=== PATIENT | female | born 1970 | race Caucasian/White ===

== ENCOUNTER 2017-10-31 19:09 | Inpatient (IN) | payer BC ==
[2017-10-31] MEDS ORDERED: SODIUM CHLORIDE 0.9% 1,000 ML IV STA (19:21)
[2017-10-31] MEDS ORDERED: MORPHINE SULFATE 4 MG/ML SYRINGE IV STA (19:21)
[2017-10-31] MEDS ORDERED: ONDANSETRON 4 MG/2 ML VIAL IVP STA (19:48)
[2017-10-31] MEDS ORDERED: KETOROLAC 30 MG/ML 1 ML VIAL IVP STA (19:56)
[2017-10-31] MEDS ORDERED: ACETAMINOPHEN IV (For NPO) 1,000 MG in EMPTY BAG 1 BAG IVPB STA (19:56)
--- NOTE | 2017-10-31 19:56 | ED ---
General Adult HPI - General Source: patient, RN notes reviewed, old records reviewed Mode of arrival: EMS Limitations: no limitations <Roshan Seaman - Last Filed: 10/31/17 19:55> <Matt Cordero - Last Filed: 10/31/17 22:47> - General Chief complaint: Psychiatric Symptoms Stated complaint: fall,back pain,vomiting Time Seen by Provider: 10/31/17 19:16 - History of Present Illness Initial comments: This is a 47-year-old female to the ER for evaluation. States she is presenting for evaluation regards to right-sided pain right flank pain. Patient states her mental issues have been increased because of her possible sclerosis, she does feel suicidal without plan at this time. Regardless patient does have right-sided flank pain and right-sided abdominal pain occasional epigastric pain. Tylenol without help patient's pain. Mild nausea no vomiting no recent change in bowel movements. No shortness of breath or cough. Patient states her legs have been increasingly weaker but that is initiated does come and go that she has. No other significant neurological deficit (Roshan Seaman) - Related Data Home Medications Medication Instructions Recorded Confirmed Lisinopril-Hctz 10-12.5 mg 1 tab PO DAILY 06/02/16 10/31/17 [Zestoretic 10-12.5] Omeprazole [PriLOSEC] 20 mg PO DAILY 10/31/17 10/31/17 Allergies Allergy/AdvReac Type Severity Reaction Status Date / Time No Known Allergies Allergy Verified 10/31/17 19:34 Review of Systems ROS Other: All systems not noted in ROS Statement are negative. <Roshan Seaman - Last Filed: 10/31/17 19:55> ROS Other: All systems not noted in ROS Statement are negative. <Matt Cordero - Last Filed: 10/31/17 22:47> ROS Statement: Those systems with pertinent positive or pertinent negative responses have been documented in the HPI. Past Medical History Past Medical History: Hypertension, Neurologic Disorder Additional Past Medical History / Comment(s): MS History of Any Multi-Drug Resistant Organisms: None Reported Additional Past Surgical History / Comment(s): Ovarian Mass removed Past Psychological History: Depression Smoking Status: Former smoker Past Alcohol Use History: None Reported Past Drug Use History: None Reported - Past Family History Mother History Unknown: Yes Family Medical History: Hypertension Additional Family Medical History / Comment(s): ARTHRITIS, KNEE REPLACEMENT SURGERY Father History Unknown: Yes Family Medical History: Cancer Additional Family Medical History / Comment(s): PACEMAKER, ARTHRITIS, COLON CANCER <Roshan Seaman - Last Filed: 10/31/17 19:55> General Exam Limitations: no limitations General appearance: alert, anxious Head exam: Present: atraumatic, normocephalic, normal inspection Eye exam: Present: normal appearance, PERRL, EOMI. Absent: scleral icterus, conjunctival injection, periorbital swelling ENT exam: Present: normal exam, mucous membranes moist Neck exam: Present: normal inspection. Absent: tenderness, meningismus, lymphadenopathy Respiratory exam: Present: normal lung sounds bilaterally. Absent: respiratory distress, wheezes, rales, rhonchi, stridor Cardiovascular Exam: Present: regular rate, normal rhythm, normal heart sounds. Absent: systolic murmur, diastolic murmur, rubs, gallop, clicks GI/Abdominal exam: Present: soft, tenderness (Right upper quadrant), normal bowel sounds. Absent: distended, guarding, rebound, rigid Extremities exam: Present: normal inspection, full ROM, normal capillary refill. Absent: tenderness, pedal edema, joint swelling, calf tenderness Back exam: Present: normal inspection Neurological exam: Present: alert, oriented X3, CN II-XII intact Psychiatric exam: Present: normal affect, normal mood Skin exam: Present: warm, dry, intact, normal color. Absent: rash <Roshan Seaman - Last Filed: 10/31/17 19:55> Vital Signs 10/31/17 10/31/17 19:14 21:58 Temperature 100.8 F H 98.4 F Pulse Rate 83 79 Respiratory 18 18 Rate Blood Pressure 135/85 128/72 O2 Sat by Pulse 97 98 Oximetry Medical Decision Making <Roshan Seaman - Last Filed: 10/31/17 19:55> - Lab Data Result diagrams: 10/31/17 19:40 10/31/17 19:40 <Matt Cordero - Last Filed: 10/31/17 22:47> - Medical Decision Making I received this patient as a sign out, pending the results of the ultrasound. The patient's ultrasound is concerning for possibility of acute cholecystitis. Patient's case is discussed with surgeon on-call Dr. Pina, and the patient will be admitted, IV antibiotics, nothing by mouth and possible surgery. Given patient's other conditions including depression and need for psychiatric consult, patient is admitted under medical physician. (Matt Cordero) - Lab Data Lab Results 10/31/17 10/31/17 10/31/17 Range/Units 19:40 19:40 19:40 WBC 16.6 H (3.8-10.6) k/uL RBC 4.83 (3.80-5.40) m/uL Hgb 13.2 (11.4-16.0) gm/dL Hct 39.5 (34.0-46.0) % MCV 81.8 (80.0-100.0) fL MCH 27.4 (25.0-35.0) pg MCHC 33.5 (31.0-37.0) g/dL RDW 13.1 (11.5-15.5) % Plt Count 306 (150-450) k/uL Neutrophils % 90 % Lymphocytes % 7 % Monocytes % 3 % Eosinophils % 0 % Basophils % 0 % Neutrophils # 14.9 H (1.3-7.7) k/uL Lymphocytes # 1.1 (1.0-4.8) k/uL Monocytes # 0.5 (0-1.0) k/uL Eosinophils # 0.0 (0-0.7) k/uL Basophils # 0.0 (0-0.2) k/uL Sodium 136 L (137-145) mmol/L Potassium 4.2 (3.5-5.1) mmol/L Chloride 101 (98-107) mmol/L Carbon Dioxide 25 (22-30) mmol/L Anion Gap 10 mmol/L BUN 5 L (7-17) mg/dL Creatinine 0.48 L (0.52-1.04) mg/dL Est GFR (MDRD) Af Amer >60 (>60 ml/min/1.73 sqM) Est GFR (MDRD) Non-Af >60 (>60 ml/min/1.73 sqM) Glucose 107 H (74-99) mg/dL Calcium 9.2 (8.4-10.2) mg/dL Total Bilirubin 0.7 (0.2-1.3) mg/dL AST 16 (14-36) U/L ALT 11 (9-52) U/L Alkaline Phosphatase 81 (38-126) U/L Total Creatine Kinase 38 (30-135) U/L CK-MB (CK-2) 0.4 (0.0-2.4) ng/mL CK-MB (CK-2) Rel Index 1.1 Troponin I <0.012 (0.000-0.034) ng/mL Total Protein 7.0 (6.3-8.2) g/dL Albumin 4.1 (3.5-5.0) g/dL Amylase 41 (30-110) U/L Lipase 49 (23-300) U/L Urine Color Urine Appearance (Clear) Urine pH (5.0-8.0) Ur Specific Frederick (1.001-1.035) Urine Protein (Negative) Urine Glucose (UA) (Negative) Urine Ketones (Negative) Urine Blood (Negative) Urine Nitrite (Negative) Urine Bilirubin (Negative) Urine Urobilinogen (<2.0) mg/dL Ur Leukocyte Esterase (Negative) Urine RBC (0-5) /hpf Urine WBC (0-5) /hpf Ur Squamous Epith Cells (0-4) /hpf Urine Bacteria (None) /hpf Urine Mucus (None) /hpf 10/31/17 Range/Units 20:30 WBC (3.8-10.6) k/uL RBC (3.80-5.40) m/uL Hgb (11.4-16.0) gm/dL Hct (34.0-46.0) % MCV (80.0-100.0) fL MCH (25.0-35.0) pg MCHC (31.0-37.0) g/dL RDW (11.5-15.5) % Plt Count (150-450) k/uL Neutrophils % % Lymphocytes % % Monocytes % % Eosinophils % % Basophils % % Neutrophils # (1.3-7.7) k/uL Lymphocytes # (1.0-4.8) k/uL Monocytes # (0-1.0) k/uL Eosinophils # (0-0.7) k/uL Basophils # (0-0.2) k/uL Sodium (137-145) mmol/L Potassium (3.5-5.1) mmol/L Chloride (98-107) mmol/L Carbon Dioxide (22-30) mmol/L Anion Gap mmol/L BUN (7-17) mg/dL Creatinine (0.52-1.04) mg/dL Est GFR (MDRD) Af Amer (>60 ml/min/1.73 sqM) Est GFR (MDRD) Non-Af (>60 ml/min/1.73 sqM) Glucose (74-99) mg/dL Calcium (8.4-10.2) mg/dL Total Bilirubin (0.2-1.3) mg/dL AST (14-36) U/L ALT (9-52) U/L Alkaline Phosphatase (38-126) U/L Total Creatine Kinase (30-135) U/L CK-MB (CK-2) (0.0-2.4) ng/mL CK-MB (CK-2) Rel Index Troponin I (0.000-0.034) ng/mL Total Protein (6.3-8.2) g/dL Albumin (3.5-5.0) g/dL Amylase (30-110) U/L Lipase (23-300) U/L Urine Color Light Yellow Urine Appearance Cloudy H (Clear) Urine pH 6.5 (5.0-8.0) Ur Specific [place] 1.008 (1.001-1.035) Urine Protein Negative (Negative) Urine Glucose (UA) Negative (Negative) Urine Ketones Trace H (Negative) Urine Blood Negative (Negative) Urine Nitrite Negative (Negative) Urine Bilirubin Negative (Negative) Urine Urobilinogen <2.0 (<2.0) mg/dL Ur Leukocyte Esterase Trace H (Negative) Urine RBC 3 (0-5) /hpf Urine WBC 2 (0-5) /hpf Ur Squamous Epith Cells 15 H (0-4) /hpf Urine Bacteria Rare H (None) /hpf Urine Mucus Occasional H (None) /hpf Disposition <Roshan Seaman - Last Filed: 10/31/17 19:55> <Matt Cordero - Last Filed: 10/31/17 22:47> Clinical Impression: Abdominal pain, Cholecystitis, Mood disorder Disposition: ADMITTED IP TO THIS [facility] Condition: Fair Referrals: Roshan Rincon MD [Primary Care Provider] - 1-2 days
[2017-10-31 20:21] LABS: ALT 11 U/L (9-52); AST 16 U/L (14-36); Albumin 4.1 g/dL (3.5-5.0); Alkaline Phosphatase 81 U/L (38-126); Amylase 41 U/L (30-110); Anion Gap 10 mmol/L; Blood Urea Nitrogen 5 mg/dL (7-17); Calcium 9.2 mg/dL (8.4-10.2); Carbon Dioxide 25 mmol/L (22-30); Chloride 101 mmol/L (98-107); Glucose 107 mg/dL (74-99); Lipase 49 U/L (23-300); Potassium 4.2 mmol/L (3.5-5.1); Sodium 136 mmol/L (137-145); Total Bilirubin 0.7 mg/dL (0.2-1.3)
--- NOTE | 2017-10-31 20:21 | XR ---
EXAMINATION TYPE: XR ribs RT w pa chest xray DATE OF EXAM: 10/31/2017 COMPARISON: NONE HISTORY: Pain TECHNIQUE: Frontal chest. 2 view right ribs. FINDINGS: No displaced rib fractures are evident. No pneumothorax is evident. No suspicious infiltrat es are evident. IMPRESSION: 1. Normal right ribs
[2017-10-31 20:28] LABS: Creatine Kinase 38 U/L (30-135)
[2017-10-31 20:31] LABS: Basophils % (A) 0 %; Eosinophils % (A) 0 %; HCT 39.5 % (34.0-46.0); HGB 13.2 gm/dL (11.4-16.0); Lymphocytes # (A) 1.1 k/uL (1.0-4.8); Lymphocytes % (A) 7 %; MCH 27.4 pg (25.0-35.0); MCHC 33.5 g/dL (31.0-37.0); MCV 81.8 fL (80.0-100.0); Mean Platelet Volume 6.7; Monocytes # (A) 0.5 k/uL (0-1.0); Monocytes % (A) 3 %; Neutrophils # (A) 14.9 k/uL (1.3-7.7); Neutrophils % (A) 90 %; Platelet Count 306 k/uL (150-450); RBC 4.83 m/uL (3.80-5.40); RDW 13.1 % (11.5-15.5); WBC 16.6 k/uL (3.8-10.6)
[2017-10-31 20:40] LABS: Creatine Kinase MB 0.4 ng/mL (0.0-2.4); Troponin I <0.012 ng/mL (0.000-0.034)
[2017-10-31 20:54] LABS: Appearance,Urine Cloudy (Clear); Bacteria,Urine Rare /hpf; Bilirubin,Urine Negative (Negative); Blood,Urine Negative (Negative); Color,Urine Light Yellow; Glucose,Urine (UA) Negative (Negative); Ketones,Urine Trace (Negative); Leukocyte Esterase,Urine Trace (Negative); Mucus,Urine Occasional /hpf; Nitrite,Urine Negative (Negative); PH, Urine 6.5 (5.0-8.0); Protein,Urine Negative (Negative); RBC,Urine 3 /hpf (0-5); Specific Gravity,Urine 1.008 (1.001-1.035); Squamous Epithelial Cell,Urine 15 /hpf (0-4); Urobilinogen,Urine <2.0 mg/dL (<2.0); WBC,Urine 2 /hpf (0-5)
--- NOTE | 2017-10-31 21:40 | US ---
EXAMINATION TYPE: US gallbladder DATE OF EXAM: 10/31/2017 COMPARISON: NONE CLINICAL HISTORY: Pain. RUQ pain and vomiting. EXAM MEASUREMENTS: Liver Length: 18.5 cm Gallbladder Wall: 0.6 cm CBD: 1.3 cm Right Kidney: 10.8 x 3.9 x 4.6 cm Pancreas: Tail obscured by overlying bowel gas Liver: Enlarged measuring 18.5 cm. Normal less than 15.5 cm. Gallbladder: Hydropic 16cm with multiple stones seen. Thickened wall and dilated CBD. Gallbladder wa ll is 0.55 cm. Evidence for sonographic Amaya's sign: Yes CBD: Dilated Right Kidney: No hydronephrosis or masses seen Hydropic gallbladder 16cm with multiple stones seen. Thickened wall and dilated CBD. IMPRESSION: 1. Gallstones with thickened gallbladder wall. Correlate for acute cholecystitis. 2. Hepatomegaly
[2017-10-31] MEDS ORDERED: AMPICILLIN-SULBACTAM 3 GM in SODIUM CHLORIDE 0.9% 100 ML IVPB STA (22:39)
[2017-10-31] MEDS ORDERED: MORPHINE SULFATE 4 MG/ML SYRINGE IV PRN (22:40)
[2017-10-31] MEDS ORDERED: NALOXONE 0.4 MG/ML 1 ML VIAL IV PRN (22:40)
[2017-10-31] MEDS: SODIUM CHLORIDE 0.9% 1,000 ML IV SCH (23:19)
[2017-11-01] MEDS ORDERED: ALPRAZolam 0.25 MG TAB PO PRN (00:33)
--- NOTE | 2017-11-01 01:17 | HP ---
HISTORY AND PHYSICAL DATE OF SERVICE: 11/01/2017 CHIEF COMPLAINTS: Suicidal ideation, fall, back pain, vomiting. HISTORY OF PRESENT ILLNESS: This 47-year-old woman with a past medical history of multiple medical problems including history of hypertension, history of multiple sclerosis, history of depression, history of ovarian mass, being followed by Dr. Rincon in the outpatient setting, the patient is complaining of back pain. The patient also subsequently had right-sided flank pain and also had abdominal pain. The patient also was apparently suicidal without a plan. The patient also had a fall. The patient has significant history of multiple sclerosis and the patient complaining. Patient came to [facility] and admitted to the hospital for further evaluation and treatment. Evaluation in the ER revealed a gallbladder ultrasound was done which showed gallstones with thickened gallbladder with possible acute on chronic cholecystitis and hepatomegaly. The labs showed elevated WBC 16.6. LFTs are within normal limits. Patient admitted for further evaluation and treatment. There is no history of fever, rigors, chills, headache, loss of consciousness or seizures. PAST MEDICAL HISTORY: History of hypertension, history MS, history of depression. MEDICATIONS: Prior to admission include the home medications are: 1. Lisinopril and Zestoretic 1 p.o. daily. 2. Prilosec 20 mg daily. ALLERGIES: None. FAMILY HISTORY: Family history of DJD, history of hypertension. SOCIAL HISTORY: Previous history of smoking. No history of current smoking or alcohol intake. REVIEW OF SYSTEMS: ENT: No diminished hearing or vision. CARDIOVASCULAR: No angina or palpitations. Respiratory: No cough or hemoptysis. GI: As mentioned earlier. : As mentioned earlier. Central nervous system: No numbness or weakness. Allergy/Immunology: No asthma or hayfever. Musculoskeletal: As mentioned earlier. Hematology/Oncology: No history of anemia. Endocrine: Mentioned earlier. CONSTITUTIONAL: As mentioned earlier. Dermatology: Negative. Rheumatology: Negative. Psychiatry: As mentioned earlier. PHYSICAL EXAM: Patient is alert, oriented x3. Pulse is 79, blood pressure 128/72, respirations 18, temperature 98.4, T-max 100.8, pulse ox 98% on room air. HEENT is conjunctivae normal. Oral mucosa moist. Neck is no jugular venous distention. No carotid bruit. No lymph node enlargement. Cardiovascular S1-S2. No S3, no S4. Respiratory: Breath sounds diminished in the bases. A few scattered rhonchi. No crackles. ABDOMEN: Soft. Mild diffuse discomfort on the right upper quadrant. Hepatomegaly present. No ascites. No guarding. No rigidity. No mass palpable. Legs: No edema and no swelling. NERVOUS SYSTEM: Higher functions as mentioned earlier, moves all 4 limbs, no focal motor or sensory deficits. Lymphatics: No lymph nodes palpable in the neck, axillae or groin. SKIN: No ulcers, rashes or bleeding. LABS: WBC 16.6. The sodium is 136. Other labs are noted. ASSESSMENT: 1. Right upper quadrant abdominal pain possible acute on chronic cholecystitis. 2. History of fall. 3. Suicidal ideations and depression. 4. Multiple sclerosis. 5. Hypertension. 6. History of ovarian mass removal. RECOMMENDATIONS AND DISCUSSION: This 47-year-old woman who presented with multiple complex medical issues, we will monitor the patient closely, continue the current medications, continue symptomatic treatment. was noted. Hip x-ray showed no fractures. I would also recommend a CT scan of the abdomen pelvis. Surgical evaluation. Psychiatric evaluation. Otherwise DVT prophylaxis. Symptomatic treatment. See orders for details. Resume the home medications. IV Unasyn as initiated. The patient is kept n.p.o. except meds and we will repeat the labs including liver function tests. The UA is unremarkable. Cultures will be obtained. Further recommendations to follow. A copy of dictation forwarded to Dr. Rincon who is the primary physician. MMVANDANAL / SLOANN: [id number] / MTDD
[2017-11-01] MEDS: IOHEXOL 350 MG/ML 25 ML BOTTLE (ORAL USE) PO PRN ×2 (05:47→06:46)
[2017-11-01 07:48] LABS: ALT 17 U/L (9-52); AST 13 U/L (14-36); Albumin 3.7 g/dL (3.5-5.0); Alkaline Phosphatase 67 U/L (38-126); Anion Gap 11 mmol/L; Blood Urea Nitrogen 5 mg/dL (7-17); Calcium 8.7 mg/dL (8.4-10.2); Carbon Dioxide 24 mmol/L (22-30); Chloride 102 mmol/L (98-107); Glucose 107 mg/dL (74-99); Potassium 3.7 mmol/L (3.5-5.1); Sodium 137 mmol/L (137-145); Total Bilirubin 1.2 mg/dL (0.2-1.3); Total Protein 6.4 g/dL (6.3-8.2)
--- NOTE | 2017-11-01 08:17 | CT ---
EXAMINATION TYPE: CT abdomen pelvis wo con DATE OF EXAM: 11/01/2017 COMPARISON: CT 06/03/2016 HISTORY: Cholecystitis CT DLP: 1192 mGycm Automated exposure control for dose reduction was used. TECHNIQUE: Helical acquisition of images from the lung bases through the pelvis. FINDINGS: There may be a small hiatal hernia. Lack of contrast could compromise sensitivity. LUNG BASES: No significant abnormality is appreciated. AORTA: No significant abnormality is appreciated. LIVER/GB: The gallbladder shows distention, there is pericholecystic fluid present, gallbladder wall thickening. Gallbladder is somewhat hydropic. There is a stone present within the neck of the gallbla dder region. Multiple stones are also present in the dependent portion of the gallbladder towards the fundus. There is a calculus at the level of the distal common bile duct. PANCREAS: No significant abnormality is seen. SPLEEN: No significant abnormality is seen. ADRENALS: No significant abnormality is seen. KIDNEYS: Findings suggest medullary sponge kidney. Small nonobstructive calculi are present towards t he lower pole of the right kidney, punctate calcifications measure only 1 to 2 mm, there are at least 2. No ureteral calculus evident. REPRODUCTIVE ORGANS: No significant abnormality is seen. Minimal free fluid present in the cul-de-sa c. URINARY BLADDER: No significant abnormality is seen. BOWEL: Suspect the cecum is flipped towards the midline chest caudal to the stomach and is somewhat ectatic appearing. There is no evident bowel obstruction. FREE AIR: No Free Air is visible. ASCITES: None visible. PELVIC ADENOPATHY: None visualized. RETROPERITONEAL ADENOPATHY: No Retroperitoneal Adenopathy visible. OSSEOUS STRUCTURES: No significant abnormality is seen. IMPRESSION: FINDINGS ARE COMPATIBLE WITH CHOLECYSTITIS, CHOLELITHIASIS, CHOLEDOCHOLITHIASIS. NONOBSTRUCTIVE RIGHT NEPHROLITHIASIS. NONOBSTRUCTIVE NEPHROLITHIASIS, MEDULLARY SPONGE KIDNEY. ADDITIONAL FINDINGS ABOVE.
[2017-11-01] MEDS: SODIUM CHLORIDE 0.9% 1,000 ML IV SCH ×3 (08:30→23:35)
--- NOTE | 2017-11-01 09:04 | P.GSCN ---
History of Present Illness Consult date: 11/01/17 Reason for Consult: Abdominal pain History of present illness: 47-year-old female presented to the emergency room via the EMS system for evaluation of right-sided flank pain. Patient stated her symptoms started several days prior. Patient stated she had a nausea sensation did not vomit. There was no change in bowel habits. No shortness of breath no chest pain no dizziness or lightheadedness. Patient states she does have a history of multiple sclerosis and her legs have been feeling increasingly weaker. Patient reportedly fell suicidal in the emergency room without a plan. Currently has a sitter at the bedside. Patient states that at times she feels overwhelmed after being diagnosed with MS in 2010.. Emergency room the patient did have a ultrasound of the gallbladder which showed gallstones with thickening of the gallbladder wall. Dilated common bile duct. CAT scan of the abdomen pelvis this morning the reports indicate the findings were compatible with cholecystitis, cholelithiasis ,choledocholithiasis. Patient continues to report having right upper quadrant pain abdominal pain. The white count on admission 16.6. Total bili 1.2 this morning amylase 41 lipase 49. Past medical history hypertension, multiple sclerosis Past surgical history an ovarian mass removed nonmalignant per patient report Review of Systems Essentially unremarkable except as mentioned in the present illness Past Medical History Past Medical History: Hypertension, Neurologic Disorder Additional Past Medical History / Comment(s): MS History of Any Multi-Drug Resistant Organisms: None Reported Additional Past Surgical History / Comment(s): Ovarian Mass removed Past Anesthesia/Blood Transfusion Reactions: No Reported Reaction Past Psychological History: Depression Smoking Status: Former smoker Past Alcohol Use History: None Reported Past Drug Use History: None Reported - Past Family History Mother History Unknown: Yes Family Medical History: Hypertension Additional Family Medical History / Comment(s): ARTHRITIS, KNEE REPLACEMENT SURGERY Father History Unknown: Yes Family Medical History: Cancer Additional Family Medical History / Comment(s): PACEMAKER, ARTHRITIS, COLON CANCER Medications and Allergies Home Medications Medication Instructions Recorded Confirmed Type Lisinopril-Hctz 10-12.5 mg 1 tab PO DAILY 06/02/16 10/31/17 History [Zestoretic 10-12.5] Omeprazole [PriLOSEC] 20 mg PO DAILY 10/31/17 10/31/17 History Allergies Allergy/AdvReac Type Severity Reaction Status Date / Time No Known Allergies Allergy Verified 10/31/17 19:34 Surgical - Exam Vital Signs Temp Pulse Resp BP Pulse Ox 100.8 F H 83 18 135/85 97 10/31/17 19:14 10/31/17 19:14 10/31/17 19:14 10/31/17 19:14 10/31/17 19:14 GENERAL APPEARANCE: 47-year-old female patient is teary-eyed alert, oriented x3 , in no acute distress. VITAL SIGNS: Reviewed HEENT: Head is normocephalic and atraumatic. Pupils are equal and reactive. The nares are patent. Oropharynx is clear without lesions. NECK: Supple without lymphadenopathy. Traches midline. HEART: S1, S2. Regular rate and rhythm. No murmur noted LUNGS: No crackles or wheezes are heard. Adequate air movement bilaterally ABDOMEN: Soft, tenderness right upper quadrant nondistended with good bowel sounds. No peritoneal signs. No palpable organomegaly or masses. EXTREMITIES: Normal skin color and turgor. No cyanosis, rash, ulceration, clubbing or edema. Radial pedal pulses are 2/4 bilaterally. Results - Labs 10/31/17 19:40 11/01/17 06:15 Abnormal Lab Results - Last 24 Hours (Table) 10/31/17 10/31/17 10/31/17 Range/Units 19:40 19:40 20:30 WBC 16.6 H (3.8-10.6) k/uL Neutrophils # 14.9 H (1.3-7.7) k/uL Sodium 136 L (137-145) mmol/L BUN 5 L (7-17) mg/dL Creatinine 0.48 L (0.52-1.04) mg/dL Glucose 107 H (74-99) mg/dL AST (14-36) U/L Urine Appearance Cloudy H (Clear) Urine Ketones Trace H (Negative) Ur Leukocyte Esterase Trace H (Negative) Ur Squamous Epith Cells 15 H (0-4) /hpf Urine Bacteria Rare H (None) /hpf Urine Mucus Occasional H (None) /hpf 11/01/17 Range/Units 06:15 WBC (3.8-10.6) k/uL Neutrophils # (1.3-7.7) k/uL Sodium (137-145) mmol/L BUN 5 L (7-17) mg/dL Creatinine 0.47 L (0.52-1.04) mg/dL Glucose 107 H (74-99) mg/dL AST 13 L (14-36) U/L Urine Appearance (Clear) Urine Ketones (Negative) Ur Leukocyte Esterase (Negative) Ur Squamous Epith Cells (0-4) /hpf Urine Bacteria (None) /hpf Urine Mucus (None) /hpf Microbiology - Last 24 Hours (Table) 10/31/17 20:30 Urine Culture - Preliminary Urine,Voided Diabetes panel 10/31/17 11/01/17 Range/Units 19:40 06:15 Sodium 136 L 137 (137-145) mmol/L Potassium 4.2 3.7 (3.5-5.1) mmol/L Chloride 101 102 (98-107) mmol/L Carbon Dioxide 25 24 (22-30) mmol/L BUN 5 L 5 L (7-17) mg/dL Creatinine 0.48 L 0.47 L (0.52-1.04) mg/dL Glucose 107 H 107 H (74-99) mg/dL Calcium 9.2 8.7 (8.4-10.2) mg/dL AST 16 13 L (14-36) U/L ALT 11 17 (9-52) U/L Alkaline Phosphatase 81 67 (38-126) U/L Total Protein 7.0 6.4 (6.3-8.2) g/dL Albumin 4.1 3.7 (3.5-5.0) g/dL Calcium panel 10/31/17 11/01/17 Range/Units 19:40 06:15 Calcium 9.2 8.7 (8.4-10.2) mg/dL Albumin 4.1 3.7 (3.5-5.0) g/dL Pituitary panel 10/31/17 11/01/17 Range/Units 19:40 06:15 Sodium 136 L 137 (137-145) mmol/L Potassium 4.2 3.7 (3.5-5.1) mmol/L Chloride 101 102 (98-107) mmol/L Carbon Dioxide 25 24 (22-30) mmol/L BUN 5 L 5 L (7-17) mg/dL Creatinine 0.48 L 0.47 L (0.52-1.04) mg/dL Glucose 107 H 107 H (74-99) mg/dL Calcium 9.2 8.7 (8.4-10.2) mg/dL Adrenal panel 10/31/17 11/01/17 Range/Units 19:40 06:15 Sodium 136 L 137 (137-145) mmol/L Potassium 4.2 3.7 (3.5-5.1) mmol/L Chloride 101 102 (98-107) mmol/L Carbon Dioxide 25 24 (22-30) mmol/L BUN 5 L 5 L (7-17) mg/dL Creatinine 0.48 L 0.47 L (0.52-1.04) mg/dL Glucose 107 H 107 H (74-99) mg/dL Calcium 9.2 8.7 (8.4-10.2) mg/dL Total Bilirubin 0.7 1.2 (0.2-1.3) mg/dL AST 16 13 L (14-36) U/L ALT 11 17 (9-52) U/L Alkaline Phosphatase 81 67 (38-126) U/L Total Protein 7.0 6.4 (6.3-8.2) g/dL Albumin 4.1 3.7 (3.5-5.0) g/dL Assessment and Plan Assessment: Impression Depressive disorder nonspecified Present on admission right upper quadrant pain with an ultrasound of the gallbladder showing gallstones with thickening of the gallbladder suspect due to acute cholecystitis Elevated WBC with normal liver function test History multiple sclerosis Debility use of a walker's motorized scooter due to MS Computed tomography scan abdomen pelvis findings are compatible with cholecystitis cholelithiasis Plan Keep nothing by mouth schedule patient for a lap cholecystectomy today Pain control IV fluid for hydration DVT and GI prophylaxis Further surgical recommendations pending will follow Surgical consultation note dictated for Dr. liu The above impression and plan of care have been discussed and directed by signing physician. Betty Young nurse practitioner acting as scribe for signing physician.
[2017-11-01] MEDS: PANTOPRAZOLE 40 MG TABLET PO SCH (10:03)
[2017-11-01] MEDS: FAMOTIDINE 20 MG TAB PO SCH ×2 (10:08→23:37)
[2017-11-01] MEDS: HEPARIN SODIUM,PORCINE 5,000 UNIT/ML 1 ML VIAL SQ SCH ×2 (10:09→23:36)
[2017-11-01] MEDS: AMPICILLIN-SULBACTAM 3 GM in SODIUM CHLORIDE 0.9% 100 ML IVPB SCH ×3 (10:11→23:34)
[2017-11-01] MEDS: LISINOPRIL-HCTZ 10-12.5 MG 1 EACH TAB PO SCH (10:12)
[2017-11-01 10:22] VITALS: BMI 34.3
--- NOTE | 2017-11-01 11:54 | P.CN ---
Psychiatric Consult - . Consult date: 11/01/17 Consult:: 11/01/17 11:45 Patient was seen for a psychiatric consult regarding suicide thoughts/intent. She was admitted to the hospital with severe abdominal pain caused by cholelythiasis and probably cholecystitis. Apparently she made a comment that it is hard to bear the pain and she would rather be . But she realizes she cannot kill herself since she has children and who will be left behind without her and they will have to go through a lot of pain and suffering. She also has multiple sclerosis which has been acting up quite often. Whatever treatment she has been getting from her doctor apparently has not been helping her and she is planning on going to the [facility]. She does report of mood changes including feeling sad and depressed down in the dumps and also feeling happy hypertalkative etc. which are most likely the symptoms of multiple sclerosis than independent bipolar disorder. She agreed to be a "guinea pig" and try some mood stabilizers. This is a white female who was seen in her bed. She is polite and cooperative. She gets a little restless at times. Her speech is spontaneous relevant and goal-directed. Her mood is generally euthymic and affect is rather labile. She gets almost tearful easily. She denies hallucinations and delusional thinking. Even though she gets passing suicidal thoughts she insists that she will not do anything to hurt herself. She denies homicidal ideas. She is well oriented with adequate memory concentration general fund of knowledge etc. Suggestion: She does not appear to be at any risk for suicide. She has good plans about taking care of her physical condition including [facility] and asked if she could get her cholecystectomy done as soon as possible. In view of all these she does not appear to be in need of suicide supervision. She agreed to try Seroquel 50 mg at bedtime for mood stabilization , which can be increased to 100 mg tomorrow if she does not have any adverse effects to night and would like to get it increased.
[2017-11-01] MEDS ORDERED: LACTATED RINGERS 1,000 ML IV ONE ×3 (12:22→14:18)
[2017-11-01] MEDS ORDERED: HEPARIN SODIUM,PORCINE 5,000 UNIT/ML 1 ML VIAL SQ ONE (12:23)
[2017-11-01] MEDS ORDERED: ONDANSETRON 4 MG/2 ML VIAL IVP ONE (12:23)
[2017-11-01] MEDS ORDERED: NEOSTIGMINE 1 MG/ML 10 ML VIAL ONE (12:42)
[2017-11-01] MEDS ORDERED: ROCURONIUM BROMIDE 10 MG/ML 10 ML VIAL IV ONE (12:42)
[2017-11-01] MEDS ORDERED: SUCCINYLCHOLINE CHLORIDE 100 MG/5 ML SYR IV ONE (12:42)
[2017-11-01] MEDS ORDERED: ePHEDrine SULFATE/0.9% NACL/PF 50 MG/5 ML SYRINGE IV ONE (12:42)
[2017-11-01] MEDS ORDERED: MIDAZOLAM 2 MG/2 ML VIAL ONE (12:42)
[2017-11-01] MEDS ORDERED: PROPOFOL 10 MG/ML 20 ML VIAL IV ONE (12:42)
[2017-11-01] MEDS ORDERED: GLYCOPYRROLATE 0.2 MG/ML 2 ML VIAL ONE (12:42)
[2017-11-01] MEDS ORDERED: LIDOCAINE 1% INJ 10MG/ML (20 ML MDV) ONE (12:42)
[2017-11-01] MEDS ORDERED: fentaNYL (PF) 50 MCG/ML 2 ML AMP ONE (12:42)
[2017-11-01] MEDS ORDERED: PHENYLEPHRINE-0.9% NACL SYG 1 MG/10 ML SYRINGE ONE (12:42)
[2017-11-01] MEDS ORDERED: HYDROmorphone (PF) 1 MG/ML ONE (12:42)
[2017-11-01] MEDS ORDERED: BUPIVACAINE (PF) 0.25% 30 ML VIAL SQ ONE ×2 (13:03)
[2017-11-01] MEDS ORDERED: SODIUM CHLORIDE 0.9% 1,000 ML IV ONE (13:59)
[2017-11-01] MEDS ORDERED: METOCLOPRAMIDE 5 MG/ML 2 ML VIAL IVP PRN (14:18)
[2017-11-01] MEDS ORDERED: BISACODYL 10 MG SUPP RECTAL PRN (14:18)
[2017-11-01] MEDS ORDERED: NALOXONE 0.4 MG/ML 1 ML VIAL IV PRN (14:18)
--- NOTE | 2017-11-01 14:18 | P.OP ---
Date of Procedure: 11/01/17 Preoperative Diagnosis: Acute cholecystitis Postoperative Diagnosis: Acute cholecystitis with patchy necrosis of gallbladder Procedure(s) Performed: Laparoscopic cholecystectomy with conversion to open procedure Anesthesia: FRANCIS Surgeon: Dany Pina Estimated Blood Loss (ml): 1,000 Pathology: other (Gallbladder, gallstones) Condition: stable Disposition: PACU Description of Procedure: The patient's placed on the operative table in supine position. She received general anesthesia. Her abdomen was prepped and draped usual fashion. The skin sites were anesthetized 1% local Xylocaine. A improving local skin incision was made and then using 11 blade the skin was incised. Next a Dc clamp was used to grasp the umbilicus and then a Veress needles placed into the. Cavity position of the Veress needle confirmed with positive drop test. The abdomen was inflated. After adequate insufflation a 5 mm trochars placed into the peritoneal cavity. Next the laparoscope was placed. Cavity. A 8 mm trochars placed in the epigastric position and then 25 mm trochars placed in the right lateral and right mid abdomen position. The gallbladder is visualized. The gallbladder appeared to be grossly inflamed there is patchy necrosis of the gallbladder. All bladder was very tense and could not be grasped. Using the Harmonic scissors a small opening was made at the fundus of the gallbladder and then the gallbladder was aspirated. The gallbladder Had hydrops of gallbladder. There are multiple stones in gallbladder. The gallbladder was grasped on the fundus and retracted cephalad. At this point the gallbladder is grasped and infundibulum was retracted inferiorly and laterally. The cystic duct was then bluntly dissected with a pusher and then with a [place] dissector. A 2-0 Ethibond sutures placed around the cystic duct. The cystic duct couldn't be seen entering the gallbladder and the common bile duct. The cystic duct was then ligated with the 2-0 Ethibond suture in the timeout device. The cystic duct was then divided with the Harmonic scissors and then the LigaSure was placed over the cystic duct stump. The gallbladder was then further retracted laterally. At this point there was bleeding from the cystic artery. Cystic artery and appeared to be bleeding from its junction off of the right hepatic artery. Multiple attempts were made to control the bleeding however this was impossible laparoscopically because a clip could not be placed on the cystic artery. The bleeding was right at the junction of the hepatic artery. At this point the procedure was converted to an open procedure a right subcostal incision was made and the abdomen was packed. At this point the cystic artery stump was visualized. A 3-0 Vicryl suture was used to stick tie to suture ligate the cystic artery. There is no bleeding seen after the cystic artery was ligated. The gallbladder is removed from liver bed using electrocautery. It was sent to pathology. The gallbladder was very inflamed and friable. The abdomen was irrigated. The patient lost approximately 800 mL 1000 mL of blood during the procedure. The abdomen was irrigated no bleeding seen. A DEVAN drain was placed in the gallbladder fossa and brought through separate stab incision. The abdominal wall was closed in 2 layers using 0 PDS suture. Skin was closed torres. Patient was sent to recovery in stable condition.
[2017-11-01 15:02] LABS: Basophils % (A) 0 %; Eosinophils % (A) 0 %; HCT 28.9 % (34.0-46.0); HGB 9.7 gm/dL (11.4-16.0); Lymphocytes # (A) 0.7 k/uL (1.0-4.8); Lymphocytes % (A) 5 %; MCHC 33.6 g/dL (31.0-37.0); MCV 83.3 fL (80.0-100.0); Mean Platelet Volume 6.5; Monocytes # (A) 0.5 k/uL (0-1.0); Monocytes % (A) 4 %; Neutrophils % (A) 91 %; Platelet Count 264 k/uL (150-450); RBC 3.47 m/uL (3.80-5.40); RDW 13.1 % (11.5-15.5); WBC 14.4 k/uL (3.8-10.6)
--- NOTE | 2017-11-01 17:23 | PN ---
PROGRESS NOTE DATE OF SERVICE: 11/01/2017 This 47-year-old woman who was admitted with right upper quadrant abdominal pain had features of cholecystitis. The patient underwent laparoscopic cholecystectomy with conversion to open procedure by Dr. Pina. The patient is being closely monitored. No chest pain. No palpitations. No fever. On exam, alert and oriented x3. Pulse 80, blood pressure 96/52, respiration 16, temperature 99.4, pulse ox 100% on 10 L. HEENT: Conjunctivae normal. Oral mucosa moist. NECK: No jugular venous distention. No carotid bruit. No lymph node enlargement. CARDIOVASCULAR SYSTEM: S1, S2 muffled. No S3. No S4. RESPIRATORY SYSTEM: Breath sounds diminished at the bases. No rhonchi. No crackles. ABDOMEN: Soft, status post surgery. LEGS: No edema. No swelling. NERVOUS SYSTEM: No focal deficit. LABS: WBC 14.5, hemoglobin 9.7. UA noted. HCG is negative. ASSESSMENT: 1. Acute cholecystitis, status post laparoscopic cholecystectomy with conversion to open procedure. 2. History of fall. 3. Suicidal ideation and depression. 4. Multiple sclerosis. 5. Hypertension. 6. History of ovarian mass removal. 7. Increased white count. RECOMMENDATIONS AND DISCUSSION: In this 47-year-old woman who presented with multiple complex medical issues, we will monitor the patient closely, continue the current medications, continue with symptomatic treatment. Otherwise, continue with the broad-spectrum IV antibiotics. Continue to follow closely, following with Surgery. DVT prophylaxis. Repeat labs. Further recommendations to follow. MMODL / IJN: [id number] /
[2017-11-01] MEDS: MORPHINE SULFATE 4 MG/ML SYRINGE IVP PRN (18:58)
[2017-11-02] MEDS: MORPHINE SULFATE 4 MG/ML SYRINGE IVP PRN ×2 (00:47→07:34)
[2017-11-02] MEDS: ONDANSETRON 4 MG/2 ML VIAL IVP PRN (04:54)
[2017-11-02] MEDS: SODIUM CHLORIDE 0.9% 1,000 ML IV SCH ×3 (07:23→23:15)
[2017-11-02] MEDS: AMPICILLIN-SULBACTAM 3 GM in SODIUM CHLORIDE 0.9% 100 ML IVPB SCH ×3 (07:24→23:16)
[2017-11-02 08:06] LABS: Basophils % (A) 0 %; Eosinophils % (A) 0 %; HCT 26.2 % (34.0-46.0); HGB 8.4 gm/dL (11.4-16.0); Lymphocytes # (A) 1.1 k/uL (1.0-4.8); Lymphocytes % (A) 10 %; MCH 26.9 pg (25.0-35.0); MCHC 32.2 g/dL (31.0-37.0); MCV 83.6 fL (80.0-100.0); Mean Platelet Volume 7.1; Monocytes # (A) 0.6 k/uL (0-1.0); Monocytes % (A) 5 %; Neutrophils # (A) 9.4 k/uL (1.3-7.7); Neutrophils % (A) 84 %; Platelet Count 257 k/uL (150-450); RBC 3.14 m/uL (3.80-5.40); RDW 13.5 % (11.5-15.5); WBC 11.1 k/uL (3.8-10.6)
[2017-11-02 08:17] LABS: ALT 177 U/L (9-52); AST 531 U/L (14-36); Albumin 2.4 g/dL (3.5-5.0); Alkaline Phosphatase 76 U/L (38-126); Anion Gap 5 mmol/L; Blood Urea Nitrogen 10 mg/dL (7-17); Calcium 8.1 mg/dL (8.4-10.2); Carbon Dioxide 28 mmol/L (22-30); Chloride 103 mmol/L (98-107); Glucose 128 mg/dL (74-99); Potassium 4.3 mmol/L (3.5-5.1); Sodium 136 mmol/L (137-145); Total Bilirubin 1.1 mg/dL (0.2-1.3); Total Protein 4.6 g/dL (6.3-8.2)
[2017-11-02] MEDS: FAMOTIDINE 20 MG TAB PO SCH ×2 (09:48→21:56)
[2017-11-02] MEDS: PANTOPRAZOLE 40 MG TABLET PO SCH (09:49)
[2017-11-02] MEDS: HEPARIN SODIUM,PORCINE 5,000 UNIT/ML 1 ML VIAL SQ SCH ×2 (09:49→21:56)
[2017-11-02] MEDS ORDERED: SODIUM CHLORIDE 0.9% 1,000 ML IV ONE (10:20)
[2017-11-02] MEDS: LISINOPRIL-HCTZ 10-12.5 MG 1 EACH TAB PO SCH (10:45)
--- NOTE | 2017-11-02 11:49 | P.PN ---
Subjective Progress Note Date: 11/02/17 47-year-old female seen and examined this morning resting in bed. Patient reports having generalized body aches. Denies any dizziness lightheadedness reports tolerating a clear liquid with no nausea no vomiting. Has an indwelling Boateng cath in place analgesics effective for pain control denies any chest pain or shortness of breath. Surgical dressing site dry with a DEVAN drain right lower quadrant Patient is postop November 01 laparoscopic cholecystectomy with conversion to an open procedure due to an acute cholecystitis with patchy necrosis of the gallbladder Objective - Vital Signs Vital signs: Vital Signs Temp 99.2 F 11/02/17 07:44 Pulse 102 H 11/02/17 09:58 Resp 20 11/02/17 08:00 BP 101/66 11/02/17 09:58 Pulse Ox 98 11/02/17 08:25 Intake & Output 11/01/17 11/02/17 11/02/17 18:59 06:59 18:59 Intake Total 3550 3415 Output Total 2200 760 200 Balance 1350 2655 -200 Weight 87.997 kg 87.997 kg Intake: IV 3550 Sodium Chloride 0.9% 1, 1000 000 ml @ 125 mls/hr IV . Q8H [facility] Rx#:[id number] Intake, IV Titration 2435 Amount Ampicillin-Sulbactam 3 gm 200 In Sodium Chloride 0.9% 100 ml @ 100 mls/hr IVPB Q8H [facility] Rx#:[id number] Lactated Ringers 1,000 ml 1485 @ 150 mls/hr IV .[id number] [facility] Rx#:[id number] Sodium Chloride 0.9% 1, 750 000 ml @ 125 mls/hr IV . Q8H [facility] Rx#:[id number] Oral 980 Output: Drainage 80 Upper Abdomen 80 Urine 1200 680 200 Uretheral (Boateng) 200 Estimated Blood Loss 1000 Other: Voiding Method Incontinent Indwelling Catheter Indwelling Catheter # Voids 2 2 - Exam Physical exam 47-year-old female awake and alert resting in bed Lungs anterior and posterior adequate air movement sats on room air 95% no cough noted Heart S1-S2 audible regular Abdomen soft surgical tenderness appropriate surgical dressings dry DEVAN drain pus colored secretions in the bulb tolerating clear liquid reports no nausea vomiting states is belching not passing gas no stool indwelling Boateng catheter in place Extremities no edema Venodyne's on to the bilateral lower extremities - Labs CBC & Chem 7: 11/02/17 07:01 11/02/17 07:01 Labs: Abnormal Lab Results - Last 24 Hours (Table) 11/01/17 11/02/17 11/02/17 Range/Units 14:47 07:01 07:01 WBC 14.4 H 11.1 H (3.8-10.6) k/uL RBC 3.47 L 3.14 L (3.80-5.40) m/uL Hgb 9.7 L D 8.4 L (11.4-16.0) gm/dL Hct 28.9 L 26.2 L (34.0-46.0) % Neutrophils # 13.0 H 9.4 H (1.3-7.7) k/uL Lymphocytes # 0.7 L (1.0-4.8) k/uL Sodium 136 L (137-145) mmol/L Glucose 128 H (74-99) mg/dL Calcium 8.1 L (8.4-10.2) mg/dL AST 531 H (14-36) U/L ALT 177 H (9-52) U/L Total Protein 4.6 L (6.3-8.2) g/dL Albumin 2.4 L (3.5-5.0) g/dL Microbiology - Last 24 Hours (Table) 11/01/17 06:15 Blood Culture - Preliminary Blood No Growth after 24 hours 10/31/17 20:30 Urine Culture - Final Urine,Voided Assessment and Plan Assessment: Impression Depressive disorder nonspecified Present on admission right upper quadrant pain with an ultrasound of the gallbladder showing gallstones with thickening of the gallbladder suspect due to acute cholecystitis Elevated WBC with normal liver function test History multiple sclerosis Debility use of a walker's motorized scooter due to MS Computed tomography scan abdomen pelvis findings are compatible with cholecystitis cholelithiasis Postop November 01 laparoscopic cholecystectomy with conversion to an open procedure due to acute cholecystitis with patchy necrosis of the gallbladder Postop expected acute blood loss anemia Expected postop elevated AST and ALT Plan Continue postop surgical course Remove the indwelling Boateng catheter now PT OT eval May benefit from subacute rehab Pain control IV fluid for hydration DVT and GI prophylaxis To use the incentive spirometer every 1 hour while awake Further surgical recommendations pending will follow Surgical consultation note dictated for Dr. liu The above impression and plan of care have been discussed and directed by signing physician. Betty Young nurse practitioner acting as scribe for signing physician.
[2017-11-02] MEDS: HYDROcodone/APAP 7.5-325MG 1 EACH TAB PO PRN (14:59)
--- NOTE | 2017-11-02 16:37 | PN ---
PROGRESS NOTE DATE OF SERVICE: 11/02/2016. INTERIM HISTORY: This 47-year-old woman was admitted with acute cholecystitis, open cholecystectomy. The patient being closely monitored. The patient complaining of pain. No chest pain. No palpitations. No fever. EXAM: Alert and oriented times three. Pulse 102, blood pressure 101/60, respiration 20, temperature 98.2, pulse ox 98% room air. HEENT: Conjunctivae normal. Neck: No jugular venous distention. Cardiovascular: S1, S2 muffled. Respiratory: Breath sounds diminished in the bases. A few scattered rhonchi and crackles. Abdomen is soft, status post surgery. Central nervous system: No focal deficits. LABS: WBC 11.1, hemoglobin 8.4, and AST is 531 and ALT is 577, alkaline phosphatase 76. ASSESSMENT: 1. Acute cholecystitis status post laparoscopic cholecystectomy with conversion to open procedure. 2. History of fall. 3. Suicidal ideations and depression. 4. Elevated AST, ALT, post procedure. 5. Multiple sclerosis. 6. Hypertension. 7. History of ovarian mass removal. 8. Increased WBC. RECOMMENDATIONS AND DISCUSSION: Recommend to continue current medications, management and symptomatic treatment. Recommend repeat labs. Otherwise I would also recommend gastroenterology consultation. Otherwise repeat labs are ordered. Closely follow with surgery. Further recommendations to follow. MMODL / IJN: [id number] /
[2017-11-02] MEDS: ACETAMINOPHEN TAB 325 MG TAB PO PRN (19:14)
--- NOTE | 2017-11-02 19:45 | XR ---
EXAMINATION TYPE: XR chest 2V DATE OF EXAM: 11/02/2017 COMPARISON: X-ray October 31, 2017. HISTORY: Fever after cholecystectomy. TECHNIQUE: Frontal and lateral views of the chest are obtained. FINDINGS: There is diminished inspiration on current study with bibasilar opacity. No large pleural effusion or pneumothorax is seen bilaterally. The cardiac silhouette size is enlarged on current stud y. The osseous structures are intact. IMPRESSION: Diminished inspiration with new cardiomegaly and bibasilar atelectasis and/or infiltrate s. Consider progress study.
[2017-11-02 20:30] LABS: Basophils % (A) 0 %; Eosinophils % (A) 0 %; HGB 7.7 gm/dL (11.4-16.0); Lymphocytes # (A) 0.9 k/uL (1.0-4.8); Lymphocytes % (A) 12 %; MCH 26.8 pg (25.0-35.0); MCHC 32.3 g/dL (31.0-37.0); MCV 83.1 fL (80.0-100.0); Mean Platelet Volume 7.1; Monocytes # (A) 0.4 k/uL (0-1.0); Monocytes % (A) 5 %; Neutrophils # (A) 6.3 k/uL (1.3-7.7); Neutrophils % (A) 82 %; Platelet Count 215 k/uL (150-450); RBC 2.88 m/uL (3.80-5.40); RDW 13.5 % (11.5-15.5); WBC 7.7 k/uL (3.8-10.6)
[2017-11-03 00:35] LABS: Appearance,Urine Cloudy (Clear); Bacteria,Urine Rare /hpf; Bilirubin,Urine Negative (Negative); Blood,Urine Moderate (Negative); Color,Urine Yellow; Glucose,Urine (UA) Negative (Negative); Ketones,Urine Negative (Negative); Leukocyte Esterase,Urine Negative (Negative); Mucus,Urine Rare /hpf; Nitrite,Urine Negative (Negative); PH, Urine 5.5 (5.0-8.0); Protein,Urine Trace (Negative); RBC,Urine <1 /hpf (0-5); Specific Gravity,Urine 1.009 (1.001-1.035); Squamous Epithelial Cell,Urine 14 /hpf (0-4); Urobilinogen,Urine <2.0 mg/dL (<2.0); WBC,Urine 9 /hpf (0-5)
[2017-11-03] MEDS: ACETAMINOPHEN TAB 325 MG TAB PO PRN ×3 (03:27→20:47)
[2017-11-03 07:29] LABS: ALT 251 U/L (9-52); AST 556 U/L (14-36); Albumin 2.2 g/dL (3.5-5.0); Alkaline Phosphatase 101 U/L (38-126); Anion Gap 3 mmol/L; Blood Urea Nitrogen 5 mg/dL (7-17); Calcium 7.8 mg/dL (8.4-10.2); Carbon Dioxide 28 mmol/L (22-30); Chloride 105 mmol/L (98-107); Glucose 102 mg/dL (74-99); Potassium 3.9 mmol/L (3.5-5.1); Sodium 136 mmol/L (137-145); Total Bilirubin 0.8 mg/dL (0.2-1.3); Total Protein 4.5 g/dL (6.3-8.2)
[2017-11-03 07:31] LABS: Basophils % (A) 0 %; Eosinophils % (A) 0 %; HCT 21.2 % (34.0-46.0); HGB 7.2 gm/dL (11.4-16.0); Lymphocytes # (A) 0.5 k/uL (1.0-4.8); Lymphocytes % (A) 8 %; MCH 27.5 pg (25.0-35.0); MCHC 33.9 g/dL (31.0-37.0); MCV 81.3 fL (80.0-100.0); Mean Platelet Volume 6.5; Monocytes # (A) 0.4 k/uL (0-1.0); Monocytes % (A) 6 %; Neutrophils # (A) 5.9 k/uL (1.3-7.7); Neutrophils % (A) 85 %; Platelet Count 217 k/uL (150-450); RBC 2.61 m/uL (3.80-5.40); WBC 6.9 k/uL (3.8-10.6)
[2017-11-03] MEDS: PANTOPRAZOLE 40 MG TABLET PO SCH (08:26)
[2017-11-03] MEDS: HEPARIN SODIUM,PORCINE 5,000 UNIT/ML 1 ML VIAL SQ SCH ×2 (08:26→20:47)
[2017-11-03] MEDS: HYDROcodone/APAP 7.5-325MG 1 EACH TAB PO PRN ×2 (08:26→20:47)
[2017-11-03] MEDS: FAMOTIDINE 20 MG TAB PO SCH ×2 (08:26→20:47)
[2017-11-03] MEDS: AMPICILLIN-SULBACTAM 3 GM in SODIUM CHLORIDE 0.9% 100 ML IVPB SCH ×3 (08:26→23:47)
[2017-11-03] MEDS: SODIUM CHLORIDE 0.9% 1,000 ML IV SCH (10:40)
--- NOTE | 2017-11-03 11:10 | P.CONS ---
History of Present Illness - Reason for Consult Consult date: 11/03/17 Elevated liver enzymes Requesting physician: Sharona Bradford - History of Present Illness 47-year-old female past medical history of depression, multiple sclerosis, hypertension, ovarian mass, status post attempted laparoscopic cholecystectomy converted to open on 11/01/2017 for acute calculus gangrenous cholecystitis. Consult requested for elevated liver enzymes after surgery. Patient has no history of underlying liver disorders, no history of alcoholism. No history of hepatitis. Liver enzymes prior to surgery were within normal limits total bilirubin 1.2. AST 13. ALT 17. Alkaline phosphatase 67. Yesterday total bilirubin 1.1. AST 531 ALT 177. Alkaline phosphatase 76. Today total bilirubin 0.8. AST 556. ALT 251. Alkaline phosphatase 101. Hepatitis screen requested. Intraoperative findings were discussed with Dr. Pina this morning he reported that there was a focal patchy area of ischemia within the gallbladder. Surgical pathology findings acute cholecystitis with gangrenous necrosis and cholelithiasis. Review of Systems Constitutional: Denies fever, chills, sweats, weight gain, or loss. HEENT: Negative for migraines, blurred vision or loss, earaches, drainage, tinnitus, oral mucosal lesions, dysphagia, or odynophagia. CARDIAC: Hypertension. Negative for chest pain, arrhythmias, or palpitation. RESPIRATORY: Negative for shortness of breath, hemoptysis, cough, or sputum production. GI: See HPI for pertinent findings. : Negative for hematuria, urgency, frequency, polyuria, or dysuria. GYNc: Denies possibility of . Negative vaginal discharge. MUSCULOSKELETAL: Multiple sclerosis. Negative for muscle aches, swelling, arthritis, and arthralgias. NEUROLOGIC: Negative for stroke or TIA. ENDOCRINE: Negative for thyroid problems. SKIN: Negative for rash or itching. PSYCHIATRIC: Negative history for depression and anxiety Past Medical History Past Medical History: Hypertension, Neurologic Disorder Additional Past Medical History / Comment(s): MS History of Any Multi-Drug Resistant Organisms: None Reported Additional Past Surgical History / Comment(s): Ovarian Mass removed Past Anesthesia/Blood Transfusion Reactions: No Reported Reaction Past Psychological History: Depression Smoking Status: Former smoker Past Alcohol Use History: None Reported Past Drug Use History: None Reported - Past Family History Mother History Unknown: Yes Family Medical History: Hypertension Additional Family Medical History / Comment(s): ARTHRITIS, KNEE REPLACEMENT SURGERY Father History Unknown: Yes Family Medical History: Cancer Additional Family Medical History / Comment(s): PACEMAKER, ARTHRITIS, COLON CANCER Medications and Allergies Home Medications Medication Instructions Recorded Confirmed Type Lisinopril-Hctz 10-12.5 mg 1 tab PO DAILY 06/02/16 10/31/17 History [Zestoretic 10-12.5] Omeprazole [PriLOSEC] 20 mg PO DAILY 10/31/17 10/31/17 History Allergies Allergy/AdvReac Type Severity Reaction Status Date / Time No Known Allergies Allergy Verified 10/31/17 19:34 Physical Exam Vitals: Vital Signs Temp Pulse Resp BP Pulse Ox 11/03/17 08:00 82 20 11/03/17 07:00 97.6 F 82 20 128/76 93 L 11/03/17 01:57 99.1 F 98 16 105/71 93 L 11/02/17 21:30 98.7 F 100 17 116/70 96 11/02/17 19:12 102.5 F H 11/02/17 15:00 100.0 F H 102 H 16 103/57 97 Intake and Output 11/02/17 11/03/17 11/03/17 22:59 06:59 14:59 Intake Total 3033 237 Output Total 420 15 Balance -420 3018 237 Intake: Intake, IV Titration 873 Amount Ampicillin-Sulbactam 3 gm 200 In Sodium Chloride 0.9% 100 ml @ 100 mls/hr IVPB Q8H [facility] Rx#:[id number] Sodium Chloride 0.9% 1, 673 000 ml @ 125 mls/hr IV . Q8H [facility] Rx#:[id number] Oral 2160 237 Output: Drainage 20 15 Upper Abdomen 20 15 Urine 400 Uretheral (Boateng) 400 Other: Voiding Method Bedpan Diaper # Voids 2 General appearance: The patient is alert, oriented, in no acute distress. HET: Head is normocephalic and atraumatic. Pupils are equal and reactive. Oropharynx is clear without lesions. Neck: Supple without lymphadenopathy. Trachea midline. Heart: S1 S2. Regular rate and rhythm. Lungs: No crackles or wheezes are heard. Abdomen: Soft, nontender, nondistended with bowel sounds. Surgical dressings clean. DEVAN was serosanguineous fluid. No peritoneal signs. No palpable organomegaly or masses. Extremities: Normal skin color and turgor. No cyanosis, rash, ulceration, clubbing, or edema. Radial and pedal pulses are 2/4 bilaterally. Neurological: No focal deficits. Strength and sensation are grossly intact. Results CBC & Chem 7: 11/03/17 06:32 11/03/17 06:32 Labs: Abnormal Lab Results - Last 24 Hours (Table) 11/02/17 11/02/17 11/03/17 Range/Units 20:16 23:59 06:32 RBC 2.88 L 2.61 L (3.80-5.40) m/uL Hgb 7.7 L 7.2 L (11.4-16.0) gm/dL Hct 24.0 L 21.2 L (34.0-46.0) % Lymphocytes # 0.9 L 0.5 L (1.0-4.8) k/uL Sodium (137-145) mmol/L BUN (7-17) mg/dL Glucose (74-99) mg/dL Calcium (8.4-10.2) mg/dL AST (14-36) U/L ALT (9-52) U/L Total Protein (6.3-8.2) g/dL Albumin (3.5-5.0) g/dL Urine Appearance Cloudy H (Clear) Urine Protein Trace H (Negative) Urine Blood Moderate H (Negative) Urine WBC 9 H (0-5) /hpf Ur Squamous Epith Cells 14 H (0-4) /hpf Urine Bacteria Rare H (None) /hpf Urine Mucus Rare H (None) /hpf 11/03/17 Range/Units 06:32 RBC (3.80-5.40) m/uL Hgb (11.4-16.0) gm/dL Hct (34.0-46.0) % Lymphocytes # (1.0-4.8) k/uL Sodium 136 L (137-145) mmol/L BUN 5 L (7-17) mg/dL Glucose 102 H (74-99) mg/dL Calcium 7.8 L (8.4-10.2) mg/dL AST 556 H (14-36) U/L ALT 251 H (9-52) U/L Total Protein 4.5 L (6.3-8.2) g/dL Albumin 2.2 L (3.5-5.0) g/dL Urine Appearance (Clear) Urine Protein (Negative) Urine Blood (Negative) Urine WBC (0-5) /hpf Ur Squamous Epith Cells (0-4) /hpf Urine Bacteria (None) /hpf Urine Mucus (None) /hpf Microbiology - Last 24 Hours (Table) 11/01/17 06:15 Blood Culture - Preliminary Blood No Growth after 48 hours Assessment and Plan (1) Elevated liver enzymes Narrative/Plan: 47-year-old female status post open cholecystectomy for sepsis secondary to acute calculus gangrenous cholecystitis with postoperative elevation of liver enzymes transaminitis. Etiology of transaminitis possible component of ischemia , biliary inflammation, possible retained common bile duct stone choledocholithiasis. Current Visit: Yes Status: Acute Code(s): R74.8 - ABNORMAL LEVELS OF OTHER SERUM ENZYMES SNOMED Code(s): 897351574 (2) Status post cholecystectomy Current Visit: Yes Status: Acute Code(s): Z90.49 - ACQUIRED ABSENCE OF OTHER SPECIFIED PARTS OF DIGESTIVE TRACT SNOMED Code(s): 172867901 (3) Cholelithiasis Current Visit: Yes Status: Acute Code(s): K80.20 - CALCULUS OF GALLBLADDER W /O CHOLECYSTITIS W/O OBSTRUCTION SNOMED Code(s): 730527323 (4) Multiple sclerosis Current Visit: Yes Status: Chronic Code(s): G35 - MULTIPLE SCLEROSIS SNOMED Code(s): 59312751 Plan: 1. Hepatitis screen requested. Continue IV abx. Diet per surgery. 2. Repeat CMP in the morning if transaminases worsen we'll proceed with ERCP evaluation. Continuous with supportive measures. Case was discussed with surgeon and attending. Will follow closely with you. Thank you for this kind referral and the opportunity to participate in the care of your patient. This consultation was discussed with Dr. Islas. The impression and plan of care have been directed as dictated.
--- NOTE | 2017-11-03 11:56 | P.PN ---
Subjective Progress Note Date: 11/03/17 47-year-old female seen and examined at bedside. Currently sitting up in a chair. Using the incentive spirometer Achieving thousand. Denies nausea or vomiting. States passing gas no stool. States pain medication effective for pain control. DEVAN drain in place rust colored secretions in the bulb surgical dressings dry Did note the AST and ALT are elevated patients being evaluated by GI service. Discharge plan is in progress. Patient has a history of multiple sclerosis being evaluated for possible subacute rehab postop November 01 laparoscopic cholecystectomy with conversion to an open procedure due to an acute cholecystitis with patchy necrosis of the gallbladder Objective - Vital Signs Vital signs: Vital Signs Temp 97.6 F 11/03/17 07:00 Pulse 82 11/03/17 08:00 Resp 20 11/03/17 08:00 BP 128/76 11/03/17 07:00 Pulse Ox 93 L 11/03/17 07:00 Intake & Output 11/02/17 11/03/17 11/03/17 18:59 06:59 18:59 Intake Total 2000 3033 237 Output Total 620 15 Balance 1380 3018 237 Intake: IV 2000 Sodium Chloride 0.9% 1, 1000 000 ml @ 125 mls/hr IV . [facility] Rx#:[id number] Sodium Chloride 0.9% 1, 1000 000 ml @ 999 mls/hr IV . Q1H1M [facility] Rx#:[id number] Intake, IV Titration 873 Amount Ampicillin-Sulbactam 3 gm 200 In Sodium Chloride 0.9% 100 ml @ 100 mls/hr IVPB [facility] Rx#:[id number] Sodium Chloride 0.9% 1, 673 000 ml @ 125 mls/hr IV . [facility] Rx#:[id number] Oral 2160 237 Output: Drainage 20 15 Upper Abdomen 20 15 Urine 600 Uretheral (Boateng) 600 Other: Voiding Method Indwelling Catheter Bedpan Diaper # Voids 2 - Exam Physical exam 47-year-old female awake and alert sitting up in bed Lungs essentially clear adequate air movement sats on room air 95% no cough noted Heart S1-S2 audible regular no murmur noted Abdomen soft surgical tenderness appropriate surgical dressings dry DEVAN drain rust colored secretions in the bulb tolerating clear liquid diet reports no nausea vomiting states is belching not passing gas no stool Extremities no edema Venodyne's on to the bilateral lower extremities - Labs CBC & Chem 7: 11/03/17 06:32 11/03/17 06:32 Labs: Abnormal Lab Results - Last 24 Hours (Table) 11/02/17 11/02/17 11/03/17 Range/Units 20:16 23:59 06:32 RBC 2.88 L 2.61 L (3.80-5.40) m/uL Hgb 7.7 L 7.2 L (11.4-16.0) gm/dL Hct 24.0 L 21.2 L (34.0-46.0) % Lymphocytes # 0.9 L 0.5 L (1.0-4.8) k/uL Sodium (137-145) mmol/L BUN (7-17) mg/dL Glucose (74-99) mg/dL Calcium (8.4-10.2) mg/dL AST (14-36) U/L ALT (9-52) U/L Total Protein (6.3-8.2) g/dL Albumin (3.5-5.0) g/dL Urine Appearance Cloudy H (Clear) Urine Protein Trace H (Negative) Urine Blood Moderate H (Negative) Urine WBC 9 H (0-5) /hpf Ur Squamous Epith Cells 14 H (0-4) /hpf Urine Bacteria Rare H (None) /hpf Urine Mucus Rare H (None) /hpf 11/03/17 Range/Units 06:32 RBC (3.80-5.40) m/uL Hgb (11.4-16.0) gm/dL Hct (34.0-46.0) % Lymphocytes # (1.0-4.8) k/uL Sodium 136 L (137-145) mmol/L BUN 5 L (7-17) mg/dL Glucose 102 H (74-99) mg/dL Calcium 7.8 L (8.4-10.2) mg/dL AST 556 H (14-36) U/L ALT 251 H (9-52) U/L Total Protein 4.5 L (6.3-8.2) g/dL Albumin 2.2 L (3.5-5.0) g/dL Urine Appearance (Clear) Urine Protein (Negative) Urine Blood (Negative) Urine WBC (0-5) /hpf Ur Squamous Epith Cells (0-4) /hpf Urine Bacteria (None) /hpf Urine Mucus (None) /hpf Microbiology - Last 24 Hours (Table) 11/02/17 23:59 Urine Culture - Preliminary Urine,Clean Catch 11/01/17 06:15 Blood Culture - Preliminary Blood No Growth after 48 hours Assessment and Plan Assessment: Impression Depressive disorder nonspecified Present on admission right upper quadrant pain with an ultrasound of the gallbladder showing gallstones with thickening of the gallbladder suspect due to acute cholecystitis Elevated WBC with normal liver function test History multiple sclerosis Debility use of a walker's motorized scooter due to MS Computed tomography scan abdomen pelvis findings are compatible with cholecystitis cholelithiasis Postop November 01 laparoscopic cholecystectomy with conversion to an open procedure due to acute cholecystitis with patchy necrosis of the gallbladder Postop expected acute blood loss anemia Expected postop elevated AST and ALT Plan Advance diet to full liquid Continue postop surgical course Hep-Lock IV PT OT eval May benefit from subacute rehab Pain control IV fluid for hydration DVT and GI prophylaxis incentive spirometer every 1 hour while awake Further surgical recommendations pending will follow Surgical consultation note dictated for Dr. liu The above impression and plan of care have been discussed and directed by signing physician. Betty Young nurse practitioner acting as scribe for signing physician.
[2017-11-03] MEDS ORDERED: BISACODYL 10 MG SUPP RECTAL STA (11:57)
--- NOTE | 2017-11-03 23:32 | PN ---
PROGRESS NOTE DATE OF SERVICE: 11/03/2017 PRESENTING COMPLAINT: Abdominal pain. INTERVAL HISTORY: This patient had acute gangrenous cholecystitis, status post cholecystectomy. The patient has got a DEVAN drain in place, having upper abdominal pain. No nausea, vomiting. LFTs have been up and the question was if there is any remnant of bile duct stone. The patient otherwise is sitting up in a chair, somewhat uncomfortable. REVIEW OF SYSTEMS: Done for constitutional, cardiovascular, GI, pulmonary; relevant findings as above. CURRENT MEDICATIONS: Current medications are reviewed that include the IV Unasyn, subcutaneous heparin. PHYSICAL EXAMINATION: Temperature 100.9, pulse 95, respiration 20, blood pressure 115/75, pulse ox 96% on room air. BMI 34.4. GENERAL APPEARANCE: Sitting up in chair, somewhat uncomfortable. EYES: Pupils equal. Conjunctivae normal. HEENT: External appearance of nose and ears normal. Oral cavity dry mucous membrane. NECK: JVD not raised. Mass not palpable. RESPIRATORY: Effort normal. LUNGS: Slightly decreased breath sounds. CARDIOVASCULAR: First and second sounds normal. No edema. ABDOMEN: Somewhat distended, tender. DEVAN drain in place. Liver and spleen not palpable. Bowel sounds are sluggish. PSYCHIATRY: Alert and oriented x3. Mood and affect normal. INVESTIGATIONS: White count 6.9, hemoglobin 7.2. Total bilirubin 0.8, AST 556, ALT 251. ASSESSMENT: 1. Acute gangrenous cholecystitis followed by cholecystectomy, and there is a question if there is a remnant bile duct stone, liver function tests are still up, though patient's bilirubin and alkaline phosphatase are normal. At this point it is difficult to say what it is. Will see if the numbers come down. 2. Obesity with body mass index of 34.4. 3. Essential hypertension. 4. Sepsis from gangrenous cholecystitis, present on admission. 5. Acute blood loss anemia as expected from surgery. 6. Hypoalbuminemia as an acute phase reactant. PLAN: The patient will be started on IV fluids. Repeat LFTs in the morning. The patient is already on IV Unasyn. Care was discussed with the patient. GI is already on the case. Patient is slow to respond. Will follow. MMODL / IJN: [id number] /
[2017-11-04] MEDS: LACTATED RINGERS 1,000 ML IV SCH ×4 (06:02→21:14)
[2017-11-04 07:13] LABS: Basophils % (A) 0 %; Eosinophils # (A) 0.1 k/uL (0-0.7); Eosinophils % (A) 1 %; HCT 23.8 % (34.0-46.0); HGB 7.8 gm/dL (11.4-16.0); Lymphocytes # (A) 0.8 k/uL (1.0-4.8); Lymphocytes % (A) 7 %; Mean Platelet Volume 6.8; Monocytes # (A) 0.6 k/uL (0-1.0); Monocytes % (A) 5 %; Neutrophils # (A) 9.1 k/uL (1.3-7.7); Neutrophils % (A) 85 %; Platelet Count 312 k/uL (150-450); WBC 10.6 k/uL (3.8-10.6)
[2017-11-04 07:41] LABS: ALT 158 U/L (9-52); AST 140 U/L (14-36); Albumin 2.3 g/dL (3.5-5.0); Alkaline Phosphatase 92 U/L (38-126); Anion Gap 6 mmol/L; Calcium 7.8 mg/dL (8.4-10.2); Carbon Dioxide 28 mmol/L (22-30); Chloride 103 mmol/L (98-107); Glucose 115 mg/dL (74-99); Potassium 3.5 mmol/L (3.5-5.1); Sodium 137 mmol/L (137-145); Total Protein 4.6 g/dL (6.3-8.2)
[2017-11-04 07:43] LABS: Blood Urea Nitrogen 8 mg/dL (7-17); Total Bilirubin 0.6 mg/dL (0.2-1.3)
--- NOTE | 2017-11-04 09:44 | P.PN ---
Subjective Progress Note Date: 11/04/17 Principal diagnosis: Sepsis acute gangrenous calculus cholecystitis 47-year-old female admitted with sepsis history of MS status post open cholecystectomy 3 days ago for acute gangrenous calculus cholecystitis. Patient had an increased AST ALT level 2 days postop with improvement this morning. Feels better. Total bilirubin 0.6. AST 140. ALT 158. Alkaline phosphatase 92. T-max 101.7. Hepatitis screen pending. Blood cultures preliminary no growth. Objective - Vital Signs Vital signs: Vital Signs Temp 99.0 F 11/04/17 00:30 Pulse 72 11/04/17 00:30 Resp 16 11/04/17 00:30 BP 118/74 11/04/17 00:30 Pulse Ox 97 11/04/17 00:30 Intake & Output 11/03/17 11/04/17 11/04/17 18:59 06:59 18:59 Intake Total 767 960 Output Total 20 100 Balance 747 860 Intake: Intake, IV Titration 350 Amount Ampicillin-Sulbactam 3 gm 100 In Sodium Chloride 0.9% 100 ml @ 100 mls/hr IVPB Q8H [facility] Rx#:[id number] Sodium Chloride 0.9% 1, 250 000 ml @ 125 mls/hr IV . Q8H [facility] Rx#:[id number] Oral 417 960 Output: Drainage 20 100 Upper Abdomen 20 100 Other: Voiding Method Bedpan Diaper # Voids 2 2 - Exam General appearance: The patient is alert, oriented, in no acute distress. HET: Head is normocephalic and atraumatic. Pupils are equal and reactive. Oropharynx is clear without lesions. Neck: Supple without lymphadenopathy. Trachea midline. Heart: S1 S2. Regular rate and rhythm. Lungs: No crackles or wheezes are heard. Abdomen: Soft, nontender, nondistended with bowel sounds. Surgical dressings clean. DEVAN was serosanguineous fluid. No peritoneal signs. No palpable organomegaly or masses. Extremities: Normal skin color and turgor. No cyanosis, rash, ulceration, clubbing, or edema. Radial and pedal pulses are 2/4 bilaterally. Neurological: No focal deficits. Strength and sensation are grossly intact. - Labs CBC & Chem 7: 11/04/17 06:33 11/04/17 06:33 Labs: Abnormal Lab Results - Last 24 Hours (Table) 11/04/17 11/04/17 Range/Units 06:33 06:33 RBC 2.90 L (3.80-5.40) m/uL Hgb 7.8 L (11.4-16.0) gm/dL Hct 23.8 L (34.0-46.0) % Neutrophils # 9.1 H (1.3-7.7) k/uL Lymphocytes # 0.8 L (1.0-4.8) k/uL Creatinine 0.50 L (0.52-1.04) mg/dL Glucose 115 H (74-99) mg/dL Calcium 7.8 L (8.4-10.2) mg/dL AST 140 H (14-36) U/L ALT 158 H (9-52) U/L Total Protein 4.6 L (6.3-8.2) g/dL Albumin 2.3 L (3.5-5.0) g/dL Microbiology - Last 24 Hours (Table) 11/01/17 06:15 Blood Culture - Preliminary Blood No Growth after 72 hours 11/02/17 23:59 Urine Culture - Preliminary Urine,Clean Catch Assessment and Plan (1) Elevated liver enzymes Narrative/Plan: 47-year-old female status post open cholecystectomy for sepsis secondary to acute calculus gangrenous cholecystitis with postoperative elevation of liver enzymes transaminitis. Etiology of transaminitis possible component of ischemia , biliary inflammation, possible choledocholithiasis. Liver function tests are improving suggestive of improved ischemia inflammation possible passage of choledocholithiasis. Current Visit: Yes Status: Acute Code(s): R74.8 - ABNORMAL LEVELS OF OTHER SERUM ENZYMES SNOMED Code(s): 285337700 (2) Status post cholecystectomy Current Visit: Yes Status: Acute Code(s): Z90.49 - ACQUIRED ABSENCE OF OTHER SPECIFIED PARTS OF DIGESTIVE TRACT SNOMED Code(s): 255379905 (3) Cholelithiasis Current Visit: Yes Status: Acute Code(s): K80.20 - CALCULUS OF GALLBLADDER W /O CHOLECYSTITIS W/O OBSTRUCTION SNOMED Code(s): 390920080 (4) Multiple sclerosis Current Visit: Yes Status: Chronic Code(s): G35 - MULTIPLE SCLEROSIS SNOMED Code(s): 49016957 Plan: 1. Hepatitis screen requested. Continue IV abx. Diet per surgery. 2. Liver function tests are improving therefore ERCP is not indicated at this time. As assessment and plan of care discussed with Dr. Green
[2017-11-04] MEDS: AMPICILLIN-SULBACTAM 3 GM in SODIUM CHLORIDE 0.9% 100 ML IVPB SCH ×3 (10:37→23:34)
[2017-11-04] MEDS: HEPARIN SODIUM,PORCINE 5,000 UNIT/ML 1 ML VIAL SQ SCH ×2 (10:38→21:13)
[2017-11-04] MEDS: FAMOTIDINE 20 MG TAB PO SCH ×2 (10:38→21:13)
[2017-11-04] MEDS: PANTOPRAZOLE 40 MG TABLET PO SCH (10:38)
[2017-11-04] MEDS: HYDROcodone/APAP 7.5-325MG 1 EACH TAB PO PRN ×4 (10:47→22:46)
[2017-11-04 11:49] LABS: Hepatitis A Antibody IgM Non-Reactive (Non-Reactive); Hepatitis B Core IgM Non-Reactive (Non-Reactive)
--- NOTE | 2017-11-04 12:25 | P.PN ---
<HectorBetty M - Last Filed: 11/04/17 12:18> Subjective Progress Note Date: 11/04/17 47-year-old female seen and examined. Sitting up in bed. Patient has MS with limited mobility Chief complaint constipation no stool. Reports no nausea vomiting. GI service indicates liver enzymes are improving ERCP is not indicated at this time postop November 01 laparoscopic cholecystectomy with conversion to an open procedure due to an acute cholecystitis with patchy necrosis of the gallbladder Objective - Vital Signs Vital signs: Vital Signs Temp 97.9 F 11/04/17 10:50 Pulse 79 11/04/17 10:50 Resp 16 11/04/17 10:50 BP 124/82 11/04/17 10:50 Pulse Ox 99 11/04/17 10:50 Intake & Output 11/03/17 11/04/17 11/04/17 18:59 06:59 18:59 Intake Total 767 960 0 Output Total 20 100 50 Balance 747 860 -50 Weight 87.997 kg Intake: Intake, IV Titration 350 Amount Ampicillin-Sulbactam 3 gm 100 In Sodium Chloride 0.9% 100 ml @ 100 mls/hr IVPB Q8H [facility] Rx#:[id number] Sodium Chloride 0.9% 1, 250 000 ml @ 125 mls/hr IV . Q8H [facility] Rx#:[id number] Oral 417 960 0 Output: Drainage 20 100 50 Upper Abdomen 20 100 50 Other: Voiding Method Bedpan Bedpan Diaper Diaper # Voids 2 2 - Exam Physical exam 47-year-old female awake alert sitting up in bed states feeling better Lungs essentially clear adequate air movement sats on room air 95% no cough noted Heart S1-S2 audible regular no murmur noted Abdomen soft surgical tenderness appropriate surgical dressings dry DEVAN drain rust colored secretions in the bulb reports no nausea vomiting states is belching not passing gas no stool Extremities no edema Venodyne's on to the bilateral lower extremities - Labs CBC & Chem 7: 11/04/17 06:33 11/04/17 06:33 Labs: Abnormal Lab Results - Last 24 Hours (Table) 11/04/17 11/04/17 Range/Units 06:33 06:33 RBC 2.90 L (3.80-5.40) m/uL Hgb 7.8 L (11.4-16.0) gm/dL Hct 23.8 L (34.0-46.0) % Neutrophils # 9.1 H (1.3-7.7) k/uL Lymphocytes # 0.8 L (1.0-4.8) k/uL Creatinine 0.50 L (0.52-1.04) mg/dL Glucose 115 H (74-99) mg/dL Calcium 7.8 L (8.4-10.2) mg/dL AST 140 H (14-36) U/L ALT 158 H (9-52) U/L Total Protein 4.6 L (6.3-8.2) g/dL Albumin 2.3 L (3.5-5.0) g/dL Microbiology - Last 24 Hours (Table) 11/02/17 23:59 Urine Culture - Final Urine,Clean Catch Steffanie albicans 11/01/17 06:15 Blood Culture - Preliminary Blood No Growth after 72 hours Assessment and Plan Assessment: Impression Depressive disorder nonspecified Present on admission right upper quadrant pain with an ultrasound of the gallbladder showing gallstones with thickening of the gallbladder suspect due to acute cholecystitis Present on admission History multiple sclerosis Debility use of a walker's motorized scooter due to MS Computed tomography scan abdomen pelvis findings are compatible with cholecystitis cholelithiasis Postop November 01 laparoscopic cholecystectomy with conversion to an open procedure due to acute cholecystitis with patchy necrosis of the gallbladder Postop expected acute blood loss anemia Expected postop elevated AST and ALT improving Plan Advance diet to full liquid Continue postop surgical course Hep-Lock IV PT OT eval May benefit from subacute rehab Pain control IV fluid for hydration DVT and GI prophylaxis incentive spirometer every 1 hour while awake Further surgical recommendations pending will follow Progress note dictated for Dr. alcala rounding on behalf of dr liu The above impression and plan of care have been discussed and directed by signing physician. Betty Young nurse practitioner acting as scribe for signing physician. <Jakob Alcala - Last Filed: 11/04/17 17:26> Objective - Vital Signs Vital signs: Vital Signs Temp 98.2 F 11/04/17 15:00 Pulse 84 11/04/17 15:00 Resp 20 11/04/17 15:00 BP 117/75 11/04/17 15:00 Pulse Ox 97 11/04/17 16:42 Intake & Output 11/03/17 11/04/17 11/04/17 18:59 06:59 18:59 Intake Total 201 813 0805 Output Total 20 100 150 Balance 747 860 968 Weight 87.997 kg Intake: Intake, IV Titration 350 1000 Amount Ampicillin-Sulbactam 3 gm 100 In Sodium Chloride 0.9% 100 ml @ 100 mls/hr IVPB Q8[facility] Rx#:[id number] Lactated Ringers 1,000 ml 1000 @ 125 mls/hr IV .Q8H [facility] Rx#:[id number] Sodium Chloride 0.9% 1, 250 000 ml @ 125 mls/hr IV . Q8H [facility] Rx#:[id number] Oral 417 960 118 Output: Drainage 20 100 150 Upper Abdomen 20 100 150 Other: Voiding Method Bedpan Bedpan Diaper Diaper # Voids 2 2 - Labs CBC & Chem 7: 11/04/17 06:33 11/04/17 06:33 Labs: Abnormal Lab Results - Last 24 Hours (Table) 11/04/17 11/04/17 Range/Units 06:33 06:33 RBC 2.90 L (3.80-5.40) m/uL Hgb 7.8 L (11.4-16.0) gm/dL Hct 23.8 L (34.0-46.0) % Neutrophils # 9.1 H (1.3-7.7) k/uL Lymphocytes # 0.8 L (1.0-4.8) k/uL Creatinine 0.50 L (0.52-1.04) mg/dL Glucose 115 H (74-99) mg/dL Calcium 7.8 L (8.4-10.2) mg/dL AST 140 H (14-36) U/L ALT 158 H (9-52) U/L Total Protein 4.6 L (6.3-8.2) g/dL Albumin 2.3 L (3.5-5.0) g/dL Microbiology - Last 24 Hours (Table) 11/02/17 23:59 Urine Culture - Final Urine,Clean Catch Steffanie albicans 11/01/17 06:15 Blood Culture - Preliminary Blood No Growth after 72 hours Assessment and Plan Assessment: As above. Patient doing better today. DEVAN drain serosanguineous at this time. Liver enzymes much improved. Still feels weak. No fevers. Tolerating diet thus far. Anticipate transfer to rehab Tuesday.
--- NOTE | 2017-11-04 18:21 | PN ---
PROGRESS NOTE DATE OF SERVICE: 11/04/17. PRESENTING COMPLAINT: Abdominal pain. INTERVAL HISTORY: The patient is status post gangrenous cholecystitis followed by cholecystectomy. DEVAN drain is putting about 50 mL per shift. Abdominal pain is actually better. Liver functions have come down. The patient has been put on a liquid diet. Not really passed any flatus. Lying in bed. REVIEW OF SYSTEMS: Done for constitutional, cardiovascular, GI, pulmonary; relevant findings as above. CURRENT MEDICATIONS: Reviewed and include IV Unasyn. On examination, the patient did spike a fever last night of 101.2, but afebrile most of the day today. Pulse 84, respirations 20, blood pressure 110/75, pulse ox 99% on 1 L. GENERAL APPEARANCE: Lying in bed, tired appearing. EYES: Pupils equal. Conjunctivae normal. HEENT: External appearance of nose and ears normal. Oral cavity normal. NECK: JVD unable to assess. Mass not palpable. RESPIRATORY: Effort normal. Lungs, slightly decreased breath sounds. CARDIOVASCULAR: First and second sounds normal. No edema. ABDOMEN: Tender. DEVAN drain in place. Liver and spleen not palpable. Bowel sounds are sluggish. PSYCHIATRY: Alert and oriented x3. Mood and affect normal. INVESTIGATIONS: White count 10.6, hemoglobin 7.8, potassium 3.5, AST 140, ALT 158. ASSESSMENT: 1. Acute gangrenous cholecystitis followed by cholecystectomy with postoperative liver functions that are actually coming down. 2. Probable probably ischemic hepatitis, now improving with IV fluids. 3. Obesity; BMI 34.4. 4. Essential hypertension. 5. Sepsis from gangrenous cholecystitis, present on admission. 6. Acute blood loss anemia expected from surgery. 7. Hypoalbuminemia as an acute phase reactant. PLAN: Continue patient on IV Unasyn. The patient is on clear liquids. We will continue IV fluids today. Care was discussed with the patient. The patient's white count has already come down. MMODL / IJN: [id number] /
[2017-11-05] MEDS: HYDROcodone/APAP 7.5-325MG 1 EACH TAB PO PRN ×4 (04:23→19:01)
[2017-11-05] MEDS: ONDANSETRON 4 MG/2 ML VIAL IVP PRN ×2 (05:31→15:05)
[2017-11-05 06:58] LABS: Basophils % (A) 0 %; Eosinophils # (A) 0.1 k/uL (0-0.7); Eosinophils % (A) 2 %; HCT 24.8 % (34.0-46.0); Lymphocytes # (A) 0.8 k/uL (1.0-4.8); Lymphocytes % (A) 8 %; MCH 26.8 pg (25.0-35.0); MCHC 32.4 g/dL (31.0-37.0); MCV 82.8 fL (80.0-100.0); Mean Platelet Volume 6.4; Monocytes # (A) 0.5 k/uL (0-1.0); Monocytes % (A) 5 %; Neutrophils # (A) 8.1 k/uL (1.3-7.7); Neutrophils % (A) 84 %; Platelet Count 377 k/uL (150-450); RBC 2.99 m/uL (3.80-5.40); RDW 12.9 % (11.5-15.5); WBC 9.6 k/uL (3.8-10.6)
[2017-11-05 07:21] LABS: ALT 101 U/L (9-52); AST 53 U/L (14-36); Albumin 2.4 g/dL (3.5-5.0); Alkaline Phosphatase 84 U/L (38-126); Anion Gap 9 mmol/L; Blood Urea Nitrogen 7 mg/dL (7-17); Calcium 8.2 mg/dL (8.4-10.2); Carbon Dioxide 29 mmol/L (22-30); Chloride 100 mmol/L (98-107); Glucose 94 mg/dL (74-99); Potassium 3.4 mmol/L (3.5-5.1); Sodium 138 mmol/L (137-145); Total Bilirubin 0.4 mg/dL (0.2-1.3); Total Protein 4.8 g/dL (6.3-8.2)
[2017-11-05] MEDS: LACTATED RINGERS 1,000 ML IV SCH (07:48)
[2017-11-05] MEDS: AMPICILLIN-SULBACTAM 3 GM in SODIUM CHLORIDE 0.9% 100 ML IVPB SCH ×2 (07:50→15:07)
[2017-11-05] MEDS: PANTOPRAZOLE 40 MG TABLET PO SCH (07:50)
[2017-11-05] MEDS: FAMOTIDINE 20 MG TAB PO SCH ×2 (10:00→20:51)
[2017-11-05] MEDS: HEPARIN SODIUM,PORCINE 5,000 UNIT/ML 1 ML VIAL SQ SCH ×2 (10:00→20:51)
[2017-11-05] MEDS ORDERED: POTASSIUM CHLORIDE ER 20 MEQ TAB.ER PO STA (10:28)
--- NOTE | 2017-11-05 12:44 | P.PN ---
Subjective Progress Note Date: 11/05/17 Patient is a 47-year-old white female status post open cholecystectomy on November 01. The patient was noted to have patchy necrosis of the gallbladder. The patient postoperatively was noted to have a DEVAN drain in place with serosanguineous output. The patient's AST and ALP were initially elevated to 556 and 251, these are now down to 53 and 101. The patient's hemoglobin is stable at 8. Her DEVAN drain is reported as 170, and this appears to be serosanguineous. Patient complains of some incisional discomfort. She does not report any bowel activity. Objective - Vital Signs Vital signs: Vital Signs Temp 98.6 F 11/05/17 07:46 Pulse 89 11/05/17 07:46 Resp 16 11/05/17 08:00 BP 118/69 11/05/17 07:46 Pulse Ox 94 L 11/05/17 07:46 Intake & Output 11/04/17 11/05/17 11/05/17 18:59 06:59 18:59 Intake Total 1118 918 Output Total 150 625 170 Balance 968 293 -170 Weight 87.997 kg Intake: Intake, IV Titration 1000 800 Amount Ampicillin-Sulbactam 3 gm 800 In Sodium Chloride 0.9% 100 ml @ 100 mls/hr IVPB Q8H [facility] Rx#:[id number] Lactated Ringers 1,000 ml 1000 @ 125 mls/hr IV .Q8H [facility] Rx#:[id number] Oral 118 118 Output: Drainage 150 625 170 Upper Abdomen 150 625 170 Other: Voiding Method Bedpan Indwelling Catheter Diaper # Voids 2 - Constitutional General appearance: Present: obese - Respiratory Details: Decreased breath sounds at the bases - Cardiovascular Rhythm: regular Heart sounds: normal: S1, S2 - Gastrointestinal Gastrointestinal Comment(s): Incision clean and dry DEVAN drains serosanguineous output General gastrointestinal: Present: decreased bowel sounds, distended - Psychiatric Psychiatric: Present: A&O x's 3, appropriate affect, intact judgment & insight - Labs CBC & Chem 7: 11/05/17 06:25 11/05/17 06:25 Labs: Abnormal Lab Results - Last 24 Hours (Table) 11/05/17 11/05/17 Range/Units 06:25 06:25 RBC 2.99 L (3.80-5.40) m/uL Hgb 8.0 L (11.4-16.0) gm/dL Hct 24.8 L (34.0-46.0) % Neutrophils # 8.1 H (1.3-7.7) k/uL Lymphocytes # 0.8 L (1.0-4.8) k/uL Potassium 3.4 L (3.5-5.1) mmol/L Creatinine 0.48 L (0.52-1.04) mg/dL Calcium 8.2 L (8.4-10.2) mg/dL AST 53 H (14-36) U/L ALT 101 H (9-52) U/L Total Protein 4.8 L (6.3-8.2) g/dL Albumin 2.4 L (3.5-5.0) g/dL Microbiology - Last 24 Hours (Table) 11/01/17 06:15 Blood Culture - Preliminary Blood No Growth after 96 hours 11/02/17 23:59 Urine Culture - Final Urine,Clean Catch Steffanie albicans Assessment and Plan Assessment: Impression/plan: 1. Acute gangrenous cholecystitis status post cholecystectomy with initial postoperative liver function elevation which are decreasing 2. Obesity 3. Hypertension 4. Acute blood loss anemia will follow Plan: 1. Continue IV Unasyn 2. Follow CBC 3. Possible ileus distended abdomen abdominal x-rays being obtained
--- NOTE | 2017-11-05 12:46 | PN ---
PROGRESS NOTE Patient is a 47-year-old white female with history of multiple sclerosis. She underwent an open cholecystectomy [address] Pina for acute calculous gangrenous cholecystitis. Subsequently, she had a DEVAN drain in place. We were consulted 2 days ago because of elevated LFTs following surgery. This morning the patient states that she still has some pain in the right upper quadrant area. Drainage of bile tinged in the DEVAN drain noted. She reports no nausea, vomiting. PHYSICAL EXAMINATION: She appears comfortable, in no apparent distress. Vital signs are stable. Blood pressure 123/78, pulse rate 95 and temperature 98.6. HEENT: Examination unremarkable. Conjunctivae pink. Sclerae anicteric. Oral cavity, no lesions. NECK: No JVD or lymph node enlargement. Chest is clear to auscultation. HEART: Regular rate and rhythm. Abdomen is somewhat distended. DEVAN drain has blood-tinged fluid. It was tender in the right upper quadrant area. EXTREMITIES: No pedal edema. LAB: WBC 9.6, hemoglobin 8, platelets are 377. T bilirubin is 0.4, AST 53, ALT 101, alkaline phosphatase is 84. Hepatitis A, B, and C were negative. IMPRESSION: 1. This is a lady who is status post open cholecystectomy for acute gangrenous cholecystitis 3 days ago and subsequently was noted to have significant elevation of serum transaminases in the range of 500. However, in the last 2 days, her serum transaminases are gradually improving and today ALT and AST are 53 and 101 respectively. Doubt we are dealing with any biliary obstruction/GB stones at the present. 2. History of multiple sclerosis. RECOMMENDATIONS: 1. Continue current management. 2. No indication for ERCP at the present time. 3. Will sign off. Please call us if needed. Thank you for this consultation. MMODL / IJN: [id number] /
--- NOTE | 2017-11-05 13:46 | PN ---
PROGRESS NOTE DATE OF SERVICE: 11/05/17. PRESENTING COMPLAINT: Abdominal pain. INTERVAL HISTORY: Patient is status post gangrenous cholecystitis followed by cholecystectomy. DEVAN drain is putting out light bloody discharge. No nausea, vomiting. Has not had any flatus. Abdomen is somewhat distended. Breathing is stable. REVIEW OF SYSTEMS: Done for constitutional, cardiovascular, GI, pulmonary; relevant findings as above. CURRENT MEDICATIONS: Reviewed that include IV Unasyn. On examination, afebrile, pulse 59, respiration 16, blood pressure 118/69, pulse ox 94% on room air. GENERAL APPEARANCE: Lying in bed, tired appearing. EYES: Pupils equal. Conjunctivae normal. HEENT: External appearance of nose and ears normal. Oral cavity normal. NECK: JVD unable to assess. Mass not palpable. RESPIRATORY: Effort normal, lungs diminished breath sounds. CARDIOVASCULAR: First and second sounds normal. No edema. ABDOMEN: Distended, tender. DEVAN drain in place. Hyperactive bowel sounds. PSYCHIATRY: Alert and oriented x3. Mood and affect slightly anxious-appearing. INVESTIGATIONS: White count 9.6, hemoglobin 8, potassium 3.4. AST 53, ALT 101, albumin 2.4. ASSESSMENT: 1. Suspect postop ileus. Will order abdominal x-ray. 2. Acute gangrenous cholecystitis followed by cholecystectomy with postoperative liver functions coming down nicely. The patient has a DEVAN drain in place. 3. Ischemic hepatitis improved. 4. Obesity; BMI 34.4. 5. Essential hypertension. 6. Sepsis from gangrenous cholecystitis, present on admission on IV Unasyn. 7. Acute blood loss anemia as expected from surgery. 8. Hypoalbuminemia as an acute phase reactant. PLAN: Continue on IV Unasyn. We will order a abdominal x-ray for the ileus. This discussed with Dr. Rema Gudino. The patient has been on clear liquids. Follow the results of x-ray. MMODL / IJN: [id number] /
--- NOTE | 2017-11-05 14:52 | XR ---
EXAMINATION TYPE: XR abdomen 2V DATE OF EXAM: 11/05/2017 CLINICAL HISTORY: Abdominal distention and pain after recent cholecystectomy. TECHNIQUE: Supine and semiupright portable views of the abdomen are obtained. COMPARISON: CT abdomen and pelvis from 4 days ago. FINDINGS: There are gas prominent small bowel loops throughout the abdomen in a stepladder fashion. T here are gas prominent colonic loops now identified. Contrast material from CT remains present in lef t colon which is nondilated. Oblique overlying horizontal skin torres are now present. Cholecystectomy clips are now seen. There is percutaneous mid abdominal drainage catheter to the left of midline. There is new patchy bibasilar atelectasis and/or infiltrates. Visualized osseous structures are intact. No definitive pneumoperito neum on semiupright view. IMPRESSION: Overall nonspecific bowel gas pattern. Favor postoperative ileus.
[2017-11-05 18:24] LABS: Basophils % (A) 0 %; Eosinophils # (A) 0.1 k/uL (0-0.7); Eosinophils % (A) 1 %; HCT 24.7 % (34.0-46.0); HGB 8.1 gm/dL (11.4-16.0); Lymphocytes # (A) 0.8 k/uL (1.0-4.8); Lymphocytes % (A) 8 %; MCH 27.2 pg (25.0-35.0); MCV 82.3 fL (80.0-100.0); Mean Platelet Volume 6.9; Monocytes # (A) 0.6 k/uL (0-1.0); Monocytes % (A) 5 %; Neutrophils # (A) 8.8 k/uL (1.3-7.7); Neutrophils % (A) 85 %; Platelet Count 412 k/uL (150-450); WBC 10.4 k/uL (3.8-10.6)
[2017-11-05] MEDS: HYDROmorphone 2 MG TAB PO PRN (20:50)
[2017-11-06] MEDS: LACTATED RINGERS 1,000 ML IV SCH ×5 (00:16→22:44)
[2017-11-06] MEDS: AMPICILLIN-SULBACTAM 3 GM in SODIUM CHLORIDE 0.9% 100 ML IVPB SCH ×3 (00:17→17:14)
[2017-11-06] MEDS: HYDROmorphone 2 MG TAB PO PRN ×5 (05:04→21:47)
[2017-11-06 07:45] LABS: Basophils % (A) 0 %; Eosinophils # (A) 0.1 k/uL (0-0.7); Eosinophils % (A) 1 %; HCT 22.6 % (34.0-46.0); HGB 7.2 gm/dL (11.4-16.0); Lymphocytes # (A) 0.7 k/uL (1.0-4.8); Lymphocytes % (A) 8 %; MCH 26.3 pg (25.0-35.0); MCHC 31.7 g/dL (31.0-37.0); MCV 82.8 fL (80.0-100.0); Monocytes # (A) 0.5 k/uL (0-1.0); Monocytes % (A) 6 %; Neutrophils # (A) 6.8 k/uL (1.3-7.7); Neutrophils % (A) 83 %; Platelet Count 367 k/uL (150-450); RBC 2.73 m/uL (3.80-5.40); RDW 13.4 % (11.5-15.5); WBC 8.1 k/uL (3.8-10.6)
[2017-11-06] MEDS: HEPARIN SODIUM,PORCINE 5,000 UNIT/ML 1 ML VIAL SQ SCH ×2 (08:24→20:52)
[2017-11-06] MEDS: FAMOTIDINE 20 MG TAB PO SCH ×2 (08:24→20:52)
[2017-11-06] MEDS: PANTOPRAZOLE 40 MG TABLET PO SCH (10:17)
--- NOTE | 2017-11-06 13:17 | P.PN ---
Subjective Progress Note Date: 11/06/17 Patient is a 47-year-old white female status post open cholecystectomy on November 01. The patient was noted to have patchy necrosis of the gallbladder. The patient postoperatively was noted to have a DEVAN drain in place with serosanguineous output. The patient's liver function studies were initially elevated but have been decreasing. The patient's hemoglobin today was noted to be 7.2 down from 8.1. Her DEVAN drainage has decreased and is serosanguineous at this time. The patient did have a bowel movement. The patient had a abdominal x-ray performed yesterday which revealed findings consistent with postoperative ileus. Objective - Vital Signs Vital signs: Vital Signs Temp 98.3 F 11/06/17 07:42 Pulse 98 11/06/17 07:42 Resp 16 11/06/17 08:00 BP 118/81 11/06/17 07:42 Pulse Ox 97 11/06/17 11:48 Intake & Output 11/05/17 11/06/17 11/06/17 17:59 06:59 18:59 Intake Total Output Total 90 Balance -90 Intake: Intake, IV Titration Amount Sodium Chloride 0.9% 1, 000 ml As IV .[facility] Rx#:[id number] Oral Output: Drainage 90 Upper Abdomen 90 Other: Voiding Method Diaper Incontinent # Voids 2 # Bowel Movements - Constitutional General appearance: Present: obese - Respiratory Details: Decreased breath sounds at the bases - Cardiovascular Rhythm: regular Heart sounds: normal: S1, S2 - Gastrointestinal Gastrointestinal Comment(s): Incisions clean and dry DEVAN drain serosanguineous with some mild bilious staining at the skin surface near the exit wound of the drain - Psychiatric Psychiatric: Present: A&O x's 3, appropriate affect, intact judgment & insight - Labs CBC & Chem 7: 11/06/17 07:20 11/05/17 06:25 Labs: Abnormal Lab Results - Last 24 Hours (Table) 11/05/17 11/06/17 Range/Units 18:14 07:20 RBC 3.00 L 2.73 L (3.80-5.40) m/uL Hgb 8.1 L 7.2 L (11.4-16.0) gm/dL Hct 24.7 L 22.6 L (34.0-46.0) % Neutrophils # 8.8 H (1.3-7.7) k/uL Lymphocytes # 0.8 L 0.7 L (1.0-4.8) k/uL Microbiology - Last 24 Hours (Table) 11/01/17 06:15 Blood Culture - Preliminary Blood No Growth after 120 hours Assessment and Plan Assessment: Impression/plan: 1. Acute gangrenous cholecystitis status post cholecystectomy with initial postoperative liver function elevation which are decreasing 2. Obesity 3. Hypertension 4. Acute blood loss anemia will follow, hemoglobin today 7.2 5. Patient had a bowel movement Plan: 1. Continue IV Unasyn 2. Follow CBC
[2017-11-06 13:20] LABS: Basophils % (A) 0 %; Eosinophils # (A) 0.1 k/uL (0-0.7); Eosinophils % (A) 1 %; HCT 23.5 % (34.0-46.0); HGB 7.4 gm/dL (11.4-16.0); Hypochromasia Slight; Lymphocytes # (A) 0.9 k/uL (1.0-4.8); Lymphocytes % (A) 11 %; MCH 26.3 pg (25.0-35.0); MCHC 31.5 g/dL (31.0-37.0); MCV 83.4 fL (80.0-100.0); Monocytes # (A) 0.5 k/uL (0-1.0); Monocytes % (A) 6 %; Neutrophils # (A) 6.5 k/uL (1.3-7.7); Neutrophils % (A) 80 %; Platelet Count 359 k/uL (150-450); RBC 2.82 m/uL (3.80-5.40); RDW 13.3 % (11.5-15.5); WBC 8.2 k/uL (3.8-10.6)
--- NOTE | 2017-11-06 20:02 | PN ---
PROGRESS NOTE DATE OF SERVICE: November 06, 2017. PRESENT COMPLAINT: Abdominal pain. INTERVAL HISTORY: Patient is status post gangrenous cholecystitis followed by cholecystectomy. The patient had a loose bowel movement last night. Has made good urine. Overall feels much better. Abdominal pain is better. No nausea, vomiting. The patient moved to the peds floor. Nurse Chato was present with me. There was a concern that the tube was coming out. The patient gave me permission to take a picture of the drain inside and sed it to Dr. Rema Gudino which I did and Dr. Rema Gudino will now talk to the nurse about the same. There is still some bloody drainage out of the DEVAN drain. REVIEW OF SYSTEMS: Done for constitutional, cardiovascular, GI, pulmonary, relevant findings as above. CURRENT MEDICATIONS: Reviewed that include IV Unasyn. EXAMINATION: Temperature 99.9, pulse 96, respiration 20, blood pressure 132/78, pulse ox 95% on room air. General appearance: lying in bed, comfortable. Eyes pupil equal. Conjunctivae normal. HEENT external appearance of nose and ears normal. Oral cavity normal. Neck JVD not raised. Mass not palpable. Respiratory effort lungs slightly decreased breath sounds. Cardiovascular 1st and 2nd sounds normal. No edema. Abdomen less distended, less tender, DEVAN drain there with some white portion outside. Bowel sounds sluggish. Psychiatry: Alert and oriented times three. Mood and affect rather comfortable today. INVESTIGATIONS: White count 8.2, hemoglobin 7.4. ASSESSMENT: 1. Postop ileus with some clinical improvement. 2. Acute gangrenous cholecystitis followed by cholecystectomy with postop liver functions coming down. DEVAN drain in place. 3. Ischemic hepatitis improved. 4. Obesity; BMI 34.4. 5. Essential hypertension. 6. Sepsis from cholecystitis, present on admission from IV Unasyn, clinically doing much better. 7. Acute blood loss anemia expected from surgery. 8. Hypoalbuminemia as an acute phase reactant. PLAN: Continue the antibiotics. Diet is to be continued as per surgery. Dr. Rema Gudino will decide about the drain, but clinically patient overall looks much better. I discussed with the patient. Follow. MMODL / IJN: [id number] /
[2017-11-06 23:39] LABS: Basophils % (A) 0 %; Eosinophils # (A) 0.2 k/uL (0-0.7); Eosinophils % (A) 2 %; HCT 21.8 % (34.0-46.0); HGB 7.1 gm/dL (11.4-16.0); Lymphocytes # (A) 0.8 k/uL (1.0-4.8); Lymphocytes % (A) 10 %; MCH 26.5 pg (25.0-35.0); MCHC 32.5 g/dL (31.0-37.0); MCV 81.5 fL (80.0-100.0); Mean Platelet Volume 6.5; Monocytes # (A) 0.6 k/uL (0-1.0); Monocytes % (A) 7 %; Neutrophils # (A) 7.1 k/uL (1.3-7.7); Neutrophils % (A) 80 %; Platelet Count 426 k/uL (150-450); RBC 2.68 m/uL (3.80-5.40); RDW 13.1 % (11.5-15.5); WBC 8.8 k/uL (3.8-10.6)
[2017-11-07] MEDS: AMPICILLIN-SULBACTAM 3 GM in SODIUM CHLORIDE 0.9% 100 ML IVPB SCH ×4 (00:18→23:41)
[2017-11-07] MEDS: HYDROmorphone 2 MG TAB PO PRN ×4 (02:12→14:10)
[2017-11-07] MEDS: PANTOPRAZOLE 40 MG TABLET PO SCH (06:19)
[2017-11-07 06:58] LABS: Basophils % (A) 0 %; Eosinophils # (A) 0.2 k/uL (0-0.7); Eosinophils % (A) 3 %; HCT 22.6 % (34.0-46.0); HGB 7.2 gm/dL (11.4-16.0); Hypochromasia Slight; Lymphocytes # (A) 0.9 k/uL (1.0-4.8); Lymphocytes % (A) 13 %; MCH 26.2 pg (25.0-35.0); MCHC 31.9 g/dL (31.0-37.0); Mean Platelet Volume 6.7; Monocytes # (A) 0.6 k/uL (0-1.0); Monocytes % (A) 8 %; Neutrophils # (A) 5.3 k/uL (1.3-7.7); Neutrophils % (A) 74 %; Platelet Count 443 k/uL (150-450); Poikilocytosis Slight; RBC 2.76 m/uL (3.80-5.40); RDW 13.1 % (11.5-15.5); WBC 7.2 k/uL (3.8-10.6)
[2017-11-07] MEDS: LACTATED RINGERS 1,000 ML IV SCH ×3 (07:19→23:42)
[2017-11-07] MEDS: FAMOTIDINE 20 MG TAB PO SCH ×2 (10:11→21:52)
[2017-11-07] MEDS: HEPARIN SODIUM,PORCINE 5,000 UNIT/ML 1 ML VIAL SQ SCH ×2 (11:45→21:52)
--- NOTE | 2017-11-07 11:59 | P.PN ---
<Malathi Youngsimona Camp - Last Filed: 11/07/17 11:48> Subjective Progress Note Date: 11/07/17 47-year-old female seen and examined. Patient's resting comfortably in bed. DEVNA drain in the right lower quadrant serosanguineous drainage noted leaking around insertion site. Patient states did have a bowel movement this morning passing gas. Patient does have a history of MS with limited mobility. Patient states she was able to walk short distance in the hallway with a walker with assistance. Hemoglobin this morning 7.2. It was 7.1 the day before white count 7.2. Afebrile. Patient's postop open cholecystectomy November 01. Noted patchy necrosis of the gallbladder. Objective - Vital Signs Vital signs: Vital Signs Temp 98.7 F 11/07/17 08:30 Pulse 101 H 11/07/17 08:30 Resp 20 11/07/17 08:30 BP 115/76 11/07/17 08:30 Pulse Ox 94 L 11/07/17 11:00 Intake & Output 11/06/17 11/07/17 11/07/17 18:59 06:59 18:59 Intake Total 1000 240 Output Total 710 300 105 Balance 290 -60 -105 Intake: Intake, IV Titration 1000 Amount Lactated Ringers 1,000 ml 1000 @ 125 mls/hr IV .Q8H [facility] Rx#:[id number] Oral 240 Output: Drainage 310 300 105 Upper Abdomen 310 300 105 Urine 400 Other: Voiding Method Diaper Bedside Commode Incontinent Diaper # Voids 2 1 1 # Bowel Movements 1 - Exam Exam Abdomen soft nondistended nontender bowel tones active states no nausea vomiting passing gas had a small bowel movement this morning DEVAN drain dressing at insertion site at the right lower quadrant small amount of drainage noted on the dressing serosanguineous drainage noted - Labs CBC & Chem 7: 11/07/17 06:37 11/05/17 06:25 Labs: Abnormal Lab Results - Last 24 Hours (Table) 11/06/17 11/06/17 11/07/17 Range/Units 13:09 23:04 06:37 RBC 2.82 L 2.68 L 2.76 L (3.80-5.40) m/uL Hgb 7.4 L 7.1 L 7.2 L (11.4-16.0) gm/dL Hct 23.5 L 21.8 L 22.6 L (34.0-46.0) % Lymphocytes # 0.9 L 0.8 L 0.9 L (1.0-4.8) k/uL Microbiology - Last 24 Hours (Table) 11/01/17 06:15 Blood Culture - Final Blood No Growth after 144 hours Assessment and Plan Assessment: Impression Depressive disorder nonspecified Present on admission right upper quadrant pain with an ultrasound of the gallbladder showing gallstones with thickening of the gallbladder suspect due to acute cholecystitis Present on admission History multiple sclerosis Debility use of a walker's motorized scooter due to MS Computed tomography scan abdomen pelvis findings are compatible with cholecystitis cholelithiasis Postop November 01 laparoscopic cholecystectomy with conversion to an open procedure due to acute cholecystitis with patchy necrosis of the gallbladder Postop expected acute blood loss anemia Expected postop elevated AST and ALT improving Plan Advance diet to full liquid Continue postop surgical course Hep-Lock IV PT OT eval May benefit from subacute rehab Pain control IV fluid for hydration DVT and GI prophylaxis incentive spirometer every 1 hour while awake Further surgical recommendations pending will follow Progress note dictated for Dr. alcala rounding on behalf of dr liu The above impression and plan of care have been discussed and directed by signing physician. Betty Young nurse practitioner acting as scribe for signing physician. <Jakob Alcala - Last Filed: 11/07/17 15:15> Objective - Vital Signs Vital signs: Vital Signs Temp 97.9 F 11/07/17 11:15 Pulse 96 11/07/17 11:15 Resp 20 11/07/17 11:15 BP 119/80 11/07/17 11:15 Pulse Ox 94 L 11/07/17 11:15 Intake & Output 11/06/17 11/07/17 11/07/17 18:59 06:59 18:59 Intake Total 1000 240 320 Output Total 710 300 165 Balance 290 -60 155 Intake: Intake, IV Titration 1000 Amount Lactated Ringers 1,000 ml 1000 @ 125 mls/hr IV .Q8H [facility] Rx#:[id number] Oral 240 320 Output: Drainage 310 300 165 Upper Abdomen 310 300 165 Urine 400 Other: Voiding Method Diaper Bedside Commode Incontinent Diaper # Voids 2 1 1 # Bowel Movements 1 - Labs CBC & Chem 7: 11/07/17 06:37 11/05/17 06:25 Labs: Abnormal Lab Results - Last 24 Hours (Table) 11/06/17 11/07/17 Range/Units 23:04 06:37 RBC 2.68 L 2.76 L (3.80-5.40) m/uL Hgb 7.1 L 7.2 L (11.4-16.0) gm/dL Hct 21.8 L 22.6 L (34.0-46.0) % Lymphocytes # 0.8 L 0.9 L (1.0-4.8) k/uL Microbiology - Last 24 Hours (Table) 11/01/17 06:15 Blood Culture - Final Blood No Growth after 144 hours Assessment and Plan Assessment: As above. Patient having issues with her drain tube. It was noted by the nursing staff the DEVAN drain had slipped out approximately 1 inch. She had some difficulties maintaining suction on the bulb. Currently the bulb was holding pressure. There was a amber color to the DEVAN drainage fluid is more serosanguineous presently. Pain is well-controlled. Will advance diet. Likely remove dressing tomorrow.
[2017-11-07] MEDS: DOCUSATE 100 MG CAP PO SCH ×2 (12:30→21:54)
--- NOTE | 2017-11-07 17:33 | PN ---
PROGRESS NOTE DATE OF SERVICE: 11/07/17 PRESENTING COMPLAINT: Abdominal pain. INTERVAL HISTORY: Patient with gangrenous cholecystitis status post cholecystectomy with a DEVAN drain in place. The DEVAN drain did slip out a bit yesterday and then it was secured to the abdominal wall, still putting out some bloody drain. Abdominal pain is actually better. Did pass some flatus and some golf ball size bowel movement today. Has been out of bed. The patient's parents are visiting up from [place]. Overall looks much better. On a clear liquid diet. REVIEW OF SYSTEMS: Done for constitutional, cardiovascular, GI, pulmonary, relevant findings as above. CURRENT MEDICATIONS: Include IV Unasyn. PHYSICAL EXAMINATION: Temperature 97.9, pulse 96, respiratory 20, blood pressure 109/80, pulse ox 94% on room air. General appearance: Lying in bed, comfortable. Eyes: Pupils equal, conjunctivae normal. HEENT: External appearance of nose and ears normal. Oral cavity normal. Neck JVD not raised. Mass not palpable. Respiratory effort normal. Lungs decreased breath sounds. Cardiovascular: First and second sounds no edema. ABDOMEN: Soft, mild right-sided tenderness. A DEVAN drain is present with a little bit of white portions sticking outside, the tape down. Bowel sounds are present. Psychiatry: Alert, and oriented x3. Mood and affect normal. INVESTIGATIONS: White count 7.2, hemoglobin 7.2. ASSESSMENT: 1. Postop ileus with clinical improvement. 2. Acute gangrenous cholecystitis followed by cholecystectomy with postop liver functions coming down nicely. 3. DVEAN drain in place that is slightly out with still putting out some bloody output. 4. Ischemic hepatitis improved. 5. Obesity; BMI 34.4. 6. Essential hypertension. 7. Sepsis from gangrenous cholecystitis, clinically improved. Remains on IV Unasyn. 8. Acute blood-loss anemia as expected from surgery. 9. Hypoalbuminemia as an acute phase reactant. PLAN: DEVAN drain is being followed by General surgery. Hemoglobin has remained stable. Continued IV antibiotic care was discussed with the patient. Diet is being advanced per surgery. MMODL / IJN: [id number] /
[2017-11-07] MEDS: HYDROcodone/APAP 7.5-325MG 1 EACH TAB PO PRN (18:48)
[2017-11-08 08:14] LABS: ALT 40 U/L (9-52); AST 32 U/L (14-36); Albumin 2.4 g/dL (3.5-5.0); Alkaline Phosphatase 84 U/L (38-126); Anion Gap 5 mmol/L; Blood Urea Nitrogen 5 mg/dL (7-17); Calcium 8.2 mg/dL (8.4-10.2); Carbon Dioxide 32 mmol/L (22-30); Chloride 99 mmol/L (98-107); Glucose 96 mg/dL (74-99); Potassium 3.7 mmol/L (3.5-5.1); Sodium 136 mmol/L (137-145); Total Bilirubin 0.3 mg/dL (0.2-1.3); Total Protein 4.6 g/dL (6.3-8.2)
[2017-11-08] MEDS: LACTATED RINGERS 1,000 ML IV SCH ×3 (08:40→15:55)
[2017-11-08 08:46] LABS: Basophils % (A) 0 %; Eosinophils # (A) 0.1 k/uL (0-0.7); Eosinophils % (A) 2 %; HCT 21.3 % (34.0-46.0); Hypochromasia Slight; Lymphocytes # (A) 1.1 k/uL (1.0-4.8); Lymphocytes % (A) 16 %; MCHC 31.3 g/dL (31.0-37.0); Mean Platelet Volume 6.7; Monocytes # (A) 0.5 k/uL (0-1.0); Monocytes % (A) 7 %; Neutrophils # (A) 4.8 k/uL (1.3-7.7); Neutrophils % (A) 73 %; Platelet Count 460 k/uL (150-450); RBC 2.56 m/uL (3.80-5.40); WBC 6.7 k/uL (3.8-10.6)
[2017-11-08] MEDS: FAMOTIDINE 20 MG TAB PO SCH ×2 (08:48→22:44)
[2017-11-08] MEDS: PANTOPRAZOLE 40 MG TABLET PO SCH (08:48)
[2017-11-08] MEDS: HEPARIN SODIUM,PORCINE 5,000 UNIT/ML 1 ML VIAL SQ SCH ×2 (08:48→22:44)
[2017-11-08] MEDS: DOCUSATE 100 MG CAP PO SCH ×2 (08:48→22:43)
[2017-11-08 08:59] LABS: HGB 6.7 gm/dL (11.4-16.0)
[2017-11-08] MEDS: AMPICILLIN-SULBACTAM 3 GM in SODIUM CHLORIDE 0.9% 100 ML IVPB SCH ×3 (09:23→22:46)
--- NOTE | 2017-11-08 11:10 | CDI ---
Last Revision, July 2017 Documentation Clarification Form Date: 11/08/2017 From: rTinh Singh Admit Date: 10/31/2017 10:47:00 PM Patient Name: Petra Padron Visit Number: [id number] Discharge Date: ATTENTION: The Clinical Documentation Specialists (CDI) and [facility] Coding Staff appreciate your assistance in clarifying documentation. Please respond to the clarification below the line at the bottom and electronically sign. The CDI & [facility] Coding staff will review the response and follow-up if needed. Please note: Queries are made part of the Legal Health Record. If you have any questions, please contact the author of this message via ITS. Dr. Angie Gudino or covering surgeon: Per the 11/06 Surgical Progress Note: "The patient did have a bowel movement. The patient had a abdominal x-ray performed yesterday which revealed findings consistent with postoperative ileus." Patients Admitting Diagnosis: Acute gangrenous cholecystitis Post-Operative Diagnosis: Same Procedure performed: Laparoscopic cholecystectomy with conversion to open procedure. History/Risk Factors: MS, Hypertension, Former smoker. Clinical Indicators: RAD: 11/05 Abdominal XR: Favor postoperative ileus. Treatment: IV antibiotics continued, diet continued to be advanced, IV fluid hydration. In order to accurately reflect this patients severity of illness, please clarify if the post-operative diagnosis: postoperative ileus, is: An expected post-procedural or post-surgical condition; Integral to the procedure; Inherent to the procedure; An unexpected post-procedural or post-surgical condition related to surgical care; Other, please specify Unable to determine Please continue to document in your progress notes and discharge summary in order to capture severity of illness and risk of mortality. Include clinical findings that support your diagnosis. MTDD
--- NOTE | 2017-11-08 12:23 | P.PN ---
Subjective Progress Note Date: 11/08/17 47-year-old female seen and examined. Currently sitting up on a bedside commode. Patient reports having episodes large amount of incontinence urine and stool this morning. The DEVAN drain in the right lower quadrant continues to have a significant amount of serosanguineous drainage noted greater than 100 this morning did note the hemoglobin is 6.7 this morning patient is to receive 1 unit of packed red blood cells. White count 6.7 temp this morning 100.2 postop open cholecystectomy November 01. Noted patchy necrosis of the gallbladder. Objective - Vital Signs Vital signs: Vital Signs Temp 100.2 F H 11/08/17 07:00 Pulse 101 H 11/08/17 08:00 Resp 20 11/08/17 08:00 BP 130/81 11/08/17 07:00 Pulse Ox 90 L 11/08/17 07:00 Intake & Output 11/07/17 11/08/17 11/08/17 18:59 06:59 18:59 Intake Total 320 1565 240 Output Total 253 160 200 Balance 67 1405 40 Weight 87.997 kg Intake: IV 975 Ampicillin-Sulbactam 3 gm 100 In Sodium Chloride 0.9% 100 ml @ 100 mls/hr IVPB Q8H [facility] Rx#:[id number] Lactated Ringers 1,000 ml 875 @ 125 mls/hr IV .Q8H [facility] Rx#:[id number] Oral 320 590 240 Output: Drainage 253 160 200 Upper Abdomen 253 160 200 Other: Voiding Method Toilet Bedpan Incontinent Incontinent # Voids 1 3 2 # Bowel Movements 1 2 - Exam Exam Abdomen soft nondistended nontender bowel tones active states no nausea vomiting passing gas had a small bowel movement this morning DEVAN drain dressing at insertion site at the right lower quadrant small amount of drainage noted on the dressing serosanguineous drainage noted surgical dressing dry - Labs CBC & Chem 7: 11/08/17 07:40 11/08/17 07:40 Labs: Abnormal Lab Results - Last 24 Hours (Table) 11/06/17 11/08/17 11/08/17 Range/Units 23:04 07:40 07:40 RBC 2.56 L (3.80-5.40) m/uL Hgb 6.7 L* (11.4-16.0) gm/dL Hct 21.3 L (34.0-46.0) % Plt Count 460 H (150-450) k/uL Sodium 136 L (137-145) mmol/L Carbon Dioxide 32 H (22-30) mmol/L BUN 5 L (7-17) mg/dL Creatinine 0.50 L (0.52-1.04) mg/dL Calcium 8.2 L (8.4-10.2) mg/dL Total Protein 4.6 L (6.3-8.2) g/dL Albumin 2.4 L (3.5-5.0) g/dL Crossmatch See Detail Microbiology - Last 24 Hours (Table) 11/01/17 06:15 Blood Culture - Final Blood No Growth after 144 hours Assessment and Plan Assessment: Impression Depressive disorder nonspecified Present on admission right upper quadrant pain with an ultrasound of the gallbladder showing gallstones with thickening of the gallbladder suspect due to acute cholecystitis Present on admission History multiple sclerosis Debility use of a walker's motorized scooter due to MS Computed tomography scan abdomen pelvis findings are compatible with cholecystitis cholelithiasis Postop November 01 laparoscopic cholecystectomy with conversion to an open procedure due to acute cholecystitis with patchy necrosis of the gallbladder Postop expected acute blood loss anemia Expected postop elevated AST and ALT improving Postop on expected ileus due to limited mobility secondary to MS- resolving Plan Transfuse 1 unit of packed red blood cells this morning Advance diet to low fiber Continue postop surgical course Hep-Lock IV PT OT eval May benefit from subacute rehab Pain control IV fluid for hydration DVT and GI prophylaxis incentive spirometer every 1 hour while awake Further surgical recommendations pending will follow Progress note dictated for Dr. alcala roundadina on behalf of dr liu The above impression and plan of care have been discussed and directed by signing physician. Betty Young nurse practitioner acting as scribe for signing physician.
--- NOTE | 2017-11-08 15:55 | PN ---
PROGRESS NOTE DATE OF SERVICE: 11/08/17. PRESENTING COMPLAINT: Abdominal pain. INTERVAL HISTORY: This is a patient with gangrenous cholecystitis followed by cholecystectomy with a DEVAN drain in place. The patient's drain is putting out some blood tinged fluid improved from yesterday. Abdominal pain is better. The patient has had some loose stools. Has been out of bed. Abdominal pain is much improved. No nausea, vomiting. EXAMINATION: Temperature 98.5, pulse 91, respiratory 18, blood pressure 127/75, pulse ox 98% on room air. GENERAL APPEARANCE: Lying in bed, comfortable, awake. EYES: Pupils equal. Conjunctivae pale. HEENT: External appearance of nose and ears normal. Oral cavity normal. NECK: JVD not raised. Mass not palpable. RESPIRATORY: Effort, lungs slightly decreased breath sounds. CARDIOVASCULAR: First and second sounds normal. No edema. ABDOMEN: Soft. Slight tenderness. Bowel sounds are present. DEVAN drain in place with blood-tinged fluid. PSYCHIATRY: Alert and oriented x3. Mood and affect, patient actually cheerful. INVESTIGATIONS: White count 6.7, hemoglobin 6.7, potassium 3.7, BUN 5, creatinine 0.5. ASSESSMENT: 1. Postop ileus with clinical improvement. 2. Acute gangrenous cholecystitis followed by cholecystectomy and postop LFTs coming down. 3. DEVAN drain in place with bloody output, which is much improved. 4. Ischemic hepatitis, improved. 5. Obesity; BMI 34.4. 6. Essential hypertension. 7. Sepsis from gangrenous cholecystitis, clinically improved. Remains on IV Unasyn. 8. Acute blood loss anemia as expected from surgery. 9. Hypoalbuminemia as an acute phase reactant. PLAN: Patient's hemoglobin dropped to 7. The patient will be getting a unit of blood. I did speak to Dr. Pina and will follow closely. The patient's white count has been down. No further fever. We will decrease the IV fluids to 75 mL an hour. MMODL / IJN: [id number] /
[2017-11-08 21:37] LABS: Basophils % (A) 0 %; Eosinophils # (A) 0.1 k/uL (0-0.7); Eosinophils % (A) 2 %; HCT 23.7 % (34.0-46.0); HGB 7.5 gm/dL (11.4-16.0); Hypochromasia Slight; Lymphocytes # (A) 1.1 k/uL (1.0-4.8); Lymphocytes % (A) 14 %; MCH 26.5 pg (25.0-35.0); MCHC 31.6 g/dL (31.0-37.0); Mean Platelet Volume 6.7; Monocytes # (A) 0.5 k/uL (0-1.0); Monocytes % (A) 6 %; Neutrophils # (A) 5.9 k/uL (1.3-7.7); Neutrophils % (A) 76 %; Platelet Count 478 k/uL (150-450); Poikilocytosis Slight; RBC 2.82 m/uL (3.80-5.40); RDW 14.3 % (11.5-15.5); WBC 7.7 k/uL (3.8-10.6)
[2017-11-09] MEDS: FAMOTIDINE 20 MG TAB PO SCH (08:48)
[2017-11-09] MEDS: PANTOPRAZOLE 40 MG TABLET PO SCH (08:48)
[2017-11-09] MEDS: DOCUSATE 100 MG CAP PO SCH ×2 (08:48→10:11)
[2017-11-09] MEDS: HEPARIN SODIUM,PORCINE 5,000 UNIT/ML 1 ML VIAL SQ SCH (08:49)
[2017-11-09] MEDS: AMPICILLIN-SULBACTAM 3 GM in SODIUM CHLORIDE 0.9% 100 ML IVPB SCH ×2 (08:49→14:54)
[2017-11-09 09:13] VITALS: BP 135/86; PULSE 73; RESP 16; TEMP 99.6
[2017-11-09] MEDS: LACTATED RINGERS 1,000 ML IV SCH (10:12)
--- NOTE | 2017-11-09 11:44 | P.PN ---
Subjective Progress Note Date: 11/09/17 47-year-old female seen and examined currently sitting up in bed taking a diet. Patient had an episode of being incontinent of stool and urine. Patient states there is less abdominal pain. DEVAN drain right lower quadrant continues to have a significant amount of drainage currently 150 in the bulb serosanguineous. Surgical dressing sites dry. Hemoglobin this morning 7.5 up from 6.7 the day before after receiving 1 unit of packed red blood cells. The temp this morning 99.6. postop open cholecystectomy November 01.with Noted patchy necrosis of the gallbladder. Objective - Vital Signs Vital signs: Vital Signs Temp 99.6 F 11/09/17 07:00 Pulse 73 11/09/17 07:00 Resp 16 11/09/17 07:00 BP 135/86 11/09/17 07:00 Pulse Ox 97 11/09/17 07:00 Intake & Output 11/08/17 11/09/17 11/09/17 18:59 06:59 18:59 Intake Total 1130 1350 Output Total 200 180 Balance 930 1170 Weight 87.997 kg Intake: IV 700 Ampicillin-Sulbactam 3 gm 200 In Sodium Chloride 0.9% 100 ml @ 100 mls/hr IVPB Q8H NICO Rx#:[id number] Lactated Ringers 1,000 ml 500 @ 125 mls/hr IV .Q8H NICO Rx#:[id number] Oral 720 650 Blood Product 310 Rc As-1 Unit 310 [id number] Other 100 Rc As-1 Unit 100 [id number] Output: Drainage 200 180 Upper Abdomen 200 180 Other: Voiding Method Bedpan Bedpan Incontinent Incontinent # Voids 2 3 # Bowel Movements 4 2 - Exam Exam 47-year-old female sitting up in bed taking a diet no nausea no vomiting states abdominal pain significantly improved "did not need to take pain medication as frequent" Lungs adequate air movement bilaterally no wheezing rales or rhonchi no cough 97 % sat on room air Heart S1-S2 audible regular no murmur denying chest pain Abdomen soft nondistended nontender bowel tones active states no nausea vomiting passing gas incontinent large amount of stool DEVAN drain dressing at insertion site at the right lower quadrant moderate amount of drainage noted in the DEVAN bulb surgical dressing sites dry Extremities no edema noted - Labs CBC & Chem 7: 11/08/17 21:18 11/08/17 07:40 Labs: Abnormal Lab Results - Last 24 Hours (Table) 11/06/17 11/08/17 Range/Units 23:04 21:18 RBC 2.82 L (3.80-5.40) m/uL Hgb 7.5 L (11.4-16.0) gm/dL Hct 23.7 L (34.0-46.0) % Plt Count 478 H (150-450) k/uL Crossmatch See Detail Assessment and Plan Assessment: Impression Depressive disorder nonspecified Present on admission right upper quadrant pain with an ultrasound of the gallbladder showing gallstones with thickening of the gallbladder suspect due to acute cholecystitis Present on admission History multiple sclerosis Debility use of a walker's motorized scooter due to MS Computed tomography scan abdomen pelvis findings are compatible with cholecystitis cholelithiasis Postop November 01 laparoscopic cholecystectomy with conversion to an open procedure due to acute cholecystitis with patchy necrosis of the gallbladder Postop expected acute blood loss anemia Expected postop elevated AST and ALT improving Postop on expected ileus due to limited mobility secondary to MS- resolving Plan Surgical perspective is felt to be appropriate to transfer to the ECF facility defer to the timing to the attending Will follow patient in the outpatient setting Advance diet to low fiber Continue postop surgical course Pain control DVT and GI prophylaxis Progress note dictated for dr liu The above impression and plan of care have been discussed and directed by signing physician. Betty Young nurse practitioner acting as scribe for signing physician.
[2017-11-09 12:16] LABS: Basophils % (A) 0 %; Eosinophils # (A) 0.2 k/uL (0-0.7); Eosinophils % (A) 2 %; HCT 27.7 % (34.0-46.0); HGB 8.7 gm/dL (11.4-16.0); Hypochromasia Slight; Lymphocytes # (A) 1.3 k/uL (1.0-4.8); Lymphocytes % (A) 13 %; MCH 26.7 pg (25.0-35.0); MCHC 31.5 g/dL (31.0-37.0); MCV 84.9 fL (80.0-100.0); Mean Platelet Volume 6.5; Monocytes # (A) 0.4 k/uL (0-1.0); Monocytes % (A) 5 %; Neutrophils # (A) 7.6 k/uL (1.3-7.7); Neutrophils % (A) 79 %; Platelet Count 588 k/uL (150-450); Poikilocytosis Slight; RBC 3.26 m/uL (3.80-5.40); RDW 14.2 % (11.5-15.5); WBC 9.7 k/uL (3.8-10.6)
--- NOTE | 2017-11-09 14:35 | DS ---
DISCHARGE SUMMARY DATE OF ADMISSION: 10/31/2017 DATE OF DISCHARGE: 11/09/2017 FINAL DIAGNOSES: 1. Acute gangrenous cholecystitis causing sepsis, present on admission followed by cholecystectomy. 2. Ischemic hepatitis from sepsis, improved. 3. Postoperative ileus, resolved. 4. Obesity; body mass index 34.4. 5. Essential hypertension. 6. Acute blood-loss anemia as expected from surgery. Patient did require a blood transfusion. 7. Hypoalbuminemia as an acute phase reactant. HOSPITAL COURSE: This patient presented with gangrenous gallbladder, difficult surgery, had a drain put in. Patient was having bloody output initially, that greatly improved, now down to clear. Patient did require 1 unit of blood transfusion. Hemoglobin is currently stable at 8.7. Patient was seen by Dr. Pina today. Okayed to be discharged. Patient has a DEVAN drain in place. Patient tolerating a soft bland diet. Has had bowel movements. PHYSICAL EXAM: Abdomen soft, nontender. DEVAN in place. Psych, alert and oriented x3. White count is normal. Did discuss with Annetta from General Surgery. DISCHARGE MEDICATIONS: 1. Prilosec 20 mg p.o. daily. 2. Augmentin 875 one tablet p.o. q.12 for 14 tablets. 3. Zestoretic /12.5 one tablet p.o. daily. DISPOSITION: [facility]. Follow up with Dr. Mooney at the [facility]. Follow up with Dr. Rincon after discharge from [facility]. Follow up with Dr. Pina in 1 week. DEVAN drain care as per Dr. Pina. DIET: Soft, bland. Patient to have a CBC and BMP in 3 days. Discharge planning more than 35 minutes. MMODL / IJN: [id number] /
== END 2017-11-09 15:30 | DRG 854 ==
LOC: EC 19:09 → 3SUR 22:47 → 6PED 11-06 15:03 → 5MS5E 11-07 19:09
PROVIDERS: ADMIT Hospitalist; ATTEND Hospitalist
PROC: 0FT40ZZ Resection of Gallbladder, Open Approach (ICD-10-PCS; principal; 2017-11-01 10:35)
PROC: 0FJ44ZZ Inspection of Gallbladder, Percutaneous Endoscopic Approach (ICD-10-PCS; principal; 2017-11-01 10:35)
PROC: 30233N1 Transfusion of Nonautologous Red Blood Cells into Peripheral Vein, Percutaneous Approach (ICD-10-PCS; 2017-11-08)
DX: A41.9 Sepsis, unspecified organism (principal); K80.66 Calculus of gallbladder and bile duct with acute and chronic cholecystitis without obstruction; K82.1 Hydrops of gallbladder; D62 Acute posthemorrhagic anemia; E88.09 Other disorders of plasma-protein metabolism, not elsewhere classified; G35 Multiple sclerosis; K56.7 Ileus, unspecified; K75.89 Other specified inflammatory liver diseases; R45.851 Suicidal ideations; E66.9 Obesity, unspecified; F32.9 Major depressive disorder, single episode, unspecified; I10 Essential (primary) hypertension; R32 Unspecified urinary incontinence; Z91.81 History of falling; Z53.31 Laparoscopic surgical procedure converted to open procedure; Z79.899 Other long term (current) drug therapy; Z80.0 Family history of malignant neoplasm of digestive organs; Z82.49 Family history of ischemic heart disease and other diseases of the circulatory system; Z87.891 Personal history of nicotine dependence
CPT/HCPCS: 36415; 71046; 74019; 74176; 76705; 80053; 80074; 81001; 81025; 82075; 82150; 82550; 82553; 83605; 83690; 84484; 85025; 86850; 86900; 86901; 86920; 87040; 87086; 88304; 94760; 94762; 96361; 96374; 96375; 99285

== ENCOUNTER 2018-06-15 05:23 | Observation (INO) | payer BC ==
[2018-06-15] MEDS ORDERED: SODIUM CHLORIDE 0.9% 500 ML 500 ML IV STA (06:25)
[2018-06-15] MEDS ORDERED: DIAZEPAM 5 MG/ML 2 ML INJ IVP STA (06:50)
[2018-06-15 06:53] LABS: Basophils % (A) 1 %; Eosinophils # (A) 0.2 k/uL (0-0.7); Eosinophils % (A) 3 %; HCT 36.6 % (34.0-46.0); HGB 11.9 gm/dL (11.4-16.0); Lymphocytes # (A) 1.2 k/uL (1.0-4.8); Lymphocytes % (A) 24 %; MCH 26.2 pg (25.0-35.0); MCHC 32.5 g/dL (31.0-37.0); MCV 80.5 fL (80.0-100.0); Mean Platelet Volume 6.5; Monocytes # (A) 0.3 k/uL (0-1.0); Monocytes % (A) 6 %; Neutrophils # (A) 3.4 k/uL (1.3-7.7); Neutrophils % (A) 65 %; Platelet Count 276 k/uL (150-450); RBC 4.55 m/uL (3.80-5.40); RDW 15.2 % (11.5-15.5); WBC 5.2 k/uL (3.8-10.6)
--- NOTE | 2018-06-15 06:58 | ED ---
Weakness HPI - General Chief complaint: Weakness Stated complaint: Weakness Time Seen by Provider: 06/15/18 06:10 Source: patient, EMS Mode of arrival: EMS Limitations: physical limitation - History of Present Illness Initial comments: This patient's 47-year-old woman with history of MS. She states that for nearly one week she has been having a feeling like her MS is flaring. She states that she has mainly been having issues related to her left leg, consisting of some weakness and some increased spasticity. The patient states that this morning she felt things were getting worse. She was using the bathroom, and then was not able to get up because her left leg had increased spasticity and weakness. She and her then called EMS and she was brought here. MD Complaint: focal weakness, difficulty walking Onset/Timin -: week(s) Location: LLE Severity: moderate Quality: constant Consistency: constant Improves with: none Worsens with: other (Walking) Context: history of similar - Related Data Home Medications Medication Instructions Recorded Confirmed Omeprazole [PriLOSEC] 20 mg PO DAILY 10/31/17 04/26/18 Previous Rx's Medication Instructions Recorded Lisinopril-Hctz 10-12.5 mg 1 tab PO DAILY #1 tab 11/09/17 [Zestoretic 10-12.5] Allergies Allergy/AdvReac Type Severity Reaction Status Date / Time No Known Allergies Allergy Verified 04/26/18 20:19 Review of Systems ROS Statement: Those systems with pertinent positive or pertinent negative responses have been documented in the HPI. ROS Other: All systems not noted in ROS Statement are negative. Constitutional: Denies: fever, chills Respiratory: Denies: cough, dyspnea Cardiovascular: Denies: chest pain, palpitations, syncope Gastrointestinal: Denies: abdominal pain, nausea, vomiting Genitourinary: Denies: dysuria, frequency, hematuria Musculoskeletal: Denies: back pain Skin: Denies: rash Neurological: Reports: weakness, abnormal gait. Denies: headache, numbness, paresthesias Past Medical History Past Medical History: Hypertension, Neurologic Disorder Additional Past Medical History / Comment(s): MS History of Any Multi-Drug Resistant Organisms: None Reported Additional Past Surgical History / Comment(s): Ovarian Mass removed Past Anesthesia/Blood Transfusion Reactions: No Reported Reaction Past Psychological History: Depression Smoking Status: Former smoker Past Alcohol Use History: None Reported Past Drug Use History: None Reported - Past Family History Mother History Unknown: Yes Family Medical History: Hypertension Additional Family Medical History / Comment(s): ARTHRITIS, KNEE REPLACEMENT SURGERY Father History Unknown: Yes Family Medical History: Cancer Additional Family Medical History / Comment(s): PACEMAKER, ARTHRITIS, COLON CANCER General Exam Limitations: physical limitation General appearance: alert, in no apparent distress Head exam: Present: atraumatic, normocephalic Eye exam: Present: normal appearance. Absent: scleral icterus, conjunctival injection ENT exam: Present: normal oropharynx Neck exam: Present: normal inspection, full ROM Respiratory exam: Present: normal lung sounds bilaterally. Absent: respiratory distress, wheezes, rales, rhonchi Cardiovascular Exam: Present: regular rate, normal rhythm, normal heart sounds. Absent: systolic murmur, diastolic murmur, rubs, gallop GI/Abdominal exam: Present: soft. Absent: distended, tenderness, guarding, rebound, rigid, mass Extremities exam: Present: normal inspection, normal capillary refill. Absent: pedal edema, calf tenderness Back exam: Absent: CVA tenderness (R), CVA tenderness (L) Neurological exam: Present: alert, oriented X3, CN II-XII intact, motor sensory deficit, reflexes normal Expanded Cranial nerves: EOM's Intact: Normal, Gag Reflex: Normal, Tongue Deviation: Normal Cerebellar function: Finger to Nose: Normal Sensory exam: Upper Extremity Light Touch: Normal Motor strength exam: RUE: 5, LUE: 2/1, RLE: 5, LLE: 5 Eye Response: (4) open spontaneously Motor Response: (6) obeys commands Verbal Response: (5) oriented Skin exam: Present: warm, dry, intact, normal color. Absent: rash Course Vital Signs 06/15/18 06/15/18 05:26 07:29 Temperature 98.6 F Pulse Rate 77 77 Respiratory 18 Rate Blood Pressure 119/93 140/91 O2 Sat by Pulse 99 99 Oximetry Medical Decision Making - Lab Data Result diagrams: 06/15/18 06:05 06/15/18 06:05 Lab Results 06/15/18 06/15/18 Range/Units 06:05 06:05 WBC 5.2 (3.8-10.6) k/uL RBC 4.55 (3.80-5.40) m/uL Hgb 11.9 (11.4-16.0) gm/dL Hct 36.6 (34.0-46.0) % MCV 80.5 (80.0-100.0) fL MCH 26.2 (25.0-35.0) pg MCHC 32.5 (31.0-37.0) g/dL RDW 15.2 (11.5-15.5) % Plt Count 276 (150-450) k/uL Neutrophils % 65 % Lymphocytes % 24 % Monocytes % 6 % Eosinophils % 3 % Basophils % 1 % Neutrophils # 3.4 (1.3-7.7) k/uL Lymphocytes # 1.2 (1.0-4.8) k/uL Monocytes # 0.3 (0-1.0) k/uL Eosinophils # 0.2 (0-0.7) k/uL Basophils # 0.0 (0-0.2) k/uL Sodium 142 (137-145) mmol/L Potassium 4.2 (3.5-5.1) mmol/L Chloride 106 (98-107) mmol/L Carbon Dioxide 28 (22-30) mmol/L Anion Gap 8 mmol/L BUN 11 (7-17) mg/dL Creatinine 0.59 (0.52-1.04) mg/dL Est GFR (CKD-EPI)AfAm >90 (>60 ml/min/1.73 sqM) Est GFR (CKD-EPI)NonAf >90 (>60 ml/min/1.73 sqM) Glucose 103 H (74-99) mg/dL Calcium 9.5 (8.4-10.2) mg/dL Disposition Clinical Impression: Multiple sclerosis exacerbation, Left leg weakness Disposition: ADMITTED IP TO THIS [facility] Condition: Fair Referrals: Roshan Rincon MD [Primary Care Provider] - 1-2 days
[2018-06-15 07:03] LABS: Anion Gap 8 mmol/L; Blood Urea Nitrogen 11 mg/dL (7-17); Calcium 9.5 mg/dL (8.4-10.2); Carbon Dioxide 28 mmol/L (22-30); Chloride 106 mmol/L (98-107); Glucose 103 mg/dL (74-99); Potassium 4.2 mmol/L (3.5-5.1); Sodium 142 mmol/L (137-145)
[2018-06-15] MEDS ORDERED: NALOXONE 0.4 MG/ML 1 ML VIAL IV PRN (07:56)
[2018-06-15 12:28] LABS: Appearance,Urine Cloudy (Clear); Bilirubin,Urine Negative (Negative); Blood,Urine Negative (Negative); Color,Urine Yellow; Glucose,Urine (UA) Negative (Negative); Ketones,Urine 1+ (Negative); Leukocyte Esterase,Urine Large (Negative); Mucus,Urine Moderate /hpf; Nitrite,Urine Negative (Negative); Protein,Urine Trace (Negative); Specific Gravity,Urine 1.018 (1.001-1.035); Squamous Epithelial Cell,Urine 35 /hpf (0-4); Urobilinogen,Urine <2.0 mg/dL (<2.0); WBC,Urine 16 /hpf (0-5)
--- NOTE | 2018-06-15 13:41 | P.HPIM ---
History of Present Illness On-call hospitalist covering for Dr. Hays This is a pleasant 47 years old female with past medical history of multiple sclerosis, hypertension, GERD, most closely to disorder, urinary incontinence, at baseline she uses a walker. She is a patient of Dr. Rincon. She presents because of difficulty walking due to her left lower extremity weakness and the spasm as it was she consents in bouts and 20 extended, the bend it back for few days duration, " I cannot bend my leg" patient has been diagnosed with multiple sclerosis since 2010 but she had symptoms since 2007 at that time the flareup she has complaints of her left leg and left arm also at that time. However since she has been started on Solu-Medrol in the emergency room she could bend her knee and what with little movement, has slight improvement. She follow up with the neurologist Dr. Mayes. And wants to go back to him. She denies chest pain. No dyspnea. No blurred vision. No headache. Patient has loose bowel movements about twice per day yesterday but she didn't have any since then. No abdominal pain. No nausea vomiting. She has problems with her left knee and she supposed to get MRI of her knee as an outpatient. She has chronic urine incontinence and she has an appointment with the urologist as an outpatient setting. Patient denies dysuria or urgency are not sure if there is increased frequency of urination. On admission labs shows unremarkable CBC and BMP. Vital signs stable and patient was febrile, however her blood pressure was somewhat elevated. In the emergency room patient was started on Solu-Medrol 500 mg daily. UA was suspicious for infection. Review of Systems CONSTITUTIONAL: No fever, no malaise, no fatigue. HEENT: No recent visual problems or hearing problems. Denied any sore throat. CARDIOVASCULAR: No orthopnea, PND, no palpitations, no syncope. PULMONARY: No shortness of breath, no cough, no hemoptysis. GASTROINTESTINAL: No diarrhea, no nausea, no vomiting, no abdominal pain. Normoactive bowel sounds. NEUROLOGICAL: No headaches, no weakness, no numbness. HEMATOLOGICAL: Denies any bleeding or petechiae. GENITOURINARY: Denies any burning micturition, frequency, or urgency. MUSCULOSKELETAL/RHEUMATOLOGICAL: Denies any joint pain, swelling, or any muscle pain. ENDOCRINE: Denies any polyuria or polydipsia. Past Medical History Past Medical History: GERD/Reflux, Hypertension, Musculoskeletal Disorder, Neurologic Disorder Additional Past Medical History / Comment(s): MS, urinary incontinence, elevated blood sugars with steroids. History of Any Multi-Drug Resistant Organisms: None Reported Past Surgical History: Cholecystectomy Additional Past Surgical History / Comment(s): L benign ovarian mass with salpino-oophorectomy, R ovary resected/cyst Past Anesthesia/Blood Transfusion Reactions: No Reported Reaction Additional Past Anesthesia/Blood Transfusion Reaction / Comment(s): Pt received blood with gallbladder surgery without reaction. Past Psychological History: Depression Additional Psychological History / Comment(s): Pt resides with her spouse and their 3 children ages 16,13 and 9. She has 2 walkers, one with seat/wheels, cane, wheelchair, electric scooter, ramp into home, grab rail in bathroom and shower chair. Pt no longer drives, her spouse or friends take her to appts. Smoking Status: Former smoker Past Alcohol Use History: Occasional Additional Past Alcohol Use History / Comment(s): Pt started smoking in 1990 and quit in 2004. Past Drug Use History: None Reported - Past Family History Mother History Unknown: Yes Family Medical History: Eye Disorder, Hypertension, Osteoarthritis (OA) Additional Family Medical History / Comment(s): ARTHRITIS, KNEE REPLACEMENT SURGERY, GLAUCOMA WITH SURGERY. Father History Unknown: Yes Family Medical History: Cancer, Hypertension, Osteoarthritis (OA) Additional Family Medical History / Comment(s): PACEMAKER, ARTHRITIS WITH KNEE REPLACEMENTS, COLON CANCER STAGE II. FATHER LIVED TO BE 79YRS OLD. Medications and Allergies Home Medications Medication Instructions Recorded Confirmed Type Omeprazole [PriLOSEC] 20 mg PO DAILY 10/31/17 06/15/18 History Lisinopril-Hctz 10-12.5 mg 1 tab PO DAILY #1 tab 11/09/17 06/15/18 Rx [Zestoretic 10-12.5] Cholecalciferol [Vitamin D3] 5,000 unit PO DAILY 06/15/18 06/15/18 History Allergies Allergy/AdvReac Type Severity Reaction Status Date / Time No Known Allergies Allergy Verified 06/15/18 08:16 Physical Exam Vitals: Vital Signs Temp Pulse Pulse Resp BP BP Pulse Ox 06/15/18 10:37 98.5 F 72 18 153/88 96 06/15/18 10:12 97.3 F L 83 17 151/76 97 06/15/18 07:29 77 140/91 99 06/15/18 05:26 98.6 F 77 18 119/93 99 Intake and Output 06/14/18 06/15/18 06/15/18 22:59 06:59 14:59 Other: Weight 79.379 kg 85 kg GENERAL: The patient is alert and oriented x3, not in any acute distress. Well developed, well nourished. HEENT: Pupils are round and equally reacting to light. EOMI. No scleral icterus. No conjunctival pallor. Normocephalic, atraumatic. No pharyngeal erythema. No thyromegaly. CARDIOVASCULAR: S1 and S2 present. No murmurs, rubs, or gallops. PULMONARY: Chest is clear to auscultation, no wheezing or crackles. ABDOMEN: Soft, nontender, nondistended, normoactive bowel sounds. No palpable organomegaly. MUSCULOSKELETAL: No joint swelling or deformity. EXTREMITIES: No cyanosis, clubbing, or pedal edema. -When bend the knee cannot straighten it back. NEUROLOGICAL: Gross neurological examination did not reveal any focal deficits. SKIN: No rashes. Results CBC & Chem 7: 06/15/18 06:05 06/15/18 06:05 Labs: Abnormal Lab Results - Last 24 Hours (Table) 06/15/18 Range/Units 06:05 Glucose 103 H (74-99) mg/dL Thrombosis Risk Factor Assmnt - Choose All That Apply Any of the Below Risk Factors Present?: Yes Each Factor Represents 1 point: Age 41-60 years, Obesity (BMI >25) Other Risk Factors: No Other congenital or acquired thrombophilia - If yes, enter type in comment: No Thrombosis Risk Factor Assessment Total Risk Factor Score: 2 Thrombosis Risk Factor Assessment Level: Low Risk Assessment and Plan Assessment: Left lower extremity extremity weakness and the spasm, mostly acute multiple sclerosis a flareup Possible UTI Loose bowel movement Urine incontinence GERD Essential hypertension Plan: This is a pleasant 47 years old female who presents because of multiple sclerosis flareup. Labs and medication refills. We'll continue with steroids. And continue with antibiotic for UTI. Continue same treatment. Continue symptomatic treatment. Resume home medication. Monitor labs and vitals. GI and DVT prophylaxis. neurology consultation. Further recommendations based on the clinical course over the patient. DVT prophylaxis: subcutaneous Lovenox GI prophylaxis: Prilosec Prognosis is guarded
[2018-06-15] MEDS: ENOXAPARIN 40 MG/0.4 ML SYRINGE SQ SCH (18:34)
[2018-06-15] MEDS: LISINOPRIL-HCTZ 10-12.5 MG 1 EACH TAB PO SCH (18:34)
[2018-06-15] MEDS: PANTOPRAZOLE 40 MG TABLET PO SCH (18:34)
[2018-06-15] MEDS: FAMOTIDINE 20 MG TAB PO SCH ×2 (18:34→20:58)
[2018-06-15] MEDS: ACETAMINOPHEN TAB 325 MG TAB PO PRN (21:05)
--- NOTE | 2018-06-15 21:12 | CONS ---
CONSULTATION DATE OF CONSULTATION: 06/15/2018. CHIEF COMPLAINT: Multiple sclerosis exacerbation. HISTORY OF PRESENT ILLNESS: Mrs. Padron is a pleasant 47-year-old female, who is being evaluated by the neurology service per the request of Dr. Bradford for a multiple sclerosis exacerbation. The patient was brought into [facility] Emergency Room with the complaints of left lower extremity weakness, which started occurring a couple of days ago. It got to the point where she was having difficulty ambulating. She does have history of multiple sclerosis and was on Gilenya oral therapy. This was recently discontinued due to frequent exacerbations of her disease. She is being scheduled to start on Tysabri infusions. The patient was started on IV Solu-Medrol and admitted for further workup and management. Her CBC and basic metabolic profiles showed no significant abnormalities. Her urinalysis showed 16 WBCs with large leukocyte esterase, and negative nitrites. At the time of my evaluation, the patient is resting in her bed and appears to be in no acute distress. She reports having improvements with the IV Solu-Medrol but she recently woke up from a nap and feels that the weakness has worsened again. She denies any upper extremity symptoms and denies any visual changes. She has been started on DVT prophylaxis and GI prophylaxis. PAST MEDICAL HISTORY: Gastroesophageal reflux disease, multiple sclerosis, hypertension, history of urinary incontinence, depression, history of cholecystectomy and oophorectomy. SOCIAL HISTORY: The patient is a former smoker. She occasionally drinks alcohol. She denies any drug use. FAMILY HISTORY: Positive for hypertension, arthritis, and cancer. HOME MEDICATIONS: Reviewed in the chart. ALLERGIES: No known drug allergies. REVIEW OF SYSTEMS: CONSTITUTIONAL: Positive for fatigue. EYES: Negative. ENT: Negative. CARDIOVASCULAR: Negative. RESPIRATORY: Negative. NEUROLOGICAL: As mentioned above. GASTROINTESTINAL: Positive for occasional heartburn. GENITOURINARY: Positive for occasional urinary incontinence. PSYCHIATRIC: Positive for history of depression. DERMATOLOGICAL: Negative. ENDOCRINE: Negative. MUSCULOSKELETAL: Positive for occasional joint pain. PHYSICAL EXAM: Vital signs show a temperature of 98.5, pulse 72, respiration 18, blood pressure 153/88. GENERAL APPEARANCE: The patient is a well-developed female, who appears to be in no acute distress. HEENT: Normocephalic, atraumatic, no facial asymmetry is seen. NECK: Supple with no masses felt. CARDIOVASCULAR: Regular rate and rhythm. ABDOMEN: Nontender nondistended. Extremities showed no edema or clubbing. NEUROLOGICAL EXAM: The patient is awake and alert and oriented x3. Speech and language are normal. Strength is 0/5 in the left lower extremity and 5/5 elsewhere. Sensory exam showed diminished light touch sensation on the left lower extremity compared to the right. No pronator drift is seen. No tremors or seizure-like activity is noticed. No facial asymmetry is seen on cranial nerve testing. IMPRESSION: 1. Multiple sclerosis acute exacerbation. 2. Left lower extremity weakness. 3. Left lower extremity sensory deficit. 4. Acute urinary tract infection. RECOMMENDATION: The patient's left lower extremity weakness is quite severe at the time of my evaluation, as it is 0/5 in strength. This is extremely uncommon and there maybe a psychiatric component to her weakness. The patient gave no effort to move her left lower extremity on my examination. I will order an MRI of the brain with and without contrast. For now, I will keep her on IV Solu-Medrol as prescribed. Continue DVT prophylaxis and GI prophylaxis. Physical therapy has been consulted. Continue neuro checks. I will continue to follow with you. Further recommendations to follow. Thank you for allowing me to participate in the care of your patient. If you have any questions, please feel free to contact me. MMODL / IJN: [id number] /
[2018-06-16] MEDS: FAMOTIDINE 20 MG TAB PO SCH (09:18)
[2018-06-16] MEDS: LISINOPRIL-HCTZ 10-12.5 MG 1 EACH TAB PO SCH (09:18)
[2018-06-16] MEDS: ENOXAPARIN 40 MG/0.4 ML SYRINGE SQ SCH (09:18)
[2018-06-16] MEDS: PANTOPRAZOLE 40 MG TABLET PO SCH (09:18)
[2018-06-16] MEDS: CEPHALEXIN 500 MG CAP PO SCH ×3 (10:28→21:02)
[2018-06-16] MEDS: CHOLECALCIFEROL 1,000 UNIT TAB PO SCH (12:44)
[2018-06-16] MEDS ORDERED: LORazepam 2 MG/ML INJ IV STA (16:19)
--- NOTE | 2018-06-16 16:21 | P.PN ---
Subjective Progress Note Date: 06/16/18 Principal diagnosis: Multiple sclerosis exacerbation Is a pleasant 47 year female known to our practice being seen for multiple sclerosis exacerbation. She came in with left lower extremity weakness starting a couple days ago. She has a long-standing history of lower extremity weakness worse on the left with her multiple sclerosis. She was having difficulty ambulating. Her MS medicine is currently being changed due to frequent exacerbations. She is scheduled to start Tysabri infusions. She has been started on IV Solu-Medrol since admission and her symptoms are improving slightly. She is now able to stand and walk with her walker. Incidentally her urinalysis showed a urinary tract infection which is being treated. An MRI of the brain with and without contrast have been ordered. At the time of my exam she is sitting up at her bedside in no acute distress. Objective - Vital Signs Vital signs: Vital Signs Temp 99.0 F 06/16/18 16:00 Pulse 85 06/16/18 16:00 Resp 18 06/16/18 16:00 BP 124/78 06/16/18 16:00 Pulse Ox 99 06/16/18 16:00 Intake & Output 06/15/18 06/16/18 06/16/18 18:59 06:59 18:59 Intake Total 236 680 Balance 236 680 Weight 85 kg 85 kg Intake: Oral 236 480 Other 200 Other: Voiding Method Toilet Toilet # Voids 2 2 1 # Bowel Movements 1 - Constitutional General appearance: Present: cooperative, no acute distress - EENT Eyes: Present: EOMI, PERRLA. Absent: abnormal pupil, ptosis ENT: Present: hearing grossly normal - Neck Neck: Present: normal ROM. Absent: rigidity - Respiratory Respiratory: negative: prolonged expiration, prolonged inspiration - Cardiovascular Rhythm: regular - Gastrointestinal General gastrointestinal: Absent: distended, tenderness - Neurologic Neurologic Comment(s): She is alert awake and oriented 3. Speech-language are normal. Strength is 3 out of 5 in the left lower extremity 5 out of 5 elsewhere. There is mildly diminished light touch in the left lower extremity compared to the right. No tremors or seizure-like activities are seen. - Labs CBC & Chem 7: 06/15/18 06:05 06/15/18 06:05 Labs: Microbiology - Last 24 Hours (Table) 06/16/18 09:19 Urine Culture - Preliminary Urine,Voided Assessment and Plan (1) Left leg numbness Current Visit: Yes Status: Acute Code(s): R20.0 - ANESTHESIA OF SKIN SNOMED Code(s): 323712692 (2) UTI (urinary tract infection) Current Visit: Yes Status: Acute Code(s): N39.0 - URINARY TRACT INFECTION, SITE NOT SPECIFIED SNOMED Code(s): 10534484 (3) Left leg weakness Current Visit: Yes Status: Chronic Code(s): R29.898 - OTH SYMPTOMS AND SIGNS INVOLVING THE MUSCULOSKELETAL SYSTEM SNOMED Code(s): 733785314 (4) Multiple sclerosis exacerbation Current Visit: Yes Status: Chronic Code(s): G35 - MULTIPLE SCLEROSIS SNOMED Code(s): 220761277 Plan: Her symptoms are improving somewhat with IV steroids. Continue to work with physical therapy. MRI as above. Continue neuro checks. She can be given the choice on discharge of continuing with an oral taper of steroids or following up in our office for IV infusion for the remainder of her steroid course. We will continue to follow and make recommendations based on the above studies. I have performed a history and physical on the above patient. I have reviewed the above note, and agree.
[2018-06-16 17:01] LABS: Glucose,Whole Blood 171 mg/dL (75-99)
--- NOTE | 2018-06-16 17:49 | P.PN ---
Subjective On-call hospitalist covering for Dr. Hays This is a pleasant 47 years old female with past medical history of multiple sclerosis, hypertension, GERD, most closely to disorder, urinary incontinence, at baseline she uses a walker. She is a patient of Dr. Rincon. She presents because of difficulty walking due to her left lower extremity weakness and the spasm as it was she consents in bouts and 20 extended, the bend it back for few days duration, " I cannot bend my leg" patient has been diagnosed with multiple sclerosis since 2010 but she had symptoms since 2007 at that time the flareup she has complaints of her left leg and left arm also at that time. However since she has been started on Solu-Medrol in the emergency room she could bend her knee and what with little movement, has slight improvement. She follow up with the neurologist Dr. Mayes. And wants to go back to him. She denies chest pain. No dyspnea. No blurred vision. No headache. Patient has loose bowel movements about twice per day yesterday but she didn't have any since then. No abdominal pain. No nausea vomiting. She has problems with her left knee and she supposed to get MRI of her knee as an outpatient. She has chronic urine incontinence and she has an appointment with the urologist as an outpatient setting. Patient denies dysuria or urgency are not sure if there is increased frequency of urination. On admission labs shows unremarkable CBC and BMP. Vital signs stable and patient was febrile, however her blood pressure was somewhat elevated. In the emergency room patient was started on Solu-Medrol 500 mg daily. UA was suspicious for infection. 06/16/2018 Patient still have weakness. She has been evaluated by neurologist and he recommended MRI of the brain which is going to be done today. Patient remains on steroids. Patient was started on Keflex for UTI. Urine culture sent and the result is pending Objective - Vital Signs Vital signs: Vital Signs Temp 99.0 F 06/16/18 16:00 Pulse 85 06/16/18 16:00 Resp 18 06/16/18 16:00 BP 124/78 06/16/18 16:00 Pulse Ox 99 06/16/18 16:00 Intake & Output 06/15/18 06/16/18 06/16/18 18:59 06:59 18:59 Intake Total 236 680 Balance 236 680 Weight 85 kg 85 kg Intake: Oral 236 480 Other 200 Other: Voiding Method Toilet Toilet # Voids 2 2 1 # Bowel Movements 1 - Labs CBC & Chem 7: 06/15/18 06:05 06/15/18 06:05 Labs: Abnormal Lab Results - Last 24 Hours (Table) 06/16/18 Range/Units 16:58 POC Glucose (mg/dL) 171 H (75-99) mg/dL Microbiology - Last 24 Hours (Table) 06/16/18 09:19 Urine Culture - Preliminary Urine,Voided Assessment and Plan Assessment: Left lower extremity extremity weakness and the spasm, mostly acute multiple sclerosis a flareup Possible UTI Loose bowel movement Urine incontinence GERD Essential hypertension Plan: This is a pleasant 47 years old female who presents because of multiple sclerosis flareup. Labs and medication refills. We'll continue with steroids. And continue with antibiotic for UTI. Continue same treatment. Continue symptomatic treatment. Resume home medication. Monitor labs and vitals. GI and DVT prophylaxis. neurology consultation. Further recommendations based on the clinical course over the patient. DVT prophylaxis: subcutaneous Lovenox GI prophylaxis: Prilosec Prognosis is guarded
--- NOTE | 2018-06-16 18:28 | MR ---
EXAMINATION TYPE: MR brain wo/w con DATE OF EXAM: 06/16/2018 COMPARISON: 04/28/2018 HISTORY: Left sided numbness TECHNIQUE: Multiplanar, multisequence images of the brain and brainstem is performed without and with IV contras t, utilizing 7.5 mL intravenous Gadavist . FINDINGS: There is some cerebral cortical atrophy. On the T2 and FLAIR images there are numerous high signal fo ci around the lateral ventricles extending into the ko-white matter junction. These are coalescent. There are also some cortical foci of slight increased signal in both parietal lobes that measure up to 1.2 cm. There is no midline shift. There is no sign of intracranial hemorrhage. There is significa nt thinning of the corpus callosum. Sella turcica appears normal. There is a 5 mm focus of increased signal in the right cerebellar peduncle. There is similar 6 mm focus in the left cerebellar peduncle. There is 4 mm focus increased signal in the white matter right cerebellar hemisphere. There is mild mucosal thickening in the nasopharynx. There is mild mucosal thickening in left mastoid sinus. There is no evidence of cortical infarct. The contrast images show 4 mm focus of enhancement posterior right internal capsule. There are 2 foci of enhancement left posterior internal capsule that measure 4 mm and 6 mm. There is normal contrast opacification of the venous sinuses. IMPRESSION: Extensive periventricular white matter lesions consistent with significant demyelinating disease. There are also left parietal cortical lesions. This appears not significantly different than last exam. There are 3 new foci of pathologic enhancement in the left and right posterior internal c apsule white matter compared to old exam.
[2018-06-16] MEDS: INSULIN ASPART 100 UNIT/ML 1 ML 10 ML VIAL SQ SCH ×2 (18:36→21:02)
[2018-06-16] MEDS: SODIUM CHLORIDE 0.9% 1,000 ML IV SCH (19:49)
[2018-06-16 20:04] LABS: Glucose,Whole Blood 236 mg/dL (75-99)
[2018-06-17 04:22] LABS: Hemoglobin A1C 5.3 % (4.0-6.0)
[2018-06-17 08:28] LABS: Glucose,Whole Blood 207 mg/dL (75-99)
[2018-06-17] MEDS: INSULIN ASPART 100 UNIT/ML 1 ML 10 ML VIAL SQ SCH ×4 (09:24→20:34)
[2018-06-17] MEDS: PANTOPRAZOLE 40 MG TABLET PO SCH (09:26)
[2018-06-17] MEDS: LISINOPRIL-HCTZ 10-12.5 MG 1 EACH TAB PO SCH (09:26)
[2018-06-17] MEDS: ACETAMINOPHEN TAB 325 MG TAB PO PRN (09:26)
[2018-06-17] MEDS: CEPHALEXIN 500 MG CAP PO SCH ×3 (09:26→20:34)
[2018-06-17] MEDS: ENOXAPARIN 40 MG/0.4 ML SYRINGE SQ SCH (09:26)
[2018-06-17 12:14] LABS: Glucose,Whole Blood 133 mg/dL (75-99)
[2018-06-17] MEDS: CHOLECALCIFEROL 1,000 UNIT TAB PO SCH (12:35)
--- NOTE | 2018-06-17 13:24 | P.PN ---
Subjective Progress Note Date: 06/17/18 Principal diagnosis: Multiple sclerosis exacerbation Is a pleasant 47 year female known to our practice being seen for multiple sclerosis exacerbation. She came in with left lower extremity weakness starting a couple days ago. She has a long-standing history of lower extremity weakness worse on the left with her multiple sclerosis. She was having difficulty ambulating. Her MS medicine is currently being changed due to frequent exacerbations. She is scheduled to start Tysabri infusions. She has been started on IV Solu-Medrol since admission and her symptoms are improving She is now able to stand and walk with her walker. Incidentally her urinalysis showed a urinary tract infection which is being treated. An MRI of the brain with and without contrast was done, and showed no acute changes. There was progression of white matter lesions. I discussed that with her today. At the time of my exam she is sitting up at her bedside in no acute distress. Objective - Vital Signs Vital signs: Vital Signs Temp 98.4 F 06/17/18 08:15 Pulse 78 06/17/18 08:15 Resp 16 06/17/18 03:39 BP 116/72 06/17/18 08:15 Pulse Ox 100 06/17/18 08:15 Intake & Output 06/16/18 06/17/18 06/17/18 18:59 06:59 18:59 Intake Total 680 420 100 Balance 680 420 100 Intake: Intake, IV Titration 100 Amount methylPREDNISolone SOD 100 SUCC 500 mg In Sodium Chloride 0.9% 100 ml @ 100 mls/hr IVPB DAILY@ 0600 [facility] Rx#:[id number] Oral 480 420 Other 200 Other: Voiding Method Toilet # Voids 1 1 - Constitutional General appearance: Present: no acute distress, obese - EENT Eyes: Present: EOMI, PERRLA. Absent: abnormal pupil, ptosis ENT: Present: hearing grossly normal - Neck Neck: Present: normal ROM. Absent: rigidity - Respiratory Respiratory: negative: prolonged expiration, prolonged inspiration - Cardiovascular Rhythm: regular - Neurologic Neurologic Comment(s): Patient's alert awake and oriented 3. Speech and language are normal. Weakness in the left more than right lower extremity remains. Cranial nerves II through XII are intact globally. There is no facial asymmetry. - Labs CBC & Chem 7: 06/15/18 06:05 06/15/18 06:05 Labs: Abnormal Lab Results - Last 24 Hours (Table) 06/16/18 06/16/18 06/17/18 Range/Units 16:58 20:00 08:17 POC Glucose (mg/dL) 171 H 236 H 207 H (75-99) mg/dL 06/17/18 Range/Units 12:12 POC Glucose (mg/dL) 133 H (75-99) mg/dL Microbiology - Last 24 Hours (Table) 06/16/18 09:19 Urine Culture - Preliminary Urine,Voided Assessment and Plan (1) Left leg numbness Current Visit: Yes Status: Acute Code(s): R20.0 - ANESTHESIA OF SKIN SNOMED Code(s): 193379010 (2) UTI (urinary tract infection) Current Visit: Yes Status: Acute Code(s): N39.0 - URINARY TRACT INFECTION, SITE NOT SPECIFIED SNOMED Code(s): 31371125 (3) Left leg weakness Current Visit: Yes Status: Chronic Code(s): R29.898 - OTH SYMPTOMS AND SIGNS INVOLVING THE MUSCULOSKELETAL SYSTEM SNOMED Code(s): 161554421 (4) Multiple sclerosis exacerbation Current Visit: Yes Status: Chronic Code(s): G35 - MULTIPLE SCLEROSIS SNOMED Code(s): 189357641 Plan: Her symptoms are improving with IV steroids. Recommend 1 more dose tomorrow morning and then she could be released. Continue to work with physical therapy. MRI as above showed progression of her white matter lesions. We will continue to follow her outpatient. I have performed a history and physical on the above patient. I have reviewed the above note, and agree.
[2018-06-17] MEDS ORDERED: DOCUSATE 100 MG CAP PO STA (14:04)
[2018-06-17 17:16] LABS: Glucose,Whole Blood 222 mg/dL (75-99)
[2018-06-17] MEDS: SODIUM CHLORIDE 0.9% 1,000 ML IV SCH (19:46)
[2018-06-17 20:02] LABS: Glucose,Whole Blood 181 mg/dL (75-99)
--- NOTE | 2018-06-17 23:27 | P.PN ---
Subjective On-call hospitalist covering for Dr. Hays This is a pleasant 47 years old female with past medical history of multiple sclerosis, hypertension, GERD, most closely to disorder, urinary incontinence, at baseline she uses a walker. She is a patient of Dr. Rincon. She presents because of difficulty walking due to her left lower extremity weakness and the spasm as it was she consents in bouts and 20 extended, the bend it back for few days duration, " I cannot bend my leg" patient has been diagnosed with multiple sclerosis since 2010 but she had symptoms since 2007 at that time the flareup she has complaints of her left leg and left arm also at that time. However since she has been started on Solu-Medrol in the emergency room she could bend her knee and what with little movement, has slight improvement. She follow up with the neurologist Dr. Mayes. And wants to go back to him. She denies chest pain. No dyspnea. No blurred vision. No headache. Patient has loose bowel movements about twice per day yesterday but she didn't have any since then. No abdominal pain. No nausea vomiting. She has problems with her left knee and she supposed to get MRI of her knee as an outpatient. She has chronic urine incontinence and she has an appointment with the urologist as an outpatient setting. Patient denies dysuria or urgency are not sure if there is increased frequency of urination. On admission labs shows unremarkable CBC and BMP. Vital signs stable and patient was febrile, however her blood pressure was somewhat elevated. In the emergency room patient was started on Solu-Medrol 500 mg daily. UA was suspicious for infection. 06/16/2018 Patient still have weakness. She has been evaluated by neurologist and he recommended MRI of the brain which is going to be done today. Patient remains on steroids. Patient was started on Keflex for UTI. Urine culture sent and the result is pending 06/17/2018 pt has MRI of the brain done today which shows extensive white matter disease but with new 3 lesions , pt is clinically shows minimal improvement . she is still on steroids Objective - Vital Signs Vital signs: Vital Signs Temp 97.6 F 06/17/18 16:45 Pulse 79 06/17/18 16:45 Resp 18 06/17/18 16:45 BP 134/92 06/17/18 16:45 Pulse Ox 100 10/20/18 08:15 Intake & Output 06/17/18 06/17/18 06/18/18 06:59 18:59 06:59 Intake Total 420 300 Balance 420 300 Intake: Intake, IV Titration 100 Amount methylPREDNISolone SOD 100 SUCC 500 mg In Sodium Chloride 0.9% 100 ml @ 100 mls/hr IVPB DAILY@ 0600 [facility] Rx#:[id number] Oral 420 200 Other: Voiding Method Toilet # Voids 1 - Exam GENERAL: The patient is alert and oriented x3, not in any acute distress. Well developed, well nourished. HEENT: Pupils are round and equally reacting to light. EOMI. No scleral icterus. No conjunctival pallor. Normocephalic, atraumatic. No pharyngeal erythema. No thyromegaly. CARDIOVASCULAR: S1 and S2 present. No murmurs, rubs, or gallops. PULMONARY: Chest is clear to auscultation, no wheezing or crackles. ABDOMEN: Soft, nontender, nondistended, normoactive bowel sounds. No palpable organomegaly. MUSCULOSKELETAL: No joint swelling or deformity. -EXTREMITIES: No cyanosis, clubbing, or pedal edema. Left leg still weak with slight improvement NEUROLOGICAL: Gross neurological examination did not reveal any focal deficits. SKIN: No rashes. - Labs CBC & Chem 7: 06/15/18 06:05 06/15/18 06:05 Labs: Abnormal Lab Results - Last 24 Hours (Table) 06/17/18 06/17/18 06/17/18 Range/Units 08:17 12:12 17:14 POC Glucose (mg/dL) 207 H 133 H 222 H (75-99) mg/dL 06/17/18 Range/Units 19:57 POC Glucose (mg/dL) 181 H (75-99) mg/dL Microbiology - Last 24 Hours (Table) 06/16/18 09:19 Urine Culture - Preliminary Urine,Voided Gram Neg Bacilli Assessment and Plan Assessment: Left lower extremity extremity weakness and the spasm, mostly acute multiple sclerosis a flareup Possible UTI Loose bowel movement Urine incontinence GERD Essential hypertension Plan: This is a pleasant 47 years old female who presents because of multiple sclerosis flareup. Labs and medication refills. We'll continue with steroids. And continue with antibiotic for UTI. Continue same treatment. Continue symptomatic treatment. Resume home medication. Monitor labs and vitals. GI and DVT prophylaxis. neurology consultation. Further recommendations based on the clinical course over the patient. DVT prophylaxis: subcutaneous Lovenox GI prophylaxis: Prilosec Prognosis is guarded
[2018-06-18] MEDS: LISINOPRIL-HCTZ 10-12.5 MG 1 EACH TAB PO SCH (08:00)
[2018-06-18] MEDS: INSULIN ASPART 100 UNIT/ML 1 ML 10 ML VIAL SQ SCH ×2 (08:00→12:37)
[2018-06-18] MEDS: CEPHALEXIN 500 MG CAP PO SCH (08:00)
[2018-06-18] MEDS: PANTOPRAZOLE 40 MG TABLET PO SCH (08:00)
[2018-06-18] MEDS: ENOXAPARIN 40 MG/0.4 ML SYRINGE SQ SCH (08:00)
[2018-06-18 12:19] LABS: Glucose,Whole Blood 120 mg/dL (75-99)
[2018-06-18] MEDS: CHOLECALCIFEROL 1,000 UNIT TAB PO SCH (12:47)
[2018-06-18 16:47] VITALS: BP 128/72; PULSE 75; RESP 14; TEMP 98
--- NOTE | 2018-06-19 13:28 | P.DS ---
Providers Date of admission: 06/15/18 07:56 Expected date of discharge: 06/18/18 Attending physician: Sharona Bradford Consults: 06/15/18 07:57 Consult Physician Urgent Consulting Provider: Matilda Mayes Consult Reason/Comments: MS exacerbation Do you want consulting provider notified?: Yes Primary care physician: [facility] Course: 47 years old female with past medical history of multiple sclerosis, hypertension, GERD, most closely to disorder, urinary incontinence, at baseline she uses a walker. She is a patient of Dr. Rincon. She presents because of difficulty walking due to her left lower extremity weakness and the spasm as it was she consents in bouts and 20 extended, the bend it back for few days duration, " I cannot bend my leg" patient has been diagnosed with multiple sclerosis since 2010 but she had symptoms since 2007 at that time the flareup she has complaints of her left leg and left arm also at that time. However since she has been started on Solu-Medrol in the emergency room she could bend her knee and what with little movement, has slight improvement. She follow up with the neurologist Dr. Mayes. And wants to go back to him. She denies chest pain. No dyspnea. No blurred vision. No headache. Patient has loose bowel movements about twice per day yesterday but she didn't have any since then. No abdominal pain. No nausea vomiting. She has problems with her left knee and she supposed to get MRI of her knee as an outpatient. She has chronic urine incontinence and she has an appointment with the urologist as an outpatient setting. Patient denies dysuria or urgency are not sure if there is increased frequency of urination. On admission labs shows unremarkable CBC and BMP. Vital signs stable and patient was febrile, however her blood pressure was somewhat elevated. In the emergency room patient was started on Solu-Medrol 500 mg daily. UA was suspicious for infection. 06/16/2018 Patient still have weakness. She has been evaluated by neurologist and he recommended MRI of the brain which is going to be done today. Patient remains on steroids. Patient was started on Keflex for UTI. Urine culture sent and the result is pending 06/17/2018 pt has MRI of the brain done today which shows extensive white matter disease but with new 3 lesions , pt is clinically shows minimal improvement . she is still on steroids 06/18/2018 Patient completed the required doses of IV steroids cleared for discharge from neurology perspective patient will follow with neurology as an outpatient. Please refer to the progress note from Dr. Wang for further details of hospitalization course and other medical problems patient was treated for Patient Condition at Discharge: Fair Plan - Discharge Summary Discharge Rx Participant: No New Discharge Prescriptions: No Action Omeprazole [PriLOSEC] 20 mg PO DAILY Lisinopril-Hctz 10-12.5 mg [Zestoretic 10-12.5] 1 tab PO DAILY #1 tab Cholecalciferol [Vitamin D3] 5,000 unit PO DAILY Discharge Medication List Omeprazole [PriLOSEC] 20 mg PO DAILY 10/31/17 [History] Lisinopril-Hctz 10-12.5 mg [Zestoretic 10-12.5] 1 tab PO DAILY #1 tab 11/09/17 [ Rx] Cholecalciferol [Vitamin D3] 5,000 unit PO DAILY 06/15/18 [History] Follow up Appointment(s)/Referral(s): Roshan Rincon MD [Primary Care Provider] - 1-2 days Matilda Mayes MD [STAFF PHYSICIAN] - 3 Days Patient Instructions/Handouts: Multiple Sclerosis (GEN)
== END 2018-06-18 19:43 | disposition home or self-care (01) ==
LOC: EC 05:23 → 1SOBS 07:56
PROVIDERS: ADMIT Hospitalist; ATTEND Hospitalist
DX: G35 Multiple sclerosis (principal); I10 Essential (primary) hypertension; K21.9 Gastro-esophageal reflux disease without esophagitis; R19.7 Diarrhea, unspecified; N39.0 Urinary tract infection, site not specified; R32 Unspecified urinary incontinence; F32.9 Major depressive disorder, single episode, unspecified; Z87.891 Personal history of nicotine dependence; Z79.899 Other long term (current) drug therapy; Z82.49 Family history of ischemic heart disease and other diseases of the circulatory system; Z90.49 Acquired absence of other specified parts of digestive tract; Z80.0 Family history of malignant neoplasm of digestive organs
CPT/HCPCS: 96366 ×3; 96372 ×4; 96375; 96361; 96365; 99285; 36415; 97163; 80048; 85025; 81001; 87086; 87077; 87186; 83036; 70553; G0378 ×4; J2060; J3360; J2930 ×4; J1650 ×4; A9585

== ENCOUNTER → 2019-01-04 | Outpatient (CLI) | payer BC | END | disposition home or self-care (01) | LOC: LABWHC1 16:52 | PROVIDERS: ATTEND Psychiatry & Neurology Neurology | DX: G35 Multiple sclerosis (principal) | CPT/HCPCS: 36415 ==

== ENCOUNTER → 2019-02-13 | Outpatient (CLI) | payer BC ==
--- NOTE | 2019-02-14 09:24 | MM ---
Reason for exam: screening (asymptomatic). Last mammogram was performed 4 years and 11 months ago. History: Family history of breast cancer in maternal grandmother. Physical Findings: A clinical breast exam by your physician is recommended on an annual basis and results should be correlated with mammographic findings. MG 3D Screening Mammo W/Cad Bilateral CC and MLO view(s) were taken. Prior study comparison: March 29, 2014, bilateral MG screening mammo w CAD. October 29, 2010, bilateral digital screening mammo w/CAD. There are scattered fibroglandular densities. Finding #1: There is a 5 mm equal density (isodense), lobulated mass in the outer quadrant of the right breast. Finding #2: There are typically benign calcifications in the left breast. ASSESSMENT: Incomplete: need additional imaging evaluation, BI-RAD 0 RECOMMENDATION: Special view mammogram of the right breast. If lesion persists on supplemental views, image directed ultrasound is recommended. [facility] will attempt to contact patient to return for supplemental views and ultrasound if indicated.
== END | disposition home or self-care (01) ==
LOC: RADMAMWWP 16:39
PROVIDERS: ATTEND Family Medicine
DX: Z12.31 Encounter for screening mammogram for malignant neoplasm of breast (principal)
CPT/HCPCS: 77063; 77067

== ENCOUNTER → 2019-02-21 | Outpatient (CLI) | payer BC ==
--- NOTE | 2019-02-22 09:11 | MM ---
Reason for exam: additional evaluation requested from abnormal screening. Last mammogram was performed less than 1 month ago. History: Family history of breast cancer in maternal grandmother. Physical Findings: Nurse did not find any significant physical abnormalities on exam. MG 3D Work Up W/Cad RT Spot compression CC and CCRM view(s) were taken of the right breast. Prior study comparison: February 13, 2019, bilateral MG 3d screening mammo w/cad. March 29, 2014, bilateral MG screening mammo w CAD. There are scattered fibroglandular densities. Lobulate nodule anteriorly in the right breast, rolls medially with a medial roll compatible with superior positioning. These results were verbally communicated with the patient and result sheet given to the patient on 02/21/19. ASSESSMENT: Incomplete: need additional imaging evaluation, BI-RAD 0 RECOMMENDATION: Ultrasound of the right breast. (upper outer quadrant)
--- NOTE | 2019-02-22 09:14 | USB ---
Reason for exam: additional evaluation requested from abnormal screening. History: Family history of breast cancer in maternal grandmother. US Breast Workup Limited RT Right limited breast ultrasound including focal area of concern, retroareolar and axilla demonstrates no cystic or solid lesion seen. Scanned 9-12 o'clock. Lobulated mammographic nodular asymmetry has no ultrasound correlate. 6 month follow up mammogram recommended. These results were verbally communicated with the patient and result sheet given to the patient on 02/21/19. ASSESSMENT: Probably benign, BI-RAD 3 RECOMMENDATION: Follow-up diagnostic mammogram of the right breast in 6 months.
== END | disposition home or self-care (01) ==
LOC: RADMAMWWP 15:07
PROVIDERS: ATTEND Family Medicine
DX: R92.8 Other abnormal and inconclusive findings on diagnostic imaging of breast (principal)
CPT/HCPCS: 77061; 77065

== ENCOUNTER → 2019-05-31 | Outpatient (CLI) | payer BC ==
[2019-05-31 16:46] LABS: Basophils # (A) 0.1 k/uL (0-0.2); Basophils % (A) 1 %; Eosinophils # (A) 0.2 k/uL (0-0.7); Eosinophils % (A) 2 %; HCT 29.2 % (34.0-46.0); HGB 10.4 gm/dL (11.4-16.0); Lymphocytes # (A) 2.2 k/uL (1.0-4.8); Lymphocytes % (A) 27 %; MCH 29.9 pg (25.0-35.0); MCHC 35.6 g/dL (31.0-37.0); MCV 84.1 fL (80.0-100.0); Mean Platelet Volume 5.6; Monocytes # (A) 0.4 k/uL (0-1.0); Monocytes % (A) 5 %; Neutrophils % (A) 62 %; Platelet Count 259 k/uL (150-450); RBC 3.48 m/uL (3.80-5.40); RDW 15.1 % (11.5-15.5)
[2019-06-01 01:49] LABS: Vitamin D 25 Hydroxy 36.2 ng/mL (30.0-100.0)
[2019-06-01 02:02] LABS: African American GFR (CKD) 124.9 (60.0-200.0); Albumin 4.3 g/dL (3.80-4.90); Albumin/Globulin Ratio 2.15 (1.60-3.17); Anion Gap 11.8 mmol/L (4.00-12.00); Carbon Dioxide 28.2 mmol/L (21.6-31.8); Potassium 4.2 mmol/L (3.5-5.5); Total Bilirubin 0.5 mg/dL (0.2-1.2); Total Protein 6.3 g/dL (6.2-8.2)
== END | disposition home or self-care (01) ==
LOC: LABWHC1 16:09
PROVIDERS: ATTEND Nurse Practitioner Acute Care
DX: G35 Multiple sclerosis (principal); E55.9 Vitamin D deficiency, unspecified
CPT/HCPCS: 36415; 80053; 82306; 82607; 84207; 84439; 84443; 84481; 85025

== ENCOUNTER 2019-09-18 19:00 | Emergency (ER) | payer BC ==
[2019-09-18 19:13] VITALS: BP 144/84; PULSE 89; RESP 18; TEMP 98
[2019-09-18] MEDS ORDERED: FUROSEMIDE 10 MG/ML 4 ML VIAL IV STA (19:27)
--- NOTE | 2019-09-18 19:36 | ED ---
Extremity Problem HPI - General Chief complaint: Extremity Problem,Nontraumatic Stated complaint: Swollen left leg/spasms Time Seen by Provider: 09/18/19 19:17 Source: patient, RN notes reviewed Mode of arrival: wheelchair Limitations: no limitations - History of Present Illness Initial comments: This a 48-year-old female presents emergency Department chief complaint of bilateral leg swelling. Patient states she's had some ongoing issue for several months has seen multiple doctors with no clear diagnosis at this time no medication no leg stockings. 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 Patient states that today the pain seemed to worsen. Patient states that she noticed increased swelling and mild redness. No chest pain or shortness breath no history of congestive heart failure or renal disease. - Related Data Home Medications Medication Instructions Recorded Confirmed Omeprazole [PriLOSEC] 20 mg PO DAILY 10/31/17 06/15/18 Cholecalciferol [Vitamin D3] 5,000 unit PO DAILY 06/15/18 06/15/18 Previous Rx's Medication Instructions Recorded Lisinopril-Hctz 10-12.5 mg 1 tab PO DAILY #1 tab 11/09/17 [Zestoretic 10-12.5] Furosemide [Lasix] 20 mg PO DAILY #3 tab 09/18/19 Allergies Allergy/AdvReac Type Severity Reaction Status Date / Time No Known Allergies Allergy Verified 09/18/19 19:13 Review of Systems ROS Statement: Those systems with pertinent positive or pertinent negative responses have been documented in the HPI. ROS Other: All systems not noted in ROS Statement are negative. Past Medical History Past Medical History: GERD/Reflux, Hypertension, Musculoskeletal Disorder, Neurologic Disorder Additional Past Medical History / Comment(s): MS, urinary incontinence, elevated blood sugars with steroids. History of Any Multi-Drug Resistant Organisms: None Reported Past Surgical History: Cholecystectomy Additional Past Surgical History / Comment(s): L benign ovarian mass with salpino-oophorectomy, R ovary resected/cyst Past Anesthesia/Blood Transfusion Reactions: No Reported Reaction Additional Past Anesthesia/Blood Transfusion Reaction / Comment(s): Pt received blood with gallbladder surgery without reaction. Past Psychological History: Depression Smoking Status: Former smoker Past Alcohol Use History: Occasional Past Drug Use History: None Reported - Past Family History Mother History Unknown: Yes Family Medical History: Eye Disorder, Hypertension, Osteoarthritis (OA) Additional Family Medical History / Comment(s): ARTHRITIS, KNEE REPLACEMENT SURGERY, GLAUCOMA WITH SURGERY. Father History Unknown: Yes Family Medical History: Cancer, Hypertension, Osteoarthritis (OA) Additional Family Medical History / Comment(s): PACEMAKER, ARTHRITIS WITH KNEE REPLACEMENTS, COLON CANCER STAGE II. FATHER LIVED TO BE 79YRS OLD. General Exam Limitations: no limitations General appearance: alert, in no apparent distress Head exam: Present: atraumatic, normocephalic, normal inspection Eye exam: Present: normal appearance, PERRL, EOMI. Absent: scleral icterus, conjunctival injection, periorbital swelling Neck exam: Present: full ROM Respiratory exam: Present: normal lung sounds bilaterally. Absent: respiratory distress, wheezes, rales, rhonchi, stridor Cardiovascular Exam: Present: regular rate, normal rhythm, normal heart sounds. Absent: systolic murmur, diastolic murmur, rubs, gallop, clicks GI/Abdominal exam: Present: soft, normal bowel sounds. Absent: distended, tenderness, guarding, rebound, rigid Extremities exam: Present: other (Bilateral pedal edema pain left greater than right neurovascular intact) Neurological exam: Present: alert, oriented X3, CN II-XII intact Skin exam: Present: warm, dry, intact, normal color. Absent: rash Course Vital Signs 09/18/19 19:10 Temperature 98.0 F Pulse Rate 89 Respiratory 18 Rate Blood Pressure 144/84 O2 Sat by Pulse 100 Oximetry Medical Decision Making - Medical Decision Making Patient's labs are unremarkable. Patient's ultrasound was negative for acute DVT. Patient will follow-up with vascular surgery, will be given 3 days worth of Lasix she is advised to wear compression stockings elevated legs and reduce salt intake at this time. - Lab Data Result diagrams: 09/18/19 19:35 09/18/19 19:35 Lab Results 09/18/19 09/18/19 09/18/19 Range/Units 19:35 19:35 19:35 WBC 8.4 (3.8-10.6) k/uL RBC 4.24 (3.80-5.40) m/uL Hgb 11.4 (11.4-16.0) gm/dL Hct 34.5 (34.0-46.0) % MCV 81.3 (80.0-100.0) fL MCH 26.8 (25.0-35.0) pg MCHC 33.0 (31.0-37.0) g/dL RDW 14.0 (11.5-15.5) % Plt Count 272 (150-450) k/uL Neutrophils % 63 % Lymphocytes % 25 % Monocytes % 5 % Eosinophils % 4 % Basophils % 2 % Neutrophils # 5.2 (1.3-7.7) k/uL Lymphocytes # 2.1 (1.0-4.8) k/uL Monocytes # 0.4 (0-1.0) k/uL Eosinophils # 0.3 (0-0.7) k/uL Basophils # 0.2 (0-0.2) k/uL Sodium 140 (137-145) mmol/L Potassium 4.1 (3.5-5.1) mmol/L Chloride 104 (98-107) mmol/L Carbon Dioxide 29 (22-30) mmol/L Anion Gap 7 mmol/L BUN 10 (7-17) mg/dL Creatinine 0.77 (0.52-1.04) mg/dL Est GFR (CKD-EPI)AfAm >90 (>60 ml/min/1.73 sqM) Est GFR (CKD-EPI)NonAf >90 (>60 ml/min/1.73 sqM) Glucose 102 H (74-99) mg/dL Calcium 9.0 (8.4-10.2) mg/dL Magnesium 1.8 (1.6-2.3) mg/dL Total Bilirubin 0.5 (0.2-1.3) mg/dL AST 17 (14-36) U/L ALT 6 (4-34) U/L Alkaline Phosphatase 84 (38-126) U/L NT-Pro-B Natriuret Pep 50 pg/mL Total Protein 7.0 (6.3-8.2) g/dL Albumin 4.2 (3.5-5.0) g/dL Disposition Clinical Impression: Leg edema Disposition: HOME SELF-CARE Condition: Stable Instructions (If sedation given, give patient instructions): Leg Edema (ED) Additional Instructions: Please return to the Emergency Department if symptoms worsen or any other concerns. Prescriptions: Furosemide [Lasix] 20 mg PO DAILY #3 tab Is patient prescribed a controlled substance at d/c from ED?: No Referrals: Roshan Rincon MD [Primary Care Provider] - 1-2 days Matt Hernandez DO [STAFF PHYSICIAN] - 1-2 days Time of Disposition: 20:46
[2019-09-18 19:46] LABS: Basophils # (A) 0.2 k/uL (0-0.2); Basophils % (A) 2 %; Eosinophils # (A) 0.3 k/uL (0-0.7); Eosinophils % (A) 4 %; HCT 34.5 % (34.0-46.0); HGB 11.4 gm/dL (11.4-16.0); Lymphocytes # (A) 2.1 k/uL (1.0-4.8); Lymphocytes % (A) 25 %; MCH 26.8 pg (25.0-35.0); MCV 81.3 fL (80.0-100.0); Monocytes # (A) 0.4 k/uL (0-1.0); Monocytes % (A) 5 %; Neutrophils # (A) 5.2 k/uL (1.3-7.7); Neutrophils % (A) 63 %; Platelet Count 272 k/uL (150-450); RBC 4.24 m/uL (3.80-5.40); WBC 8.4 k/uL (3.8-10.6)
[2019-09-18 19:56] LABS: ALT 6 U/L (4-34); AST 17 U/L (14-36); African American GFR (CKD) >90 (>60 ml/min/1.73 sqM); Albumin 4.2 g/dL (3.5-5.0); Alkaline Phosphatase 84 U/L (38-126); Anion Gap 7 mmol/L; Blood Urea Nitrogen 10 mg/dL (7-17); Carbon Dioxide 29 mmol/L (22-30); Chloride 104 mmol/L (98-107); Glucose 102 mg/dL (74-99); Magnesium 1.8 mg/dL (1.6-2.3); Non-African American GFR(CKD) >90 (>60 ml/min/1.73 sqM); Potassium 4.1 mmol/L (3.5-5.1); Sodium 140 mmol/L (137-145); Total Bilirubin 0.5 mg/dL (0.2-1.3)
--- NOTE | 2019-09-18 20:43 | US ---
EXAMINATION TYPE: US venous doppler duplex LE LT DATE OF EXAM: 09/18/2019 8:27 PM COMPARISON: NONE CLINICAL HISTORY: pain. Pain in left leg x 6 months. Redness and swelling. No hx of DVT. Patient does not take blood thinners. SIDE PERFORMED: Left TECHNIQUE: The lower extremity deep venous system is examined utilizing real time linear array sonog della with graded compression, doppler sonography and color-flow sonography. VESSELS IMAGED: Common Femoral Vein Deep Femoral Vein Greater Saphenous Vein * Femoral Vein Popliteal Vein Small Saphenous Vein * Proximal Calf Veins (* superficial vessels) Left Leg: EIV not visualized. Very limited due to edema. No evidence of DVT in veins imaged at this time. IMPRESSION: No evidence of deep venous thrombosis in the left leg.
== END 2019-09-18 21:10 | disposition home or self-care (01) ==
LOC: EC 19:00
DX: R60.0 Localized edema (principal); M79.604 Pain in right leg; M79.605 Pain in left leg; K21.9 Gastro-esophageal reflux disease without esophagitis; G35 Multiple sclerosis; Z87.891 Personal history of nicotine dependence; Z79.899 Other long term (current) drug therapy
CPT/HCPCS: 36415; 83880; 80053; 83735; 85025; 93971; 99284; 96374; J1940

== ENCOUNTER → 2020-02-15 | Outpatient (CLI) | payer BC ==
--- NOTE | 2020-02-18 08:17 | MM ---
Reason for exam: additional evaluation requested from prior study. Last mammogram was performed 5 months ago. History: Family history of breast cancer in maternal grandmother. Physical Findings: Nurse did not find any significant physical abnormalities on exam. MG 3D Diag Mammo W/Cad ZAKI Bilateral CC and MLO view(s) were taken. XCCL view(s) were taken of the right breast. Prior study comparison: October 01, 2019, right breast MG 3d diag mammo w/cad RT. February 13, 2019, bilateral MG 3d screening mammo w/cad. There is chronic nodularity in the left breast. Focal asymmetry right anterior upper outer quadrant. No significant new findings when compared with previous films. These results were verbally communicated with the patient and result sheet given to the patient on 02/15/20. ASSESSMENT: Benign, BI-RAD 2 RECOMMENDATION: Routine screening mammogram of both breasts in 1 year.
== END | disposition home or self-care (01) ==
LOC: RADMAMWWP 15:19
PROVIDERS: ATTEND Family Medicine
DX: R92.8 Other abnormal and inconclusive findings on diagnostic imaging of breast (principal)
CPT/HCPCS: 77062; 77066

== ENCOUNTER → 2020-02-25 | Outpatient (CLI) | payer BC ==
[2020-02-25 13:17] LABS: Basophils # (A) 0.1 k/uL (0-0.2); Basophils % (A) 1 %; Eosinophils # (A) 0.3 k/uL (0-0.7); Eosinophils % (A) 3 %; HCT 36.8 % (34.0-46.0); HGB 11.6 gm/dL (11.4-16.0); Hypochromasia Moderate; Lymphocytes # (A) 2.2 k/uL (1.0-4.8); Lymphocytes % (A) 27 %; MCHC 31.5 g/dL (31.0-37.0); MCV 85.7 fL (80.0-100.0); Monocytes # (A) 0.4 k/uL (0-1.0); Monocytes % (A) 5 %; Neutrophils % (A) 62 %; Platelet Count 256 k/uL (150-450); RBC 4.29 m/uL (3.80-5.40); RDW 15.5 % (11.5-15.5); WBC 8.1 k/uL (3.8-10.6)
[2020-02-25 21:51] LABS: Albumin 4.3 g/dL (3.80-4.90); Albumin/Globulin Ratio 1.87 (1.60-3.17); Anion Gap 8.4 mmol/L (4.00-12.00); Carbon Dioxide 25.6 mmol/L (21.6-31.8); Globulin 2.3 g/dL (1.6-3.3); Total Bilirubin 0.5 mg/dL (0.2-1.2); Total Protein 6.6 g/dL (6.2-8.2)
== END | disposition home or self-care (01) ==
LOC: LABWHC1 12:02
PROVIDERS: ATTEND Nurse Practitioner Acute Care
DX: G35 Multiple sclerosis (principal); E55.9 Vitamin D deficiency, unspecified; R53.83 Other fatigue
CPT/HCPCS: 36415; 80053; 82306; 82607; 84207; 85025

== ENCOUNTER → 2020-04-22 | Outpatient (CLI) | payer BC ==
[2020-04-22 12:12] LABS: Basophils # (A) 0.1 k/uL (0-0.2); Basophils % (A) 1 %; Eosinophils # (A) 0.3 k/uL (0-0.7); Eosinophils % (A) 3 %; HCT 33.9 % (34.0-46.0); HGB 10.8 gm/dL (11.4-16.0); Lymphocytes # (A) 2.1 k/uL (1.0-4.8); Lymphocytes % (A) 22 %; MCH 26.2 pg (25.0-35.0); MCHC 31.9 g/dL (31.0-37.0); MCV 82.2 fL (80.0-100.0); Mean Platelet Volume 6.9; Monocytes # (A) 0.4 k/uL (0-1.0); Monocytes % (A) 4 %; Neutrophils # (A) 6.5 k/uL (1.3-7.7); Neutrophils % (A) 68 %; Platelet Count 227 k/uL (150-450); RBC 4.13 m/uL (3.80-5.40); RDW 15.7 % (11.5-15.5); WBC 9.4 k/uL (3.8-10.6)
[2020-04-22 19:03] LABS: Albumin 4.2 g/dL (3.80-4.90); Albumin/Globulin Ratio 1.83 (1.60-3.17); Anion Gap 10.3 mmol/L (4.00-12.00); Calcium 9.1 mg/dL (8.7-10.3); Carbon Dioxide 27.7 mmol/L (21.6-31.8); Globulin 2.3 g/dL (1.6-3.3); Potassium 4.6 mmol/L (3.5-5.5); Total Bilirubin 0.6 mg/dL (0.3-1.2); Total Protein 6.5 g/dL (6.2-8.2)
== END | disposition home or self-care (01) ==
LOC: LABWHC1 10:34
PROVIDERS: ATTEND Nurse Practitioner Acute Care
DX: E55.9 Vitamin D deficiency, unspecified (principal); G35 Multiple sclerosis; Z51.81 Encounter for therapeutic drug level monitoring
CPT/HCPCS: 36415; 80053; 82306; 82607; 85025

== ENCOUNTER 2020-08-08 19:22 | Emergency (ER) | payer BC ==
[2020-08-08 19:32] VITALS: TEMP 99
--- NOTE | 2020-08-08 19:49 | ED ---
Back Pain HPI - General Chief Complaint: Back Pain/Injury Stated Complaint: Back Pain Time Seen by Provider: 08/08/20 19:47 Source: patient Limitations: physical limitation - History of Present Illness Initial Comments: 49-year-old female presenting to the emergency department with a chief complaint of back pain. Patient reports history of MS that was diagnosed approximately 1 decade ago. She does undergo regular glucocorticoid treatments. Patient states for the past week she has developed increasing generalized pain, as well as pain in the left, paraspinal lumbosacral region. Patient reports pain when transitioning from a sitting to standing position. She also reports pain when she is getting up from the toilet. She denies any night sweats or chills. Denies any direct injury to the back. States she has not been more active than usual. Denies saddle anesthesia, urinary retention with overflow incontinence or bowel incontinence. Patient states that she is already seeing a urologist for having obstructive urinary symptoms. Patient is also requesting Lasix because she not take her morning dose. States that she has bilateral lower extremity edema and has been taking Lasix is approximately 1 year. - Related Data Previous Rx's Medication Instructions Recorded Cyclobenzaprine [Flexeril] 5 mg PO TID PRN #15 tablet 08/08/20 Allergies Allergy/AdvReac Type Severity Reaction Status Date / Time No Known Allergies Allergy Verified 08/08/20 22:48 Review of Systems ROS Statement: Those systems with pertinent positive or pertinent negative responses have been documented in the HPI. ROS Other: All systems not noted in ROS Statement are negative. Past Medical History Past Medical History: GERD/Reflux, Hypertension, Musculoskeletal Disorder, Neurologic Disorder Additional Past Medical History / Comment(s): MS, urinary incontinence, elevated blood sugars with steroids. History of Any Multi-Drug Resistant Organisms: None Reported Past Surgical History: Cholecystectomy Additional Past Surgical History / Comment(s): L benign ovarian mass with salpino-oophorectomy, R ovary resected/cyst Past Anesthesia/Blood Transfusion Reactions: No Reported Reaction Additional Past Anesthesia/Blood Transfusion Reaction / Comment(s): Pt received blood with gallbladder surgery without reaction. Past Psychological History: Depression Smoking Status: Former smoker Past Alcohol Use History: Rare Past Drug Use History: None Reported - Past Family History Mother History Unknown: Yes Family Medical History: Eye Disorder, Hypertension, Osteoarthritis (OA) Additional Family Medical History / Comment(s): ARTHRITIS, KNEE REPLACEMENT SURGERY, GLAUCOMA WITH SURGERY. Father History Unknown: Yes Family Medical History: Cancer, Hypertension, Osteoarthritis (OA) Additional Family Medical History / Comment(s): PACEMAKER, ARTHRITIS WITH KNEE REPLACEMENTS, COLON CANCER STAGE II. FATHER LIVED TO BE 79YRS OLD. General Exam Limitations: physical limitation General appearance: alert, in no apparent distress, obese Head exam: Present: atraumatic, normocephalic, normal inspection Eye exam: Present: normal appearance, PERRL, EOMI Pupils: Present: normal accommodation ENT exam: Present: normal exam, normal oropharynx, mucous membranes moist, TM's normal bilaterally, normal external ear exam Neck exam: Present: normal inspection, full ROM. Absent: tenderness Respiratory exam: Present: normal lung sounds bilaterally. Absent: respiratory distress, wheezes Cardiovascular Exam: Present: regular rate, normal rhythm, normal heart sounds. Absent: systolic murmur, diastolic murmur GI/Abdominal exam: Present: soft. Absent: distended, tenderness, guarding Extremities exam: Present: normal inspection, full ROM, normal capillary refill, other (Palpable DP and PT.). Absent: tenderness, pedal edema, joint swelling, calf tenderness Back exam: Present: normal inspection, full ROM, tenderness, paraspinal tenderness (Left paraspinal tenderness in the lumbosacral region). Absent: CVA tenderness (R), CVA tenderness (L) Neurological exam: Present: alert, oriented X3 Psychiatric exam: Present: normal affect, normal mood Skin exam: Present: warm, dry, intact, normal color Course Vital Signs 08/08/20 08/08/20 19:29 21:50 Temperature 99.0 F Pulse Rate 81 72 Respiratory 16 19 Rate Blood Pressure 142/87 126/79 O2 Sat by Pulse 100 98 Oximetry Medical Decision Making - Medical Decision Making 49-year-old female with history of MS presenting to emergency Department with a chief complaint of back pain. On physical examination, patient has left-sided paraspinal tenderness in the lumbosacral region. No signs of symptoms of cauda equina. Negative leg raise test. Patient was given analgesia and she also requested Lasix because she did not take her medication earlier today. Patient did have bilateral lower extremity edema at her baseline. This is handled by her primary care physician. She also sees for neurology and management of MS. CBC CMP unremarkable. CT of the lumbar region is unremarkable. Patient will be discharged with a muscle relaxer. Strict return parameters were thoroughly discussed the patient is an attending agreeable. Case discussed physician. - Lab Data Result diagrams: 08/08/20 20:58 08/08/20 20:58 Lab Results 08/08/20 08/08/20 Range/Units 20:58 20:58 WBC 7.3 (3.8-10.6) k/uL RBC 4.19 (3.80-5.40) m/uL Hgb 11.7 (11.4-16.0) gm/dL Hct 34.1 (34.0-46.0) % MCV 81.5 (80.0-100.0) fL MCH 27.9 (25.0-35.0) pg MCHC 34.2 (31.0-37.0) g/dL RDW 15.3 (11.5-15.5) % Plt Count 230 (150-450) k/uL MPV 6.8 Neutrophils % 61 % Lymphocytes % 26 % Monocytes % 6 % Eosinophils % 5 % Basophils % 1 % Neutrophils # 4.4 (1.3-7.7) k/uL Lymphocytes # 1.9 (1.0-4.8) k/uL Monocytes # 0.4 (0-1.0) k/uL Eosinophils # 0.3 (0-0.7) k/uL Basophils # 0.1 (0-0.2) k/uL Sodium 138 (137-145) mmol/L Potassium 4.6 (3.5-5.1) mmol/L Chloride 105 (98-107) mmol/L Carbon Dioxide 28 (22-30) mmol/L Anion Gap 5 mmol/L BUN 13 (7-17) mg/dL Creatinine 0.55 (0.52-1.04) mg/dL Est GFR (CKD-EPI)AfAm >90 (>60 ml/min/1.73 sqM) Est GFR (CKD-EPI)NonAf >90 (>60 ml/min/1.73 sqM) Glucose 105 H (74-99) mg/dL Calcium 9.1 (8.4-10.2) mg/dL Total Bilirubin 0.7 (0.2-1.3) mg/dL AST 19 (14-36) U/L ALT 11 (4-34) U/L Alkaline Phosphatase 79 (38-126) U/L Total Protein 6.6 (6.3-8.2) g/dL Albumin 3.8 (3.5-5.0) g/dL Disposition Clinical Impression: Strain of lumbar region, Mechanical back pain Disposition: HOME SELF-CARE Condition: Stable Instructions (If sedation given, give patient instructions): Acute Low Back Pain (ED) Additional Instructions: Follow with the primary care physician. Return to emergency department if symptoms worsen. Prescriptions: Cyclobenzaprine [Flexeril] 5 mg PO TID PRN #15 tablet PRN Reason: Muscle Spasm Is patient prescribed a controlled substance at d/c from ED?: No Referrals: Roshan Rincon MD [Primary Care Provider] - 1-2 days Time of Disposition: 21:48
[2020-08-08] MEDS ORDERED: FUROSEMIDE 10 MG/ML 2 ML VIAL IV STA (20:03)
[2020-08-08] MEDS ORDERED: LIDOCAINE 5% PATCH TOPICAL STA (20:04)
[2020-08-08] MEDS ORDERED: HYDROmorphone 1 MG/ML 1 ML SYRINGE IVP STA (20:04)
[2020-08-08 21:06] LABS: Basophils # (A) 0.1 k/uL (0-0.2); Basophils % (A) 1 %; Eosinophils # (A) 0.3 k/uL (0-0.7); Eosinophils % (A) 5 %; HCT 34.1 % (34.0-46.0); HGB 11.7 gm/dL (11.4-16.0); Lymphocytes # (A) 1.9 k/uL (1.0-4.8); Lymphocytes % (A) 26 %; MCH 27.9 pg (25.0-35.0); MCHC 34.2 g/dL (31.0-37.0); MCV 81.5 fL (80.0-100.0); Mean Platelet Volume 6.8; Monocytes # (A) 0.4 k/uL (0-1.0); Monocytes % (A) 6 %; Neutrophils # (A) 4.4 k/uL (1.3-7.7); Neutrophils % (A) 61 %; Platelet Count 230 k/uL (150-450); RBC 4.19 m/uL (3.80-5.40); RDW 15.3 % (11.5-15.5); WBC 7.3 k/uL (3.8-10.6)
--- NOTE | 2020-08-08 21:16 | CT ---
EXAMINATION TYPE: CT lumbar spine wo con DATE OF EXAM: 08/08/2020 COMPARISON: 11/01/2017 HISTORY: Lower back pain. Hx of MS CT DLP: 1197.6 mGycm Automated exposure control for dose reduction was used. Images were obtained without contrast from the level of T12-S3 vertebra. Vertebra have normal spacing and alignment. Posterior elements are intact. Facet joints appear normal . There is no evidence of spinal stenosis. There is no evidence of any significant lumbar disc hernia tion. The neural foramina appear widely patent. There is no lumbar paraspinal mass. Sacroiliac joints appear intact. IMPRESSION: Negative CT scan of the lumbar spine. No change.
[2020-08-08 21:24] LABS: ALT 11 U/L (4-34); AST 19 U/L (14-36); African American GFR (CKD) >90 (>60 ml/min/1.73 sqM); Albumin 3.8 g/dL (3.5-5.0); Alkaline Phosphatase 79 U/L (38-126); Anion Gap 5 mmol/L; Blood Urea Nitrogen 13 mg/dL (7-17); Calcium 9.1 mg/dL (8.4-10.2); Carbon Dioxide 28 mmol/L (22-30); Chloride 105 mmol/L (98-107); Glucose 105 mg/dL (74-99); Non-African American GFR(CKD) >90 (>60 ml/min/1.73 sqM); Potassium 4.6 mmol/L (3.5-5.1); Sodium 138 mmol/L (137-145); Total Bilirubin 0.7 mg/dL (0.2-1.3); Total Protein 6.6 g/dL (6.3-8.2)
[2020-08-08] MEDS ORDERED: ONDANSETRON 4 MG/2 ML VIAL IVP STA (21:38)
[2020-08-08 21:52] VITALS: BP 126/79; PULSE 72; RESP 19
== END 2020-08-08 23:00 | disposition home or self-care (01) ==
LOC: EC 19:22
DX: S39.012A Strain of muscle, fascia and tendon of lower back, initial encounter (principal); R39.9 Unspecified symptoms and signs involving the genitourinary system; G35 Multiple sclerosis; Z79.899 Other long term (current) drug therapy; Z90.49 Acquired absence of other specified parts of digestive tract; Z87.891 Personal history of nicotine dependence; Z90.721 Acquired absence of ovaries, unilateral; X58.XXXA Exposure to other specified factors, initial encounter
CPT/HCPCS: 36415; 80053; 85025; 72131; 99284; 96374; 96375 ×2; J1940; J2405; J1170

== ENCOUNTER 2020-10-12 11:40 | Inpatient (IN) | payer BC ==
--- NOTE | 2020-10-12 12:07 | ED ---
Extremity Problem HPI - General Chief complaint: Extremity Problem,Nontraumatic Stated complaint: EDEMA Time Seen by Provider: 10/12/20 11:43 Source: patient, EMS Mode of arrival: EMS Limitations: no limitations - History of Present Illness Initial comments: Patient is a 49-year-old female with history of MS, presenting to emergency Department with complaints of left lower leg swelling that is worsening over the past few weeks. Patient states she does have history of lower leg edema however over the past week it seems to be increasing and now her left lower leg is painful. She states she normally does use a wheelchair at home and is usually able to transfer to a walker but she feels very unsteady on her feet secondary to the pain over the past 2 days. She denies any fever or chills, no nausea or vomiting, no abdominal pain. Patient states she did have a very mild fall today where she fell gently onto her bottom, she has no complaints of pain from the fall today. She did not hit her head. Patient is not on blood thinners. She has no history of DVT. She has no further complaints at this time. Upon arrival to the ER, her vital signs are stable. - Related Data Home Medications Medication Instructions Recorded Confirmed Baclofen [Lioresal] 20 mg PO TID 10/12/20 10/12/20 Cholecalciferol [Vitamin D3 (25 25 mcg PO BID 10/12/20 10/12/20 Mcg = 1000 Iu)] Lisinopril-Hctz 10-12.5 mg 1 tab PO DAILY 10/12/20 10/12/20 [Zestoretic 10-12.5] Omeprazole 20 mg PO DAILY 10/12/20 10/12/20 predniSONE See Taper PO DAILY 10/12/20 10/12/20 Allergies Allergy/AdvReac Type Severity Reaction Status Date / Time No Known Allergies Allergy Verified 10/12/20 13:31 Review of Systems ROS Statement: Those systems with pertinent positive or pertinent negative responses have been documented in the HPI. ROS Other: All systems not noted in ROS Statement are negative. Past Medical History Past Medical History: GERD/Reflux, Hypertension, Musculoskeletal Disorder, Neurologic Disorder Additional Past Medical History / Comment(s): MS, urinary incontinence, elevated blood sugars with steroids. History of Any Multi-Drug Resistant Organisms: None Reported Past Surgical History: Cholecystectomy Additional Past Surgical History / Comment(s): L benign ovarian mass with salpino-oophorectomy, R ovary resected/cyst Past Anesthesia/Blood Transfusion Reactions: No Reported Reaction Additional Past Anesthesia/Blood Transfusion Reaction / Comment(s): Pt received blood with gallbladder surgery without reaction. Past Psychological History: Depression Smoking Status: Former smoker Past Alcohol Use History: Rare Past Drug Use History: None Reported - Past Family History Mother History Unknown: Yes Family Medical History: Eye Disorder, Hypertension, Osteoarthritis (OA) Additional Family Medical History / Comment(s): ARTHRITIS, KNEE REPLACEMENT SURGERY, GLAUCOMA WITH SURGERY. Father History Unknown: Yes Family Medical History: Cancer, Hypertension, Osteoarthritis (OA) Additional Family Medical History / Comment(s): PACEMAKER, ARTHRITIS WITH KNEE REPLACEMENTS, COLON CANCER STAGE II. FATHER LIVED TO BE 79YRS OLD. General Exam - General Exam Comments Initial Comments: GENERAL: Patient is well-developed and well-nourished. Patient is nontoxic and in no acute distress. HEAD: Atraumatic, normocephalic. EYES: Pupils equal round and reactive to light, extraocular movements intact, sclera anicteric, conjunctiva are normal. Eyelids were unremarkable. ENT: TMs normal, nares patent, oropharynx clear without exudates. Moist mucous membranes. NECK: Normal range of motion, supple without lymphadenopathy or JVD. LUNGS: Unlabored respirations. Breath sounds clear to auscultation bilaterally and equal. No wheezes rales or rhonchi. HEART: Regular rate and rhythm without murmurs, rubs or gallops. ABDOMEN: Soft, nontender, normoactive bowel sounds. No guarding, no rebound. No masses appreciated. : Deferred MUSCULOSKELETAL: No clubbing or cyanosis. Patient has diffuse edema bilateral lower legs, left greater than the right. She is neurovascular intact, normal bilateral pedal pulses. Patient does have pain in the left lower leg with compression, some mild erythema present. She also has pain of the left upper leg, medial aspect as well. NEUROLOGICAL: Patient is alert and oriented x 3. Motor and sensory are also intact. Cranial nerves II through XII grossly intact. Symmetrical smile. Normal speech. PSYCH: Normal mood, normal affect. SKIN: Warm, Dry, normal turgor, no rashes or lesions noted. Limitations: no limitations Course Vital Signs 10/12/20 10/12/20 11:42 13:58 Temperature 98.7 F Pulse Rate 97 91 Respiratory 17 18 Rate Blood Pressure 143/85 126/71 O2 Sat by Pulse 100 100 Oximetry Medical Decision Making - Medical Decision Making Patient is a 49-year-old female with history of MS presenting with an increase of pain and swelling in her left lower leg. She does have history of bilateral lower leg edema, has been worse in the left leg over the past week, increase in pain and redness as well. No fevers, vitals are stable. She does have history of MS, mostly uses a wheelchair but is able to stand and transfer mostly at times, she is having more difficulty with transfers the last 2 days, not able stand on her own. Ultrasound today of the left lower extremity reveals no evidence of DVT. White count slightly up at 11.9, CRP is 20, lactic acid is 1 .6. Patient will be admitted for cellulitis, difficulty ambulation. Patient started on Rocephin. Patient accepted by Dr. Hays. Case discussed with Dr. Schaefer. - Lab Data Result diagrams: 10/12/20 12:19 10/12/20 12:19 Lab Results 10/12/20 10/12/20 10/12/20 Range/Units 12:19 12:19 12:19 WBC 11.9 H (3.8-10.6) k/uL RBC 4.76 (3.80-5.40) m/uL Hgb 12.9 (11.4-16.0) gm/dL Hct 39.7 (34.0-46.0) % MCV 83.5 (80.0-100.0) fL MCH 27.2 (25.0-35.0) pg MCHC 32.6 (31.0-37.0) g/dL RDW 15.4 (11.5-15.5) % Plt Count 279 (150-450) k/uL MPV 7.0 Neutrophils % 59 % Lymphocytes % 30 % Monocytes % 6 % Eosinophils % 4 % Basophils % 0 % Neutrophils # 7.0 (1.3-7.7) k/uL Lymphocytes # 3.6 (1.0-4.8) k/uL Monocytes # 0.7 (0-1.0) k/uL Eosinophils # 0.4 (0-0.7) k/uL Basophils # 0.0 (0-0.2) k/uL ESR 13 (0-20) mm/hr Sodium 136 L (137-145) mmol/L Potassium 3.6 (3.5-5.1) mmol/L Chloride 100 (98-107) mmol/L Carbon Dioxide 29 (22-30) mmol/L Anion Gap 7 mmol/L BUN 14 (7-17) mg/dL Creatinine 0.54 (0.52-1.04) mg/dL Est GFR (CKD-EPI)AfAm >90 (>60 ml/min/1.73 sqM) Est GFR (CKD-EPI)NonAf >90 (>60 ml/min/1.73 sqM) Glucose 95 (74-99) mg/dL Plasma Lactic Acid Kendrick 1.6 (0.7-2.0) mmol/L Calcium 9.1 (8.4-10.2) mg/dL Total Bilirubin 0.8 (0.2-1.3) mg/dL AST 20 (14-36) U/L ALT 13 (4-34) U/L Alkaline Phosphatase 83 (38-126) U/L C-Reactive Protein 20.0 H (<10.0) mg/L Total Protein 7.0 (6.3-8.2) g/dL Albumin 4.0 (3.5-5.0) g/dL Disposition Clinical Impression: Bilateral cellulitis of lower leg, Unsteady gait Disposition: ADMITTED IP TO THIS [facility] Condition: Stable Decision Date: 10/12/20 Decision Time: 14:01
[2020-10-12 12:43] LABS: Basophils % (A) 0 %; Eosinophils # (A) 0.4 k/uL (0-0.7); Eosinophils % (A) 4 %; HCT 39.7 % (34.0-46.0); HGB 12.9 gm/dL (11.4-16.0); Lymphocytes # (A) 3.6 k/uL (1.0-4.8); Lymphocytes % (A) 30 %; MCH 27.2 pg (25.0-35.0); MCHC 32.6 g/dL (31.0-37.0); MCV 83.5 fL (80.0-100.0); Monocytes # (A) 0.7 k/uL (0-1.0); Monocytes % (A) 6 %; Neutrophils % (A) 59 %; Platelet Count 279 k/uL (150-450); Potassium 3.6 mmol/L (3.5-5.1); RBC 4.76 m/uL (3.80-5.40); RDW 15.4 % (11.5-15.5); WBC 11.9 k/uL (3.8-10.6)
[2020-10-12 12:45] LABS: ALT 13 U/L (4-34); AST 20 U/L (14-36); African American GFR (CKD) >90 (>60 ml/min/1.73 sqM); Alkaline Phosphatase 83 U/L (38-126); Anion Gap 7 mmol/L; Blood Urea Nitrogen 14 mg/dL (7-17); Calcium 9.1 mg/dL (8.4-10.2); Carbon Dioxide 29 mmol/L (22-30); Chloride 100 mmol/L (98-107); Glucose 95 mg/dL (74-99); Non-African American GFR(CKD) >90 (>60 ml/min/1.73 sqM); Sodium 136 mmol/L (137-145); Total Bilirubin 0.8 mg/dL (0.2-1.3)
--- NOTE | 2020-10-12 13:13 | US ---
EXAMINATION TYPE: US venous doppler duplex LE LT DATE OF EXAM: 10/12/2020 11:59 AM COMPARISON: NONE CLINICAL HISTORY: pain, edema, redness. Left leg bruising. Difficult exam due to patient body habitus SIDE PERFORMED: Left TECHNIQUE: The lower extremity deep venous system is examined utilizing real time linear array sonog della with graded compression, doppler sonography and color-flow sonography. VESSELS IMAGED: Common Femoral Vein Deep Femoral Vein Greater Saphenous Vein * Femoral Vein Popliteal Vein Small Saphenous Vein * Proximal Calf Veins (* superficial vessels) Left Leg: Negative for DVT No sonographic abnormality visualized at left upper thigh, area of bruising IMPRESSION: No evidence of left lower extremity DVT.
[2020-10-12] MEDS ORDERED: HYDROcodone/APAP 5-325MG 1 EACH TAB PO PRN (13:58)
[2020-10-12] MEDS ORDERED: ONDANSETRON 4 MG/2 ML VIAL IVP PRN (13:58)
[2020-10-12] MEDS ORDERED: NALOXONE 0.4 MG/ML 1 ML VIAL IV PRN (13:58)
[2020-10-12] MEDS ORDERED: IBUPROFEN 400 MG TAB PO PRN (13:58)
[2020-10-12 14:44] LABS: Erythrocyte Sedimentation Rate 13 mm/hr (0-20)
--- NOTE | 2020-10-12 19:39 | P.HPIM ---
History of Present Illness H&P Date: 10/12/20 Chief Complaint: Lower extremity swelling some redness History of presenting complaint: This is a pleasant 49-year-old patient of Dr. Rincon. Chronic stable medical conditions include GERD, hypertension, multiple sclerosis, urinary incontinence, depression. Patient presented increased swelling of both lower extremity more so the left leg. Coming on repeated weeks. Also increasing pain in the lower extremity. No fever no chills. Patient has rather dry skin. It has become more dry the last 2 months. Some redness. No shortness of breath. No orthopnea. Review of systems: GEN.: None EYES: None HEENT: None NECK: None RESPIRATORY: None CARDIOVASCULAR: None GASTROINTESTINAL: None GENITOURINARY: None MUSCULOSKELETAL: As above LYMPHATICS: Swelling of lower extremities HEMATOLOGICAL: None PSYCHIATRY: None NEUROLOGICAL: None Past medical history to include: GERD, hypertension, MS, urinary incontinence, depression Social history: with 3 children. Patient smoked from 1990 through 2004. Alcohol rarely. Physical examination: VITAL SIGNS: 98.7, 97, 17, 143/85, 100% room air GENERAL: BMI 33.5, sitting up in bed, not in distress. EYES: Pupils equal. Conjunctiva normal. HEENT: External appearance of nose and ears normal, oral cavity grossly normal. NECK: JVD not raised; masses not palpable. HEART: First and second heart sounds are normal; no edema. LUNGS: Respiratory rate normal; clear to auscultation. ABDOMEN: Soft, nontender, liver spleen not palpable, no masses palpable. PSYCH: Alert and oriented x3; mood and affect normal. NEUROLOGICAL: Cranial nerves grossly intact; no facial asymmetry, power and sensation grossly intact. EXTREMITIES: Both lower extremity is a rather swollen, minimal pitting edema, superficial tenderness, slightly reddish skin with dry skin LYMPHATICS: No lymph nodes palpable in the axilla and neck, swelling of the lower extremities INVESTIGATIONS, reviewed in the clinical context: White count 11.9 hemoglobin 12.9 platelets 279 potassium 3.6 creatinine 0.5 for CRP 20 Coronavirus [PCR]-not detected Doppler ultrasound of the left leg-negative for DVT Assessment and plan: -Patient has chronic swelling in lower extremity. More so in the last 2 weeks. To the point does become painful and a bit red. Patient does not have any significant pitting edema. I believe she has a significant lymphedema component. DVT has been ruled out. -Bilateral lower extremity cellulitis, precipitated by dry skin. We'll use IV Ancef and also use topical Silvadene with Kerlix and Aaron wrap -Lower extremity xerosis -Obesity BMI 33.5.. The patient will reduce calorie diet and have the patient see a dietitian -GERD, continue with omeprazole -Essential hypertension, continue Zestoretic -Multiple sclerosis -Chronic urinary incontinence -DVT prophylaxis use subcu Lovenox Care was discussed with the patient. Consult infectious disease. Placed the patient on fluid restriction of 1500 mL a day. Past Medical History Past Medical History: GERD/Reflux, Hypertension, Musculoskeletal Disorder, Neurologic Disorder Additional Past Medical History / Comment(s): MS, urinary incontinence, elevated blood sugars with steroids. History of Any Multi-Drug Resistant Organisms: None Reported Past Surgical History: Cholecystectomy Additional Past Surgical History / Comment(s): L benign ovarian mass with salpino-oophorectomy, R ovary resected/cyst Past Anesthesia/Blood Transfusion Reactions: No Reported Reaction Additional Past Anesthesia/Blood Transfusion Reaction / Comment(s): Pt received blood with gallbladder surgery without reaction. Past Psychological History: Depression Additional Psychological History / Comment(s): Pt resides with her spouse and their 3 children ages 19,15 and 11. She has 2 walkers, one with seat/wheels, cane, wheelchair, electric scooter, ramp into home, grab rail in bathroom and shower chair. Pt no longer drives, her spouse or friends take her to appts. Smoking Status: Former smoker Past Alcohol Use History: Rare Additional Past Alcohol Use History / Comment(s): Pt started smoking in 1990 and quit in 2004. Past Drug Use History: None Reported - Past Family History Mother History Unknown: Yes Family Medical History: Eye Disorder, Hypertension, Osteoarthritis (OA) Additional Family Medical History / Comment(s): ARTHRITIS, KNEE REPLACEMENT SURGERY, GLAUCOMA WITH SURGERY. Father History Unknown: Yes Family Medical History: Cancer, Hypertension, Osteoarthritis (OA) Additional Family Medical History / Comment(s): PACEMAKER, ARTHRITIS WITH KNEE REPLACEMENTS, COLON CANCER STAGE II. FATHER LIVED TO BE 79YRS OLD. Medications and Allergies Home Medications Medication Instructions Recorded Confirmed Type Baclofen [Lioresal] 20 mg PO TID 10/12/20 10/12/20 History Cholecalciferol [Vitamin D3 (25 25 mcg PO BID 10/12/20 10/12/20 History Mcg = 1000 Iu)] Lisinopril-Hctz 10-12.5 mg 1 tab PO DAILY 10/12/20 10/12/20 History [Zestoretic 10-12.5] Omeprazole 20 mg PO DAILY 10/12/20 10/12/20 History predniSONE See Taper PO DAILY 10/12/20 10/12/20 History Allergies Allergy/AdvReac Type Severity Reaction Status Date / Time No Known Allergies Allergy Verified 10/12/20 13:31 Physical Exam Vitals: Vital Signs Temp Pulse Pulse Resp BP BP Pulse Ox 10/12/20 15:57 98.4 F 103 H 18 159/88 99 10/12/20 13:58 91 18 126/71 100 10/12/20 11:42 98.7 F 97 17 143/85 100 Intake and Output 10/12/20 10/12/20 10/12/20 06:59 14:59 22:59 Other: # Voids 0 Weight 85.729 kg 85.729 kg Results CBC & Chem 7: 10/12/20 12:19 10/12/20 12:19 Labs: Abnormal Lab Results - Last 24 Hours (Table) 10/12/20 10/12/20 Range/Units 12:19 12:19 WBC 11.9 H (3.8-10.6) k/uL Sodium 136 L (137-145) mmol/L C-Reactive Protein 20.0 H (<10.0) mg/L Thrombosis Risk Factor Assmnt - Choose All That Apply Any of the Below Risk Factors Present?: Yes Each Factor Represents 1 point: Age 41-60 years, Obesity (BMI >25), Swollen legs (current) Other congenital or acquired thrombophilia - If yes, enter type in comment: No Thrombosis Risk Factor Assessment Total Risk Factor Score: 3 Thrombosis Risk Factor Assessment Level: Moderate Risk
[2020-10-12] MEDS: CHOLECALCIFEROL 25 MCG (1000 IU) TABLET PO SCH (21:58)
[2020-10-12] MEDS: BACLOFEN 10 MG TAB PO SCH (22:04)
[2020-10-13] MEDS: BACLOFEN 10 MG TAB PO SCH ×3 (08:01→20:26)
[2020-10-13] MEDS: LISINOPRIL-HCTZ 10-12.5 MG 1 EACH TAB PO SCH (08:01)
[2020-10-13] MEDS: PANTOPRAZOLE 40 MG TABLET PO SCH (08:01)
[2020-10-13] MEDS: CHOLECALCIFEROL 25 MCG (1000 IU) TABLET PO SCH ×2 (08:01→20:26)
--- NOTE | 2020-10-13 09:35 | P.PN ---
Subjective Records: This is a pleasant 49-year-old patient of Dr. Rincon. Chronic stable medical conditions include GERD, hypertension, multiple sclerosis, urinary incontinence, depression. Patient presented increased swelling of both lower extremity more so the left leg. Coming on repeated weeks. Also increasing pain in the lower extremity. No fever no chills. Patient has rather dry skin. It has become more dry the last 2 months. Some redness. No shortness of breath. No orthopnea. Subjective: This is the first day I am taking care of the patient 10/13/2020 This is a pleasant 49 years old female with past medical history of multiple sclerosis since 2007 and she follows up with Dr. Mayes. She has ongoing chronic bilateral leg weakness mainly on the left side for about one year as per patient and thi times presents because bilateral leg swelling and pain, patient states that she has been on and off for 1 year but it was worse for the last 24 hours prior to admission, also patient could not walk for about one year, patient thinks is due to multiple sclerosis sequelae. Her leg are swollen, warm and pinkish in color, more on the left side and patient was started on cefazolin and she thinks her antibiotics is helping her As stated and she has MS and during flareups she loses balance and have 44 didn't difficulty. She follows up with Dr. Mayes/'s nurse practitioner [place] for abnormal imaging test related to her MS although she does not have blurred vision or double vision. She received 3 days of IV Solu-Medrol and they placed her on tapering steroids started on 40 mg but the patient the did not have a chance to take it. Also has constant weakness and numbness in her both hands She has on and off urinary incontinence, not currently Review of systems CONSTITUTIONAL: No fever, no malaise, no fatigue. HEENT: No recent visual problems or hearing problems. Denied any sore throat. CARDIOVASCULAR: No orthopnea, PND, no palpitations, no syncope. PULMONARY: No shortness of breath, no cough, no hemoptysis. GASTROINTESTINAL: No diarrhea, no nausea, no vomiting, no abdominal pain. Normoactive bowel sounds. NEUROLOGICAL: No headaches, no weakness, no numbness. HEMATOLOGICAL: Denies any bleeding or petechiae. Active Medications Generic Name Dose Route Start Last Admin Trade Name Freq PRN Reason Stop Dose Admin Hydrocodone Bitart/Acetaminophen 1 each 10/12/20 13:58 Hydrocodone/Apap 5-325mg 1 Each Tab PO Q4HR PRN Moderate Pain Baclofen 20 mg 10/12/20 22:00 10/13/20 08:01 Baclofen 10 Mg Tab PO 20 mg TID NICO Administration Cholecalciferol 25 mcg 10/12/20 21:00 10/13/20 08:01 Cholecalciferol 25 Mcg (1000 Iu) Tablet PO 25 mcg BID NICO Administration Lisinopril/HCTZ 1 each 10/13/20 09:00 10/13/20 08:01 Lisinopril-Hctz 10-12.5 Mg 1 Each Tab PO 1 each DAILY NICO Administration Cefazolin Sodium 2 gm/ Sodium 50 mls @ 100 mls/hr 10/12/20 19:30 10/13/20 08:01 Chloride IVPB 100 mls/hr Q8HR NICO Administration Ibuprofen 400 mg 10/12/20 13:58 Ibuprofen 400 Mg Tab PO Q6HR PRN Mild Pain or Fever > 100.5 Naloxone HCl 0.2 mg 10/12/20 13:58 Naloxone 0.4 Mg/Ml 1 Ml Vial IV Q2M PRN Opioid Reversal Ondansetron HCl 4 mg 10/12/20 13:58 Ondansetron 4 Mg/2 Ml Vial IVP Q8HR PRN Nausea And Vomiting Pantoprazole Sodium 40 mg 10/13/20 07:30 10/13/20 08:01 Pantoprazole 40 Mg Tablet PO 40 mg [id number] NICO Administration Silver Sulfadiazine 1 applic 10/12/20 19:27 10/13/20 08:02 Silver Sulfadiazine 1% Cream 25 Gm Tube TOPICAL 1 applic BID NICO Administration Objective - Vital Signs Vital signs: Vital Signs Temp 98.3 F 10/13/20 05:00 Pulse 92 10/13/20 05:00 Resp 18 10/13/20 05:00 BP 127/71 10/13/20 05:00 Pulse Ox 97 10/13/20 05:00 Intake & Output 10/12/20 10/13/20 10/13/20 18:59 06:59 18:59 Weight 85.729 kg Other: # Voids 0 3 - Exam GENERAL: The patient is alert and oriented x3, not in any acute distress. Well developed, well nourished. HEENT: Pupils are round and equally reacting to light. EOMI. No scleral icterus. No conjunctival pallor. Normocephalic, atraumatic. No pharyngeal erythema. No thyromegaly. CARDIOVASCULAR: S1 and S2 present. No murmurs, rubs, or gallops. PULMONARY: Chest is clear to auscultation, no wheezing or crackles. ABDOMEN: Soft, nontender, nondistended, normoactive bowel sounds. No palpable organomegaly. MUSCULOSKELETAL: No joint swelling or deformity. EXTREMITIES: No cyanosis, clubbing, . Bilateral legs are pinkish, warm and swollen NEUROLOGICAL: Gross neurological examination did not reveal any focal deficits. SKIN: No rashes. no petechiae. - Labs CBC & Chem 7: 10/12/20 12:19 10/12/20 12:19 Labs: Abnormal Lab Results - Last 24 Hours (Table) 10/12/20 10/12/20 Range/Units 12:19 12:19 WBC 11.9 H (3.8-10.6) k/uL Sodium 136 L (137-145) mmol/L C-Reactive Protein 20.0 H (<10.0) mg/L Assessment and Plan Assessment: -Patient has chronic swelling in lower extremity. More so in the last 2 weeks. To the point does become painful and a bit red. Patient does not have any significant pitting edema. I believe she has a significant lymphedema component. DVT has been ruled out. -Bilateral lower extremity cellulitis, precipitated by dry skin. We'll use IV Ancef and also use topical Silvadene with Kerlix and Aaron wrap -Lower extremity xerosis -Obesity BMI 33.5.. The patient will reduce calorie diet and have the patient see a dietitian -GERD, continue with omeprazole -Essential hypertension, continue Zestoretic -Multiple sclerosis -Chronic urinary incontinence Plan: This is a pleasant 49 years old female who presents with bilateral leg cellulitis. Continue with cefazolin and follow-up recommendation by infectious disease. Also patient supposed to be on tapering steroids for her multiple sclerosis, she still complaining from weakness and numbness in legs and hands. We going to consult and neurology service and started the patient on a prednisone 40 mg Labs and medication were reviewed.. Continue same treatment. Continue with symptomatic treatment. Resume home medication. Monitor lytes and vitals. DVT and GI prophylaxis. Further recommendations as per clinical course of the patient DVT prophylaxis: Subcutaneous Lovenox GI Prophylaxis: Pepcid PT/OT: Pending Prognosis is guarded
[2020-10-13] MEDS: HEPARIN SODIUM,PORCINE 5,000 UNIT/ML 1 ML VIAL SQ SCH ×2 (10:47→20:26)
[2020-10-13] MEDS: predniSONE 20 MG TAB PO SCH (10:47)
--- NOTE | 2020-10-13 12:24 | US ---
EXAMINATION TYPE: US venous doppler duplex LE RT DATE OF EXAM: 10/13/2020 11:49 AM COMPARISON: None CLINICAL HISTORY: r/o dvt. Pain and redness. Not on blood thinners. SIDE PERFORMED: Right TECHNIQUE: The lower extremity deep venous system is examined utilizing real time linear array sonog della with graded compression, doppler sonography and color-flow sonography. VESSELS IMAGED: Common Femoral Vein Deep Femoral Vein Greater Saphenous Vein * Femoral Vein Popliteal Vein Small Saphenous Vein * Proximal Calf Veins (* superficial vessels) Right Leg: Negative for DVT IMPRESSION: Grayscale, color doppler, spectral doppler imaging performed of the deep veins of the lo wer extremities. There is normal flow, compressibility, vascular waveforms.
[2020-10-13 13:24] VITALS: BMI 33.5
[2020-10-13] MEDS ORDERED: SENNOSIDES 8.6 MG TAB PO PRN (16:07)
--- NOTE | 2020-10-13 16:41 | P.CNNES ---
History of Present Illness Consult date: 10/13/20 Requesting physician: Tye E Sheet Reason for Consult: history of multiple sclerosis with possible relapse History of Present Illness: This is a 49-year-old woman with medical history of relapsing-remitting multiple scoliosis (since 2007), hypertension, urinary incontinence that presented to the emergency department on 10/12/2020 for increased swelling of both lower extremity more on the left. She stated that she has a bilateral lower extreme a swelling for the last 1 year on and off but has been worse in the last 2 weeks and especially in the last 20 428 and 40 hours prior to presentation. Patient has chronic urinary incontinence. On presentation she had generalized weakness and no focal weakness that's new. She denies of any diplopia or difficulty swallowing. She has a tough time getting her thoughts out which is an old problem which is not new. She also has numbness over the right lower extremity entire compared to the left which is an old problem. Head that she follows up with Dr. Mayes regarding management of her multiple sclerosis and last imaging was in May 2020. She received IV Solu-Medrol for 3 days and because of the she had a vision exam and was told it was abnormal as she had Solu-Medrol. Then she had another Solu-Medrol treatment last Tuesday, Tuesday and Tuesday. And w as told to be on tapering dose of steroids of 40 mg for 3 days, 30 mg 3 days, then 20 mg for 3 days then the 10 mg for 3 days then discontinue. She said she only took one dose of 40 mg. A shunt has bilateral lower extremity at the edema and she stated as well as redness of her lower extremity mainly on the left more than the right. Patient stated that the she is on disability and the last infusion was on 09/29/2020 and she's been on it for last 2 years. She is infusion every 28 days. In the past as she is been on Gileny, Rebif. Workup in our facility consisted of: Negative DVT in bilateral lower extremities. Initial white blood cell is 11.9. CRP is 20. ESR 13 which is normal Khan virus PCR was not detected. Upon reviewing the patient's previous imaging in our facility patient last MRI the brain was on 04/28/2018 is reported as extensive periventricular white matter lesion consistent with significant demyelinating disease at. There also left parietal cortical lesion that. This appears not significantly different than the last exam. There are 3 new foci of pathological enhancement in the left and the right posterior internal capsule white matter compared to the old exam. She had the CT of lumbar x-ray in our facility on 08/08/2020 for lower back pain: It is reported as negative CT scan of lumbar spine. No change. Review of Systems Review of system: The 12 point system was reviewed and apparent positive and negative per HPI. Past Medical History Past Medical History: GERD/Reflux, Hypertension, Musculoskeletal Disorder, Neurologic Disorder Additional Past Medical History / Comment(s): MS, urinary incontinence, elevated blood sugars with steroids. History of Any Multi-Drug Resistant Organisms: None Reported Past Surgical History: Cholecystectomy Additional Past Surgical History / Comment(s): L benign ovarian mass with salpino-oophorectomy, R ovary resected/cyst Past Anesthesia/Blood Transfusion Reactions: No Reported Reaction Additional Past Anesthesia/Blood Transfusion Reaction / Comment(s): Pt received blood with gallbladder surgery without reaction. Past Psychological History: Depression Smoking Status: Former smoker Past Alcohol Use History: Rare Past Drug Use History: None Reported - Past Family History Mother History Unknown: Yes Family Medical History: Eye Disorder, Hypertension, Osteoarthritis (OA) Additional Family Medical History / Comment(s): ARTHRITIS, KNEE REPLACEMENT SURGERY, GLAUCOMA WITH SURGERY. Father History Unknown: Yes Family Medical History: Cancer, Hypertension, Osteoarthritis (OA) Additional Family Medical History / Comment(s): PACEMAKER, ARTHRITIS WITH KNEE REPLACEMENTS, COLON CANCER STAGE II. FATHER LIVED TO BE 79YRS OLD. Medications and Allergies Home Medications Medication Instructions Recorded Confirmed Type Baclofen [Lioresal] 20 mg PO TID 10/12/20 10/12/20 History Cholecalciferol [Vitamin D3 (25 25 mcg PO BID 10/12/20 10/12/20 History Mcg = 1000 Iu)] Lisinopril-Hctz 10-12.5 mg 1 tab PO DAILY 10/12/20 10/12/20 History [Zestoretic 10-12.5] Omeprazole 20 mg PO DAILY 10/12/20 10/12/20 History predniSONE See Taper PO DAILY 10/12/20 10/12/20 History Allergies Allergy/AdvReac Type Severity Reaction Status Date / Time No Known Allergies Allergy Verified 10/12/20 13:31 Physical Examination - Vital Signs Vital Signs: Vital Signs Temp Pulse Resp BP Pulse Ox 10/13/20 12:28 98.8 F 97 18 123/82 98 10/13/20 05:00 98.3 F 92 18 127/71 97 10/12/20 22:00 18 10/12/20 20:00 98.5 F 106 H 18 148/89 95 10/12/20 15:57 98.4 F 103 H 18 159/88 99 Intake and Output 10/13/20 10/13/20 10/13/20 06:59 14:59 22:59 Other: # Voids 3 Weight 85.729 kg GENERAL: The patient is sitting in a wheel chair and mildly in acute distress. CHEST: The heart rate is regular rate rhythm. No murmurs to auscultation. LUNG: Clear to auscultation bilaterally no wheezing noted throughout. Not labored breathing. ABDOMEN/GI: Bowel sounds present in all 4 quadrants. No tenderness to palpation throughout. INTEGUMENTARY: Lymphedema of bilateral lower extremities (left > right) with erythema of bilateral lower extremities (from mid-calf and down. It is wrapped with gauge. NEUROLOGICAL: Higher mental function: The patient is awake, alert, oriented to self, place and time. Patient is following commands. No aphasia and no neglect. Cranial nerves: The pupils are round, equal and reactive to light and accommodation. Visual duenas are full to confrontation throughout. Extraocular movement is intact no nystagmus is noted. Facial sensation is normal to touch throughout. The facial strength is normal throughout. Hearing is normal bilaterally to hand rub. Tongue is midline and moved [id number] without any difficulty. No dysarthria is noted. Shoulder shrug is normal bilaterally. Motor: Gait is deferred. The strength is 4/5 of bilateral lower extremities. Otherwise 5/5 of bilateral upper extremities. Normal tone and bulk. Cerebellum: Normal finger to nose bilaterally. Sensation: Sensation is decreased to touch over entire right lower extremity to touch compared to left (old). Reflexes (right/left): 2+ throughout. Plantars are downgoing bilaterally. Results - Laboratory Findings CBC and BMP: 10/12/20 12:19 10/12/20 12:19 Abnormal Lab Findings: Abnormal Labs 10/12/20 10/12/20 12:19 12:19 WBC 11.9 H Sodium 136 L C-Reactive Protein 20.0 H Assessment and Plan Assessment: History of multiple sclerosis. Does not seem like MS replase. She had IV Solumedrol treatment a week ago for 3 days and last Tysabri infusion on 09/29/2020. Chronic urinary incontinence Chronic bilateral lower extremity swelling but worse in last 2 weeks and especially last 24-48 hours. Seems Lymphedema. Bilateral lower extreme cellulitis. Essential hypertension Plan: Prednisone 40 mg daily is started by the primary team. Agree with the tapering dose of 40 mg for 3 days, then 30 mg for 4 days, then 20 mg for 3 days then 10 mg for 3 days and then discontinue. Patient is on GI prophylaxis protonic 40 mg daily. Patient stated that the she wants to hold off with MRI and that she has an appointment seeing the nurse practitioner at Dr. Mayes on 0 to or of this month. She stated that she is in agreement that she should likely have imaging at their facility. Physical therapy and occupation therapy are consulted for generalized weakness. I ordered TSH, vitamin B12, folate, hemoglobin A1c (to determine if she is diabetic or not) and vitamin D level. Infection disease team was consulted for bilateral lower extremity cellulitis. Thank you for the consultation. Robbi Hector MD Neuro-Hospitalist Time with Patient: Greater than 30
[2020-10-13] MEDS: FAMOTIDINE 20 MG/2 ML VIAL IV SCH (20:27)
[2020-10-13 21:06] VITALS: RESP 16
--- NOTE | 2020-10-13 23:57 | CONS ---
CONSULTATION DATE OF SERVICE: 10/13/2020 REASON FOR FOLLOWUP: Left lower extremity cellulitis. HISTORY OF PRESENT ILLNESS: The patient is a 49-year-old female with a past medical history significant for MS and this patient did have a chronic lower extremity swelling. The patient presenting to the ER yesterday morning for evaluation of increasing swelling and redness to the left lower extremity. The pain has been getting worse for the last few days to a week. The patient has been complaining of pain to the left lower extremity. More of a dull aching, at times sharp, 5 to 6 out of 10 and no radiation with associated swelling and redness, slightly warm to touch. The patient did have some chills but denies high-grade fever. With these symptoms, the patient was evaluated by the ER physician. On arrival to the ER, the patient has been afebrile. The patient did have mild elevated white count of 11.9. The patient did have lower extremity Doppler that has been negative for DVT. The patient was admitted to the hospital with acute left lower extremity cellulitis. Patient was started on cefazolin. Infectious Disease was consulted for further management of antibiotic therapy. REVIEW OF SYSTEMS: Positive points have been mentioned in HPI. Rest of systems are negative. PAST MEDICAL HISTORY: Her past medical history significant for hypertension, MS, gastroesophageal reflux disease, lower extremity swelling, urinary incontinence. PAST SURGICAL HISTORY: Cholecystectomy, left benign mass removal, SOCIAL HISTORY: Remote history of smoking. No drinking or drug use. FAMILY HISTORY: Mother history of hypertension, osteoarthritis. ALLERGIES: No known drug allergies. MEDICATIONS: The patient is currently on cefazolin 2 grams q.8 hours. She is on Zestoretic, heparin, Motrin, Narcan, Zofran, Protonix, prednisone, Senokot, Silvadene cream. PHYSICAL EXAMINATION: Her blood pressure 129/79, pulse of 80, temperature 98.2. She is 96% on room air. General description is a middle-aged female up in the chair in no distress. No tachypnea or accessory muscles of respiration use. HEENT: Examination shows no pallor or scleral icterus. Oral mucous membranes dry. No pharyngeal erythema or thrush. NECK: Trachea central. No thyromegaly. LUNGS: Unlabored breathing and is clear to auscultation anteriorly. HEART S1, S2. Regular rate and rhythm. ABDOMEN: Soft, no tenderness. No guarding. No rigidity. EXTREMITIES: Lower extremities did have swelling. Left leg with more swelling and redness, slightly warm to touch. No skin breakdown. No drainage. NEUROLOGICAL: The patient is awake, alert, oriented times three. Mood and affect normal. LABS: Hemoglobin is 12.9, white count 11.9, BUN of 14, creatinine 0.54. CRP is 20. Lower extremity Doppler has been negative for DVT. DIAGNOSTIC IMPRESSION AND PLAN: Patient admitted to the hospital with acute left lower extremity cellulitis in this patient who did have a diffuse swelling of the leg also with evidence of athlete's foot likely related to streptococcal cellulitis. PLAN: 1. Cefazolin 2 grams q.8 hours. 2. Nystatin cream in between the toes. 3. An Aaron wrap to the left foot just above to below the knee. 4. We will follow on clinical condition and further adjust medication if needed. Thank you for this consultation. We will follow this patient along with you. MMODL / IJN: [id number] /
[2020-10-14 04:18] LABS: Hemoglobin A1C 5.4 % (4.0-6.0)
[2020-10-14] MEDS: PANTOPRAZOLE 40 MG TABLET PO SCH (08:48)
[2020-10-14] MEDS: BACLOFEN 10 MG TAB PO SCH (08:49)
[2020-10-14] MEDS: LISINOPRIL-HCTZ 10-12.5 MG 1 EACH TAB PO SCH (08:49)
[2020-10-14] MEDS: FAMOTIDINE 20 MG/2 ML VIAL IV SCH (08:50)
[2020-10-14] MEDS: CHOLECALCIFEROL 25 MCG (1000 IU) TABLET PO SCH (08:50)
[2020-10-14] MEDS: HEPARIN SODIUM,PORCINE 5,000 UNIT/ML 1 ML VIAL SQ SCH (08:50)
[2020-10-14] MEDS: predniSONE 20 MG TAB PO SCH (08:51)
[2020-10-14] MEDS ORDERED: NYSTATIN 100,000 UNIT/GM POWD 15 GM TOPICAL SCH (09:00)
[2020-10-14 12:10] LABS: African American GFR (CKD) 123.2 (60.0-200.0); Anion Gap 5.9 mmol/L (4.00-12.00); BUN/Creat Ratio 18.33 Ratio (12.00-20.00); Calcium 9.3 mg/dL (8.7-10.3); Carbon Dioxide 32.1 mmol/L (21.6-31.8); Non-African American GFR(CKD) 106.3 (60.0-200.0); Potassium 4.6 mmol/L (3.5-5.5)
[2020-10-14 12:47] VITALS: BP 134/82; PULSE 77; TEMP 98.8
--- NOTE | 2020-10-14 15:54 | P.PN ---
Subjective Progress Note Date: 10/14/20 The patient was seen at bedside and feels slightly better today compared to prior. Objective - Vital Signs Vital signs: Vital Signs Temp 98.8 F 10/14/20 12:47 Pulse 77 10/14/20 12:47 Resp 16 10/14/20 12:47 BP 134/82 10/14/20 12:47 Pulse Ox 95 10/14/20 12:47 Intake & Output 10/13/20 10/14/20 10/14/20 18:59 06:59 18:59 Intake Total 100 590 240 Balance 100 590 240 Weight 85.729 kg Intake: Intake, IV Titration 100 Amount ceFAZolin 2 gm In Sodium 100 Chloride 0.9% 50 ml @ 100 mls/hr IVPB Q8HR NICO Rx# :[id number] Oral 590 240 Other: # Voids 3 8 - Exam GENERAL: The patient is sitting in a wheel chair and mildly in acute distress. INTEGUMENTARY: Lymphedema of bilateral lower extremities (left > right) with erythema of bilateral lower extremities (from mid-calf and down. It is wrapped with gauge. NEUROLOGICAL: Higher mental function: The patient is awake, alert, oriented to self, place and time. Patient is following commands. No aphasia and no neglect. Cranial nerves: The pupils are round, equal and reactive to light and accommodation. Visual duenas are full to confrontation throughout. Extraocular movement is intact no nystagmus is noted. Facial sensation is normal to touch throughout. The facial strength is normal throughout. Hearing is normal bilaterally to hand rub. Tongue is midline and moved [id number] without any difficulty. No dysarthria is noted. Shoulder shrug is normal bilaterally. Motor: Gait is deferred. The strength is 4/5 of bilateral lower extremities. Otherwise 5/5 of bilateral upper extremities. Normal tone and bulk. Cerebellum: Normal finger to nose bilaterally. Sensation: Sensation is decreased to touch over entire right lower extremity to touch compared to left (old). Reflexes (right/left): 2+ throughout. Plantars are downgoing bilaterally. - Labs CBC & Chem 7: 10/12/20 12:19 10/14/20 06:05 Labs: Abnormal Lab Results - Last 24 Hours (Table) 10/14/20 Range/Units 06:05 Carbon Dioxide 32.1 H (21.6-31.8) mmol/L Glucose 129 H (70-110) mg/dL Assessment and Plan Assessment: History of multiple sclerosis. Does not seem like MS replase. She had IV Solumedrol treatment a week ago for 3 days and last Tysabri infusion on 09/29/2020. Chronic urinary incontinence Chronic bilateral lower extremity swelling but worse in last 2 weeks and especially last 24-48 hours. Seems Lymphedema. Bilateral lower extreme cellulitis. Essential hypertension Plan: Prednisone 40 mg daily is started by the primary team. Agree with the tapering dose of 40 mg for 3 days, then 30 mg for 4 days, then 20 mg for 3 days then 10 mg for 3 days and then discontinue. Patient is on GI prophylaxis protonic 40 mg daily. Patient stated that the she wants to hold off with MRI and that she has an appointment seeing the nurse practitioner at Dr. Mayes on 0 to or of this month. She stated that she is in agreement that she should likely have imaging at their facility. Physical therapy and occupation therapy are consulted for generalized weakness. TSH: 1.78 (normal), vitamin B12 level 515 (normal), folate: pending, hemoglobin A1c 5.4 (normal). Vitamin D level 62 (normal). Infection disease team was consulted for bilateral lower extremity cellulitis. Patient has a common up appointment with her neurologist Dr. Mayes office within a week. There is no further work-up needed. The plan was discussed with the patient and the primary team. Robbi Hector MD Neuro-Hospitalist Time with Patient: Less than 30
--- NOTE | 2020-10-14 16:01 | PN ---
PROGRESS NOTE DATE OF SERVICE: 10/14/2020. REASON FOR FOLLOWUP: Left lower extremity cellulitis. INTERVAL HISTORY: The patient is currently afebrile. The patient is breathing comfortably. Patient denies having any chest pain or any cough. Overall, her left leg swelling and redness has decreased. Feeling better and wants to go home. PHYSICAL EXAMINATION: Blood pressure 134/82 with a pulse of 77, temperature 98.8. She is 95% on room air. General description is a middle-aged female up in the chair in no distress. RESPIRATORY SYSTEM: Unlabored breathing, clear to auscultation anteriorly. HEART: S1, S2. Regular rate and rhythm. ABDOMEN: Soft, no tenderness. Left leg with swelling and redness has decreased. No drainage. LABS: Creatinine 0.6. DIAGNOSTIC IMPRESSION AND PLAN: Patient with left lower extremity cellulitis in this patient who did have diffuse swelling and redness overall clinical improvement. Finish therapy with oral Keflex. Prescription was sent to the pharmacy. MMODL / IJN: [id number] /
--- NOTE | 2020-10-14 23:51 | P.DS ---
Providers Date of admission: 10/12/20 13:31 Attending physician: Chato Hays Consults: 10/12/20 19:28 Consult Physician Routine Consulting Provider: Corin Rodriguez Consult Reason/Comments: Bilateral cellulitis Do you want consulting provider notified?: Yes 10/13/20 09:32 Consult Physician Routine Consulting Provider: Robbi Hector Consult Reason/Comments: MS with possible flare up Do you want consulting provider notified?: Yes Primary care physician: Hilario [facility] Course: Diagnoses: -Bilateral lower extremity cellulitis, improved significantly and she was discharged on Keflex by ID team -Multiple sclerosis with some weakness in the lower extremity improved on oral prednisone, cleared by neurologist for discharge. Continue with tapered steroids -Obesity BMI 33.5.. The patient will reduce calorie diet and have the patient see a dietitian -GERD, continue with omeprazole -Essential hypertension, continue Zestoretic -Multiple sclerosis -Chronic urinary incontinence Hospital course: This is a pleasant 49 years old female with past medical history of multiple sclerosis since 2007 and she follows up with Dr. Mayes. She has ongoing chronic bilateral leg weakness mainly on the left side for about one year as per patient and this times presents because bilateral leg swelling and pain, patient states that she has been on and off for 1 year but it was worse for the last 24 hours prior to admission, also patient could not walk for about one year, patient thinks is due to multiple sclerosis sequelae. Her leg are swollen, warm and pinkish in color, more on the left side and patient was started on cefazolin and she thinks her antibiotics is helping her As stated and she has MS and during flareups she loses balance and have 44 didn't difficulty. She follows up with Dr. Mayes/'s nurse practitioner Leesa for abnormal imaging test related to her MS although she does not have blurred vision or double vision. She received 3 days of IV Solu-Medrol and they placed her on tapering steroids started on 40 mg but the patient the did not have a chance to take it. Patient has been evaluated by infectious disease in the neurologist, she was treated with cefazolin and prednisone, patient showed significant improvement and today she is telling me that her leg weakness is improved by 90%, also her cellulitis is significantly improved with less redness, swelling and tenderness Patient agrees to go home today Patient was cleared for discharge by ID team and neurology team Patient will be discharged on tapering steroids and oral antibiotics as per ID team Problems and management plan were discussed with the patient and he verbalized understanding and acceptance Patient was found stable and can be discharged home however he needs follow-up as an outpatient. Patient was instructed to follow up with PCP Sergey within one week and patient agrees Also patient was instructed to follow up with her neurologist Dr. Mayes in 1-2 weeks and she agrees Physical exam Gen: patient is a AAOx3, no distress CVS: S1-S2, RRR, no murmur Lungs: B/L CTA, no wheezing Abdomen: soft, no distention, no tenderness, positive bowel sounds -Extremity: no leg edema or induration. Improved bilateral lower extremity cellulitis Neuro: Cranial nerves are grossly intact. Weakness of the lower extremity are significantly improved Time spent more than 35 minutes Patient Condition at Discharge: Stable Plan - Discharge Summary Discharge Rx Participant: No New Discharge Prescriptions: New predniSONE 10 mg PO DIRECTED #22 tab Cephalexin [Keflex] 500 mg PO Q6HR #30 cap Continue Omeprazole 20 mg PO DAILY Lisinopril-Hctz 10-12.5 mg [Zestoretic 10-12.5] 1 tab PO DAILY Baclofen [Lioresal] 20 mg PO TID Cholecalciferol [Vitamin D3 (25 Mcg = 1000 Iu)] 25 mcg PO BID Discontinued predniSONE See Taper PO DAILY Discharge Medication List Baclofen [Lioresal] 20 mg PO TID 10/12/20 [History] Cholecalciferol [Vitamin D3 (25 Mcg = 1000 Iu)] 25 mcg PO BID 10/12/20 [History] Lisinopril-Hctz 10-12.5 mg [Zestoretic 10-12.5] 1 tab PO DAILY 10/12/20 [History] Omeprazole 20 mg PO DAILY 10/12/20 [History] Cephalexin [Keflex] 500 mg PO Q6HR #30 cap 10/14/20 [Rx] predniSONE 10 mg PO DIRECTED #22 tab 10/14/20 [Rx] Follow up Appointment(s)/Referral(s): Roshan Mccracken MD [Primary Care Provider] - 10/21/20 4:20 pm (10/21/20 4:20 ) Patient Instructions/Handouts: Cephalexin (By mouth), Prednisone (By mouth), Cellulitis (DC) Activity/Diet/Wound Care/Special Instructions: heart healthy diet activity is restricted till you see your doctor Follow up with neuro DrEthan as already scheduled DR. MCCRACKEN OCT 21 4:20 Discharge Disposition: HOME SELF-CARE
== END 2020-10-14 17:35 | disposition home or self-care (01) | DRG 603 ==
LOC: EC 11:40 → 5NMEDONC 13:31
PROVIDERS: ADMIT Hospitalist; ATTEND Hospitalist
DX: L03.115 Cellulitis of right lower limb (principal); L03.116 Cellulitis of left lower limb; E66.9 Obesity, unspecified; B35.3 Tinea pedis; F32.9 Major depressive disorder, single episode, unspecified; G35 Multiple sclerosis; R32 Unspecified urinary incontinence; M41.9 Scoliosis, unspecified; B95.5 Unspecified streptococcus as the cause of diseases classified elsewhere; L85.3 Xerosis cutis; Z20.822 Contact with and (suspected) exposure to COVID-19; I10 Essential (primary) hypertension; I89.0 Lymphedema, not elsewhere classified; K21.9 Gastro-esophageal reflux disease without esophagitis; Z68.33 Body mass index [BMI] 33.0-33.9, adult; Z87.891 Personal history of nicotine dependence; Z82.49 Family history of ischemic heart disease and other diseases of the circulatory system; Z80.0 Family history of malignant neoplasm of digestive organs; Z90.49 Acquired absence of other specified parts of digestive tract; Z98.890 Other specified postprocedural states
CPT/HCPCS: 36415; 80048; 80053; 82607; 82652; 82747; 83036; 83605; 84443; 85025; 85652; 86140; 87635; 96365; 99285

== ENCOUNTER → 2020-12-02 | Outpatient (CLI) | payer BC ==
[2020-12-03 00:57] LABS: Basophils # (A) 0.06 X 10*3/uL (0.00-0.10); Basophils % (A) 0.8 %; Eosinophils # (A) 0.23 X 10*3/uL (0.04-0.35); Eosinophils % (A) 2.9 %; HCT 33.5 % (37.2-46.3); HGB 10.6 g/dL (12.0-15.0); Lymphocytes # (A) 1.96 X 10*3/uL (0.90-5.00); Lymphocytes % (A) 24.9 %; MCH 28.1 pg (27.0-32.0); MCHC 31.6 g/dL (32.0-37.0); MCV 88.9 fL (80.0-97.0); Mean Platelet Volume 10.4 fL (9.5-12.2); Monocytes # (A) 0.64 X 10*3/uL (0.20-1.00); Monocytes % (A) 8.1 %; Neutrophils # (A) 4.89 X 10*3/uL (1.80-7.70); Neutrophils % (A) 62.2 %; Platelet Count 222 X 10*3/uL (140-440); RBC 3.77 X 10*6/uL (4.10-5.20); RDW 15.8 % (11.5-14.5); WBC 7.87 X 10*3/uL (4.50-10.00)
[2020-12-03 09:10] LABS: African American GFR (CKD) 123.2 (60.0-200.0); Albumin 4.1 g/dL (3.80-4.90); Albumin/Globulin Ratio 2.05 (1.60-3.17); Anion Gap 13.7 mmol/L (4.00-12.00); BUN/Creat Ratio 13.33 Ratio (12.00-20.00); Calcium 9.1 mg/dL (8.7-10.3); Carbon Dioxide 23.3 mmol/L (21.6-31.8); Non-African American GFR(CKD) 106.3 (60.0-200.0); Potassium 4.6 mmol/L (3.5-5.5); Total Bilirubin 0.5 mg/dL (0.2-1.2); Total Protein 6.1 g/dL (6.2-8.2)
== END | disposition home or self-care (01) ==
LOC: LABWHC1 15:07
PROVIDERS: ATTEND Nurse Practitioner Acute Care
DX: G35 Multiple sclerosis (principal); Z51.81 Encounter for therapeutic drug level monitoring
CPT/HCPCS: 36415; 80053; 82306; 82607; 84207; 85025

== ENCOUNTER 2021-03-01 21:01 | Emergency (ER) | payer BC ==
[2021-03-01 21:10] VITALS: TEMP 98.3
--- NOTE | 2021-03-01 21:24 | ED ---
Fall HPI - General Chief Complaint: Fall Stated Complaint: Fall Time Seen by Provider: 03/01/21 21:12 Source: patient, EMS Mode of arrival: EMS - History of Present Illness Initial Comments: This patient is a 50-year-old woman who presents to be evaluated after she had a fall at home. The patient states she was transferring from commode to wheelchair when she lost balance and when over onto her right lower leg. She states that it feels like she injured the forefoot. Mainly into the toes of the right foot there is some pain. Worse if she tries to step onto her foot. Bet ter if she is resting it. She denies other injuries. No loss consciousness. MD Complaint: fall -: minutes(s) Fall From: standing When Fall Occurred: just prior to arrival Fall Witnessed: yes, by family Place Fall Occurred: home Loss of Consciousness: none Prolonged Down Time?: no Symptoms Prior to Fall: none Severity: moderate Quality: aching Context: history of frequent falls Associated Symptoms: denies - Related Data Home Medications Medication Instructions Recorded Confirmed Baclofen [Lioresal] 20 mg PO TID 10/12/20 03/01/21 Ascorbic Acid [Vitamin C] 500 mg PO DAILY 03/01/21 03/01/21 Cholecalciferol (Vitamin D3) 125 mcg PO DAILY 03/01/21 03/01/21 [Vitamin D3 (5000 Iu)] Furosemide [Lasix] 20 mg PO DAILY 03/01/21 03/01/21 Lisinopril (Unknown Dose) 1 tab PO DAILY 03/01/21 03/01/21 Allergies Allergy/AdvReac Type Severity Reaction Status Date / Time No Known Allergies Allergy Verified 03/01/21 22:46 Review of Systems ROS Statement: Those systems with pertinent positive or pertinent negative responses have been documented in the HPI. ROS Other: All systems not noted in ROS Statement are negative. Constitutional: Denies: fever, chills, weakness Respiratory: Denies: cough, dyspnea Cardiovascular: Denies: chest pain, palpitations Gastrointestinal: Denies: abdominal pain, vomiting, diarrhea Genitourinary: Denies: dysuria Musculoskeletal: Denies: back pain Skin: Reports: other (Chronic stasis changes) Neurological: Denies: headache, weakness Past Medical History Past Medical History: GERD/Reflux, Hypertension, Musculoskeletal Disorder, Neurologic Disorder Additional Past Medical History / Comment(s): MS, urinary incontinence, elevated blood sugars with steroids. History of Any Multi-Drug Resistant Organisms: None Reported Past Surgical History: Cholecystectomy Additional Past Surgical History / Comment(s): L benign ovarian mass with salpino-oophorectomy, R ovary resected/cyst Past Anesthesia/Blood Transfusion Reactions: No Reported Reaction Additional Past Anesthesia/Blood Transfusion Reaction / Comment(s): Pt received blood with gallbladder surgery without reaction. Past Psychological History: Depression Smoking Status: Former smoker Past Alcohol Use History: Rare Past Drug Use History: None Reported - Past Family History Mother History Unknown: Yes Family Medical History: Eye Disorder, Hypertension, Osteoarthritis (OA) Additional Family Medical History / Comment(s): ARTHRITIS, KNEE REPLACEMENT SURGERY, GLAUCOMA WITH SURGERY. Father History Unknown: Yes Family Medical History: Cancer, Hypertension, Osteoarthritis (OA) Additional Family Medical History / Comment(s): PACEMAKER, ARTHRITIS WITH KNEE REPLACEMENTS, COLON CANCER STAGE II. FATHER LIVED TO BE 79YRS OLD. General Exam Limitations: no limitations General appearance: alert, in no apparent distress Head exam: Present: atraumatic, normocephalic Eye exam: Present: normal appearance. Absent: scleral icterus, conjunctival injection Neck exam: Present: normal inspection Respiratory exam: Present: normal lung sounds bilaterally. Absent: respiratory distress, wheezes, rales, rhonchi, stridor Cardiovascular Exam: Present: regular rate, normal rhythm, systolic murmur (. 2/6 systolic ejection murmur). Absent: diastolic murmur, rubs, gallop GI/Abdominal exam: Present: soft. Absent: distended, tenderness, guarding, rebound Extremities exam: Present: normal capillary refill, pedal edema, other (Chronic stasis changes to the bilateral lower extremities.) Right Hip exam: Present: normal inspection Upper Leg exam: Present: normal inspection Knee exam: Present: normal inspection, full ROM. Absent: tenderness, swelling Lower Leg exam: Present: full ROM, swelling (Chronic stasis changes from the mid tibia down bilaterally). Absent: normal inspection Ankle exam: Present: normal inspection, full ROM. Absent: tenderness, swelling Foot/Toe exam: Present: tenderness (Tenderness to palpation of the third fourth and fifth toe of the right foot. No obvious deformity. No tenderness to palpation over the fifth metatarsal, calcaneus or the midfoot) Neurovascular tendon exam: Absent: no vascular compromise, abnormal cap refill, motor deficit, sensory deficit, tendon deficit, abnormal 2-point discrimination Neurological exam: Present: alert. Absent: motor sensory deficit Skin exam: Present: warm, dry, intact, other (Stasis changes) Course Vital Signs 03/01/21 03/01/21 21:03 22:09 Temperature 98.3 F Pulse Rate 99 89 Respiratory 16 18 Rate Blood Pressure 97/53 136/73 O2 Sat by Pulse 97 98 Oximetry Medical Decision Making - Lab Data Result diagrams: 03/01/21 21:29 03/01/21 21:29 Lab Results 03/01/21 03/01/21 Range/Units 21:29 21:29 WBC 7.0 (3.8-10.6) k/uL RBC 4.17 (3.80-5.40) m/uL Hgb 12.0 (11.4-16.0) gm/dL Hct 34.9 (34.0-46.0) % MCV 83.6 (80.0-100.0) fL MCH 28.9 (25.0-35.0) pg MCHC 34.5 (31.0-37.0) g/dL RDW 15.6 H (11.5-15.5) % Plt Count 234 (150-450) k/uL MPV 7.0 Neutrophils % 63 % Lymphocytes % 25 % Monocytes % 6 % Eosinophils % 4 % Basophils % 1 % Neutrophils # 4.4 (1.3-7.7) k/uL Lymphocytes # 1.7 (1.0-4.8) k/uL Monocytes # 0.4 (0-1.0) k/uL Eosinophils # 0.3 (0-0.7) k/uL Basophils # 0.1 (0-0.2) k/uL Sodium 139 (137-145) mmol/L Potassium 4.4 (3.5-5.1) mmol/L Chloride 104 (98-107) mmol/L Carbon Dioxide 28 (22-30) mmol/L Anion Gap 7 mmol/L BUN 9 (7-17) mg/dL Creatinine 0.60 (0.52-1.04) mg/dL Est GFR (CKD-EPI)AfAm >90 (>60 ml/min/1.73 sqM) Est GFR (CKD-EPI)NonAf >90 (>60 ml/min/1.73 sqM) Glucose 111 H (74-99) mg/dL Calcium 9.3 (8.4-10.2) mg/dL Disposition Clinical Impression: Fall, Contusion of left foot Disposition: HOME SELF-CARE Condition: Good Instructions (If sedation given, give patient instructions): Fall Prevention for Older Adults (ED) Additional Instructions: Follow-up with the wound care center which is located at the [facility] the clinic number is [phone] Is patient prescribed a controlled substance at d/c from ED?: No Referrals: Roshan Rincon MD [Primary Care Provider] - 1-2 days
--- NOTE | 2021-03-01 21:49 | XR ---
EXAMINATION TYPE: XR foot complete RT DATE OF EXAM: 03/01/2021 COMPARISON: NONE HISTORY: Foot pain TECHNIQUE: 3 views FINDINGS: There is soft tissue swelling of the forefoot. Metatarsals are intact. The joint spaces are fairly normal. Hindfoot is intact. IMPRESSION: Soft tissue swelling. No fracture seen.
[2021-03-01 22:07] LABS: Basophils # (A) 0.1 k/uL (0-0.2); Basophils % (A) 1 %; Eosinophils # (A) 0.3 k/uL (0-0.7); Eosinophils % (A) 4 %; HCT 34.9 % (34.0-46.0); Lymphocytes # (A) 1.7 k/uL (1.0-4.8); Lymphocytes % (A) 25 %; MCH 28.9 pg (25.0-35.0); MCHC 34.5 g/dL (31.0-37.0); MCV 83.6 fL (80.0-100.0); Monocytes # (A) 0.4 k/uL (0-1.0); Monocytes % (A) 6 %; Neutrophils # (A) 4.4 k/uL (1.3-7.7); Neutrophils % (A) 63 %; Platelet Count 234 k/uL (150-450); RBC 4.17 m/uL (3.80-5.40); RDW 15.6 % (11.5-15.5)
[2021-03-01 22:17] LABS: African American GFR (CKD) >90 (>60 ml/min/1.73 sqM); Anion Gap 7 mmol/L; Blood Urea Nitrogen 9 mg/dL (7-17); Calcium 9.3 mg/dL (8.4-10.2); Carbon Dioxide 28 mmol/L (22-30); Chloride 104 mmol/L (98-107); Glucose 111 mg/dL (74-99); Non-African American GFR(CKD) >90 (>60 ml/min/1.73 sqM); Potassium 4.4 mmol/L (3.5-5.1); Sodium 139 mmol/L (137-145)
[2021-03-01 23:51] VITALS: BP 117/64; PULSE 98; RESP 16
== END 2021-03-01 23:51 | disposition home or self-care (01) ==
LOC: EC 21:01
DX: S90.32XA Contusion of left foot, initial encounter (principal); K21.9 Gastro-esophageal reflux disease without esophagitis; I10 Essential (primary) hypertension; F32.9 Major depressive disorder, single episode, unspecified; Z87.891 Personal history of nicotine dependence; Z90.721 Acquired absence of ovaries, unilateral; W18.30XA Fall on same level, unspecified, initial encounter
CPT/HCPCS: 36415; 80048; 85025; 87040; 99284

== ENCOUNTER → 2021-03-11 | Outpatient (CLI) | payer BC ==
--- NOTE | 2021-03-12 07:14 | US ---
LOWER EXTREMITY VENOUS INSUFFICIENCY CLINICAL HISTORY: I87.333 CHR VENOUS HYPERTENSION. SIDE PERFORMED: Bilateral 1) Color flow is present and patency is documented in the following vessels. No DVT or SVT is noted . Common Femoral Vein Deep Femoral Vein Femoral Vein Popliteal Vein Proximal Calf Veins Greater Saph Vein Upper Small Saph Vein 2) There is venous reflux noted at the following venous levels: none 3) Incompetent perforators are noted at these levels: none IMPRESSION: No sonographic evidence for venous insuffiency bilaterally.
== END | disposition home or self-care (01) ==
LOC: RADUSWWP 13:38
PROVIDERS: ATTEND Thoracic Surgery (Cardiothoracic Vascular Surgery)
DX: I87.333 Chronic venous hypertension (idiopathic) with ulcer and inflammation of bilateral lower extremity (principal)
CPT/HCPCS: 93923; 93970

== ENCOUNTER 2021-08-20 16:09 | Emergency (ER) | payer BC ==
[2021-08-20 17:01] VITALS: BP 166/84; PULSE 90; RESP 18; TEMP 97.2
--- NOTE | 2021-08-20 18:30 | US ---
EXAMINATION TYPE: US venous doppler duplex LE RT DATE OF EXAM: 08/20/2021 6:10 PM COMPARISON: US CLINICAL HISTORY: pain. Pain. No hx of DVT. Patient does not take blood thinners. SIDE PERFORMED: Right TECHNIQUE: The lower extremity deep venous system is examined utilizing real time linear array sonog della with graded compression, doppler sonography and color-flow sonography. VESSELS IMAGED: Common Femoral Vein Deep Femoral Vein Greater Saphenous Vein * Femoral Vein Popliteal Vein Small Saphenous Vein * Proximal Calf Veins (* superficial vessels) Right Leg: No evidence of DVT in veins imaged at this time. Exam is limited, patient in extreme pain . Unable to tolerate probe pressure any longer behind the knee, unable to evaluate prox calf veins or below the knee due to pain. IMPRESSION: No evidence of deep vein thrombosis in the right leg.
[2021-08-20 18:43] LABS: Anisocytosis Slight; Basophils % (A) 0 %; Eosinophils # (A) 0.2 k/uL (0-0.7); Eosinophils % (A) 3 %; HCT 34.4 % (34.0-46.0); HGB 11.5 gm/dL (11.4-16.0); Lymphocytes # (A) 1.8 k/uL (1.0-4.8); Lymphocytes % (A) 24 %; MCH 28.1 pg (25.0-35.0); MCHC 33.4 g/dL (31.0-37.0); Mean Platelet Volume 7.2; Monocytes # (A) 0.4 k/uL (0-1.0); Monocytes % (A) 6 %; Neutrophils % (A) 66 %; Platelet Count 207 k/uL (150-450); RDW 16.4 % (11.5-15.5); WBC 7.6 k/uL (3.8-10.6)
--- NOTE | 2021-08-20 18:45 | US ---
EXAMINATION TYPE: US transvaginal DATE OF EXAM: 08/20/2021 COMPARISON: CT CLINICAL HISTORY: spotting. Spotting. . Hx ovarian mass removed, patient unsure what ovary. Part of the same ovary was removed as well. . TECHNIQUE: Transvaginal (TV). Date of LMP: Unknown. EXAM MEASUREMENTS: Uterus: 8.9 x 5.6 x 4.7 cm Endometrial Stripe: 0.72 cm 1. Uterus: Anteverted Appears slightly heterogeneous. 2. Endometrium: Measures 0.72 cm. Hypoechoic area seen in lower uterine endometrium: 0.7 x 0.3 x 0.3 cm. 3. Right Ovary: Not seen with certainty. 4. Left Ovary: Not seen with certainty. 5. Bilateral Adnexa: Appear wnl. 6. Posterior cul-de-sac: Appears wnl. *Area of mixed echogenicity seen midline posterior to the uterus measuring 2.9 x 2.3 x 1.8 cm. Arteri al and venous flow present. Difficult to evaluate due to patient positioning. IMPRESSION: Normal uterus and endometrium. No adnexal mass. No free fluid. Ovaries not well seen.
[2021-08-20 18:54] LABS: ALT 11 U/L (4-34); AST 29 U/L (14-36); African American GFR (CKD) >90 (>60 ml/min/1.73 sqM); Albumin 3.9 g/dL (3.5-5.0); Alkaline Phosphatase 88 U/L (38-126); Anion Gap 8 mmol/L; Blood Urea Nitrogen 6 mg/dL (7-17); Carbon Dioxide 26 mmol/L (22-30); Chloride 103 mmol/L (98-107); Glucose 99 mg/dL (74-99); LDH 416 U/L (313-618); Non-African American GFR(CKD) >90 (>60 ml/min/1.73 sqM); Potassium 4.1 mmol/L (3.5-5.1); Sodium 137 mmol/L (137-145); Total Bilirubin 0.8 mg/dL (0.2-1.3); Total Protein 7.1 g/dL (6.3-8.2)
[2021-08-20 19:20] LABS: Erythrocyte Sedimentation Rate 33 mm/hr (0-20)
--- NOTE | 2021-08-20 19:32 | ED ---
General Adult HPI - General Chief complaint: Recheck/Abnormal Lab/Rx Stated complaint: Leg sores Time Seen by Provider: 08/20/21 17:03 Source: patient, family, RN notes reviewed Mode of arrival: EMS Limitations: physical limitation - History of Present Illness Initial comments: A she is a 50-year-old female that presents to the emergency department comp laining of right lower extremity swelling and pain. She also complained of vaginal spotting. She notes she has a history of lymphedema and chronic lower extremity issues. She notes she can emergency room to get evaluated. She also likely evaluated for possible infection due to a particular small that is coming off her legs. Patient denied any other issues or complaints. She is otherwise well-appearing. She denied chest pain shortness of breath headache nausea vomiting diarrhea constipation fever fatigue chills. - Related Data Home Medications Medication Instructions Recorded Confirmed Baclofen [Lioresal] 20 mg PO TID 10/12/20 08/20/21 Cholecalciferol (Vitamin D3) 125 mcg PO DAILY 03/01/21 08/20/21 [Vitamin D3 (5000 Iu)] Cyanocobalamin (Vitamin B-12) 2,500 mcg PO DAILY 08/20/21 08/20/21 [Vitamin B-12] Ibuprofen [Motrin Ib] 200 mg PO Q8H PRN 08/20/21 08/20/21 Magnesium 250 mg PO DAILY 08/20/21 08/20/21 Omeprazole Magnesium [PriLOSEC OTC] 20 mg PO DAILY 08/20/21 08/20/21 Potassium Gluconate [Potassium 99 mg PO DAILY 08/20/21 08/20/21 Gluconate ER] Pyridoxine HCl (Vitamin B6) 100 mg PO DAILY 08/20/21 08/20/21 [Vitamin B-6] lisinopriL [Zestril] 10 mg PO DAILY 08/20/21 08/20/21 Allergies Allergy/AdvReac Type Severity Reaction Status Date / Time No Known Allergies Allergy Verified 08/20/21 17:25 Review of Systems ROS Statement: Those systems with pertinent positive or pertinent negative responses have been documented in the HPI. ROS Other: All systems not noted in ROS Statement are negative. Past Medical History Past Medical History: GERD/Reflux, Hypertension, Musculoskeletal Disorder, Neurologic Disorder Additional Past Medical History / Comment(s): MS, urinary incontinence, elevated blood sugars with steroids. History of Any Multi-Drug Resistant Organisms: None Reported Past Surgical History: Cholecystectomy Additional Past Surgical History / Comment(s): L benign ovarian mass with salpino-oophorectomy, R ovary resected/cyst Past Anesthesia/Blood Transfusion Reactions: No Reported Reaction Additional Past Anesthesia/Blood Transfusion Reaction / Comment(s): Pt received blood with gallbladder surgery without reaction. Past Psychological History: Depression Smoking Status: Former smoker Past Alcohol Use History: Rare Past Drug Use History: None Reported - Past Family History Mother History Unknown: Yes Family Medical History: Eye Disorder, Hypertension, Osteoarthritis (OA) Additional Family Medical History / Comment(s): ARTHRITIS, KNEE REPLACEMENT SURGERY, GLAUCOMA WITH SURGERY. Father History Unknown: Yes Family Medical History: Cancer, Hypertension, Osteoarthritis (OA) Additional Family Medical History / Comment(s): PACEMAKER, ARTHRITIS WITH KNEE REPLACEMENTS, COLON CANCER STAGE II. FATHER LIVED TO BE 79YRS OLD. General Exam Limitations: physical limitation General appearance: alert, in no apparent distress Head exam: Present: atraumatic, normocephalic, normal inspection Eye exam: Present: normal appearance, PERRL, EOMI. Absent: scleral icterus, conjunctival injection, periorbital swelling ENT exam: Present: normal exam, mucous membranes moist Neck exam: Present: normal inspection Respiratory exam: Present: normal lung sounds bilaterally. Absent: respiratory distress, wheezes, rales, rhonchi, stridor Cardiovascular Exam: Present: regular rate, normal rhythm, normal heart sounds. Absent: systolic murmur, diastolic murmur, rubs, gallop, clicks Extremities exam: Present: normal inspection, full ROM, normal capillary refill. Absent: tenderness, pedal edema, joint swelling, calf tenderness Neurological exam: Present: alert, oriented X3 Psychiatric exam: Present: normal affect, normal mood Skin exam: Present: warm, dry, intact, normal color. Absent: rash Course Vital Signs 08/20/21 16:57 Temperature 97.2 F L Pulse Rate 90 Respiratory 18 Rate Blood Pressure 166/84 O2 Sat by Pulse 100 Oximetry Medical Decision Making - Medical Decision Making 50-year-old female complaining of right lower extremities pain and vaginal spotting and possible infection. Labs, blood cultures, all shot right lower externa, transvaginal ultrasound orde red. Labs are unremarkable and within normal limits. US of the right lower extremity negative for DVT. Transvaginal ultrasound negative for any acute process. Case discussed with Dr. Armando, patient can discharge home with follow-up to primary care. - Lab Data Result diagrams: 08/20/21 18:11 08/20/21 18:11 Lab Results 08/20/21 08/20/21 08/20/21 Range/Units 18:11 18:11 18:11 WBC 7.6 (3.8-10.6) k/uL RBC 4.10 (3.80-5.40) m/uL Hgb 11.5 (11.4-16.0) gm/dL Hct 34.4 (34.0-46.0) % MCV 84.0 (80.0-100.0) fL MCH 28.1 (25.0-35.0) pg MCHC 33.4 (31.0-37.0) g/dL RDW 16.4 H (11.5-15.5) % Plt Count 207 (150-450) k/uL MPV 7.2 Neutrophils % 66 % Lymphocytes % 24 % Monocytes % 6 % Eosinophils % 3 % Basophils % 0 % Neutrophils # 5.0 (1.3-7.7) k/uL Lymphocytes # 1.8 (1.0-4.8) k/uL Monocytes # 0.4 (0-1.0) k/uL Eosinophils # 0.2 (0-0.7) k/uL Basophils # 0.0 (0-0.2) k/uL Anisocytosis Slight ESR 33 H (0-20) mm/hr Sodium 137 (137-145) mmol/L Potassium 4.1 (3.5-5.1) mmol/L Chloride 103 (98-107) mmol/L Carbon Dioxide 26 (22-30) mmol/L Anion Gap 8 mmol/L BUN 6 L (7-17) mg/dL Creatinine 0.50 L (0.52-1.04) mg/dL Est GFR (CKD-EPI)AfAm >90 (>60 ml/min/1.73 sqM) Est GFR (CKD-EPI)NonAf >90 (>60 ml/min/1.73 sqM) Glucose 99 (74-99) mg/dL Plasma Lactic Acid Kendrick 1.0 (0.7-2.0) mmol/L Calcium 9.0 (8.4-10.2) mg/dL Total Bilirubin 0.8 (0.2-1.3) mg/dL AST 29 (14-36) U/L ALT 11 (4-34) U/L Alkaline Phosphatase 88 (38-126) U/L Lactate Dehydrogenase 416 (313-618) U/L Total Protein 7.1 (6.3-8.2) g/dL Albumin 3.9 (3.5-5.0) g/dL - Radiology Data Radiology results: report reviewed, image reviewed Transvaginal ultrasound: Normal uterus and endometrium. No adnexal mass. No free fluid. Ovaries not well seen. Ultrasound right lower extremity: No evidence of deep vein thrombosis in right leg. Disposition Clinical Impression: Lymphedema, Right leg pain Disposition: HOME SELF-CARE Condition: Stable Instructions (If sedation given, give patient instructions): Lymphedema (ED) Additional Instructions: Please return to the Emergency Department if symptoms worsen or any other concerns. Follow-up with primary care 1-2 days. Is patient prescribed a controlled substance at d/c from ED?: No Referrals: Roshan Rincon MD [Primary Care Provider] - 1-2 days Time of Disposition: 19:32
== END 2021-08-21 12:55 | disposition home or self-care (01) ==
LOC: EC 16:09
DX: I89.0 Lymphedema, not elsewhere classified (principal); M79.604 Pain in right leg; K21.9 Gastro-esophageal reflux disease without esophagitis; I10 Essential (primary) hypertension; F32.A Depression, unspecified; Z87.891 Personal history of nicotine dependence; Z79.899 Other long term (current) drug therapy
CPT/HCPCS: 36415; 76830; 80053; 83605; 83615; 85025; 85652; 87040; 99284

== ENCOUNTER 2021-11-20 01:25 | Inpatient (IN) | payer BC ==
[2021-11-20] MEDS ORDERED: PIPERACILLIN-TAZOBACTAM 3.375 GM in SODIUM CHLORIDE 0.9% 100 ML IVPB STA (02:23)
[2021-11-20] MEDS ORDERED: VANCOMYCIN IV PER PHARMACY 1 EACH MISC MISCELLANE PRN (02:24)
[2021-11-20] MEDS ORDERED: ENOXAPARIN 100 MG/ML SYRINGE SQ STA (02:25)
[2021-11-20] MEDS ORDERED: MORPHINE SULFATE 4 MG/ML SYRINGE IV STA (02:25)
--- NOTE | 2021-11-20 02:51 | ED ---
Lower Extremity Injury HPI - General Chief Complaint: Extremity Injury, Lower Stated Complaint: Leg Swelling Time Seen by Provider: 11/20/21 02:01 Source: patient Mode of arrival: EMS Limitations: physical limitation - History of Present Illness Initial Comments: This patient is a 51-year-old woman who presents to be evaluated for constellation of symptoms. She states the main complaint is that her left leg is swollen and painful. Eyes been getting progressively worse over the past 1-2 days. She has also noticed that it is weeping yellowish drainage. The patient states she has history of MS and has not been able take her MS medication Tysabri, as there has not been a nurse able to come to her home and give the infusion. She has not been able to make it into the clinic to have the infusion either. Today the leg pain became so bad that she felt she should be seen here. Patient previously has been seen at the wound care clinic for her legs but states she has not been able to get into any clinics going back a couple of months now. -: days(s) Injury: Leg: Left Place: home Severity: moderate - Related Data Home Medications Medication Instructions Recorded Confirmed Baclofen [Lioresal] 20 mg PO TID 10/12/20 11/20/21 Ibuprofen [Motrin Ib] 200 - 400 mg PO Q6H PRN 08/20/21 11/20/21 Omeprazole Magnesium [PriLOSEC OTC] 20 mg PO DAILY 08/20/21 11/20/21 Lisinopril-Hctz 10-12.5 mg 1 tab PO DAILY 11/20/21 11/20/21 [Zestoretic 10-12.5] Previous Rx's Medication Instructions Recorded Acetaminophen Tab [Tylenol] 650 mg PO Q6HR PRN tab 11/27/21 Cholecalciferol [Vitamin D3 (125 125 mcg PO DAILY tablet 11/27/21 Mcg = 5000 Iu)] Folic Acid 0.5 mg PO DAILY tab 11/27/21 HYDROcodone/APAP 5-325MG [Elora 1 each PO Q4HR PRN #18 tab 11/27/21 5-325] Allergies Allergy/AdvReac Type Severity Reaction Status Date / Time No Known Allergies Allergy Verified 11/20/21 06:11 Review of Systems ROS Statement: Those systems with pertinent positive or pertinent negative responses have been documented in the HPI. ROS Other: All systems not noted in ROS Statement are negative. Constitutional: Denies: fever, chills Respiratory: Denies: cough, dyspnea Cardiovascular: Denies: chest pain, palpitations, edema Gastrointestinal: Denies: abdominal pain, vomiting, diarrhea Genitourinary: Denies: dysuria Musculoskeletal: Reports: myalgia. Denies: back pain Skin: Denies: rash Neurological: Denies: headache, weakness Past Medical History Past Medical History: GERD/Reflux, Hypertension, Musculoskeletal Disorder, Neurologic Disorder Additional Past Medical History / Comment(s): MS, urinary incontinence, elevated blood sugars with steroids. History of Any Multi-Drug Resistant Organisms: None Reported Past Surgical History: Cholecystectomy Additional Past Surgical History / Comment(s): L benign ovarian mass with salp delaney-oophorectomy, R ovary resected/cyst Past Anesthesia/Blood Transfusion Reactions: No Reported Reaction Additional Past Anesthesia/Blood Transfusion Reaction / Comment(s): Pt received blood with gallbladder surgery without reaction. Past Psychological History: Depression Smoking Status: Former smoker Past Alcohol Use History: Rare Past Drug Use History: None Reported - Past Family History Mother History Unknown: Yes Family Medical History: Eye Disorder, Hypertension, Osteoarthritis (OA) Additional Family Medical History / Comment(s): ARTHRITIS, KNEE REPLACEMENT SURGERY, GLAUCOMA WITH SURGERY. Father History Unknown: Yes Family Medical History: Cancer, Hypertension, Osteoarthritis (OA) Additional Family Medical History / Comment(s): PACEMAKER, ARTHRITIS WITH KNEE REPLACEMENTS, COLON CANCER STAGE II. FATHER LIVED TO BE 79YRS OLD. General Exam Limitations: physical limitation General appearance: alert, anxious Head exam: Present: atraumatic, normocephalic Eye exam: Present: normal appearance. Absent: scleral icterus, conjunctival i njection Neck exam: Present: normal inspection Respiratory exam: Present: normal lung sounds bilaterally. Absent: respiratory distress, wheezes, rales, rhonchi, stridor Cardiovascular Exam: Present: normal rhythm, tachycardia, normal heart sounds. Absent: systolic murmur, diastolic murmur, rubs, gallop GI/Abdominal exam: Present: soft. Absent: distended, tenderness, guarding, rebound, rigid, mass Extremities exam: Present: normal inspection, normal capillary refill, pedal edema, other (Has chronic venous stasis changes to both legs left greater than right. There does appear to be chronic lymphedema bilaterally. There is erythema and warmth circumferentially to the left lower leg concerning for cellulitis.) Neurological exam: Present: alert. Absent: motor sensory deficit Skin exam: Present: warm, dry, intact, erythema (Left leg), other (Chronic stasis changes bilaterally) Course Vital Signs 11/20/21 11/20/21 11/20/21 01:51 02:00 05:25 Temperature 98.9 F 99.8 F H Pulse Rate 132 H 128 H 107 H Respiratory 20 22 18 Rate Blood Pressure 137/82 96/52 O2 Sat by Pulse 98 95 Oximetry Medical Decision Making - Lab Data Result diagrams: 11/24/21 05:50 11/24/21 05:50 Lab Results 11/20/21 11/20/21 11/20/21 Range/Units 03:10 03:10 03:10 WBC 16.0 H (3.8-10.6) k/uL RBC 4.28 (3.80-5.40) m/uL Hgb 11.9 (11.4-16.0) gm/dL Hct 36.2 (34.0-46.0) % MCV 84.7 (80.0-100.0) fL MCH 27.9 (25.0-35.0) pg MCHC 32.9 (31.0-37.0) g/dL RDW 15.1 (11.5-15.5) % Plt Count 267 (150-450) k/uL MPV 7.1 Neutrophils % 90 % Lymphocytes % 5 % Monocytes % 4 % Eosinophils % 1 % Basophils % 0 % Neutrophils # 14.5 H (1.3-7.7) k/uL Lymphocytes # 0.7 L (1.0-4.8) k/uL Monocytes # 0.6 (0-1.0) k/uL Eosinophils # 0.1 (0-0.7) k/uL Basophils # 0.0 (0-0.2) k/uL Poikilocytosis Slight Sodium 136 L (137-145) mmol/L Potassium 4.4 (3.5-5.1) mmol/L Chloride 102 (98-107) mmol/L Carbon Dioxide 26 (22-30) mmol/L Anion Gap 8 mmol/L BUN 9 (7-17) mg/dL Creatinine 0.61 (0.52-1.04) mg/dL Est GFR (CKD-EPI)AfAm >90 (>60 ml/min/1.73 sqM) Est GFR (CKD-EPI)NonAf >90 (>60 ml/min/1.73 sqM) Glucose 132 H (74-99) mg/dL Lactic Ac Sepsis Rflx Plasma Lactic Acid Kendrick 2.1 H* (0.7-2.0) mmol/L Calcium 8.7 (8.4-10.2) mg/dL Magnesium 1.8 (1.6-2.3) mg/dL Total Bilirubin 0.7 (0.2-1.3) mg/dL AST 16 (14-36) U/L ALT 8 (4-34) U/L Alkaline Phosphatase 88 (38-126) U/L Total Protein 6.8 (6.3-8.2) g/dL Albumin 3.6 (3.5-5.0) g/dL Urine Color Urine Appearance (Clear) Urine pH (5.0-8.0) Ur Specific Linn (1.001-1.035) Urine Protein (Negative) Urine Glucose (UA) (Negative) Urine Ketones (Negative) Urine Blood (Negative) Urine Nitrite (Negative) Urine Bilirubin (Negative) Urine Urobilinogen (<2.0) mg/dL Ur Leukocyte Esterase (Negative) 11/20/21 11/20/21 11/20/21 Range/Units 03:40 04:04 07:18 WBC (3.8-10.6) k/uL RBC (3.80-5.40) m/uL Hgb (11.4-16.0) gm/dL Hct (34.0-46.0) % MCV (80.0-100.0) fL MCH (25.0-35.0) pg MCHC (31.0-37.0) g/dL RDW (11.5-15.5) % Plt Count (150-450) k/uL MPV Neutrophils % % Lymphocytes % % Monocytes % % Eosinophils % % Basophils % % Neutrophils # (1.3-7.7) k/uL Lymphocytes # (1.0-4.8) k/uL Monocytes # (0-1.0) k/uL Eosinophils # (0-0.7) k/uL Basophils # (0-0.2) k/uL Poikilocytosis Sodium (137-145) mmol/L Potassium (3.5-5.1) mmol/L Chloride (98-107) mmol/L Carbon Dioxide (22-30) mmol/L Anion Gap mmol/L BUN (7-17) mg/dL Creatinine (0.52-1.04) mg/dL Est GFR (CKD-EPI)AfAm (>60 ml/min/1.73 sqM) Est GFR (CKD-EPI)NonAf (>60 ml/min/1.73 sqM) Glucose (74-99) mg/dL Lactic Ac Sepsis Rflx Y Plasma Lactic Acid Kendrick 1.5 (0.7-2.0) mmol/L Calcium (8.4-10.2) mg/dL Magnesium (1.6-2.3) mg/dL Total Bilirubin (0.2-1.3) mg/dL AST (14-36) U/L ALT (4-34) U/L Alkaline Phosphatase (38-126) U/L Total Protein (6.3-8.2) g/dL Albumin (3.5-5.0) g/dL Urine Color Yellow Urine Appearance Clear (Clear) Urine pH 6.5 (5.0-8.0) Ur Specific Linn 1.020 (1.001-1.035) Urine Protein Negative (Negative) Urine Glucose (UA) Trace H (Negative) Urine Ketones Negative (Negative) Urine Blood Negative (Negative) Urine Nitrite Negative (Negative) Urine Bilirubin Negative (Negative) Urine Urobilinogen <2.0 (<2.0) mg/dL Ur Leukocyte Esterase Negative (Negative) Disposition Clinical Impression: Bilateral cellulitis of lower leg, Lactic acidosis Disposition: ADMITTED IP TO THIS [facility] Condition: Stable
[2021-11-20] MEDS ORDERED: VANCOMYCIN 1,500 MG in SODIUM CHLORIDE 0.9% 250 ML IVPB ONE (03:00)
[2021-11-20 03:37] LABS: Basophils % (A) 0 %; Eosinophils # (A) 0.1 k/uL (0-0.7); Eosinophils % (A) 1 %; HCT 36.2 % (34.0-46.0); HGB 11.9 gm/dL (11.4-16.0); Lymphocytes # (A) 0.7 k/uL (1.0-4.8); Lymphocytes % (A) 5 %; MCH 27.9 pg (25.0-35.0); MCHC 32.9 g/dL (31.0-37.0); MCV 84.7 fL (80.0-100.0); Mean Platelet Volume 7.1; Monocytes # (A) 0.6 k/uL (0-1.0); Monocytes % (A) 4 %; Neutrophils # (A) 14.5 k/uL (1.3-7.7); Neutrophils % (A) 90 %; Platelet Count 267 k/uL (150-450); Poikilocytosis Slight; RBC 4.28 m/uL (3.80-5.40); RDW 15.1 % (11.5-15.5)
[2021-11-20 03:50] LABS: ALT 8 U/L (4-34); AST 16 U/L (14-36); African American GFR (CKD) >90 (>60 ml/min/1.73 sqM); Albumin 3.6 g/dL (3.5-5.0); Alkaline Phosphatase 88 U/L (38-126); Anion Gap 8 mmol/L; Blood Urea Nitrogen 9 mg/dL (7-17); Calcium 8.7 mg/dL (8.4-10.2); Carbon Dioxide 26 mmol/L (22-30); Chloride 102 mmol/L (98-107); Glucose 132 mg/dL (74-99); Magnesium 1.8 mg/dL (1.6-2.3); Non-African American GFR(CKD) >90 (>60 ml/min/1.73 sqM); Potassium 4.4 mmol/L (3.5-5.1); Sodium 136 mmol/L (137-145); Total Bilirubin 0.7 mg/dL (0.2-1.3); Total Protein 6.8 g/dL (6.3-8.2)
[2021-11-20 03:50] LABS: Appearance,Urine Clear (Clear); Bilirubin,Urine Negative (Negative); Blood,Urine Negative (Negative); Color,Urine Yellow; Glucose,Urine (UA) Trace (Negative); Ketones,Urine Negative (Negative); Leukocyte Esterase,Urine Negative (Negative); Nitrite,Urine Negative (Negative); PH, Urine 6.5 (5.0-8.0); Protein,Urine Negative (Negative); Urobilinogen,Urine <2.0 mg/dL (<2.0)
[2021-11-20] MEDS ORDERED: SODIUM CHLORIDE 0.9% 1,000 ML IV ONE (04:49)
[2021-11-20] MEDS ORDERED: NALOXONE 0.4 MG/ML 1 ML VIAL IV PRN ×2 (04:49→08:50)
[2021-11-20] MEDS ORDERED: SODIUM CHLORIDE 0.9% 1,000 ML IV STA (04:49)
[2021-11-20] MEDS ORDERED: LORazepam 2 MG/ML INJ IV PRN (08:50)
[2021-11-20] MEDS ORDERED: ONDANSETRON 4 MG/2 ML VIAL IVP PRN (08:50)
[2021-11-20] MEDS ORDERED: bisacodyL 5 MG TABLET.DR PO PRN (08:50)
--- NOTE | 2021-11-20 09:09 | P.HPIM ---
History of Present Illness H&P Date: 11/20/21 Chief Complaint: left leg cellulitis Patient is a 51-year-old female with multiple sclerosis on monoclonal antibody, GERD, hypertension, and urinary incontinence who presented to the emergency department with left leg that is red and swollen and painful with yellow drainage. In the ER she underwent an extensive evaluation. On arrival to the ER she was tachycardic with a pulse rate of 132. Initial laboratory analysis showed white blood cell count of 16, sodium 136, lactic acid 2.1. Patient was subsequently admitted for left lower extremity cellulitis with sepsis. She was started on Zosyn and vancomycin. She was started on sepsis fluid protocol. Patient seen and examined at bedside. Over the last 2 weeks her legs have increased redness and started having purulent drainage. Yesterday they were so painful she was unable to transfer from her wheelchair to her bed and she decided to seek care. She had followed with the wound care clinic in the past may have been doing well. However due to mobility and transportation issues she has not been able to follow with the wound care clinic or with her neurology. She is 2 months behind on her MS injectable. She reports increased spasticity in her lower extremities yesterday, but no increased weakness. She denies any hx of diabetes. Pertinent positives and negatives as discussed in HPI, a complete review of systems was performed and all other systems are negative. General: Ill-appearing, appears older than stated age, no acute distress, obese Derm: Bilateral lower extremities warm, rosemary, and nodular appearance, posterior left leg with purulent drainage, no necrotic areas noted, both legs aren't malodorous. Head: atraumatic, normocephalic, symmetric Eyes: EOMI, no lid lag, anicteric sclera, pupils equal round reactive to light ENT: Nose and ears atraumatic, no thrush, no pharyngeal erythema Neck: No thyromegaly, no cervical lymphadenopathy, trachea midline, supple Mouth: no lip lesion, mucus membranes moist Cardiovascular: S1S2 tachycardic, no murmur, positive posterior tibial pulse bilateral, no edema, capillary refill less than 2 seconds Lungs: Decreased breath sounds bilateral, no ronchi, no rales, no wheeze, no accessory muscle use Abdominal: soft, nontender to palpation, no guarding, no appreciable organomegaly but limited due to body habitus, normal bowel sounds Ext: no gross muscle atrophy, muscle strength muscle strength 4 out of 5 in bilateral upper extremities with left extremity is slightly weaker than right, patient is unable to lift either leg off the bed, no contractures Neuro: CN II-XI grossly intact, light touch intact all 4 extremities, poor dexterity noted Psych: Alert, oriented, appropriate affect Assessment/plan: Bilateral lower extremities cellulitis with chronic wounds and sepsis, infected chronic wound -Continue with vancomycin and Unasyn -Consult wound care -follow CBC -wait blood cultures MS with lower extremity weakness - does not appear to have significnt exacerbation at this but pain due to infection - await neurology recs - baclofen resumed - pain medications - supportive care - has been off injectable for 2 months HTN, controlled - resume home lisinopril/hctz - follow BP Severe Obesity with bMI 45.3 The patient is admitted with an anticipated greater than 2 midnight stay for evaluation of Cellulitis with sepsis . Surrogate decision-maker: CODE STATUS:Full DVT prophylaxis: Lovenox Discussed with: Patient, nursing Anticipated discharge date: in 2-[address]: home with home health vs detention A total of 65 minutes was spent on the care of this complex patient more than 50% of the time was spent in counseling and care coordination. Past Medical History Past Medical History: GERD/Reflux, Hypertension, Musculoskeletal Disorder, Neurologic Disorder Additional Past Medical History / Comment(s): MS, urinary incontinence, elevated blood sugars with steroids. History of Any Multi-Drug Resistant Organisms: None Reported Past Surgical History: Cholecystectomy Additional Past Surgical History / Comment(s): L benign ovarian mass with oopho rectomy, R ovary resected/cyst Past Anesthesia/Blood Transfusion Reactions: No Reported Reaction Additional Past Anesthesia/Blood Transfusion Reaction / Comment(s): Pt received blood with gallbladder surgery without reaction. Past Psychological History: Depression Smoking Status: Former smoker Past Alcohol Use History: Rare Past Drug Use History: None Reported Additional History: help, seeing outpatient PT in the past, now cant leave house in motorized wheelchair, difficulty with dextarity - Past Family History Mother History Unknown: Yes Family Medical History: Eye Disorder, Hypertension, Osteoarthritis (OA) Additional Family Medical History / Comment(s): ARTHRITIS, KNEE REPLACEMENT SURGERY, GLAUCOMA WITH SURGERY. Father History Unknown: Yes Family Medical History: Cancer, Hypertension, Osteoarthritis (OA) Additional Family Medical History / Comment(s): PACEMAKER, ARTHRITIS WITH KNEE REPLACEMENTS, COLON CANCER STAGE II. FATHER LIVED TO BE 79YRS OLD. Medications and Allergies Home Medications Medication Instructions Recorded Confirmed Type Baclofen [Lioresal] 20 mg PO TID 10/12/20 11/20/21 History Ibuprofen [Motrin Ib] 200 - 400 mg PO Q6H PRN 08/20/21 11/20/21 History Omeprazole Magnesium [PriLOSEC OTC] 20 mg PO DAILY 08/20/21 11/20/21 History Lisinopril-Hctz 10-12.5 mg 1 tab PO DAILY 11/20/21 11/20/21 History [Zestoretic 10-12.5] Tysabri Infusion 300 mg IV Q28D 11/20/21 11/20/21 History Allergies Allergy/AdvReac Type Severity Reaction Status Date / Time No Known Allergies Allergy Verified 11/20/21 06:11 Physical Exam Osteopathic Statement: *. No significant issues noted on an osteopathic structural exam other than those noted in the History and Physical/Consult. Vitals: Vital Signs Temp Pulse Pulse Resp BP BP Pulse Ox 11/20/21 07:00 98.3 F 82 18 100/55 98 11/20/21 06:36 99.5 F 108 H 18 98/56 94 L 11/20/21 05:25 99.8 F H 107 H 18 96/52 95 11/20/21 02:00 128 H 22 11/20/21 01:51 98.9 F 132 H 20 137/82 98 Intake and Output 11/19/21 11/20/21 11/20/21 22:59 06:59 14:59 Other: # Voids 2 # Bowel Movements 1 Weight 85.729 kg Results CBC & Chem 7: 11/20/21 03:10 11/20/21 03:10 Labs: Abnormal Lab Results - Last 24 Hours (Table) 11/20/21 11/20/21 11/20/21 Range/Units 03:10 03:10 03:10 WBC 16.0 H (3.8-10.6) k/uL Neutrophils # 14.5 H (1.3-7.7) k/uL Lymphocytes # 0.7 L (1.0-4.8) k/uL Sodium 136 L (137-145) mmol/L Glucose 132 H (74-99) mg/dL Plasma Lactic Acid Kendrick 2.1 H* (0.7-2.0) mmol/L Urine Glucose (UA) (Negative) 11/20/21 Range/Units 03:40 WBC (3.8-10.6) k/uL Neutrophils # (1.3-7.7) k/uL Lymphocytes # (1.0-4.8) k/uL Sodium (137-145) mmol/L Glucose (74-99) mg/dL Plasma Lactic Acid Kendrick (0.7-2.0) mmol/L Urine Glucose (UA) Trace H (Negative)
[2021-11-20] MEDS: PANTOPRAZOLE 40 MG TABLET PO SCH (10:02)
[2021-11-20] MEDS: BACLOFEN 10 MG TAB PO SCH ×3 (10:02→23:43)
[2021-11-20] MEDS: ENOXAPARIN 40 MG/0.4 ML SYRINGE SQ SCH (10:02)
[2021-11-20] MEDS: LISINOPRIL-HCTZ 10-12.5 MG 1 EACH TAB PO SCH (10:03)
[2021-11-20] MEDS: MORPHINE SULFATE 4 MG/ML SYRINGE IVP PRN ×2 (10:03→23:47)
--- NOTE | 2021-11-20 10:36 | P.CNNES ---
History of Present Illness Consult date: 11/20/21 Requesting physician: Matt Cordero Reason for Consult: MS exacerbation History of Present Illness: Patient is a 51-year-old female with history of multiple sclerosis, lymphedema, came to the hospital by ambulance early this morning at 1:25 AM for worsening swelling in the legs, and increasing weakness. Patient states that she was diagnosed with MS in 2000, although her symptoms have been present since 2007. She was initially placed on Rebif, then switched to Betaseron, then Gilenya. For the last 2 years she has been on the [facility] inf[facility]. She has been wheelchair-bound for last 1-1/2 years because of MS. Patient says that she was initially called as relapsing remitting MS, but later it was changed to a d iagnosis of primary progressive MS. Patient follows up with Dr. Ventura's XRAY TECH Leesa Graff. Patient states that she has not received Tysabri for the last 60 days. This is because she is to get it at their office, but because of worsening ambulation, she has been considered for home infusion of Tysabri. Patient was still in the process of getting medication arranged through an infusion Company at home, therefore has not received to [facility] for last 2 months. Last she has received this treatment up to [facility] but has not been introduced yet. Patient says that her left leg swelling got worse yesterday. She believes that she has exacerbation of MS. Her arms feels heavy, couldn't transfer from wheelchair to the commode. She couldn't stand up. Legs feel weak due to worsening lymphedema. Patient states that since she was diagnosed with MS in 2007, she has numbness of the hands, decreased dexterity, cannot picker objects from the floor. Her left arm is always worse than the right. According to EMS flow sheet, when they arrived, patient was sitting in the wheelchair. Patient had chief complaints of increased leg swelling with Versed and swelling on the left lower leg since yesterday. Patient has history of lymphedema bilaterally and has had wound care in the past. Patient stated that her left leg has doubled in size since yesterday which is abnormal. Patient complaining of frequent leg spasms causing a lot of pain. Patient mentioned that she also is urinary incontinent due to the spasms and being unable to ambulate secondary to her MS diagnosis. Patient mentioned that the older of her legs has worsened with the swelling. Patient denied any chest pain difficulty breathing shortness of breath headache dizziness blurred vision, tinnitus, jaw pain, neck pain, back pain, abdominal pain, nausea vomiting, numbness, tingling, cough, fever or pain anywhere else. On examination patient was alert and oriented 4. Pupils are equal round and reacting and lungs are clear and equal bilaterally. Patient has severe swelling to both lower extremities with worse and swelling to the left leg. Both of patient's lower extremities are weeping and malodorous. Patient's blood pressure 183/103, pulse rate 121, respiration 20, saturation 95%. Patient previously been seen by Dr. Robbi Hector on 10/13/2020 for MS. It was reported patient probably does not have definitive MS exacerbation at that time. Patient does have chronic urinary incontinence. Patient just had received a course of Solu-Medrol prior to that admission. Patient was given tapering down dose of prednisone. Patient follows up with Dr. Ventura, and takes Tysabri. Patient's A1c was 5.4 at that time normal, B12 515. Vitamin D 62. TSH was normal. Patient denies diabetes. She is nonsmoker does not drink alcohol. He he Patient's home medications include baclofen 20 mg 3 times a day, ibuprofen, omeprazole, lisinopril/HCTZ and Tysabri. Review of Systems As mentioned above in detail in HPI. Patient has severe peripheral edema. Weakness, spasms. No abdominal pain chest pain or diarrhea. Patient denies any double vision or loss of vision. No hearing loss. No tinnitus. Patient has rash in the lower limbs from lymphedema. Past Medical History Past Medical History: GERD/Reflux, Hypertension, Musculoskeletal Disorder, Neurologic Disorder Additional Past Medical History / Comment(s): MS, urinary incontinence, elevated blood sugars with steroids. History of Any Multi-Drug Resistant Organisms: None Reported Past Surgical History: Cholecystectomy Additional Past Surgical History / Comment(s): L benign ovarian mass with oophorectomy, R ovary resected/cyst Past Anesthesia/Blood Transfusion Reactions: No Reported Reaction Additional Past Anesthesia/Blood Transfusion Reaction / Comment(s): Pt received blood with gallbladder surgery without reaction. Past Psychological History: Depression Smoking Status: Former smoker Past Alcohol Use History: Rare Past Drug Use History: None Reported - Past Family History Mother History Unknown: Yes Family Medical History: Eye Disorder, Hypertension, Osteoarthritis (OA) Additional Family Medical History / Comment(s): ARTHRITIS, KNEE REPLACEMENT SURGERY, GLAUCOMA WITH SURGERY. Father History Unknown: Yes Family Medical History: Cancer, Hypertension, Osteoarthritis (OA) Additional Family Medical History / Comment(s): PACEMAKER, ARTHRITIS WITH KNEE REPLACEMENTS, COLON CANCER STAGE II. FATHER LIVED TO BE 79YRS OLD. Medications and Allergies Home Medications Medication Instructions Recorded Confirmed Type Baclofen [Lioresal] 20 mg PO TID 10/12/20 11/20/21 History Ibuprofen [Motrin Ib] 200 - 400 mg PO Q6H PRN 08/20/21 11/20/21 History Omeprazole Magnesium [PriLOSEC OTC] 20 mg PO DAILY 08/20/21 11/20/21 History Lisinopril-Hctz 10-12.5 mg 1 tab PO DAILY 11/20/21 11/20/21 History [Zestoretic 10-12.5] Tysabri Infusion 300 mg IV Q28D 11/20/21 11/20/21 History Allergies Allergy/AdvReac Type Severity Reaction Status Date / Time No Known Allergies Allergy Verified 11/20/21 06:11 Physical Examination - Vital Signs Vital Signs: Vital Signs Temp Pulse Pulse Resp BP BP Pulse Ox 11/20/21 07:00 98.3 F 82 18 100/55 98 11/20/21 06:36 99.5 F 108 H 18 98/56 94 L 11/20/21 05:25 99.8 F H 107 H 18 96/52 95 11/20/21 02:00 128 H 22 11/20/21 01:51 98.9 F 132 H 20 137/82 98 Intake and Output 11/19/21 11/20/21 11/20/21 22:59 06:59 14:59 Other: # Voids 2 # Bowel Movements 1 Weight 85.729 kg 116 kg Patient is a middle aged female, in no acute distress. Patient is alert awake oriented to time place and person. Speech and language functions are normal. Attention, concentration and fund of knowledge is adequate. On cranial nerve examination, pupils are equal, round and reacting to light, visual duenas are full on confrontation, extraocular muscles are intact with no nystagmus. Face is symmetric, tongue protrudes to the midline. Palatal elevation and sensation normal, hearing and shoulder shrug normal, facial sensation normal. Shoulder shrug normal. On muscle strength testing, there is no pronator drift. The strength is (righ t/left) deltoid 5/5-, biceps 5/5-, triceps 5/4+5-, intensive care medicine specialist is 5/5-, in the lower limbs, hip flexion is 1/0, toe extension 3/0, ankle dorsiflexion 2/0. Deep tendon reflexes are significantly decreased in the upper limbs, 2+ to 3 at the knees and patient has bilateral Babinski. Sensory to touch is equal with no neglect. Cerebellar function showed moderate ataxia for [id number] testing only in t he left arm, but not the right. Cannot perform [id number] testing. Gait patient wheelchair bound. On general examination, there is no carotid bruit or murmur, S1-S2 audible. Abdomen is soft nontender. No organomegaly. Bowel sounds present. Chest is clear. Patient has severe peripheral edema, with weeping lesions. Results - Laboratory Findings CBC and BMP: 11/20/21 03:10 11/20/21 03:10 Abnormal Lab Findings: Abnormal Labs 11/20/21 11/20/21 11/20/21 03:10 03:10 03:10 WBC 16.0 H Neutrophils # 14.5 H Lymphocytes # 0.7 L Sodium 136 L Glucose 132 H Plasma Lactic Acid Kendrick 2.1 H* Urine Glucose (UA) 11/20/21 03:40 WBC Neutrophils # Lymphocytes # Sodium Glucose Plasma Lactic Acid Kendrick Urine Glucose (UA) Trace H Assessment and Plan Assessment: * Possible MS exacerbation * History of relapsing remitting MS, although lately he has been diagnosed with primary progressive MS. * Bilateral cellulitis in the lower extremities * Severe lymphedema bilateral lower extremities. * Chronic urinary incontinence likely due to MS. Plan: * Patient currently on vancomycin, Unasyn and Zosyn for bilateral lower extremity cellulitis. * Recommend Solu-Medrol 1 g IV PB daily for 3-5 days, when cleared from medical/infectious disease standpoint. * We will follow patient clinically. Discussed about MRI, but patient wants to hold off on MRI at this time. * Thank you for the consult.
[2021-11-20] MEDS: SODIUM CHLORIDE 0.9% 1,000 ML IV SCH ×3 (11:27→19:42)
[2021-11-20] MEDS: AMPICILLIN-SULBACTAM 3 GM in SODIUM CHLORIDE 0.9% 100 ML IVPB SCH ×3 (12:37→23:45)
[2021-11-20] MEDS: VANCOMYCIN 1,500 MG in SODIUM CHLORIDE 0.9% 250 ML IVPB SCH ×2 (13:27→19:42)
[2021-11-20] MEDS: ACETAMINOPHEN TAB 325 MG TAB PO PRN (15:49)
[2021-11-20] MEDS: HYDROcodone/APAP 5-325MG 1 EACH TAB PO PRN (19:41)
--- NOTE | 2021-11-21 00:12 | P.CONS ---
History of Present Illness - Reason for Consult Consult date: 11/20/21 Left lower extremity cellulitis Requesting physician: Daphne Goff - Chief Complaint Left leg pain swelling and redness 2 days - History of Present Illness Patient is 51-year female with a past medical history significant for MS and this patient also have a bilateral lower extremity lymphedema and chronic swelling patient presented to the [facility] ER for evaluation of left leg swelling and pain in this patient symptom has been going on and getting worse over the last 1 to 2 days patient has been describing the pain to be more of a sharp in nature 6-7 out of 10 no radiation with diffuse swelling and redness and also have some yellowish drainage patient on arrival to the ER was afebrile subsequently have low-grade fever 100.6 F patient was tachycardic and did have white count 16,000 with a left shift creatinine has been normal lactic acid was elevated urine has been negative blood culture has been obtained which is currently pending patient was started on vancomycin and Unasyn infectious disease was consulted for further management of antibiotic therapy Review of Systems Positive point has been mentioned in the HPI rest of the systems are negative Past Medical History Past Medical History: GERD/Reflux, Hypertension, Musculoskeletal Disorder, Neurologic Disorder Additional Past Medical History / Comment(s): MS, urinary incontinence, elevated blood sugars with steroids. History of Any Multi-Drug Resistant Organisms: None Reported Past Surgical History: Cholecystectomy Additional Past Surgical History / Comment(s): L benign ovarian mass with oophorectomy, R ovary resected/cyst Past Anesthesia/Blood Transfusion Reactions: No Reported Reaction Additional Past Anesthesia/Blood Transfusion Reaction / Comm: Pt received blood with gallbladder surgery without reaction. Past Psychological History: Depression Smoking Status: Former smoker Past Alcohol Use History: Rare Past Drug Use History: None Reported - Past Family History Mother History Unknown: Yes Family Medical History: Eye Disorder, Hypertension, Osteoarthritis (OA) Additional Family Medical History / Comment(s): ARTHRITIS, KNEE REPLACEMENT SURGERY, GLAUCOMA WITH SURGERY. Father History Unknown: Yes Family Medical History: Cancer, Hypertension, Osteoarthritis (OA) Additional Family Medical History / Comment(s): PACEMAKER, ARTHRITIS WITH KNEE REPLACEMENTS, COLON CANCER STAGE II. FATHER LIVED TO BE 79YRS OLD. Medications and Allergies Home Medications Medication Instructions Recorded Confirmed Type Baclofen [Lioresal] 20 mg PO TID 10/12/20 11/20/21 History Ibuprofen [Motrin Ib] 200 - 400 mg PO Q6H PRN 08/20/21 11/20/21 History Omeprazole Magnesium [PriLOSEC OTC] 20 mg PO DAILY 08/20/21 11/20/21 History Lisinopril-Hctz 10-12.5 mg 1 tab PO DAILY 11/20/21 11/20/21 History [Zestoretic 10-12.5] Tysabri Infusion 300 mg IV Q28D 11/20/21 11/20/21 History Allergies Allergy/AdvReac Type Severity Reaction Status Date / Time No Known Allergies Allergy Verified 11/20/21 06:11 Physical Exam Vitals: Vital Signs Temp Pulse Pulse Resp BP BP Pulse Ox 11/20/21 07:00 98.3 F 82 18 100/55 98 11/20/21 06:36 99.5 F 108 H 18 98/56 94 L 11/20/21 05:25 99.8 F H 107 H 18 96/52 95 11/20/21 02:00 128 H 22 11/20/21 01:51 98.9 F 132 H 20 137/82 98 Intake and Output 11/19/21 11/20/21 11/20/21 22:59 06:59 14:59 Intake Total 118 Balance 118 Intake: Oral 118 Other: # Voids 2 # Bowel Movements 1 Weight 85.729 kg 116 kg GENERAL DESCRIPTION: Middle-aged female lying in bed, no distress. No tachypnea or accessory muscle of respiration use. HEENT: Shows Pallor , no scleral icterus. Oral mucous membrane is dry. No pharyngeal erythema or thrush NECK: Trachea central, no thyromegaly. LUNGS: Unlabored breathing. Clear to auscultation anteriorly. No wheeze or crackle. HEART: S1, S2, regular rate and rhythm. No loud murmur ABDOMEN: Soft, no tenderness , guarding or rigidity, no organomegaly EXTREMITIES: Diffuse swelling of bilateral lower extremity left greater than right with some superficial ulceration and yellowish drainage. SKIN: No rash, no masses palpable. NEUROLOGICAL: The patient is awake, alert, oriented x3, mood and affect normal. Results CBC & Chem 7: 11/20/21 03:10 11/20/21 03:10 Labs: Abnormal Lab Results - Last 24 Hours (Table) 11/20/21 11/20/2111/20/22 Range/Units 03:10 03:10 03:10 WBC 16.0 H (3.8-10.6) k/uL Neutrophils # 14.5 H (1.3-7.7) k/uL Lymphocytes # 0.7 L (1.0-4.8) k/uL Sodium 136 L (137-145) mmol/L Glucose 132 H (74-99) mg/dL Plasma Lactic Acid Kendrick 2.1 H* (0.7-2.0) mmol/L Urine Glucose (UA) (Negative) 11/20/21 Range/Units 03:40 WBC (3.8-10.6) k/uL Neutrophils # (1.3-7.7) k/uL Lymphocytes # (1.0-4.8) k/uL Sodium (137-145) mmol/L Glucose (74-99) mg/dL Plasma Lactic Acid Kendrick (0.7-2.0) mmol/L Urine Glucose (UA) Trace H (Negative) Assessment and Plan (1) Cellulitis of left lower extremity Current Visit: Yes Status: Acute Code(s): L03.116 - CELLULITIS OF LEFT LOWER LIMB SNOMED Code(s): 673577909 Plan: 1patient presented to hospital with sepsis anticipated have a fever elevated white count source likely left lower extremity cellulitis in this we did have diffuse swelling redness likely streptococcal disease. 2local wound care to the leg with a dry Aquacel silver dressing and Aaron wrap. 3continue with vancomycin and Unasyn while waiting for the culture to finalize We will follow on clinical condition and cultures to further adjust medication if needed Thank you for this consultation will follow this patient along with you
[2021-11-21] MEDS: VANCOMYCIN 1,500 MG in SODIUM CHLORIDE 0.9% 250 ML IVPB SCH (04:33)
[2021-11-21] MEDS: SODIUM CHLORIDE 0.9% 1,000 ML IV SCH ×3 (04:34→19:48)
[2021-11-21] MEDS: AMPICILLIN-SULBACTAM 3 GM in SODIUM CHLORIDE 0.9% 100 ML IVPB SCH (05:31)
[2021-11-21] MEDS: MORPHINE SULFATE 4 MG/ML SYRINGE IVP PRN ×2 (08:23→17:56)
[2021-11-21] MEDS: LISINOPRIL-HCTZ 10-12.5 MG 1 EACH TAB PO SCH (08:27)
[2021-11-21] MEDS: ENOXAPARIN 40 MG/0.4 ML SYRINGE SQ SCH (08:27)
[2021-11-21] MEDS: ACETAMINOPHEN TAB 325 MG TAB PO PRN (08:27)
[2021-11-21] MEDS: BACLOFEN 10 MG TAB PO SCH ×3 (08:27→22:21)
[2021-11-21] MEDS: PANTOPRAZOLE 40 MG TABLET PO SCH (08:27)
[2021-11-21] MEDS ORDERED: VANCOMYCIN TROUGH DUE 1 EACH MISC MISCELLANE ONE (11:00)
[2021-11-21 11:50] LABS: African American GFR (CKD) >90 (>60 ml/min/1.73 sqM); Anion Gap 4 mmol/L; Blood Urea Nitrogen 7 mg/dL (7-17); Calcium 7.6 mg/dL (8.4-10.2); Carbon Dioxide 23 mmol/L (22-30); Chloride 106 mmol/L (98-107); Glucose 188 mg/dL (74-99); Non-African American GFR(CKD) >90 (>60 ml/min/1.73 sqM); Potassium 3.5 mmol/L (3.5-5.1); Sodium 133 mmol/L (137-145)
[2021-11-21 11:58] LABS: HCT 32.3 % (34.0-46.0); HGB 10.1 gm/dL (11.4-16.0); Hypochromasia Slight; MCH 27.3 pg (25.0-35.0); MCHC 31.2 g/dL (31.0-37.0); MCV 87.3 fL (80.0-100.0); Mean Platelet Volume 7.5; Platelet Count 224 k/uL (150-450); RDW 14.9 % (11.5-15.5); WBC 7.8 k/uL (3.8-10.6)
[2021-11-21] MEDS: CEFEPIME 2 GM in SODIUM CHLORIDE 0.9% 100 ML IVPB SCH ×2 (12:32→19:46)
--- NOTE | 2021-11-21 18:52 | P.PN ---
Subjective Progress Note Date: 11/21/21 (delayed charting seen at 0845) Principal diagnosis: weakness Patient is a 51-year-old female with multiple sclerosis on monoclonal antibody, GERD, hypertension, and urinary incontinence who presented to the emergency department with left leg that is red and swollen and painful with yellow drainage. In the ER she underwent an extensive evaluation. On arrival to the ER she was tachycardic with a pulse rate of 132. Initial laboratory analysis showed white blood cell count of 16, sodium 136, lactic acid 2.1. Patient was subsequently admitted for left lower extremity cellulitis with sepsis. She was started on Zosyn and vancomycin. She was started on sepsis fluid protocol. She was seen by infectious disease. She came back positive for gram-negative bacteria in her bloodstream. Patient seen and examined at bedside with present. She reports she is having more numbness and tingling in her arms. No nausea, vomiting, diarrhea. Feeling very tired from the pain medications. General: non toxic, no distress, obese, appears older than stated age Derm: warm, dry, bilateral lower extremities with Aaron wrapping in place. Head: atraumatic, normocephalic, symmetric Eyes: EOMI, no lid lag, anicteric sclera Mouth: no lip lesion, mucus membranes moist Cardiovascular: S1S2 reg, no murmur, positive posterior tibial pulse bilateral, Lungs: Coarse breath sounds bilateral, no rhonchi, no rales , no accessory muscle use Abdominal: soft, nontender to palpation, no guarding, no appreciable organomegaly Ext: no gross muscle atrophy, lymphedema bilateral lower extremities appears improved from yesterday, no contractures Neuro: CN II-XI grossly intact, no focal neuro deficits Psych: Alert, oriented, appropriate affect Assessment/plan: Bilateral lower extremities cellulitis with chronic wounds and sepsis, infected chronic wound Gram negative bacteremia -Continue with vancomycin and Unasyn -Consult wound care -follow CBC -await final blood cultures - repeat blood cultures MS-secondary progressive with lower extremity weakness - neurology recs appreciated: would attempt to avoid steroids that this time with bacteremia - baclofen resumed - pain medications - supportive care - has been off injectable for 2 months HTN, controlled - resume home lisinopril/hctz - follow BP Severe Obesity with BMI 45.3 DVT prophylaxis: Lovenox Discussed with: Patient, nursing Anticipated discharge date: in 2-[address]: home with home health vs care home A total of 35 minutes was spent on the care of this complex patient more than 50% of the time was spent in counseling and care coordination. Objective - Vital Signs Vital signs: Vital Signs Temp 98.4 F 11/21/21 15:00 Pulse 97 11/21/21 15:00 Resp 18 11/21/21 15:00 BP 119/75 11/21/21 17:55 Pulse Ox 94 L 11/21/21 15:00 Intake & Output 11/20/21 11/21/21 11/21/21 18:59 06:59 18:59 Intake Total 236 210 Output Total 1200 900 900 Balance -964 -900 -690 Weight 116 kg Intake: Oral 236 210 Output: Urine 1200 900 900 Other: Voiding Method External Catheter External Catheter External Catheter # Voids 1 1 - Labs CBC & Chem 7: 11/21/21 11:15 11/21/21 11:15 Labs: Abnormal Lab Results - Last 24 Hours (Table) 11/21/21 11/21/21 Range/Units 11:15 11:15 RBC 3.70 L (3.80-5.40) m/uL Hgb 10.1 L (11.4-16.0) gm/dL Hct 32.3 L (34.0-46.0) % Sodium 133 L (137-145) mmol/L Glucose 188 H (74-99) mg/dL Calcium 7.6 L (8.4-10.2) mg/dL Microbiology - Last 24 Hours (Table) 11/20/21 03:15 Blood Culture Gram Stain - Preliminary Blood 11/20/21 03:00 Blood Culture - Preliminary Blood No Growth after 24 hours 11/20/21 03:15 Blood Culture - Final Blood
[2021-11-21] MEDS: HYDROcodone/APAP 5-325MG 1 EACH TAB PO PRN (19:47)
--- NOTE | 2021-11-21 22:38 | P.PN ---
Subjective Progress Note Date: 11/21/21 Principal diagnosis: Bilateral lower extremity cellulitis and bacteremia Patient is a 51 year female with significant bilateral lower extremity lymphedema and history of cellulitis presented to hospital with another episode of cellulitis especially to the left leg, patient blood cultures were reported positive for gram-negative bacilli. On today's evaluation and that is 11/21/2021, the patient did have a low-grade fever of 100.1F this morning, patient denies having any chest pain or shortness of breath or cough no nausea no vomiting no abdominal pain no diarrhea, and denies any worsening pain to the lower extremity Objective - Vital Signs Vital signs: Vital Signs Temp 100.1 F H 11/21/21 07:00 Pulse 98 11/21/21 08:00 Resp 20 11/21/21 08:00 BP 108/57 11/21/21 07:00 Pulse Ox 92 L 11/21/21 07:00 Intake & Output 11/20/21 11/21/21 11/21/21 18:59 06:59 18:59 Intake Total 236 90 Output Total 1200 900 900 Balance -173 -900 -770 Weight 116 kg Intake: Oral 236 90 Output: Urine 1200 900 900 Other: Voiding Method External Catheter External Catheter External Catheter # Voids 1 - Exam GENERAL DESCRIPTION: Middle-age female lying in bed in no distress RESPIRATORY SYSTEM: Unlabored breathing , decreased breath sounds at bases HEART: S1 S2 regular rate and rhythm , ABDOMEN: Soft , no tenderness EXTREMITIES: Bilateral lower extremity currently wrapped in Kerlix no drainage - Labs CBC & Chem 7: 11/21/21 11:15 11/21/21 11:15 Labs: Microbiology - Last 24 Hours (Table) 11/20/21 03:00 Blood Culture - Preliminary Blood No Growth after 24 hours 11/20/21 03:15 Blood Culture Gram Stain - Preliminary Blood 11/20/21 03:15 Blood Culture - Final Blood Assessment and Plan (1) Cellulitis of left lower extremity Current Visit: Yes Status: Acute Code(s): L03.116 - CELLULITIS OF LEFT LOWER LIMB SNOMED Code(s): 720103749 Plan: 1patient presented to hospital with sepsis anticipated have a fever elevated white count source likely left lower extremity cellulitis in this we did have diffuse swelling redness , patient regarding her course complicated by development of bacteremia with a blood culture reported positive with gram-negative bacillus 2local wound care to the leg with a dry Aquacel silver dressing and Aaron wrap. 3we'll discontinue vancomycin and Unasyn 4-start the patient on cefepime 2 g every 8 hours while waiting for cultures to finalize Time with Patient: Less than 30
[2021-11-22] MEDS: HYDROcodone/APAP 5-325MG 1 EACH TAB PO PRN ×2 (02:15→20:43)
[2021-11-22] MEDS: CEFEPIME 2 GM in SODIUM CHLORIDE 0.9% 100 ML IVPB SCH ×3 (04:23→20:38)
[2021-11-22] MEDS: SODIUM CHLORIDE 0.9% 1,000 ML IV SCH ×2 (04:24→11:52)
[2021-11-22 06:51] LABS: African American GFR (CKD) >90 (>60 ml/min/1.73 sqM); Non-African American GFR(CKD) >90 (>60 ml/min/1.73 sqM)
[2021-11-22] MEDS: LISINOPRIL-HCTZ 10-12.5 MG 1 EACH TAB PO SCH (07:39)
[2021-11-22] MEDS: BACLOFEN 10 MG TAB PO SCH ×3 (07:39→20:38)
[2021-11-22] MEDS: ENOXAPARIN 40 MG/0.4 ML SYRINGE SQ SCH (07:39)
[2021-11-22] MEDS: PANTOPRAZOLE 40 MG TABLET PO SCH (07:39)
--- NOTE | 2021-11-22 09:44 | P.PN ---
Subjective Progress Note Date: 11/21/21 Patient was seen for a follow-up. Patient laying comfortably in the bed. Patient feels her upper arms are tight, left arm feels heavy. Patient's blood cultures have grown gram-negative bacilli. Objective - Vital Signs Vital signs: Vital Signs Temp 98.4 F 11/22/21 07:00 Pulse 97 11/22/21 08:00 Resp 18 11/22/21 08:00 BP 141/77 11/22/21 07:00 Pulse Ox 90 L 11/22/21 07:00 Intake & Output 11/21/21 11/22/21 11/22/21 18:59 06:59 18:59 Intake Total 210 250 118 Output Total 900 800 550 Balance -690 -550 -432 Intake: Oral 210 250 118 Output: Urine 900 800 550 Other: Voiding Method External Catheter External Catheter External Catheter # Voids 1 - Exam Patient's mentation is normal. Cranial nerves are normal. No pronator drift. Patient has ataxia only for [id number] on the left. Patient's legs are now in a bandage because of swelling and weeping. - Labs CBC & Chem 7: 11/21/21 11:15 11/22/21 05:59 Labs: Abnormal Lab Results - Last 24 Hours (Table) 11/21/21 11/21/21 Range/Units 11:15 11:15 RBC 3.70 L (3.80-5.40) m/uL Hgb 10.1 L (11.4-16.0) gm/dL Hct 32.3 L (34.0-46.0) % Sodium 133 L (137-145) mmol/L Glucose 188 H (74-99) mg/dL Calcium 7.6 L (8.4-10.2) mg/dL Microbiology - Last 24 Hours (Table) 11/20/21 03:00 Blood Culture - Preliminary Blood No Growth after 48 hours 11/20/21 03:15 Blood Culture Gram Stain - Preliminary Blood Assessment and Plan Assessment: * Possible MS exacerbation * Probable septicemia with positive blood cultures. 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 * Bilateral cellulitis in the lower extremities * Severe lymphedema bilateral lower extremities. * Chronic urinary incontinence likely due to MS. Plan: * Patient has septicemia. Patient now on cefepime. Infectious disease following. * Recommend Solu-Medrol 1 g IV PB daily for 3-5 days, when cleared from medical/infectious disease standpoint. * We will follow patient clinically. Discussed about MRI, but patient wants to hold off on MRI at this time. * Dr. Robbi Hector Will resume neurology service on Tuesday.
--- NOTE | 2021-11-22 15:13 | P.PN ---
Subjective She was examined at bedside today. It is to be on 2 L oxygen denies any shortness of breath, chest pain or palpitations. Lymphedema noted in the lower extremities. Pain is controlled with when necessary medication. Case discussed with RN present at bedside. Objective - Vital Signs Vital signs: Vital Signs Temp 97.9 F 11/22/21 14:11 Pulse 93 11/22/21 14:11 Resp 18 11/22/21 14:11 BP 128/76 11/22/21 14:11 Pulse Ox 99 11/22/21 14:11 Intake & Output 11/21/21 11/22/21 11/22/21 18:59 06:59 18:59 Intake Total 210 250 236 Output Total 333 428 7241 Balance -709 -829 -9484 Intake: Oral 210 250 236 Output: Urine 630 849 4646 Other: Voiding Method External Catheter External Catheter External Catheter # Voids 1 - Exam General: non toxic, no distress, obese, appears older than stated age Derm: warm, dry, bilateral lower extremities with Aaron wrapping in place. Head: atraumatic, normocephalic, symmetric Eyes: EOMI, no lid lag, anicteric sclera Mouth: no lip lesion, mucus membranes moist Cardiovascular: S1S2 reg, no murmur, positive posterior tibial pulse bilateral, Lungs: Coarse breath sounds bilateral, no rhonchi, no rales , no accessory muscle use Abdominal: soft, nontender to palpation, no guarding, no appreciable organomegaly Ext: no gross muscle atrophy, lymphedema bilateral lower extremities appears improved, no contractures Neuro: CN II-XI grossly intact, no focal neuro deficits Psych: Alert, oriented, appropriate affect - Labs CBC & Chem 7: 11/21/21 11:15 11/22/21 05:59 Labs: Microbiology - Last 24 Hours (Table) 11/21/21 11:39 Blood Culture - Preliminary Blood No Growth after 24 hours 11/21/21 11:15 Blood Culture - Preliminary Blood No Growth after 24 hours 11/20/21 03:15 Blood Culture Gram Stain - Preliminary Blood Blood Culture - Preliminary Gram Neg Bacilli 11/20/21 03:00 Blood Culture - Preliminary Blood No Growth after 48 hours Assessment and Plan Assessment: Assessment/plan: Bilateral lower extremities cellulitis with chronic wounds and sepsis, infected chronic wound Gram negative bacteremia -Antibiotics changed to cefepime -Consult wound care -Microbiology reviewed and the growing gram-negative bacilli blood culture. -Repeat blood cultures -DC IV fluids. MS-secondary progressive with lower extremity weakness - neurology recs appreciated: would attempt to avoid steroids that this time with bacteremia - baclofen resumed - pain medications - supportive care - has been off injectable for 2 months HTN, controlled - resume home lisinopril/hctz - follow BP Severe Obesity with BMI 45.3 DVT prophylaxis: Lovenox Discussed with: Patient, nursing Anticipated discharge date: in 2-[address]: home with home health vs long-term
--- NOTE | 2021-11-22 23:30 | P.PN ---
Subjective Progress Note Date: 11/22/21 Principal diagnosis: Bilateral lower extremity cellulitis and bacteremia Patient is a 51 year female with significant bilateral lower extremity lymphedema and history of cellulitis presented to hospital with another episode of cellulitis especially to the left leg, patient blood cultures were reported positive for gram-negative bacilli. On today's evaluation and that is 11/22/2021, the patient is afebrile, patient denies having any chest pain or shortness of breath or cough no nausea no vomiting no abdominal pain no diarrhea, and the patient pain to the lower ext remity is currently controlled Objective - Vital Signs Vital signs: Vital Signs Temp 97.9 F 11/22/21 14:11 Pulse 93 11/22/21 14:11 Resp 18 11/22/21 14:11 BP 128/76 11/22/21 14:11 Pulse Ox 99 11/22/21 14:11 Intake & Output 11/21/21 11/22/21 11/22/21 18:59 06:59 18:59 Intake Total 210 250 236 Output Total 573 155 8908 Balance -878 -839 -6139 Intake: Oral 210 250 236 Output: Urine 233 184 4214 Other: Voiding Method External Catheter External Catheter External Catheter # Voids 1 - Exam GENERAL DESCRIPTION: Middle-age female lying in bed in no distress RESPIRATORY SYSTEM: Unlabored breathing , decreased breath sounds at bases HEART: S1 S2 regular rate and rhythm , ABDOMEN: Soft , no tenderness EXTREMITIES: Bilateral lower extremity swelling and redness has decreased and redness drainage - Labs CBC & Chem 7: 11/21/21 11:15 11/22/21 05:59 Labs: Microbiology - Last 24 Hours (Table) 11/21/21 11:39 Blood Culture - Preliminary Blood No Growth after 24 hours 11/21/21 11:15 Blood Culture - Preliminary Blood No Growth after 24 hours 11/20/21 03:15 Blood Culture Gram Stain - Preliminary Blood Blood Culture - Preliminary Gram Neg Bacilli 11/20/21 03:00 Blood Culture - Preliminary Blood No Growth after 48 hours Assessment and Plan (1) Cellulitis of left lower extremity Current Visit: Yes Status: Acute Code(s): L03.116 - CELLULITIS OF LEFT LOWER LIMB SNOMED Code(s): 837013537 Plan: 1patient presented to hospital with sepsis anticipated have a fever elevated white count source likely left lower extremity cellulitis in this we did have diffuse swelling redness , patient regarding her course complicated by development of bacteremia with a blood culture reported positive with gram- negative bacillus, ID and sensitivity is still pending 2local wound care to the leg with a dry Aquacel silver dressing and Aaron wrap. 3patient to continue with cefepime 2 g every 8 hours while waiting for cultures to finalize Time with Patient: Less than 30
[2021-11-23] MEDS: CEFEPIME 2 GM in SODIUM CHLORIDE 0.9% 100 ML IVPB SCH ×3 (04:04→20:46)
[2021-11-23] MEDS: HYDROcodone/APAP 5-325MG 1 EACH TAB PO PRN (04:13)
[2021-11-23 07:04] LABS: African American GFR (CKD) >90 (>60 ml/min/1.73 sqM); Non-African American GFR(CKD) >90 (>60 ml/min/1.73 sqM)
[2021-11-23] MEDS: PANTOPRAZOLE 40 MG TABLET PO SCH (09:12)
[2021-11-23] MEDS: ENOXAPARIN 40 MG/0.4 ML SYRINGE SQ SCH (09:12)
[2021-11-23] MEDS: LISINOPRIL-HCTZ 10-12.5 MG 1 EACH TAB PO SCH (09:12)
[2021-11-23] MEDS: BACLOFEN 10 MG TAB PO SCH ×3 (09:12→20:47)
--- NOTE | 2021-11-23 13:59 | P.PN ---
Subjective Progress Note Date: 11/23/21 Hospital course: Patient is a 51-year-old female with a past medical history of multiple sclerosis on monoclonal antibody, GERD, hypertension, and urinary incontinence. She presented to the emergency department on 11/20/21 with a chief complaint that her left leg was red, swollen and painful with yellow drainage. In the ER she underwent an extensive evaluation. She was found to be tachycardic with a pulse rate of 132. Initial laboratory analysis showed white blood cell count of 16, sodium 136, lactic acid 2.1. Patient was subsequently admitted for left lower extremity cellulitis with sepsis. She was given sepsis bolus and started on IV antibiotics. Patient was admitted under our services with consultation to infectious disease. Preliminary blood culture is revealing gram-negative bacilli awaiting final culture and sensitivity results. Physical examination: Patient seen and examined at bedside this morning. She reports overall feeling tired and fatigued and continues to have slight numbness and tingling in bilateral upper extremities but reports having improvement. She denies having any headache, lightheadedness, dizziness, chest pain, palpitations, shortness of breath, nausea, or vomiting. Lower extremities unwrapped and evaluated. Patient reports pain to right lower extremity but states currently is controlled. Repeat blood cultures showing no growth after 48 hours. She remains on IV antibiotic with cefepime pending final culture and sensitivity report. Had long discussion with patient regarding [facility] secondary to reported weakness, patient reports that she has been and will continue to discuss this with her daughter. General: non toxic, no distress, obese, appears older than stated age Derm: warm, dry, bilateral lower extremities with Aaron wrapping in place. Head: atraumatic, normocephalic, symmetric Eyes: EOMI, no lid lag, anicteric sclera Mouth: no lip lesion, mucus membranes moist Cardiovascular: S1S2 reg, no murmur, positive posterior tibial pulse bilateral, Lungs: Lungs diminished, no rhonchi, no rales, and no wheezes. no accessory muscle use Abdominal: soft, nontender to palpation, no guarding, no appreciable organomegaly Ext: no gross muscle atrophy, patient has lymphedema to bilateral lower extremities, no contractures Neuro: CN II-XI grossly intact, no focal neuro deficits Psych: Alert, oriented, appropriate affect Assessment/plan: Bilateral lower extremities cellulitis with chronic wounds and sepsis, infected chronic wound Gram negative bacteremia Sepsis upon arrival secondary to above -Infectious disease following, appreciate further recommendations -Continue with IV antibiotics: Cefepime -Wound care following -Follow CBC -Repeat blood cultures showing no growth to date. MS-secondary progressive with lower extremity weakness - neurology recs appreciated: would attempt to avoid steroids that this time with bacteremia - baclofen resumed - pain medications - supportive care - has been off injectable for 2 months HTN, controlled - resume home lisinopril/hctz - follow BP Severe Obesity with BMI 45.3 DVT prophylaxis: Lovenox Discussed with: Patient, nursing Anticipated discharge date: Possibly tomorrow awaiting final culture and sensitivity results Anticipated discharge place: Rehab A total of 35 minutes was spent on the care of this complex patient more than 50% of the time was spent in counseling and care coordination. I reviewed the documentation as provided by the BRANDEE above, who is the original author of this note. I agree with the documented assessment and plan, with the following changes: none Objective - Vital Signs Vital signs: Vital Signs Temp 99.0 F 11/23/21 07:00 Pulse 94 11/23/21 07:00 Resp 18 11/23/21 07:00 BP 117/67 11/23/21 07:00 Pulse Ox 94 L 11/23/21 07:00 Intake & Output 11/22/21 11/23/21 11/23/21 18:59 06:59 18:59 Intake Total 354 Output Total 2700 1100 Balance -2346 -1100 Intake: Oral 354 Output: Urine 2700 1100 Other: Voiding Method External Catheter External Catheter External Catheter # Voids 2 # Bowel Movements 1 - Labs CBC & Chem 7: 11/21/21 11:15 11/23/21 06:11 Labs: Microbiology - Last 24 Hours (Table) 11/20/21 03:00 Blood Culture - Preliminary Blood No Growth after 72 hours 11/21/21 11:39 Blood Culture - Preliminary Blood No Growth after 24 hours 11/21/21 11:15 Blood Culture - Preliminary Blood No Growth after 24 hours 11/20/21 03:15 Blood Culture Gram Stain - Preliminary Blood Blood Culture - Preliminary Gram Neg Bacilli
--- NOTE | 2021-11-23 18:03 | P.PN ---
Subjective Progress Note Date: 11/23/21 I am seeing the patient for the first time for neurological management. Please refer to Dr. Ross's note for further details. She feels about the same. She stated she follows-up with Dr. Grayson's team for her Multiple Sclerosis management. She is on Tysabri infusion every 30 days but has not received it in 60 days since pending home nurse (she has medication and pump). She denies of any new neurological problems. Objective - Vital Signs Vital signs: Vital Signs Temp 98.3 F 11/23/21 14:36 Pulse 72 11/23/21 14:36 Resp 18 11/23/21 14:36 BP 153/92 11/23/21 14:36 Pulse Ox 98 11/23/21 14:36 Intake & Output 11/22/21 11/23/21 11/23/21 18:59 06:59 18:59 Intake Total 354 620 Output Total 2700 1100 1150 Balance -2225 -3993 -255 Intake: Intake, IV Titration 260 Amount Cefepime 2 gm In Sodium 100 Chloride 0.9% 100 ml @ 25 mls/hr IVPB Q8H [facility] Rx#: [id number] Sodium Chloride 0.9% 1, 160 000 ml @ 130 mls/hr IV . Q7H42M [facility] Rx#:[id number] Oral 354 360 Output: Urine 2700 1100 1150 Other: Voiding Method External Catheter External Catheter External Catheter # Voids 2 # Bowel Movements 1 - Exam Patient's mentation is normal. Cranial nerves are normal. Strength in uppers are 5/5. While lowers has difficulty lifting above gravity. Has 2/5 bilaterally but limited because of pain. Patient's legs are in a bandage because of swelling. Has lymphedema. - Labs CBC & Chem 7: 11/21/21 11:15 11/23/21 06:11 Labs: Microbiology - Last 24 Hours (Table) 11/21/21 11:39 Blood Culture - Preliminary Blood No Growth after 48 hours 11/21/21 11:15 Blood Culture - Preliminary Blood No Growth after 48 hours 11/20/21 03:00 Blood Culture - Preliminary Blood No Growth after 72 hours Assessment and Plan Assessment: * Likely Pseudoexacerbation of MS due to underlying cellulitis. Cannot rule out true exacerbation since has not received her medication Tysabri (last use was 60 days ago and usually get infusion every 30 days). * Bilateral lower extremity cellulitis with chronic wound. * Gram negative bactremia. 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 * Severe lymphedema bilateral lower extremities. * Chronic urinary incontinence likely due to MS. Plan: * Patient has septicemia. Patient now on cefepime. Infectious disease following. * Solu-Medrol was not started since patient has underlying infection. Once clear from I.D. and medicine team recommend tapering dose of PO steroids to be discharged as outpatient. * Patient refuses MRI. * Will defer the rest of medical management to the primary team. * Upon discharge, the patient needs to follow-up with her neurologist as outpatient within 1-2 weeks (Dr[address] Grayson's team). The plan is discussed with patient. Robbi Hector M.D. Neuro-Hospitalist. Time with Patient: Less than 30
--- NOTE | 2021-11-23 22:39 | P.PN ---
Subjective Progress Note Date: 11/23/21 Principal diagnosis: Bilateral lower extremity cellulitis and bacteremia Patient is a 51 year female with significant bilateral lower extremity lymphedema and history of cellulitis presented to hospital with another episode of cellulitis especially to the left leg, patient blood cultures were reported positive for gram-negative bacilli. On today's evaluation and that is 11/23/2021, the patient remains to be afebrile, patient denies having any chest pain or shortness of breath or cough no nausea no vomiting no abdominal pain no diarrhea, and the patient pain to the lower extremity is currently controlled and the drainage has significantly decreased Objective - Vital Signs Vital signs: Vital Signs Temp 99.0 F 11/23/21 07:00 Pulse 94 11/23/21 07:00 Resp 18 11/23/21 07:00 BP 117/67 11/23/21 07:00 Pulse Ox 94 L 11/23/21 07:00 Intake & Output 11/22/21 11/23/21 11/23/21 18:59 06:59 18:59 Intake Total 354 120 Output Total 2700 1100 Balance -2346 -1100 120 Intake: Oral 354 120 Output: Urine 2700 1100 Other: Voiding Method External Catheter External Catheter External Catheter # Voids 2 # Bowel Movements 1 - Exam GENERAL DESCRIPTION: Middle-age female lying in bed in no distress RESPIRATORY SYSTEM: Unlabored breathing , decreased breath sounds at bases HEART: S1 S2 regular rate and rhythm , ABDOMEN: Soft , no tenderness EXTREMITIES: Bilateral lower extremity swelling and redness has decreased and redness drainage - Labs CBC & Chem 7: 11/21/21 11:15 11/23/21 06:11 Labs: Microbiology - Last 24 Hours (Table) 11/20/21 03:00 Blood Culture - Preliminary Blood No Growth after 72 hours 11/21/21 11:39 Blood Culture - Preliminary Blood No Growth after 24 hours 11/21/21 11:15 Blood Culture - Preliminary Blood No Growth after 24 hours 11/20/21 03:15 Blood Culture Gram Stain - Preliminary Blood Blood Culture - Preliminary Gram Neg Bacilli Assessment and Plan (1) Cellulitis of left lower extremity Current Visit: Yes Status: Acute Code(s): L03.116 - CELLULITIS OF LEFT LOWER LIMB SNOMED Code(s): 269733436 Plan: 1patient presented to hospital with sepsis anticipated have a fever elevated white count source likely left lower extremity cellulitis in this we did have diffuse swelling redness , patient regarding her course complicated by development of bacteremia with a blood culture reported positive with gram- negative bacillus, ID and sensitivity is still pending 2local wound care to the leg with a dry Aquacel silver dressing and Aaron wrap. 3patient seemed to have shown clinical improvement and will continue with cefepime 2 g every 8 hours while waiting for cultures to finalize Time with Patient: Less than 30
[2021-11-24] MEDS: CEFEPIME 2 GM in SODIUM CHLORIDE 0.9% 100 ML IVPB SCH (04:06)
[2021-11-24] MEDS: PANTOPRAZOLE 40 MG TABLET PO SCH (08:04)
[2021-11-24] MEDS: BACLOFEN 10 MG TAB PO SCH ×3 (08:04→22:07)
[2021-11-24] MEDS: LISINOPRIL-HCTZ 10-12.5 MG 1 EACH TAB PO SCH (08:04)
[2021-11-24] MEDS: ENOXAPARIN 40 MG/0.4 ML SYRINGE SQ SCH (08:05)
[2021-11-24 09:07] LABS: HGB 10.1 g/dL (12.0-15.0); MCH 25.9 pg (27.0-32.0); MCHC 30.6 g/dL (32.0-37.0); MCV 84.6 fL (80.0-97.0); Mean Platelet Volume 9.1 fL (9.5-12.2); NRBC Per 100 WBC 0 /100 WBCS (0.0-0.0); Platelet Count 300 X 10*3/uL (140-440); RDW 14.7 % (11.5-14.5); WBC 5.99 X 10*3/uL (4.50-10.00)
[2021-11-24 09:37] LABS: ALT <5 U/L (8-44); AST 9 U/L (13-35); African American GFR (CKD) 129.9 (60.0-200.0); Albumin 3.1 g/dL (3.8-4.9); Albumin/Globulin Ratio 1.24 (1.60-3.17); Alkaline Phosphatase 74 U/L (41-126); Blood Urea Nitrogen 7.2 mg/dL (9.0-27.0); Calcium 8.6 mg/dL (8.7-10.3); Carbon Dioxide 28.2 mmol/L (20.0-27.5); Chloride 104 mmol/L (96-109); Globulin 2.5 g/dL (1.6-3.3); Glucose 118 mg/dL (70-110); Non-African American GFR(CKD) 112.1 (60.0-200.0); Potassium 4.4 mmol/L (3.5-5.5); Sodium 141 mmol/L (135-145); Total Protein 5.6 g/dL (6.2-8.2)
--- NOTE | 2021-11-24 10:19 | CDI ---
Documentation Clarification Form Date: 11/24/2021 10:07:27 AM From: Trinh Singh CCS, CCDS Admit Date: 11/20/2021 08:49:00 AM Patient Name: Petra Padron Visit Number: [id number] Discharge Date: ATTENTION: The Clinical Documentation Specialists (CDI) and [facility] Coding Staff appreciate your assistance in clarifying documentation. Please respond to the clarification below the line at the bottom and electronically sign. The CDI & [facility] Coding staff will review the response and follow-up if needed. Please note: Queries are made part of the Legal Health Record. If you have any questions, please contact the author of this message via ITS. Dr. Nelson Thrasher: Your patient has an abnormal lab value: Glucose 11/20: 132, 11/21: 188 and 11/24: 118. Please clarify if there is an additional diagnosis and/or clinical significance related to this value. History/Risk Factors per the 11/20 H/P: Multiple Sclerosis, GERD, Hypertension, Urinary Incontinence and elevated blood sugars with steroids. Clinical indicators: Presented to the ED on 11/20 via EMS with swollen bilateral lower extremities & pain with yellowish weeping/drainage. Unable to take her medication for MS. Admit with Bilateral Lower Extremity Cellulitis 11/20 LAB: WBC 16.0, Neutrophils 14.5, Lymph 0.7; Na 136, Lactic Acid 2.3, 1.5. UA negative. Glucose level as above. Treatment 11/20: Fall precautions, Blood cultures, IV Zosyn 100 mls @ 200 mls/hr x1, IV Morphine 4 mg x2, IV Vancomycin 250 mls @ 125 mls/hr x1, IV Na Cl 1,000 mls @ 130 mls/hr q7H, IV Na Cl 1,000 mls @ 999 mls/hr q1H, IV Ampicillin Na/Sulbactram Na 100 mls @ 200 mls/hr q6H. Steroids held with Bacteremia. Is there an additional diagnosis and/or clinical significance related to the above lab result/information? [ ] Hyperglycemia, please specify cause if known: [ ] Other abnormal lab value diagnosis, please specify with cause if known: [x] No additional diagnosis/Not clinically significant [ ] Other, please specify [ ] Unable to determine (Template Last Revised: September 2020) MTDD
--- NOTE | 2021-11-24 11:08 | P.PN ---
Subjective Progress Note Date: 11/24/21 Hospital course: Patient is a 51-year-old female with a past medical history of multiple sclerosis on monoclonal antibody, GERD, hypertension, and urinary incontinence. She presented to the emergency department on 11/20/21 with a chief complaint that her left leg was red, swollen and painful with yellow drainage. In the ER she underwent an extensive evaluation. She was found to be tachycardic with a pulse rate of 132. Initial laboratory analysis showed white blood cell count of 16, sodium 136, lactic acid 2.1. Patient was subsequently admitted for left lower extremity cellulitis with sepsis. She was given sepsis bolus and started on IV antibiotics. Patient was admitted under our services with consultation to infectious disease. Blood culture is positive for Achromobacter xylos SS denit, antibiotics changed to ceftazidime per sensitivity report. Consult placed to he matology to rule out cutaneous lymphoma. Physical examination: Patient seen and examined at bedside this morning. She continues to report fatigue She denies having any headache, lightheadedness, dizziness, chest pain, palpitations, shortness of breath, nausea, or vomiting. She reports continued weakness and numbness of lower extremities and intermittent pain in her right lower extremity. PT/OT evaluated patient recommending started to increase strength, functional mobility prior to returning home. At this time patient declining subacute rehab and planning for discharge home with home care. Case management team meet with patient and to discuss further. Blood culture is positive for Achromobacter xylos SS denit, antibiotics changed to ceftazidime per sensitivity report. Consult placed to hematology to rule out cutaneous lymphoma. General: non toxic, no distress, obese, appears older than stated age Derm: warm, dry, bilateral lower extremities with Aaron wrapping in place. Head: atraumatic, normocephalic, symmetric Eyes: EOMI, no lid lag, anicteric sclera Mouth: no lip lesion, mucus membranes moist Cardiovascular: S1S2 reg, no murmur, positive posterior tibial pulse bilateral, Lungs: Lungs diminished, no rhonchi, no rales, and no wheezes. 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 MS-secondary progressive with lower extremity weakness and numbness - neurology recs appreciated: would attempt to avoid steroids that this time with bacteremia - baclofen resumed - pain medications - supportive care - has been off injectable for 2 months HTN, controlled - resume home lisinopril/hctz - follow BP Severe Obesity with BMI 45.3 DVT prophylaxis: Lovenox Discussed with: Patient, nursing Anticipated discharge date: Clinical course to determine Anticipated discharge place: Home with homecare versus Rehab A total of 36 minutes was spent on the care of this complex patient more than 50% of the time was spent in counseling and care coordination. I reviewed the documentation as provided by the BRANDEE above, who is the original author of this note. I agree with the documented assessment and plan, with the following changes: None Objective - Vital Signs Vital signs: Vital Signs Temp 98.1 F 11/24/21 04:27 Pulse 87 11/24/21 08:00 Resp 18 11/24/21 08:00 BP 119/70 11/24/21 04:27 Pulse Ox 95 11/24/21 04:27 Intake & Output 11/23/21 11/24/21 11/24/21 18:59 06:59 18:59 Intake Total 620 400 Output Total 1150 2850 Balance -530 -2450 Intake: Intake, IV Titration 260 Amount Cefepime 2 gm In Sodium 100 Chloride 0.9% 100 ml @ 25 mls/hr IVPB Q8H [facility] Rx#: [id number] Sodium Chloride 0.9% 1, 160 000 ml @ 130 mls/hr IV . Q7H42M [facility] Rx#:[id number] Oral 360 400 Output: Urine 1150 2850 Other: Voiding Method External Catheter External Catheter External Catheter - Labs CBC & Chem 7: 11/24/21 05:50 11/24/21 05:50 Labs: Abnormal Lab Results - Last 24 Hours (Table) 11/24/21 11/24/21 Range/Units 05:50 05:50 RBC 3.90 L (4.10-5.20) X 10*6/uL Hgb 10.1 L (12.0-15.0) g/dL Hct 33.0 L (37.2-46.3) % MCH 25.9 L (27.0-32.0) pg MCHC 30.6 L (32.0-37.0) g/dL RDW 14.7 H (11.5-14.5) % MPV 9.1 L (9.5-12.2) fL Carbon Dioxide 28.2 H (20.0-27.5) mmol/L Anion Gap 8.80 L (10.00-18.00) mmol/L BUN 7.2 L (9.0-27.0) mg/dL Creatinine 0.5 L (0.6-1.5) mg/dL Glucose 118 H (70-110) mg/dL Calcium 8.6 L (8.7-10.3) mg/dL AST 9 L (13-35) U/L ALT <5 L (8-44) U/L Total Protein 5.6 L (6.2-8.2) g/dL Albumin 3.1 L (3.8-4.9) g/dL Albumin/Globulin Ratio 1.24 L (1.60-3.17) g/dL Microbiology - Last 24 Hours (Table) 11/20/21 03:15 Blood Culture Gram Stain - Final Blood Blood Culture - Final Achromobacter xylos SS denit 11/20/21 03:00 Blood Culture - Preliminary Blood No Growth after 96 hours 11/21/21 11:39 Blood Culture - Preliminary Blood No Growth after 48 hours 11/21/21 11:15 Blood Culture - Preliminary Blood No Growth after 48 hours
--- NOTE | 2021-11-24 15:54 | P.PN ---
Subjective Progress Note Date: 11/24/21 The patient is seen at bedside and feels slightly better today compared to yesterday. She denies of any new neurological problems. Objective - Vital Signs Vital signs: Vital Signs Temp 98 F 11/24/21 11:57 Pulse 70 11/24/21 11:57 Resp 18 11/24/21 11:57 BP 150/80 11/24/21 11:57 Pulse Ox 96 11/24/21 11:57 Intake & Output 11/23/21 11/24/21 11/24/21 18:59 06:59 18:59 Intake Total 620 400 Output Total 1150 2850 Balance -530 -2450 Intake: Intake, IV Titration 260 Amount Cefepime 2 gm In Sodium 100 Chloride 0.9% 100 ml @ 25 mls/hr IVPB Q8H NICO Rx#: [id number] Sodium Chloride 0.9% 1, 160 000 ml @ 130 mls/hr IV . Q7H42M NICO Rx#:[id number] Oral 360 400 Output: Urine 1150 2850 Other: Voiding Method External Catheter External Catheter External Catheter - Exam Patient's mentation is normal. Cranial nerves are normal. Strength in uppers are 5/5. While lowers has difficulty lifting above gravity. Has 2-3/5 bilaterally but limited because of pain. Patient's legs are in a bandage because of swelling. Has lymphedema. - Labs CBC & Chem 7: 11/24/21 05:50 11/24/21 05:50 Labs: Abnormal Lab Results - Last 24 Hours (Table) 11/24/21 11/24/21 Range/Units 05:50 05:50 RBC 3.90 L (4.10-5.20) X 10*6/uL Hgb 10.1 L (12.0-15.0) g/dL Hct 33.0 L (37.2-46.3) % MCH 25.9 L (27.0-32.0) pg MCHC 30.6 L (32.0-37.0) g/dL RDW 14.7 H (11.5-14.5) % MPV 9.1 L (9.5-12.2) fL Carbon Dioxide 28.2 H (20.0-27.5) mmol/L Anion Gap 8.80 L (10.00-18.00) mmol/L BUN 7.2 L (9.0-27.0) mg/dL Creatinine 0.5 L (0.6-1.5) mg/dL Glucose 118 H (70-110) mg/dL Calcium 8.6 L (8.7-10.3) mg/dL AST 9 L (13-35) U/L ALT <5 L (8-44) U/L Total Protein 5.6 L (6.2-8.2) g/dL Albumin 3.1 L (3.8-4.9) g/dL Albumin/Globulin Ratio 1.24 L (1.60-3.17) g/dL Microbiology - Last 24 Hours (Table) 11/21/21 11:39 Blood Culture - Preliminary Blood No Growth after 72 hours 11/21/21 11:15 Blood Culture - Preliminary Blood No Growth after 72 hours 11/20/21 03:15 Blood Culture Gram Stain - Final Blood Blood Culture - Final Achromobacter xylos SS denit 11/20/21 03:00 Blood Culture - Preliminary Blood No Growth after 96 hours Assessment and Plan Assessment: * Likely Pseudoexacerbation of MS due to underlying cellulitis. Cannot rule out true exacerbation since has not received her medication Tysabri (last use was 60 days ago and usually get infusion every 30 days). * Bilateral lower extremity cellulitis with chronic wound. * Gram negative bactremia. 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 * Severe lymphedema bilateral lower extremities. * Chronic urinary incontinence likely due to MS. Plan: * Patient has septicemia. Patient now on cefepime. Infectious disease following. * Solu-Medrol was not started since patient has underlying infection. Once clear from I.D. and medicine team recommend tapering dose of PO steroids to be discharged as outpatient. * Patient refuses MRI. * Will defer the rest of medical management to the primary team. * Upon discharge, the patient needs to follow-up with her neurologist as outpatient within 1-2 weeks (Dr. Grayson's team). The plan is discussed with patient. Robbi Hector M.D. Neuro-Hospitalist. Time with Patient: Less than 30
--- NOTE | 2021-11-24 17:07 | P.CONS ---
History of Present Illness - Reason for Consult Consult date: 11/24/21 rule out cutaneous lymphoma Requesting physician: Ke Mullen - Chief Complaint bilateral lower extremity swelling - History of Present Illness Mrs. Padron is a very pleasant 51-year-old female with a past medical history of multiple sclerosis, morbid obesity,and hypertension we have been asked to see because of significant changes in the skin of the bilateral lower extremities. Patient and her provide history. For about the last year patient has been had experiencing bilateral lower extremity swelling, left greater than right. Over time this has created significant scarring of the leg with initially blisters and drainage. The skin has now thickened, nodules are present, skin is very dry,cracked and flaky, discoloration ranging from red to brown to some areas that are even black.. She is currently admitted because of severe lower extremity swelling which has improved significantly. Patient has a history of MS diagnosed in 2010. She has been being treated with Tysabri, she is not had an infusion for about 60 days. She denies any other rash, fevers, night sweats, unintentional weight loss. Patient is generally confined to a chair. Review of Systems 14 point review of systems is negative except as stated in HPI Past Medical History Past Medical History: GERD/Reflux, Hypertension, Musculoskeletal Disorder, Neurologic Disorder Additional Past Medical History / Comment(s): MS, urinary incontinence, elevated blood sugars with steroids. History of Any Multi-Drug Resistant Organisms: None Reported Past Surgical History: Cholecystectomy Additional Past Surgical History / Comment(s): L benign ovarian mass with oophorectomy, R ovary resected/cyst Past Anesthesia/Blood Transfusion Reactions: No Reported Reaction Additional Past Anesthesia/Blood Transfusion Reaction / Comm: Pt received blood with gallbladder surgery without reaction. Past Psychological History: Depression Smoking Status: Former smoker Past Alcohol Use History: Rare Past Drug Use History: None Reported - Past Family History Mother History Unknown: Yes Family Medical History: Eye Disorder, Hypertension, Osteoarthritis (OA) Additional Family Medical History / Comment(s): ARTHRITIS, KNEE REPLACEMENT SURGERY, GLAUCOMA WITH SURGERY. Father History Unknown: Yes Family Medical History: Cancer, Hypertension, Osteoarthritis (OA) Additional Family Medical History / Comment(s): PACEMAKER, ARTHRITIS WITH KNEE REPLACEMENTS, COLON CANCER STAGE II. FATHER LIVED TO BE 79YRS OLD. Medications and Allergies Home Medications Medication Instructions Recorded Confirmed Type Baclofen [Lioresal] 20 mg PO TID 10/12/20 11/20/21 History Ibuprofen [Motrin Ib] 200 - 400 mg PO Q6H PRN 08/20/21 11/20/21 History Omeprazole Magnesium [PriLOSEC OTC] 20 mg PO DAILY 08/20/21 11/20/21 History Lisinopril-Hctz 10-12.5 mg 1 tab PO DAILY 11/20/21 11/20/21 History [Zestoretic 10-12.5] Tysabri Infusion 300 mg IV Q28D 11/20/21 11/20/21 History Allergies Allergy/AdvReac Type Severity Reaction Status Date / Time No Known Allergies Allergy Verified 11/20/21 06:11 Physical Exam Vitals: Vital Signs Temp Pulse Resp BP Pulse Ox 11/24/21 11:57 98 F 70 18 150/80 96 11/24/21 08:00 87 18 11/24/21 04:27 98.1 F 87 18 119/70 95 11/23/21 19:08 97.9 F 87 18 158/95 99 Intake and Output 11/24/21 11/24/21 11/24/21 06:59 14:59 22:59 Intake Total 400 Output Total 850 Balance -450 Intake: Oral 400 Output: Urine 850 Other: Voiding Method External Catheter - Constitutional General appearance: cooperative, morbidly obese, no acute distress - EENT Eyes: anicteric sclerae, EOMI ENT: hearing grossly normal, normal oropharynx - Neck Neck: no lymphadenopathy - Respiratory Respiratory: bilateral: CTA - Cardiovascular Rhythm: regular Heart sounds: normal: S1, S2 Abnormal Heart Sounds: no systolic murmur, no diastolic murmur, no rub, no S3 Gallop, no S4 Gallop, no click, no other leg Peripheral Edema: bilateral: 1+ - Gastrointestinal General gastrointestinal: no absent bowel sounds, no decreased bowel sounds, no distended, no hepatomegaly, no hyperactive bowel sounds, normal bowel sounds, no organomegaly, no rigid, no scaphoid, soft, no splenomegaly, no tenderness, no umbilical hernia, no ventral hernia - Genitourinary no inguinal lymph nodes palpated - Integumentary bilateral lower extremities the skin is thickened, dry, nodular in some areas - Neurologic Neurologic: CNII-XII intact (grossly) - Musculoskeletal Musculoskeletal: generalized weakness - Psychiatric Psychiatric: A&O x's 3, appropriate affect, intact judgment & insight Results CBC & Chem 7: 11/24/21 05:50 11/24/21 05:50 Labs: Abnormal Lab Results - Last 24 Hours (Table) 11/24/21 11/24/21 Range/Units 05:50 05:50 RBC 3.90 L (4.10-5.20) X 10*6/uL Hgb 10.1 L (12.0-15.0) g/dL Hct 33.0 L (37.2-46.3) % MCH 25.9 L (27.0-32.0) pg MCHC 30.6 L (32.0-37.0) g/dL RDW 14.7 H (11.5-14.5) % MPV 9.1 L (9.5-12.2) fL Carbon Dioxide 28.2 H (20.0-27.5) mmol/L Anion Gap 8.80 L (10.00-18.00) mmol/L BUN 7.2 L (9.0-27.0) mg/dL Creatinine 0.5 L (0.6-1.5) mg/dL Glucose 118 H (70-110) mg/dL Calcium 8.6 L (8.7-10.3) mg/dL AST 9 L (13-35) U/L ALT <5 L (8-44) U/L Total Protein 5.6 L (6.2-8.2) g/dL Albumin 3.1 L (3.8-4.9) g/dL Albumin/Globulin Ratio 1.24 L (1.60-3.17) g/dL Microbiology - Last 24 Hours (Table) 11/21/21 11:39 Blood Culture - Preliminary Blood No Growth after 72 hours 11/21/21 11:15 Blood Culture - Preliminary Blood No Growth after 72 hours 11/20/21 03:15 Blood Culture Gram Stain - Final Blood Blood Culture - Final Achromobacter xylos SS denit 11/20/21 03:00 Blood Culture - Preliminary Blood No Growth after 96 hours Assessment and Plan Plan: bilateral lower extremity skin changes. This is been persistent and progressive over the last year. Have requested skin biopsies of both of the lower extremities to evaluate for any malignant infiltrating process. Will await results of the same. Further recommendations to follow based on results. anemia: Anemia workup ordered. Doctor attests: I performed a history and physical examination of this patient, developed impression and plan of care, discussed with dictator. I agree with dictators note, documented as a scribe.
--- NOTE | 2021-11-24 23:31 | P.GSCN ---
History of Present Illness Consult date: 11/24/21 History of present illness: Patient seen and evaluated. Additional information obtained by her at bedside. Patient presented with severe lymphedema of the bilateral lower extremities and swelling. Patient has pre-existing history of the wound care clinic. Patient also confirms lymphedema and has lymphedema treatment. Patient has not previously seen a vascular surgeon regarding her circulation. General surgery is consulted for biopsies of venous stasis disease for questionable lymphoma. Recommend consultation vascular surgery for combination lymphedema including venous stasis disease. Biopsies deferred pending further assessment by vascular surgeon Past Medical History Past Medical History: GERD/Reflux, Hypertension, Musculoskeletal Disorder, Neurologic Disorder Additional Past Medical History / Comment(s): MS, urinary incontinence, elevated blood sugars with steroids. History of Any Multi-Drug Resistant Organisms: None Reported Past Surgical History: Cholecystectomy Additional Past Surgical History / Comment(s): L benign ovarian mass with oophorectomy, R ovary resected/cyst Past Anesthesia/Blood Transfusion Reactions: No Reported Reaction Additional Past Anesthesia/Blood Transfusion Reaction / Comm: Pt received blood with gallbladder surgery without reaction. Past Psychological History: Depression Smoking Status: Former smoker Past Alcohol Use History: Rare Past Drug Use History: None Reported - Past Family History Mother History Unknown: Yes Family Medical History: Eye Disorder, Hypertension, Osteoarthritis (OA) Additional Family Medical History / Comment(s): ARTHRITIS, KNEE REPLACEMENT SURGERY, GLAUCOMA WITH SURGERY. Father History Unknown: Yes Family Medical History: Cancer, Hypertension, Osteoarthritis (OA) Additional Family Medical History / Comment(s): PACEMAKER, ARTHRITIS WITH KNEE REPLACEMENTS, COLON CANCER STAGE II. FATHER LIVED TO BE 79YRS OLD. Medications and Allergies Home Medications Medication Instructions Recorded Confirmed Type Baclofen [Lioresal] 20 mg PO TID 10/12/20 11/20/21 History Ibuprofen [Motrin Ib] 200 - 400 mg PO Q6H PRN 08/20/21 11/20/21 History Omeprazole Magnesium [PriLOSEC OTC] 20 mg PO DAILY 08/20/21 11/20/21 History Lisinopril-Hctz 10-12.5 mg 1 tab PO DAILY 11/20/21 11/20/21 History [Zestoretic 10-12.5] Tysabri Infusion 300 mg IV Q28D 11/20/21 11/20/21 History Allergies Allergy/AdvReac Type Severity Reaction Status Date / Time No Known Allergies Allergy Verified 11/20/21 06:11 Surgical - Exam Vital Signs Temp Pulse Resp BP Pulse Ox 98.9 F 132 H 20 137/82 98 11/20/21 01:51 11/20/21 01:51 11/20/21 01:51 11/20/21 01:51 11/20/21 01:51 Results - Labs 11/24/21 05:50 11/24/21 05:50 Abnormal Lab Results - Last 24 Hours (Table) 11/24/21 11/24/21 Range/Units 05:50 05:50 RBC 3.90 L (4.10-5.20) X 10*6/uL Hgb 10.1 L (12.0-15.0) g/dL Hct 33.0 L (37.2-46.3) % MCH 25.9 L (27.0-32.0) pg MCHC 30.6 L (32.0-37.0) g/dL RDW 14.7 H (11.5-14.5) % MPV 9.1 L (9.5-12.2) fL Carbon Dioxide 28.2 H (20.0-27.5) mmol/L Anion Gap 8.80 L (10.00-18.00) mmol/L BUN 7.2 L (9.0-27.0) mg/dL Creatinine 0.5 L (0.6-1.5) mg/dL Glucose 118 H (70-110) mg/dL Calcium 8.6 L (8.7-10.3) mg/dL AST 9 L (13-35) U/L ALT <5 L (8-44) U/L Total Protein 5.6 L (6.2-8.2) g/dL Albumin 3.1 L (3.8-4.9) g/dL Albumin/Globulin Ratio 1.24 L (1.60-3.17) g/dL Microbiology - Last 24 Hours (Table) 11/21/21 11:39 Blood Culture - Preliminary Blood No Growth after 72 hours 11/21/21 11:15 Blood Culture - Preliminary Blood No Growth after 72 hours 11/20/21 03:15 Blood Culture Gram Stain - Final Blood Blood Culture - Final Achromobacter xylos SS denit 11/20/21 03:00 Blood Culture - Preliminary Blood No Growth after 96 hours Diabetes panel 11/24/21 Range/Units 05:50 Sodium 141 (135-145) mmol/L Potassium 4.4 (3.5-5.5) mmol/L Chloride 104 (96-109) mmol/L Carbon Dioxide 28.2 H (20.0-27.5) mmol/L BUN 7.2 L (9.0-27.0) mg/dL Creatinine 0.5 L (0.6-1.5) mg/dL Glucose 118 H (70-110) mg/dL Calcium 8.6 L (8.7-10.3) mg/dL AST 9 L (13-35) U/L ALT <5 L (8-44) U/L Alkaline Phosphatase 74 (41-126) U/L Total Protein 5.6 L (6.2-8.2) g/dL Albumin 3.1 L (3.8-4.9) g/dL Calcium panel 11/24/21 Range/Units 05:50 Calcium 8.6 L (8.7-10.3) mg/dL Albumin 3.1 L (3.8-4.9) g/dL Pituitary panel 11/24/21 Range/Units 05:50 Sodium 141 (135-145) mmol/L Potassium 4.4 (3.5-5.5) mmol/L Chloride 104 (96-109) mmol/L Carbon Dioxide 28.2 H (20.0-27.5) mmol/L BUN 7.2 L (9.0-27.0) mg/dL Creatinine 0.5 L (0.6-1.5) mg/dL Glucose 118 H (70-110) mg/dL Calcium 8.6 L (8.7-10.3) mg/dL Adrenal panel 11/24/21 Range/Units 05:50 Sodium 141 (135-145) mmol/L Potassium 4.4 (3.5-5.5) mmol/L Chloride 104 (96-109) mmol/L Carbon Dioxide 28.2 H (20.0-27.5) mmol/L BUN 7.2 L (9.0-27.0) mg/dL Creatinine 0.5 L (0.6-1.5) mg/dL Glucose 118 H (70-110) mg/dL Calcium 8.6 L (8.7-10.3) mg/dL Total Bilirubin 0.30 (0.30-1.20) mg/dL AST 9 L (13-35) U/L ALT <5 L (8-44) U/L Alkaline Phosphatase 74 (41-126) U/L Total Protein 5.6 L (6.2-8.2) g/dL Albumin 3.1 L (3.8-4.9) g/dL
--- NOTE | 2021-11-24 23:48 | P.PN ---
Subjective Progress Note Date: 11/24/21 Principal diagnosis: Bilateral lower extremity cellulitis and bacteremia Patient is a 51 year female with significant bilateral lower extremity lymphedema and history of cellulitis presented to hospital with another episode of cellulitis especially to the left leg, patient blood cultures were reported positive for gram-negative bacilli. On today's evaluation and that is 11/24/2021, the patient denies any fever or chills, patient denies having any chest pain or shortness of breath or cough no nausea no vomiting no abdominal pain no diarrhea, and the patient pain to the lower extremity is currently controlled Objective - Vital Signs Vital signs: Vital Signs Temp 98 F 11/24/21 11:57 Pulse 70 11/24/21 11:57 Resp 18 11/24/21 20:00 BP 150/80 11/24/21 11:57 Pulse Ox 96 11/24/21 11:57 Intake & Output 11/24/21 11/24/21 11/25/21 06:59 18:59 06:59 Intake Total 400 Output Total 2850 1999 850 Balance -8030 850 Intake: Oral 400 Output: Urine 2850 2000 850 Other: Voiding Method External Catheter External Catheter External Catheter # Voids 1 - Exam GENERAL DESCRIPTION: Middle-age female lying in bed in no distress RESPIRATORY SYSTEM: Unlabored breathing , decreased breath sounds at bases HEART: S1 S2 regular rate and rhythm , ABDOMEN: Soft , no tenderness EXTREMITIES: Bilateral lower extremity swelling and redness has decreased and redness drainage - Labs CBC & Chem 7: 11/24/21 05:50 11/24/21 05:50 Labs: Abnormal Lab Results - Last 24 Hours (Table) 11/24/21 11/24/21 Range/Units 05:50 05:50 RBC 3.90 L (4.10-5.20) X 10*6/uL Hgb 10.1 L (12.0-15.0) g/dL Hct 33.0 L (37.2-46.3) % MCH 25.9 L (27.0-32.0) pg MCHC 30.6 L (32.0-37.0) g/dL RDW 14.7 H (11.5-14.5) % MPV 9.1 L (9.5-12.2) fL Carbon Dioxide 28.2 H (20.0-27.5) mmol/L Anion Gap 8.80 L (10.00-18.00) mmol/L BUN 7.2 L (9.0-27.0) mg/dL Creatinine 0.5 L (0.6-1.5) mg/dL Glucose 118 H (70-110) mg/dL Calcium 8.6 L (8.7-10.3) mg/dL AST 9 L (13-35) U/L ALT <5 L (8-44) U/L Total Protein 5.6 L (6.2-8.2) g/dL Albumin 3.1 L (3.8-4.9) g/dL Albumin/Globulin Ratio 1.24 L (1.60-3.17) g/dL Microbiology - Last 24 Hours (Table) 11/21/21 11:39 Blood Culture - Preliminary Blood No Growth after 72 hours 11/21/21 11:15 Blood Culture - Preliminary Blood No Growth after 72 hours 11/20/21 03:15 Blood Culture Gram Stain - Final Blood Blood Culture - Final Achromobacter xylos SS denit 11/20/21 03:00 Blood Culture - Preliminary Blood No Growth after 96 hours Assessment and Plan (1) Cellulitis of left lower extremity Current Visit: Yes Status: Acute Code(s): L03.116 - CELLULITIS OF LEFT LOWER LIMB SNOMED Code(s): 637805402 Plan: 1patient presented to hospital with sepsis anticipated have a fever elevated white count source likely left lower extremity cellulitis in this we did have diffuse swelling redness , patient regarding her course complicated by development of bacteremia with a blood culture reported positive with gram- negative bacillus, which has been finalized with Achrmobacter with intermediate sensitivity to cefepime 2local wound care to the leg with a dry Aquacel silver dressing and Aaron wrap. 3patient will be switched over to Fortaz 2 g every 8 hours midline and plan for 10 day course of IV Fortaz on discharge Time with Patient: Less than 30
[2021-11-25] MEDS: BACLOFEN 10 MG TAB PO SCH ×3 (08:07→21:46)
[2021-11-25] MEDS: LISINOPRIL-HCTZ 10-12.5 MG 1 EACH TAB PO SCH (08:07)
[2021-11-25] MEDS: PANTOPRAZOLE 40 MG TABLET PO SCH (08:07)
[2021-11-25] MEDS: ENOXAPARIN 40 MG/0.4 ML SYRINGE SQ SCH (08:08)
[2021-11-25] MEDS: ACETAMINOPHEN TAB 325 MG TAB PO PRN (08:09)
--- NOTE | 2021-11-25 08:30 | CDI ---
Documentation Clarification Form Date: 11/25/2021 08:16:05 AM From: Trinh Singh CCS, CCDS Admit Date: 11/20/2021 08:49:00 AM Patient Name: Petra Padron Visit Number: [id number] Discharge Date: ATTENTION: The Clinical Documentation Specialists (CDI) and [facility] Coding Staff appreciate your assistance in clarifying documentation. Please respond to the clarification below the line at the bottom and electronically sign. The CDI & [facility] Coding staff will review the response and follow-up if needed. Please note: Queries are made part of the Legal Health Record. If you have any questions, please contact the author of this message via ITS. Dr. Nelson Thrasher: Per the 11/20 History & Physical an the 11/20 Neurology Consult: the patient has MS, diagnosed in 2010 and has been wheelchair bound, her MS is diagnosed as primary, progressive. Unable to transfer from her bed to wheelchair due to pain, has chronic nonhealing wounds on her bilateral lower extremities. Additional clarification regarding the patient's mobility status is requested. History/Risk Factors per the 11/20 H/P: MS with lower extremity weakness, GERD, Hypertension, Urinary incontinence, Severe Obesity BMI 45.3. Clinical Indicators: Presented to the ED on 11/20 via EMS with left greater than right leg pain & swelling, weeping, yellowish drainage. Admit with Bilateral Lower Extremity Cellulitis 11/20 VS: T 98.9, 99.8; P 132, 107; R 20, BP 137/82, 96/52; PO 98 RA, BMI: 45.3 11/20 LAB: WBC 16.0, Neutrophils 14.5, Lymph 0.7; Na 136, Glucose 132, Lactic Acid 2.1 ,1.5 11/20: UA: Clear, Trace Glucose No imaging this admission. Treatment 11/20: Fall precautions, Consults: Neurology, Infectious Disease, Blood cultures, IV Zosyn 100 mls @ 200 mls/hr x1, IV Morphine 4 mg x1, I Vancomycin 250 mls @ 125 mls/hr x1, po Tylenol 650 mg q6H, IV Na Cl 1,000 mls @ 130 mls/hr q7H, IV Na Cl 1000 mls @ 999 mls/hr q1H, po [place] 5-325 q4H Please clarify the following: [ ] Functional Paraplegia [ ] Incomplete Paraplegia [x] Other, please specify: LE weakness secondary to deconditioning, not paraplegia [ ] Unable to determine (Template Last Revised: October 2020) MTDD
--- NOTE | 2021-11-25 08:38 | P.PN ---
Subjective Progress Note Date: 11/25/21 Hospital course: Patient is a 51-year-old female with a past medical history of multiple sclerosis on monoclonal antibody, GERD, hypertension, and urinary incontinence. She presented to the emergency department on 11/20/21 with a chief complaint that her left leg was red, swollen and painful with yellow drainage. In the ER she underwent an extensive evaluation. She was found to be tachycardic with a pulse rate of 132. Initial laboratory analysis showed white blood cell count of 16, sodium 136, lactic acid 2.1. Patient was subsequently admitted for left lower extremity cellulitis with sepsis. She was given sepsis bolus and started on IV antibiotics. Patient was admitted under our services with consultation to infectious disease. Blood culture is positive for Achromobacter xylos SS denit, antibiotics changed to ceftazidime per sensitivity report. Consult placed to he matology to rule out cutaneous lymphoma. Consult placed to general surgery for skin biopsies. Physical examination: Patient seen and examined at bedside this morning. Discussed plan of care with patient and her via telephone. Patient continues to deny having any headache, lightheadedness, dizziness, chest pain, palpitations, shortness of breath, nausea, or vomiting. Tentative plan is for discharge to [facility] At this time patient to continue IV antibiotics with ceftazidime. Hematology/oncology evaluated patient consulted general surgery for skin biopsies. General surgery consulted by vascular surgery for evaluation of lymphedema. General: non toxic, no distress, obese, appears older than stated age Derm: warm, dry, bilateral lower extremities with thickened, dry, scaly skin with areas of nodules, angela dressing to bilateral lower extremities. Head: atraumatic, normocephalic, symmetric Eyes: EOMI, no lid lag, anicteric sclera Mouth: no lip lesion, mucus membranes moist Cardiovascular: S1S2 reg, no murmur, positive posterior tibial pulse bilateral, Lungs: Lungs diminished, no rhonchi, no rales, and no wheezes. no accessory muscle use Abdominal: soft, nontender to palpation, no guarding, no appreciable organomegaly Ext: no gross muscle atrophy, patient has lymphedema to bilateral lower extremities, no contractures Neuro: CN II-XI grossly intact, no focal neuro deficits Psych: Alert, oriented, appropriate affect Assessment and plan of care: Achromobacter xylos ss denit bacteremia Bilateral lower extremities cellulitis with chronic wounds and sepsis, infected chronic wound Sepsis upon arrival secondary to above -Infectious disease following, appreciate further recommendations -Continue with IV antibiotics: Ceftazidime -Wound care following -Follow CBC -Repeat blood cultures showing no growth to date. -Hematology/oncology consulted to rule out cutaneous lymphoma -Gen. surgery was consulted for skin biopsies -Vascular surgery was consulted by general surgery secondary to lymphedema in bilateral lower extremities. MS-secondary progressive with lower extremity weakness and numbness -Neurology following, recommending follow-up outpatient with neurologist in 1-2 weeks (Dr. Grayson) -would attempt to avoid steroids that this time with bacteremia -Baclofen resumed -Symptomatic care and pain management. -Safe and supportive care -Has been off injectable/monoclonal antibody for 2 months -PT/OT evaluated patient recommending started to increase strength, functional mobility prior to returning home. HTN, controlled -Monitor vital signs and continue daily medication regimen with lisinopril/hctz Morbid Obesity with BMI 45.3 DVT prophylaxis: Lovenox Discussed with: Patient, RN and patient's via telephone Anticipated discharge date: Clinical course to determine Anticipated discharge place: [facility] A total of 35 minutes was spent on the care of this complex patient more than 50% of the time was spent in counseling and care coordination. I reviewed the documentation as provided by the BRANDEE above, who is the original author of this note. I agree with the documented assessment and plan, with the following changes: none Objective - Vital Signs Vital signs: Vital Signs Temp 98.7 F 11/25/21 04:50 Pulse 81 11/25/21 04:50 Resp 20 11/25/21 04:50 BP 127/71 11/25/21 04:50 Pulse Ox 96 11/25/21 04:50 Intake & Output 11/24/21 11/25/21 11/25/21 18:59 06:59 18:59 Intake Total 100 Output Total 1999 850 800 Balance -1999 Intake: Oral 100 Output: Urine 1999 850 800 Other: Voiding Method External Catheter External Catheter # Voids 1 - Labs CBC & Chem 7: 11/24/21 05:50 11/24/21 05:50 Labs: Abnormal Lab Results - Last 24 Hours (Table) 11/24/21 11/24/21 Range/Units 05:50 05:50 RBC 3.90 L (4.10-5.20) X 10*6/uL Hgb 10.1 L (12.0-15.0) g/dL Hct 33.0 L (37.2-46.3) % MCH 25.9 L (27.0-32.0) pg MCHC 30.6 L (32.0-37.0) g/dL RDW 14.7 H (11.5-14.5) % MPV 9.1 L (9.5-12.2) fL Carbon Dioxide 28.2 H (20.0-27.5) mmol/L Anion Gap 8.80 L (10.00-18.00) mmol/L BUN 7.2 L (9.0-27.0) mg/dL Creatinine 0.5 L (0.6-1.5) mg/dL Glucose 118 H (70-110) mg/dL Calcium 8.6 L (8.7-10.3) mg/dL AST 9 L (13-35) U/L ALT <5 L (8-44) U/L Total Protein 5.6 L (6.2-8.2) g/dL Albumin 3.1 L (3.8-4.9) g/dL Albumin/Globulin Ratio 1.24 L (1.60-3.17) g/dL Microbiology - Last 24 Hours (Table) 11/20/21 03:00 Blood Culture - Preliminary Blood No Growth after 120 hours 11/21/21 11:39 Blood Culture - Preliminary Blood No Growth after 72 hours 11/21/21 11:15 Blood Culture - Preliminary Blood No Growth after 72 hours 11/20/21 03:15 Blood Culture Gram Stain - Final Blood Blood Culture - Final Achromobacter xylos SS denit
[2021-11-25 09:45] LABS: % Iron Saturation 16.29 (12.00-45.00)
--- NOTE | 2021-11-25 12:24 | P.PN ---
Subjective Progress Note Date: 11/25/21 The patient is seen at bedside and feels about the same from neurological perspective. Seems that the pathology is consulted to rule out cutaneous lymphoma. Objective - Vital Signs Vital signs: Vital Signs Temp 98.7 F 11/25/21 04:50 Pulse 81 11/25/21 04:50 Resp 20 11/25/21 04:50 BP 127/71 11/25/21 04:50 Pulse Ox 96 11/25/21 04:50 Intake & Output 11/24/21 11/25/21 11/25/21 18:59 06:59 18:59 Intake Total 100 Output Total 1999 850 800 Balance -1999 750 -800 Intake: Oral 100 Output: Urine 1999 850 800 Other: Voiding Method External Catheter External Catheter External Catheter # Voids 1 - Exam Patient's mentation is normal. Cranial nerves are normal. Strength in uppers are 5/5. While lowers has difficulty lifting above gravity. Has 2-3/5 bilaterally but limited because of pain. Patient's legs are in a bandage because of swelling. Has lymphedema. - Labs CBC & Chem 7: 11/24/21 05:50 11/24/21 05:50 Labs: Abnormal Lab Results - Last 24 Hours (Table) 11/25/21 Range/Units 06:12 Iron 42 L (50-170) ug/dL Transferrin 182.0 L (204.0-354.0) mg/dL Microbiology - Last 24 Hours (Table) 11/20/21 03:00 Blood Culture - Preliminary Blood No Growth after 120 hours 11/21/21 11:39 Blood Culture - Preliminary Blood No Growth after 72 hours 11/21/21 11:15 Blood Culture - Preliminary Blood No Growth after 72 hours 11/20/21 03:15 Blood Culture Gram Stain - Final Blood Blood Culture - Final Achromobacter xylos SS denit Assessment and Plan Assessment: * Likely Pseudoexacerbation of MS due to underlying cellulitis. Cannot rule out true exacerbation since has not received her medication Tysabri (last use was 60 days ago and usually get infusion every 30 days). * Bilateral lower extremity cellulitis with chronic wound. * Gram negative bactremia. 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 * Severe lymphedema bilateral lower extremities. * Chronic urinary incontinence likely due to MS. Plan: * Patient has septicemia. Patient now on cefepime. Infectious disease following. * Hematology is consulted to rule out cutaneous lymphoma by the primary team. Oncologist team consulted for skin biopsy of lower extremity. * Solu-Medrol was not started since patient has underlying infection. Once clear from I.D. and medicine team recommend tapering dose of PO steroids to be discharged as outpatient. * Patient refuses MRI. * Will defer the rest of medical management to the primary team. * Upon discharge, the patient needs to follow-up with her neurologist as outpatient within 1-2 weeks (Dr. rGayson's team). The plan is discussed with patient. Robbi Hector M.D. Neuro-Hospitalist. Time with Patient: Less than 30
--- NOTE | 2021-11-25 12:39 | P.PN ---
Subjective Progress Note Date: 11/25/21 Principal diagnosis: Bilateral lower extremity cellulitis and bacteremia Patient is a 51 year female with significant bilateral lower extremity lymphedema and history of cellulitis presented to hospital with another episode of cellulitis especially to the left leg, patient blood cultures were reported positive for gram-negative bacilli. On today's evaluation and that is 11/25/2021, The patient remains to be afebrile, the patient is breathing comfortably denies any chest pain shortness breath cough abdominal pain no diarrhea , The patient denies pain to bilateral lower extremity Objective - Vital Signs Vital signs: Vital Signs Temp 98.7 F 11/25/21 04:50 Pulse 81 11/25/21 04:50 Resp 20 11/25/21 04:50 BP 127/71 11/25/21 04:50 Pulse Ox 96 11/25/21 04:50 Intake & Output 11/24/21 11/25/21 11/25/21 18:59 06:59 18:59 Intake Total 100 Output Total 2000 850 800 Balance -1999750 -800 Intake: Oral 100 Output: Urine 1999 850 800 Other: Voiding Method External Catheter External Catheter External Catheter # Voids 1 - Exam GENERAL DESCRIPTION: Middle-age female lying in bed in no distress RESPIRATORY SYSTEM: Unlabored breathing , decreased breath sounds at bases HEART: S1 S2 regular rate and rhythm , ABDOMEN: Soft , no tenderness EXTREMITIES: Bilateral lower extremity swelling and redness has decreased and redness drainage - Labs CBC & Chem 7: 11/24/21 05:50 11/24/21 05:50 Labs: Abnormal Lab Results - Last 24 Hours (Table) 11/25/21 Range/Units 06:12 Iron 42 L (50-170) ug/dL Transferrin 182.0 L (204.0-354.0) mg/dL Microbiology - Last 24 Hours (Table) 11/20/21 03:00 Blood Culture - Preliminary Blood No Growth after 120 hours 11/21/21 11:39 Blood Culture - Preliminary Blood No Growth after 72 hours 11/21/21 11:15 Blood Culture - Preliminary Blood No Growth after 72 hours 11/20/21 03:15 Blood Culture Gram Stain - Final Blood Blood Culture - Final Achromobacter xylos SS denit Assessment and Plan (1) Cellulitis of left lower extremity Current Visit: Yes Status: Acute Code(s): L03.116 - CELLULITIS OF LEFT LOWER LIMB SNOMED Code(s): 661815557 Plan: 1patient presented to hospital with sepsis anticipated have a fever elevated white count source likely left lower extremity cellulitis in this we did have diffuse swelling redness , patient regarding her course complicated by development of bacteremia with a blood culture reported positive with gram-negative bacillus, which has been finalized with Achrmobacter with intermediate sensitivity to cefepime 2local wound care to the leg with a dry Aquacel silver dressing and Aaron wrap. 3Patient will continue with Fortaz 2 g every 8 hours for 10 day , To finish her course of therapy Time with Patient: Less than 30
[2021-11-25 13:13] VITALS: BMI 45.3
--- NOTE | 2021-11-25 14:01 | P.PN ---
Subjective Progress Note Date: 11/25/21 CHIEF COMPLAINT: Lymphedema HISTORY OF PRESENT ILLNESS: Patient presented with severe lymphedema, bilateral lower extremity swelling and skin changes and evidence of cellulitis with bacteremia. Patient is followed by infectious disease. Patient reports that the leg swelling has decreased since admission. She is waiting to be evaluated by vascular surgery. Afebrile. PHYSICAL EXAM: VITAL SIGNS: Reviewed GENERAL: Well-developed in no acute distress. HEENT: No sclera icterus. Extraocular movements grossly intact. Moist buccal mucosa. Head is atraumatic, normocephalic. Hears conversational speech. No nasal drainage. NECK: Supple without lymphadenopathy. CHEST: Non-labored respirations and equal bilateral excursions. CARDIOVASCULAR: Palpable 2+ radial pulses. ABDOMEN: Soft. Nondistended. Nontender. MUSCULOSKELETAL: No clubbing or cyanosis. NEUROLOGIC: No focal or lateralizing signs. Cranial nerves II through XII grossly intact. PSYCH: Appropriate affect. Alert and oriented to person, place and time. SKIN: Well perfused. Good skin turgor. ASSESSMENT: 1. Bilateral lower extremity lymphedema with skin changes and venous stasis 2. Bilateral lower extremity cellulitis 3. Bacteremia PLAN: -Awaiting vascular surgery evaluation. Biopsies deferred pending further asses sment by vascular surgeon -Continue local wound care -Continue antibiotics per ID service Physician Tow Car Driver note has been reviewed by physician. Signing provider agrees with the documented findings, assessment, and plan of care. Objective - Vital Signs Vital signs: Vital Signs Temp 98.7 F 11/25/21 04:50 Pulse 81 11/25/21 04:50 Resp 20 11/25/21 04:50 BP 127/71 11/25/21 04:50 Pulse Ox 96 11/25/21 04:50 Intake & Output 11/24/21 11/25/21 11/25/21 18:59 06:59 18:59 Intake Total 100 Output Total 1999 850 800 Balance -1999750 -800 Intake: Oral 100 Output: Urine 1999 850 800 Other: Voiding Method External Catheter External Catheter # Voids 1 - Labs CBC & Chem 7: 11/24/21 05:50 11/24/21 05:50 Labs: Abnormal Lab Results - Last 24 Hours (Table) 11/25/21 Range/Units 06:12 Iron 42 L (50-170) ug/dL Transferrin 182.0 L (204.0-354.0) mg/dL Microbiology - Last 24 Hours (Table) 11/20/21 03:00 Blood Culture - Preliminary Blood No Growth after 120 hours 11/21/21 11:39 Blood Culture - Preliminary Blood No Growth after 72 hours 11/21/21 11:15 Blood Culture - Preliminary Blood No Growth after 72 hours 11/20/21 03:15 Blood Culture Gram Stain - Final Blood Blood Culture - Final Achromobacter xylos denit
--- NOTE | 2021-11-25 16:00 | P.PN ---
Subjective Progress Note Date: 11/25/21 Objective - Vital Signs Vital signs: Vital Signs Temp 98.7 F 11/25/21 04:50 Pulse 81 11/25/21 04:50 Resp 20 11/25/21 04:50 BP 127/71 11/25/21 04:50 Pulse Ox 96 11/25/21 04:50 Intake & Output 11/24/21 11/25/21 11/25/21 18:59 06:59 18:59 Intake Total 100 Output Total 1999 850 800 Balance -1999 Intake: Oral 100 Output: Urine 1999 850 800 Other: Voiding Method External Catheter External Catheter # Voids 1 - Exam - Constitutional General appearance: cooperative, morbidly obese, no acute distress - EENT Eyes: anicteric sclerae, EOMI ENT: hearing grossly normal, normal oropharynx - Neck Neck: no lymphadenopathy - Respiratory Respiratory: bilateral: CTA - Cardiovascular Rhythm: regular Heart sounds: normal: S1, S2 Abnormal Heart Sounds: no systolic murmur, no diastolic murmur, no rub, no S3 Gallop, no S4 Gallop, no click, no other leg Peripheral Edema: bilateral: 1+ - Gastrointestinal General gastrointestinal: no absent bowel sounds, no decreased bowel sounds, no distended, no hepatomegaly, no hyperactive bowel sounds, normal bowel sounds, no organomegaly, no rigid, no scaphoid, soft, no splenomegaly, no tenderness, no umbilical hernia, no ventral hernia - Genitourinary no inguinal lymph nodes palpated - Integumentary bilateral lower extremities the skin is thickened, dry, nodular in some areas - Neurologic Neurologic: CNII-XII intact (grossly) - Musculoskeletal Musculoskeletal: generalized weakness - Psychiatric Psychiatric: A&O x's 3, appropriate affect, intact judgment & insight - Labs CBC & Chem 7: 11/24/21 05:50 11/24/21 05:50 Labs: Abnormal Lab Results - Last 24 Hours (Table) 11/25/21 Range/Units 06:12 Iron 42 L (50-170) ug/dL Transferrin 182.0 L (204.0-354.0) mg/dL Microbiology - Last 24 Hours (Table) 11/20/21 03:00 Blood Culture - Preliminary Blood No Growth after 120 hours 11/21/21 11:39 Blood Culture - Preliminary Blood No Growth after 72 hours 11/21/21 11:15 Blood Culture - Preliminary Blood No Growth after 72 hours 11/20/21 03:15 Blood Culture Gram Stain - Final Blood Blood Culture - Final Achromobacter xylos SS denit Assessment and Plan Plan: Assessment and Plan Plan: bilateral lower extremity skin changes. This is been persistent and progressive over the last year. Have requested skin biopsies of both of the lower extremities to evaluate for any malignant infiltrating process. Will await results of the same. Further recommendations to follow based on results. anemia: Anemia workup ordered. Anemia of chronic inflammation: - Prior marked B and D deficiency as well will recheck as may contribute to decreased healing
--- NOTE | 2021-11-25 16:54 | P.GSCN ---
History of Present Illness History of present illness: 51-year-old white female, patient has been and admitted with history of cellulitis of the left lower extremity. Patient has a history of peripheral edema under care of wound clinic at [facility] patient has been using lymphedema pump in the past but on the past few months she has not used the great patient has a positive blood culture grew gram-negative bacilli under care of infectious disease On examination neck supple no bruit appreciated Chest is clear good and both lungs first and second sound present Abdomen is soft nontender left leg has a cellulitis of the lower extremity with some's mild redness noted and right leg has lymphedema no venous stasis ulcer noted Plan is patient is an IV antibiotic Aquacel silver lower extremity with compression wrap with elevation the left lower extremity and when cellulitis improved and patient will be needing a lymphedema pump patient's has been coming to the wound clinic under care of Birdie Past Medical History Past Medical History: GERD/Reflux, Hypertension, Musculoskeletal Disorder, Ne urologic Disorder Additional Past Medical History / Comment(s): MS, urinary incontinence, elevated blood sugars with steroids. History of Any Multi-Drug Resistant Organisms: None Reported Past Surgical History: Cholecystectomy Additional Past Surgical History / Comment(s): L benign ovarian mass with oophorectomy, R ovary resected/cyst Past Anesthesia/Blood Transfusion Reactions: No Reported Reaction Additional Past Anesthesia/Blood Transfusion Reaction / Comm: Pt received blood with gallbladder surgery without reaction. Past Psychological History: Depression Smoking Status: Former smoker Past Alcohol Use History: Rare Past Drug Use History: None Reported - Past Family History Mother History Unknown: Yes Family Medical History: Eye Disorder, Hypertension, Osteoarthritis (OA) Additional Family Medical History / Comment(s): ARTHRITIS, KNEE REPLACEMENT SURGERY, GLAUCOMA WITH SURGERY. Father History Unknown: Yes Family Medical History: Cancer, Hypertension, Osteoarthritis (OA) Additional Family Medical History / Comment(s): PACEMAKER, ARTHRITIS WITH KNEE REPLACEMENTS, COLON CANCER STAGE II. FATHER LIVED TO BE 79YRS OLD. Medications and Allergies Home Medications Medication Instructions Recorded Confirmed Type Baclofen [Lioresal] 20 mg PO TID 10/12/20 11/20/21 History Ibuprofen [Motrin Ib] 200 - 400 mg PO Q6H PRN 08/20/21 11/20/21 History Omeprazole Magnesium [PriLOSEC OTC] 20 mg PO DAILY 08/20/21 11/20/21 History Lisinopril-Hctz 10-12.5 mg 1 tab PO DAILY 11/20/21 11/20/21 History [Zestoretic 10-12.5] Tysabri Infusion 300 mg IV Q28D 11/20/21 11/20/21 History Allergies Allergy/AdvReac Type Severity Reaction Status Date / Time No Known Allergies Allergy Verified 11/20/21 06:11 Surgical - Exam Vital Signs Temp Pulse Resp BP Pulse Ox 98.9 F 132 H 20 137/82 98 11/20/21 01:51 11/20/21 01:51 11/20/21 01:51 11/20/21 01:51 11/20/21 01:51 Results - Labs 11/24/21 05:50 11/24/21 05:50 Abnormal Lab Results - Last 24 Hours (Table) 11/25/21 Range/Units 06:12 Iron 42 L (50-170) ug/dL Transferrin 182.0 L (204.0-354.0) mg/dL Microbiology - Last 24 Hours (Table) 11/21/21 11:39 Blood Culture - Preliminary Blood No Growth after 96 hours 11/21/21 11:15 Blood Culture - Preliminary Blood No Growth after 96 hours 11/20/21 03:00 Blood Culture - Preliminary Blood No Growth after 120 hours
[2021-11-26] MEDS: ENOXAPARIN 40 MG/0.4 ML SYRINGE SQ SCH (08:02)
[2021-11-26] MEDS: PANTOPRAZOLE 40 MG TABLET PO SCH (08:02)
[2021-11-26] MEDS: BACLOFEN 10 MG TAB PO SCH ×3 (08:02→23:30)
[2021-11-26] MEDS: LISINOPRIL-HCTZ 10-12.5 MG 1 EACH TAB PO SCH (08:02)
[2021-11-26 09:25] LABS: Immunoglobulin M 85.1 mg/dL (40.0-280.0)
[2021-11-26 09:31] LABS: Protein, Total 6.4 g/dL (6.2-8.2)
[2021-11-26 11:34] LABS: Rheumatoid Factor, Qnt <10 IU/mL (0-15)
--- NOTE | 2021-11-26 12:06 | P.PN ---
Subjective Progress Note Date: 11/26/21 Principal diagnosis: Non healing leg wounds Patient son and at bedside. Planning for rehab today. She was seen by vascular and general surgery who both have decided against biopsy of wounds. Objective - Vital Signs Vital signs: Vital Signs Temp 98.2 F 11/26/21 07:59 Pulse 79 11/26/21 07:59 Resp 19 11/26/21 07:59 BP 116/73 11/26/21 07:59 Pulse Ox 96 11/26/21 07:59 Intake & Output 11/25/21 11/26/21 11/26/21 18:59 06:59 18:59 Intake Total 200 Output Total 1900 Balance -1900 200 Weight 116 kg Intake: Intake, IV Titration 200 Amount cefTAZidime 2 gm In 200 Sodium Chloride 0.9% 100 ml @ 25 mls/hr IVPB Q8H [facility] Rx#:[id number] Output: Urine 1900 Other: Voiding Method External Catheter External Catheter # Voids 2 # Bowel Movements 2 1 - Exam - Constitutional General appearance: cooperative, morbidly obese, no acute distress - EENT Eyes: anicteric sclerae, EOMI ENT: hearing grossly normal, normal oropharynx - Neck Neck: no lymphadenopathy - Respiratory Respiratory: bilateral: CTA - Cardiovascular Rhythm: regular Heart sounds: normal: S1, S2 Abnormal Heart Sounds: no systolic murmur, no diastolic murmur, no rub, no S3 Gallop, no S4 Gallop, no click, no other leg Peripheral Edema: bilateral: 1+ - Gastrointestinal General gastrointestinal: no absent bowel sounds, no decreased bowel sounds, no distended, no hepatomegaly, no hyperactive bowel sounds, normal bowel sounds, no organomegaly, no rigid, no scaphoid, soft, no splenomegaly, no tenderness, no umbilical hernia, no ventral hernia - Genitourinary no inguinal lymph nodes palpated - Integumentary bilateral lower extremities the skin is thickened, dry, nodular in some areas - Neurologic Neurologic: CNII-XII intact (grossly) - Musculoskeletal Musculoskeletal: generalized weakness - Psychiatric Psychiatric: A&O x's 3, appropriate affect, intact judgment & insight - Labs CBC & Chem 7: 11/24/21 05:50 11/24/21 05:50 Labs: Abnormal Lab Results - Last 24 Hours (Table) 03/31/22 03/31/22 Range/Units 06:20 06:20 ESR 83 H (0-30) mm/Hr Vitamin D 25-Hydroxy 11.2 L (30.0-100.0) ng/mL Microbiology - Last 24 Hours (Table) 11/20/21 03:00 Blood Culture - Final Blood No Growth after 144 hours 11/21/21 11:39 Blood Culture - Preliminary Blood No Growth after 96 hours 11/21/21 11:15 Blood Culture - Preliminary Blood No Growth after 96 hours Assessment and Plan Plan: Assessment and Plan Plan: bilateral lower extremity skin changes. This is been persistent and progressive over the last year. Have requested skin biopsies of both of the lower ext remities to evaluate for any malignant infiltrating process. Patient seen by vascular and general surgery and have decided against biopsy Plan is to follow up in office after discharged from rehab. anemia: Anemia workup reviewed Anemia of chronic inflammation: - Prior marked B and D deficiency as well will recheck as may contribute to decreased healing Vitamin D3 and Folic acid has been ordered Low Liver function and decreased Vitamin D, check Thyroid function to assess for underlying hypothyroid function Dr. Sesay has seen and provided recommendations for care of wound. She is planning on discharge to rehab, there is no known diagnosis of cancer. Once patient is stronger, recommend follow-up with dermatology outpatient for potential skin biopsy
[2021-11-26] MEDS: CHOLECALCIFEROL 125 MCG (5000 IU) TABLET PO SCH (12:19)
--- NOTE | 2021-11-26 13:03 | P.PN ---
Subjective Progress Note Date: 11/26/21 Hospital course: Patient is a 51-year-old female with a past medical history of multiple sclerosis on monoclonal antibody, GERD, hypertension, and urinary incontinence. She presented to the emergency department on 11/20/21 with a chief complaint that her left leg was red, swollen and painful with yellow drainage. In the ER she underwent an extensive evaluation. She was found to be tachycardic with a pulse rate of 132. Initial laboratory analysis showed white blood cell count of 16, sodium 136, lactic acid 2.1. Patient was subsequently admitted for left lower extremity cellulitis with sepsis. She was given sepsis bolus and started on IV antibiotics. Patient was admitted under our services with consultation to infectious disease. Blood culture is positive for Achromobacter xylos SS denit, antibiotics changed to ceftazidime per sensitivity report. Consult placed to he matology to rule out cutaneous lymphoma. Consult placed to general surgery for skin biopsies. Physical examination: Patient seen and examined at bedside this morning. She is doing well this morning. She remains on IV antibiotics with ceftazidime. Vascular surgery recommending to hold off on biopsies at this time as these may be obtained outpatient status post treatment of bacteremia. Patient medically stable at this time and arrangements being made for discharge. Patient to be [facility] to [facility] Awaiting insurance authorization. General: non toxic, no distress, obese, appears older than stated age Derm: warm, dry, bilateral lower extremities with thickened, dry, scaly skin with areas of nodules, angela dressing to bilateral lower extremities. Head: atraumatic, normocephalic, symmetric Eyes: EOMI, no lid lag, anicteric sclera Mouth: no lip lesion, mucus membranes moist Cardiovascular: S1S2 reg, no murmur, positive posterior tibial pulse bilateral, Lungs: Lungs diminished, no rhonchi, no rales, and no wheezes. no accessory muscle use Abdominal: soft, nontender to palpation, no guarding, no appreciable organomegaly Ext: no gross muscle atrophy, patient has lymphedema to bilateral lower extremities, no contractures Neuro: CN II-XI grossly intact, no focal neuro deficits Psych: Alert, oriented, appropriate affect Assessment and plan of care: Achromobacter xylos ss denit bacteremia Bilateral lower extremities cellulitis with chronic wounds and sepsis, infected chronic wound Sepsis upon arrival secondary to above -Infectious disease following, appreciate further recommendations -Continue with IV antibiotics: Ceftazidime -Wound care following -Follow CBC -Repeat blood cultures showing no growth to date. -Hematology/oncology consulted to rule out cutaneous lymphoma -Gen. surgery was consulted for skin biopsies -Vascular surgery was consulted by general surgery secondary to lymphedema in bilateral lower extremities. MS-secondary progressive with lower extremity weakness and numbness -Neurology following, recommending follow-up outpatient with neurologist in 1-2 weeks (Dr. Grayson) -would attempt to avoid steroids that this time with bacteremia -Baclofen resumed -Symptomatic care and pain management. -Safe and supportive care -Has been off injectable/monoclonal antibody for 2 months -PT/OT evaluated patient recommending started to increase strength, functional mobility prior to returning home. HTN, controlled -Monitor vital signs and continue daily medication regimen with lisinopril/hctz Morbid Obesity with BMI 45.3 DVT prophylaxis: Lovenox Discussed with: Patient, RN and patient's via telephone Anticipated discharge date: Clinical course to determine Anticipated discharge place: [facility] A total of 35 minutes was spent on the care of this complex patient more than 50% of the time was spent in counseling and care coordination. I reviewed the documentation as provided by the BRANDEE above, who is the original author of this note. I agree with the documented assessment and plan, with the following changes: none Objective - Vital Signs Vital signs: Vital Signs Temp 98.2 F 11/26/21 07:59 Pulse 79 11/26/21 07:59 Resp 19 11/26/21 07:59 BP 116/73 11/26/21 07:59 Pulse Ox 96 11/26/21 07:59 Intake & Output 11/25/21 11/26/21 11/26/21 18:59 06:59 18:59 Intake Total 200 500 Output Total 1900 Balance -1900 200 500 Weight 116 kg Intake: Intake, IV Titration 200 Amount cefTAZidime 2 gm In 200 Sodium Chloride 0.9% 100 ml @ 25 mls/hr IVPB Q8H [facility] Rx#:[id number] Oral 500 Output: Urine 1900 Other: Voiding Method External Catheter External Catheter # Voids 2 # Bowel Movements 2 1 - Labs CBC & Chem 7: 11/24/21 05:50 11/24/21 05:50 Labs: Abnormal Lab Results - Last 24 Hours (Table) 11/26/21 11/26/21 Range/Units 06:20 06:20 ESR 83 H (0-30) mm/Hr Vitamin D 25-Hydroxy 11.2 L (30.0-100.0) ng/mL Microbiology - Last 24 Hours (Table) 11/20/21 03:00 Blood Culture - Final Blood No Growth after 144 hours 11/21/21 11:39 Blood Culture - Preliminary Blood No Growth after 96 hours 11/21/21 11:15 Blood Culture - Preliminary Blood No Growth after 96 hours
--- NOTE | 2021-11-26 13:06 | P.PN ---
Subjective Progress Note Date: 11/26/21 CHIEF COMPLAINT: Lymphedema HISTORY OF PRESENT ILLNESS: Patient presented with severe lymphedema, bilateral lower extremity swelling and skin changes and evidence of cellulitis with bacteremia. Patient is followed by infectious disease. Patient reports that the leg swelling has decreased since admission. Patient seen by vascular surgery and they are recommending antibiotics and local wound care. Afebrile. PHYSICAL EXAM: VITAL SIGNS: Reviewed GENERAL: Well-developed in no acute distress. HEENT: No sclera icterus. Extraocular movements grossly intact. Moist buccal mucosa. Head is atraumatic, normocephalic. Hears conversational speech. No nasal drainage. NECK: Supple without lymphadenopathy. CHEST: Non-labored respirations and equal bilateral excursions. CARDIOVASCULAR: Palpable 2+ radial pulses. ABDOMEN: Soft. Nondistended. Nontender. MUSCULOSKELETAL: No clubbing or cyanosis. NEUROLOGIC: No focal or lateralizing signs. Cranial nerves II through XII grossly intact. PSYCH: Appropriate affect. Alert and oriented to person, place and time. SKIN: Well perfused. Good skin turgor. Extremities: Bilateral lower extremity lymphedema with cellulitis skin changes ASSESSMENT: 1. Bilateral lower extremity lymphedema with skin changes and venous stasis 2. Bilateral lower extremity cellulitis 3. Bacteremia PLAN: -No plans for any surgical intervention -Surgical service will sign off. Please call with any questions or concerns -Continue local wound care -Continue antibiotics per ID service Physician Data Assistant note has been reviewed by physician. Signing provider agrees with the documented findings, assessment, and plan of care. Objective - Vital Signs Vital signs: Vital Signs Temp 98.2 F 11/26/21 07:59 Pulse 79 11/26/21 07:59 Resp 19 11/26/21 07:59 BP 116/73 11/26/21 07:59 Pulse Ox 96 11/26/21 07:59 Intake & Output 11/25/21 11/26/21 11/26/21 18:59 06:59 18:59 Intake Total 200 500 Output Total 1900 Balance -1900 200 500 Weight 116 kg Intake: Intake, IV Titration 200 Amount cefTAZidime 2 gm In 200 Sodium Chloride 0.9% 100 ml @ 25 mls/hr IVPB Q8H [facility] Rx#:[id number] Oral 500 Output: Urine 1900 Other: Voiding Method External Catheter External Catheter # Voids 2 # Bowel Movements 2 1 - Labs CBC & Chem 7: 11/24/21 05:50 11/24/21 05:50 Labs: Abnormal Lab Results - Last 24 Hours (Table) 11/26/21 11/26/21 Range/Units 06:20 06:20 ESR 83 H (0-30) mm/Hr Vitamin D 25-Hydroxy 11.2 L (30.0-100.0) ng/mL Microbiology - Last 24 Hours (Table) 11/20/21 03:00 Blood Culture - Final Blood No Growth after 144 hours 11/21/21 11:39 Blood Culture - Preliminary Blood No Growth after 96 hours 11/21/21 11:15 Blood Culture - Preliminary Blood No Growth after 96 hours
[2021-11-26 14:19] LABS: Free Lambda Lt Chain Qnt, Seru 1.67 mg/dL (0.57-2.63)
--- NOTE | 2021-11-26 22:37 | P.PN ---
Subjective Progress Note Date: 11/26/21 Principal diagnosis: Bilateral lower extremity cellulitis and bacteremia Patient is a 51 year female with significant bilateral lower extremity lymphedema and history of cellulitis presented to hospital with another episode of cellulitis especially to the left leg, patient blood cultures were reported positive for gram-negative bacilli. On today's evaluation and that is 11/26/2021, The patient continues to be afebrile, the patient is breathing comfortably on nasal cannula oxygen, the patient denies any chest pain shortness breath cough abdominal pain no diarrhea , The patient pain to bilateral lower extremities is currently controlled Objective - Vital Signs Vital signs: Vital Signs Temp 98.2 F 11/26/21 07:59 Pulse 79 11/26/21 07:59 Resp 19 11/26/21 07:59 BP 116/73 11/26/21 07:59 Pulse Ox 96 11/26/21 07:59 Intake & Output 11/25/21 11/26/21 11/26/21 18:59 06:59 18:59 Intake Total 200 500 Output Total 1900 Balance -1900 200 500 Weight 116 kg Intake: Intake, IV Titration 200 Amount cefTAZidime 2 gm In 200 Sodium Chloride 0.9% 100 ml @ 25 mls/hr IVPB Q8H [facility] Rx#:[id number] Oral 500 Output: Urine 1900 Other: Voiding Method External Catheter External Catheter # Voids 2 # Bowel Movements 2 1 - Exam GENERAL DESCRIPTION: Middle-age female lying in bed in no distress RESPIRATORY SYSTEM: Unlabored breathing , decreased breath sounds at bases HEART: S1 S2 regular rate and rhythm , ABDOMEN: Soft , no tenderness EXTREMITIES: Bilateral lower extremity swelling and redness has decreased and redness drainage - Labs CBC & Chem 7: 11/24/21 05:50 11/24/21 05:50 Labs: Abnormal Lab Results - Last 24 Hours (Table) 11/26/21 11/26/21 Range/Units 06:20 06:20 ESR 83 H (0-30) mm/Hr Vitamin D 25-Hydroxy 11.2 L (30.0-100.0) ng/mL Microbiology - Last 24 Hours (Table) 11/20/21 03:00 Blood Culture - Final Blood No Growth after 144 hours 11/21/21 11:39 Blood Culture - Preliminary Blood No Growth after 96 hours 11/21/21 11:15 Blood Culture - Preliminary Blood No Growth after 96 hours Assessment and Plan (1) Cellulitis of left lower extremity Current Visit: Yes Status: Acute Code(s): L03.116 - CELLULITIS OF LEFT LOWER LIMB SNOMED Code(s): 270504564 Plan: 1patient presented to hospital with sepsis anticipated have a fever elevated white count source likely left lower extremity cellulitis in this we did have diffuse swelling redness , patient regarding her course complicated by development of bacteremia with a blood culture reported positive with gram- negative bacillus, which has been finalized with Achrmobacter with intermediate sensitivity to cefepime 2local wound care to the leg with a dry Aquacel silver dressing and Aaron wrap. 3Patient is currently being treated with Fortaz 2 g every 8 hours and will continue to finish a total of 2 week course of therapy Time with Patient: Less than 30
[2021-11-27] MEDS: ACETAMINOPHEN TAB 325 MG TAB PO PRN (03:47)
[2021-11-27] MEDS: ENOXAPARIN 40 MG/0.4 ML SYRINGE SQ SCH (09:36)
[2021-11-27] MEDS: CHOLECALCIFEROL 125 MCG (5000 IU) TABLET PO SCH (09:37)
[2021-11-27] MEDS: LISINOPRIL-HCTZ 10-12.5 MG 1 EACH TAB PO SCH (09:37)
[2021-11-27] MEDS: BACLOFEN 10 MG TAB PO SCH ×3 (09:37→21:46)
[2021-11-27] MEDS: FOLIC ACID 1 MG TAB PO SCH (09:37)
[2021-11-27] MEDS: PANTOPRAZOLE 40 MG TABLET PO SCH (09:37)
--- NOTE | 2021-11-27 14:51 | P.PN ---
Subjective Progress Note Date: 11/27/21 The patient is seen at bedside and is accompanied by her . She feels about the same. Per patient it was decided they will not perform skin biopsy of legs. Objective - Vital Signs Vital signs: Vital Signs Temp 97.8 F 11/27/21 13:55 Pulse 65 11/27/21 13:55 Resp 16 11/27/21 13:55 BP 126/76 11/27/21 13:55 Pulse Ox 95 11/27/21 13:55 Intake & Output 11/26/21 11/27/21 11/27/21 18:59 06:59 18:59 Intake Total 700 Output Total 600 800 Balance 100 -800 Intake: Intake, IV Titration 200 Amount cefTAZidime 2 gm In 200 Sodium Chloride 0.9% 100 ml @ 25 mls/hr IVPB Q8H [facility] Rx#:[id number] Oral 500 Output: Urine 600 800 Other: Voiding Method External Catheter External Catheter External Catheter # Voids 1 # Bowel Movements 1 - Exam Patient's mentation is normal. Cranial nerves are normal. Strength in uppers are 5/5. While lowers has difficulty lifting above gravity. Has 2-3/5 bilaterally but limited because of pain. Patient's legs are in a bandage because of swelling. Has lymphedema. - Labs CBC & Chem 7: 11/24/21 05:50 11/24/21 05:50 Labs: Microbiology - Last 24 Hours (Table) 11/21/21 11:39 Blood Culture - Final Blood No Growth after 144 hours 11/21/21 11:15 Blood Culture - Final Blood No Growth after 144 hours Assessment and Plan Assessment: * Likely Pseudoexacerbation of MS due to underlying cellulitis. Cannot rule out true exacerbation since has not received her medication Tysabri (last use was 60 days ago and usually get infusion every 30 days). * Bilateral lower extremity cellulitis with chronic wound. * Gram negative bactremia. 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 * Severe lymphedema bilateral lower extremities. * Chronic urinary incontinence likely due to MS. Plan: * Patient has septicemia. Patient now on cefepime. Infectious disease following. * Hematology is consulted to rule out cutaneous lymphoma by the primary team. Oncologist team consulted for skin biopsy of lower extremity. * Solu-Medrol was not started since patient has underlying infection. Once clear from I.D. and medicine team recommend tapering dose of PO steroids to be discharged as outpatient. * Patient refuses MRI. * Will defer the rest of medical management to the primary team. * Upon discharge, the patient needs to follow-up with her neurologist as outpatient within 1-2 weeks (Dr. Grayson's team). The plan is discussed with patient and her who is at bedside. There is no additional testing needed. Will follow-up sporadically. Robbi Hector M.D. Neuro-Hospitalist. Time with Patient: Less than 30
--- NOTE | 2021-11-27 15:43 | P.PN ---
Subjective Progress Note Date: 11/27/21 Hospital course: Patient is a 51-year-old female with a past medical history of multiple sclerosis on monoclonal antibody, GERD, hypertension, and urinary incontinence. She presented to the emergency department on 11/20/21 with a chief complaint that her left leg was red, swollen and painful with yellow drainage. In the ER she underwent an extensive evaluation. She was found to be tachycardic with a pulse rate of 132. Initial laboratory analysis showed white blood cell count of 16, sodium 136, lactic acid 2.1. Patient was subsequently admitted for left lower extremity cellulitis with sepsis. She was given sepsis bolus and started on IV antibiotics. Patient was admitted under our services with consultation to infectious disease. Blood culture is positive for Achromobacter xylos SS denit, antibiotics changed to ceftazidime per sensitivity report. Consult placed to he matology to rule out cutaneous lymphoma. Consult placed to general surgery for skin biopsies. Physical examination: Patient seen and examined at bedside this morning. She is doing well and remains on IV antibiotics with ceftazidime. Vascular surgery recommending to hold off on biopsies at this time as these may be obtained outpatient status post treatment of bacteremia. initial plans were for discharge today for [facility], however patient was declined admission to their facility at this time. Patient is awaiting placement of midline and now delivery of hospital bed to her home where the new plan is she will be discharged home with home care. General: non toxic, no distress, obese, appears older than stated age Derm: warm, dry, bilateral lower extremities with thickened, dry, scaly skin with areas of nodules, angela dressing to bilateral lower extremities. Head: atraumatic, normocephalic, symmetric Eyes: EOMI, no lid lag, anicteric sclera Mouth: no lip lesion, mucus membranes moist Cardiovascular: S1S2 reg, no murmur, positive posterior tibial pulse bilateral, Lungs: Lungs diminished, no rhonchi, no rales, and no wheezes. no accessory muscle use Abdominal: soft, nontender to palpation, no guarding, no appreciable organomegaly Ext: no gross muscle atrophy, patient has lymphedema to bilateral lower extremities, no contractures Neuro: CN II-XI grossly intact, no focal neuro deficits Psych: Alert, oriented, appropriate affect Assessment and plan of care: Achromobacter xylos ss denit bacteremia Bilateral lower extremities cellulitis with chronic wounds and sepsis, infected chronic wound Sepsis upon arrival secondary to above -Infectious disease following, appreciate further recommendations -Continue with IV antibiotics: Ceftazidime -Wound care following -Follow CBC -Repeat blood cultures showing no growth to date. -Hematology/oncology consulted to rule out cutaneous lymphoma -Gen. surgery was consulted for skin biopsies -Vascular surgery was consulted by general surgery secondary to lymphedema in bilateral lower extremities. MS-secondary progressive with lower extremity weakness and numbness -Neurology following, recommending follow-up outpatient with neurologist in 1-2 weeks (Dr. Grayson) -would attempt to avoid steroids that this time with bacteremia -Baclofen resumed -Symptomatic care and pain management. -Safe and supportive care -Has been off injectable/monoclonal antibody for 2 months -PT/OT evaluated patient recommending started to increase strength, functional mobility prior to returning home. HTN, controlled -Monitor vital signs and continue daily medication regimen with lisinopril/hctz Morbid Obesity with BMI 45.3 DVT prophylaxis: Lovenox Discussed with: Patient, RN and patient's via telephone Anticipated discharge date: Tuesday, after midline has been placed and hospital bed has been delivered Anticipated discharge place: Home with homecare A total of 35 minutes was spent on the care of this complex patient more than 50% of the time was spent in counseling and care coordination. I reviewed the documentation as provided by the BRANDEE above, who is the original author of this note. I agree with the documented assessment and plan, with the following changes: none Objective - Vital Signs Vital signs: Vital Signs Temp 97.8 F 11/27/21 13:55 Pulse 65 11/27/21 13:55 Resp 16 11/27/21 13:55 BP 126/76 11/27/21 13:55 Pulse Ox 95 11/27/21 13:55 Intake & Output 11/26/21 11/27/21 11/27/21 18:59 06:59 18:59 Intake Total 700 Output Total 600 800 Balance 100 -800 Intake: Intake, IV Titration 200 Amount cefTAZidime 2 gm In 200 Sodium Chloride 0.9% 100 ml @ 25 mls/hr IVPB Q8H [facility] Rx#:[id number] Oral 500 Output: Urine 600 800 Other: Voiding Method External Catheter External Catheter External Catheter # Voids 1 # Bowel Movements 1 - Labs CBC & Chem 7: 11/24/21 05:50 11/24/21 05:50 Labs: Microbiology - Last 24 Hours (Table) 11/21/21 11:39 Blood Culture - Final Blood No Growth after 144 hours 11/21/21 11:15 Blood Culture - Final Blood No Growth after 144 hours
[2021-11-28] MEDS: LISINOPRIL-HCTZ 10-12.5 MG 1 EACH TAB PO SCH (08:05)
[2021-11-28] MEDS: BACLOFEN 10 MG TAB PO SCH ×3 (08:05→23:06)
[2021-11-28] MEDS: FOLIC ACID 1 MG TAB PO SCH (08:05)
[2021-11-28] MEDS: ENOXAPARIN 40 MG/0.4 ML SYRINGE SQ SCH (08:06)
[2021-11-28] MEDS: PANTOPRAZOLE 40 MG TABLET PO SCH (08:06)
[2021-11-28] MEDS: CHOLECALCIFEROL 125 MCG (5000 IU) TABLET PO SCH (08:06)
--- NOTE | 2021-11-28 10:19 | P.PN ---
Subjective Progress Note Date: 11/28/21 No new complaints, pt is pending discharge. Gen: awake, alert HEENT: normocephalic, atraumatic, good hearing acuity, moist mucous membranes Resp: good air exchange, breathing comfortably with no accessory muscle use CVS: good distal perfusion x 4, GI: soft, NTTP, ND : no SPT, no CVAT, huff catheter not present MSK: Bilateral lymphedema chronic skin changes, weeping and areas, redness of the right lower extremity on the lateral aspect, multiple papules and plaques. Neuro: non-focal, moving all extremities Psych: cooperative, euthymic mood Assessment/plan: Achromobacter xylos ss denit bacteremia Bilateral lower extremities cellulitis with chronic wounds and sepsis, infected chronic wound Sepsis upon arrival secondary to above -Infectious disease following, appreciate further recommendations -Continue with IV antibiotics: Ceftazidime -Wound care following -Follow CBC -Repeat blood cultures showing no growth to date. -Hematology/oncology consulted to rule out cutaneous lymphoma -Gen. surgery was consulted for skin biopsies -Vascular surgery was consulted by general surgery secondary to lymphedema in bilateral lower extremities. MS-secondary progressive with lower extremity weakness and numbness -Neurology following, recommending follow-up outpatient with neurologist in 1-2 weeks (Dr. Grayson) -would attempt to avoid steroids that this time with bacteremia -Baclofen resumed -Symptomatic care and pain management. -Safe and supportive care -Has been off injectable/monoclonal antibody for 2 months -PT/OT evaluated patient recommending started to increase strength, functional mobility prior to returning home. HTN, controlled -Monitor vital signs and continue daily medication regimen with lisinopril/hctz Morbid Obesity with BMI 45.3 -Outpatient weight loss referral DVT prophylaxis: Lovenox Anticipated discharge date: Tuesday, after midline has been placed and hospital b ed has been delivered Anticipated discharge place: Home with homecare Objective - Vital Signs Vital signs: Vital Signs Temp 98.2 F 11/28/21 04:49 Pulse 68 11/28/21 08:00 Resp 16 11/28/21 08:00 BP 113/69 11/28/21 04:49 Pulse Ox 98 11/28/21 04:49 Intake & Output 11/27/21 11/28/21 11/28/21 18:59 06:59 18:59 Intake Total 830 Output Total 1450 550 Balance -1450 280 Intake: Oral 830 Output: Urine 1450 550 Other: Voiding Method External Catheter External Catheter External Catheter # Voids 3 - Labs CBC & Chem 7: 11/24/21 05:50 11/24/21 05:50 Labs: Microbiology - Last 24 Hours (Table) 11/21/21 11:39 Blood Culture - Final Blood No Growth after 144 hours 11/21/21 11:15 Blood Culture - Final Blood No Growth after 144 hours
[2021-11-28] MEDS: ACETAMINOPHEN TAB 325 MG TAB PO PRN (10:32)
--- NOTE | 2021-11-28 18:49 | P.PN ---
Subjective Progress Note Date: 11/27/21 Principal diagnosis: Bilateral lower extremity cellulitis and bacteremia Patient is a 51 year female with significant bilateral lower extremity lymphedema and history of cellulitis presented to hospital with another episode of cellulitis especially to the left leg, patient blood cultures were reported positive for gram-negative bacilli. On today's evaluation and that is 11/27/2021, The patient remains to be afebrile, the patient is breathing comfortably on nasal cannula oxygen, the patient denies chest pain shortness breath and no significant cough abdominal pain no diarrhea , The patient pain to bilateral lower extremities is currently controlled Objective - Vital Signs Vital signs: Vital Signs Temp 97.5 F L 11/27/21 07:08 Pulse 67 11/27/21 07:08 Resp 17 11/27/21 07:08 BP 121/75 11/27/21 07:08 Pulse Ox 98 11/27/21 07:08 Intake & Output 11/26/21 11/27/21 11/27/21 18:59 06:59 18:59 Intake Total 700 Output Total 600 Balance 100 Intake: Intake, IV Titration 200 Amount cefTAZidime 2 gm In 200 Sodium Chloride 0.9% 100 ml @ 25 mls/hr IVPB Q8H [facility] Rx#:[id number] Oral 500 Output: Urine 600 Other: Voiding Method External Catheter External Catheter External Catheter # Voids 1 # Bowel Movements 1 - Exam GENERAL DESCRIPTION: Middle-age female lying in bed in no distress RESPIRATORY SYSTEM: Unlabored breathing , decreased breath sounds at bases HEART: S1 S2 regular rate and rhythm , ABDOMEN: Soft , no tenderness EXTREMITIES: Bilateral lower extremity swelling and redness has decreased and redness drainage - Labs CBC & Chem 7: 11/24/21 05:50 11/24/21 05:50 Labs: Microbiology - Last 24 Hours (Table) 11/21/21 11:39 Blood Culture - Preliminary Blood No Growth after 120 hours 11/21/21 11:15 Blood Culture - Preliminary Blood No Growth after 120 hours Assessment and Plan (1) Cellulitis of left lower extremity Current Visit: Yes Status: Acute Code(s): L03.116 - CELLULITIS OF LEFT LOWER LIMB SNOMED Code(s): 405210818 Plan: 1patient presented to hospital with sepsis anticipated have a fever elevated white count source likely left lower extremity cellulitis in this we did have diffuse swelling redness , patient regarding her course complicated by development of bacteremia with a blood culture reported positive with gram- negative bacillus, which has been finalized with Achrmobacter with intermediate sensitivity to cefepime 2local wound care to the leg with Aaron wrap. 3Patient to continue with Fortaz 2 g every 8 hours to finish a total of 2 week course of therapy Time with Patient: Less than 30
--- NOTE | 2021-11-28 18:50 | P.PN ---
Subjective Progress Note Date: 11/28/21 Principal diagnosis: Bilateral lower extremity cellulitis and bacteremia Patient is a 51 year female with significant bilateral lower extremity lymphedema and history of cellulitis presented to hospital with another episode of cellulitis especially to the left leg, patient blood cultures were reported positive for gram-negative bacilli. On today's evaluation and that is 11/28/2021, The patient denies any fever or any chills , the patient is breathing comfortably on nasal cannula oxygen, the patient denies chest pain shortness breath and no significant cough abdominal pain no diarrhea , The patient deniespain to bilateral lower and the drainage has resolved Objective - Vital Signs Vital signs: Vital Signs Temp 98.3 F 11/28/21 14:50 Pulse 72 11/28/21 14:50 Resp 18 11/28/21 14:50 BP 103/64 11/28/21 14:50 Pulse Ox 98 11/28/21 14:50 Intake & Output 11/27/21 11/28/21 11/28/21 18:59 06:59 18:59 Intake Total 830 100 Output Total 1450 550 Balance -1450 280 100 Intake: Intake, IV Titration 100 Amount cefTAZidime 2 gm In 100 Sodium Chloride 0.9% 100 ml @ 25 mls/hr IVPB Q8H [facility] Rx#:[id number] Oral 830 Output: Urine 1450 550 Other: Voiding Method External Catheter External Catheter External Catheter # Voids 3 - Exam GENERAL DESCRIPTION: Middle-age female lying in bed in no distress RESPIRATORY SYSTEM: Unlabored breathing , decreased breath sounds at bases HEART: S1 S2 regular rate and rhythm , ABDOMEN: Soft , no tenderness EXTREMITIES: Bilateral lower extremity swelling and redness has decreased and redness drainage - Labs CBC & Chem 7: 11/24/21 05:50 11/24/21 05:50 Labs: Abnormal Lab Results - Last 24 Hours (Table) 11/26/21 Range/Units 06:20 Methylmalonic Acid 0.49 H (<0.40) umol/L Assessment and Plan (1) Cellulitis of left lower extremity Current Visit: Yes Status: Acute Code(s): L03.116 - CELLULITIS OF LEFT LOWER LIMB SNOMED Code(s): 865356652 Plan: 1patient presented to hospital with sepsis anticipated have a fever elevated white count source likely left lower extremity cellulitis in this we did have diffuse swelling redness , patient regarding her course complicated by development of bacteremia with a blood culture reported positive with gram- negative bacillus, which has been finalized with Achrmobacter with intermediate sensitivity to cefepime 2local wound care to the leg with moisturizing cream to the dry scaly skin and Aaron wrap to keep the swelling down. 3Patient to continue with Fortaz 2 g every 8 hours to finish a total of 2 week course of therapy Time with Patient: Less than 30
[2021-11-29] MEDS: ACETAMINOPHEN TAB 325 MG TAB PO PRN (01:06)
[2021-11-29] MEDS: FOLIC ACID 1 MG TAB PO SCH (08:08)
[2021-11-29] MEDS: PANTOPRAZOLE 40 MG TABLET PO SCH (08:08)
[2021-11-29] MEDS: BACLOFEN 10 MG TAB PO SCH ×3 (08:08→21:41)
[2021-11-29] MEDS: CHOLECALCIFEROL 125 MCG (5000 IU) TABLET PO SCH (08:09)
[2021-11-29] MEDS: LISINOPRIL-HCTZ 10-12.5 MG 1 EACH TAB PO SCH (08:09)
[2021-11-29] MEDS: ENOXAPARIN 40 MG/0.4 ML SYRINGE SQ SCH (08:09)
--- NOTE | 2021-11-29 10:16 | P.PN ---
Subjective Progress Note Date: 11/29/21 No new complaints, pt is pending discharge. Gen: awake, alert HEENT: normocephalic, atraumatic, good hearing acuity, moist mucous membranes Resp: good air exchange, breathing comfortably with no accessory muscle use CVS: good distal perfusion x 4, GI: soft, NTTP, ND : no SPT, no CVAT, huff catheter not present MSK: Bilateral lymphedema chronic skin changes, weeping and areas, redness of the right lower extremity on the lateral aspect, multiple papules and plaques. Neuro: non-focal, moving all extremities Psych: cooperative, euthymic mood Assessment/plan: Achromobacter xylos ss denit bacteremia Bilateral lower extremities cellulitis with chronic wounds and sepsis, infected chronic wound Sepsis upon arrival secondary to above -Infectious disease following, appreciate further recommendations -Continue with IV antibiotics: Ceftazidime -Wound care following -Follow CBC -Repeat blood cultures showing no growth to date. -Hematology/oncology consulted to rule out cutaneous lymphoma -Gen. surgery was consulted for skin biopsies -Vascular surgery was consulted by general surgery secondary to lymphedema in bilateral lower extremities. MS-secondary progressive with lower extremity weakness and numbness -Neurology following, recommending follow-up outpatient with neurologist in 1-2 weeks (Dr. Grayson) -would attempt to avoid steroids that this time with bacteremia -Baclofen resumed -Symptomatic care and pain management. -Safe and supportive care -Has been off injectable/monoclonal antibody for 2 months -PT/OT evaluated patient recommending started to increase strength, functional mobility prior to returning home. HTN, controlled -Monitor vital signs and continue daily medication regimen with lisinopril/hctz Morbid Obesity with BMI 45.3 -Outpatient weight loss referral DVT prophylaxis: Lovenox Anticipated discharge date: Tuesday, after midline has been placed and hospital b ed has been delivered Anticipated discharge place: Home with homecare Objective - Vital Signs Vital signs: Vital Signs Temp 98.6 F 11/29/21 04:26 Pulse 72 11/29/21 08:00 Resp 16 11/29/21 08:00 BP 113/68 11/29/21 04:26 Pulse Ox 96 11/29/21 04:26 Intake & Output 11/28/21 11/29/21 11/29/21 18:59 06:59 18:59 Intake Total 100 960 120 Output Total 600 Balance 100 360 120 Intake: Intake, IV Titration 100 200 Amount cefTAZidime 2 gm In 100 200 Sodium Chloride 0.9% 100 ml @ 25 mls/hr IVPB Q8H [facility] Rx#:[id number] Oral 760 120 Output: Urine 600 Other: Voiding Method External Catheter External Catheter External Catheter - Labs CBC & Chem 7: 11/24/21 05:50 11/24/21 05:50 Labs: Abnormal Lab Results - Last 24 Hours (Table) 11/26/21 Range/Units 06:20 Methylmalonic Acid 0.49 H (<0.40) umol/L
--- NOTE | 2021-11-29 16:53 | P.PN ---
Subjective Progress Note Date: 11/29/21 Principal diagnosis: Bilateral lower extremity cellulitis and bacteremia Patient is a 51 year female with significant bilateral lower extremity lymphedema and history of cellulitis presented to hospital with another episode of cellulitis especially to the left leg, patient blood cultures were reported positive for gram-negative bacilli. On today's evaluation and that is 11/29/2021, The patient remains to be afebrile , the patient is breathing comfortably on nasal cannula oxygen, the patient denies chest pain shortness breath and no significant cough abdominal pain no diarrhea , The patient denies pain to bilateral lower and there is no further drainage Objective - Vital Signs Vital signs: Vital Signs Temp 98.2 F 11/29/21 11:49 Pulse 65 11/29/21 11:49 Resp 18 11/29/21 11:49 BP 102/63 11/29/21 11:49 Pulse Ox 95 11/29/21 11:49 Intake & Output 11/28/21 11/29/21 11/29/21 18:59 06:59 18:59 Intake Total 100 960 120 Output Total 600 Balance 100 360 120 Intake: Intake, IV Titration 100 200 Amount cefTAZidime 2 gm In 100 200 Sodium Chloride 0.9% 100 ml @ 25 mls/hr IVPB Q8H [facility] Rx#:[id number] Oral 760 120 Output: Urine 600 Other: Voiding Method External Catheter External Catheter External Catheter - Exam GENERAL DESCRIPTION: Middle-age female lying in bed in no distress RESPIRATORY SYSTEM: Unlabored breathing , decreased breath sounds at bases HEART: S1 S2 regular rate and rhythm , ABDOMEN: Soft , no tenderness EXTREMITIES: Bilateral lower extremity swelling and redness has decreased and redness drainage - Labs CBC & Chem 7: 11/24/21 05:50 11/24/21 05:50 Assessment and Plan (1) Cellulitis of left lower extremity Current Visit: Yes Status: Acute Code(s): L03.116 - CELLULITIS OF LEFT LOWER LIMB SNOMED Code(s): 684704292 Plan: 1patient presented to hospital with sepsis anticipated have a fever elevated white count source likely left lower extremity cellulitis in this we did have diffuse swelling redness , patient regarding her course complicated by development of bacteremia with a blood culture reported positive with gram-ne gative bacillus, which has been finalized with Achrmobacter with intermediate sensitivity to cefepime 2local wound care to the leg with moisturizing cream to the dry scaly skin and Aaron wrap to keep the swelling down. 3Patient to continue with Fortaz 2 g every 8 hours to finish a total of 2 week course of therapy from her negative blood culture of 11/21/2021, last day of ANTIBIOTIC will be for 12/04/2021 Time with Patient: Less than 30
[2021-11-30] MEDS: FOLIC ACID 1 MG TAB PO SCH (08:55)
[2021-11-30] MEDS: ENOXAPARIN 40 MG/0.4 ML SYRINGE SQ SCH (08:55)
[2021-11-30] MEDS: CHOLECALCIFEROL 125 MCG (5000 IU) TABLET PO SCH (08:55)
[2021-11-30] MEDS: BACLOFEN 10 MG TAB PO SCH ×3 (08:56→21:53)
[2021-11-30] MEDS: PANTOPRAZOLE 40 MG TABLET PO SCH (08:56)
--- NOTE | 2021-11-30 11:22 | P.PN ---
Subjective Progress Note Date: 11/30/21 Hospital course: Patient is a 51-year-old female with a past medical history of multiple sclerosis on monoclonal antibody, GERD, hypertension, and urinary incontinence. She presented to the emergency department on 11/20/21 with a chief complaint that her left leg was red, swollen and painful with yellow drainage. In the ER she underwent an extensive evaluation. She was found to be tachycardic with a pulse rate of 132. Initial laboratory analysis showed white blood cell count of 16, sodium 136, lactic acid 2.1. Patient was subsequently admitted for left lower extremity cellulitis with sepsis. She was given sepsis bolus and started on IV antibiotics. Patient was admitted under our services with consultation to infectious disease. Blood culture is positive for Achromobacter xylos SS denit, antibiotics changed to ceftazidime per sensitivity report. Consult placed to he matology to rule out cutaneous lymphoma. Consult placed to general surgery for skin biopsies. Patient has been evaluated by hematology/oncology and general surgery as well as vascular surgery, no plans for biopsies at this time. Patient to follow-up outpatient once treatment is completed for bacteremia. Infectious disease following recommending a complete 2 week course of antibiotics with ceftazidime. Patient has been accepted to [facility] [place] and we are pending insurance authorization at this time. Physical examination: Patient seen and examined at bedside this morning. She is doing well and remains on IV antibiotics with ceftazidime. Plan is for discharge to [facility] [place], patient has been accepted to facility for [facility]ent[facility] treatment and rehab, awaiting insurance authorization. Patient denies having any complaints or needs this morning. General: non toxic, no distress, obese, appears older than stated age Derm: warm, dry, bilateral lower extremities with thickened, dry, scaly skin with areas of nodules, angela dressing to bilateral lower extremities. Head: atraumatic, normocephalic, symmetric Eyes: EOMI, no lid lag, anicteric sclera Mouth: no lip lesion, mucus membranes moist Cardiovascular: S1S2 reg, no murmur, positive posterior tibial pulse bilateral, Lungs: Lungs diminished, no rhonchi, no rales, and no wheezes. no accessory muscle use Abdominal: soft, nontender to palpation, no guarding, no appreciable organomegaly Ext: no gross muscle atrophy, patient has lymphedema to bilateral lower extremities, no contractures Neuro: CN II-XI grossly intact, no focal neuro deficits Psych: Alert, oriented, appropriate affect Assessment and plan of care: Achromobacter xylos ss denit bacteremia Bilateral lower extremities cellulitis with chronic wounds and sepsis, infected chronic wound Sepsis upon arrival secondary to above -Infectious disease following, recommending completing 2 week course of antibiotics with ceftazidime. Midline has been placed. -Continue with IV antibiotics: Ceftazidime -Wound care following -Patient has not had any leukocytosis since admission. -Repeat blood cultures showing no growth after 144 hours. -Hematology/oncology consulted to rule out cutaneous lymphoma, recommending skin biopsies once treatment of bacteremia is completed -Gen. surgery was consulted for skin biopsies, recommending treatment of bacteremia with no plans for surgical biopsies at this time -Vascular surgery was consulted by general surgery secondary to lymphedema in bilateral lower extremities, recommend outpatient follow-up MS-secondary progressive with lower extremity weakness and numbness -Neurology following, recommending follow-up outpatient with neurologist in 1-2 weeks (Dr. Grayson) -would attempt to avoid steroids that this time with bacteremia -Baclofen resumed -Symptomatic care and pain management. -Safe and supportive care -Has been off injectable/monoclonal antibody for 2 months, hold off on monoclonal anti-body pending completion of treatment of bacteremia -PT/OT evaluated patient recommending started to increase strength, functional mobility prior to returning home. HTN, controlled -Monitor vital signs and continue daily medication regimen with lisinopril/hctz Morbid Obesity with BMI 45.3 DVT prophylaxis: Lovenox Discussed with: Patient, RN and patient's via telephone Anticipated discharge date: Pending insurance authorization Anticipated discharge place: [facility] [place] A total of 33 minutes was spent on the care of this complex patient more than 50% of the time was spent in counseling and care coordination. I reviewed the documentation as provided by the BRANDEE above, who is the original author of this note. I agree with the documented assessment and plan, with the following changes: None Objective - Vital Signs Vital signs: Vital Signs Temp 97.7 F 11/30/21 07:40 Pulse 76 11/30/21 07:40 Resp 17 11/30/21 07:40 BP 110/73 11/30/21 07:40 Pulse Ox 96 11/30/21 07:40 Intake & Output 11/29/21 11/30/21 11/30/21 18:59 06:59 18:59 Intake Total 420 Balance 420 Intake: Intake, IV Titration 100 Amount cefTAZidime 2 gm In 100 Sodium Chloride 0.9% 100 ml @ 25 mls/hr IVPB Q8H [facility] Rx#:[id number] Oral 120 Blood Product 200 Other: Voiding Method External Catheter External Catheter # Voids 2 - Labs CBC & Chem 7: 11/24/21 05:50 11/24/21 05:50 Labs: Abnormal Lab Results - Last 24 Hours (Table) 11/26/21 Range/Units 06:20 Vitamin B6 3 L (5-50) ug/L
[2021-11-30] MEDS: LISINOPRIL-HCTZ 10-12.5 MG 1 EACH TAB PO SCH (12:20)
[2021-11-30 13:59] LABS: Albumin 3.04 g/dL (3.80-4.90)
[2021-11-30] MEDS: ACETAMINOPHEN TAB 325 MG TAB PO PRN (15:00)
--- NOTE | 2021-11-30 19:24 | P.PN ---
Subjective Progress Note Date: 11/30/21 Principal diagnosis: Bilateral lower extremity cellulitis and bacteremia Patient is a 51 year female with significant bilateral lower extremity lymphedema and history of cellulitis presented to hospital with another episode of cellulitis especially to the left leg, patient blood cultures were reported positive for gram-negative bacilli. On today's evaluation and that is 11/30/2021, The patient is afebrile , the patient is breathing comfortably on nasal cannula oxygen, the patient denies chest pain shortness breath and no significant cough abdominal pain no diarrhea , The patient denies pain to bilateral lower and there is no further drainage, patient is currently waiting for placement Objective - Vital Signs Vital signs: Vital Signs Temp 97.7 F 11/30/21 07:40 Pulse 76 11/30/21 07:40 Resp 17 11/30/21 07:40 BP 110/73 11/30/21 07:40 Pulse Ox 96 11/30/21 07:40 Intake & Output 11/29/21 11/30/21 11/30/21 18:59 06:59 18:59 Intake Total 420 Balance 420 Intake: Intake, IV Titration 100 Amount cefTAZidime 2 gm In 100 Sodium Chloride 0.9% 100 ml @ 25 mls/hr IVPB Q8H [facility] Rx#:[id number] Oral 120 Blood Product 200 Other: Voiding Method External Catheter External Catheter # Voids 2 - Exam GENERAL DESCRIPTION: Middle-age female lying in bed in no distress RESPIRATORY SYSTEM: Unlabored breathing , decreased breath sounds at bases HEART: S1 S2 regular rate and rhythm , ABDOMEN: Soft , no tenderness EXTREMITIES: Bilateral lower extremity swelling and redness has decreased and redness drainage - Labs CBC & Chem 7: 11/24/21 05:50 11/24/21 05:50 Labs: Abnormal Lab Results - Last 24 Hours (Table) 11/26/21 Range/Units 06:20 Vitamin B6 3 L (5-50) ug/L Assessment and Plan (1) Cellulitis of left lower extremity Current Visit: Yes Status: Acute Code(s): L03.116 - CELLULITIS OF LEFT LOWER LIMB SNOMED Code(s): 580278789 Plan: 1patient presented to hospital with sepsis anticipated have a fever elevated white count source likely left lower extremity cellulitis in this we did have diffuse swelling redness , patient regarding her course complicated by development of bacteremia with a blood culture reported positive with gram- negative bacillus, which has been finalized with Achrmobacter with intermediate sensitivity to cefepime 2local wound care to the leg with moisturizing cream to the dry scaly skin and Aaron wrap to keep the swelling down. 3Patient is currently being treated with Fortaz 2 g every 8 hours to finish a total of 2 week course of therapy from her negative blood culture of 11/21/2021, patient to continue with the Fortaz still 12/04/2021 Time with Patient: Less than 30
[2021-11-30] MEDS: HYDROcodone/APAP 5-325MG 1 EACH TAB PO PRN (19:52)
[2021-12-01] MEDS: LISINOPRIL-HCTZ 10-12.5 MG 1 EACH TAB PO SCH (08:40)
[2021-12-01] MEDS: FOLIC ACID 1 MG TAB PO SCH (08:40)
[2021-12-01] MEDS: CHOLECALCIFEROL 125 MCG (5000 IU) TABLET PO SCH (08:40)
[2021-12-01] MEDS: PANTOPRAZOLE 40 MG TABLET PO SCH (08:40)
[2021-12-01] MEDS: ENOXAPARIN 40 MG/0.4 ML SYRINGE SQ SCH (08:40)
[2021-12-01] MEDS: BACLOFEN 10 MG TAB PO SCH ×3 (08:40→19:35)
[2021-12-01] MEDS: PYRIDOXINE 50 MG TAB PO SCH (13:06)
--- NOTE | 2021-12-01 14:50 | P.DS ---
Providers Date of admission: 11/20/21 08:49 Expected date of discharge: 12/01/21 Attending physician: Daphne Goff DO Consults: 11/20/21 04:52 Consult Physician Routine Consulting Provider: Jose Rafael Ross Consult Reason/Comments: MS exacerbation Do you want consulting provider notified?: Yes Consult Physician Routine Consulting Provider: Corin Rodriguez Consult Reason/Comments: L leg cellulitis Do you want consulting provider notified?: Yes 11/24/21 11:02 Consult Physician Routine Consulting Provider: Ed Avendaño Consult Reason/Comments: Questionable, rule out cutaneous lymphoma Do you want consulting provider notified?: Yes 11/24/21 23:31 Consult Physician Routine Consulting Provider: Shawn Sesay Consult Reason/Comments: Lymphedema BLE, severe Do you want consulting provider notified?: Yes, Notify in am Primary care physician: [facility] Course: Discharge Diagnosis: Achromobacter xylos ss denit bacteremia, complete course of IV antibiotics ceftazidime as recommended by infectious disease. Bilateral lower extremities cellulitis with chronic wounds and sepsis Sepsis upon arrival secondary to above MS-secondary progressive with bilateral lower extremity weakness and numbness. Recommend resuming Tysabri infusion once treatment of bacteremia is completed and you are discharged from rehab, you will also need to follow-up outpatient with your neurologist in 1-2 weeks (Dr. Grayson) HTN, controlled. Monitor vital signs and continue daily medication regimen with lisinopril/hctz Morbid Obesity with BMI 45.3 Hospital Course: Patient is a 51-year-old female with a past medical history of multiple sclerosis on monoclonal antibody, GERD, hypertension, and urinary incontinence. She presented to the emergency department on 11/20/21 with a chief complaint that her left leg was red, swollen and painful with yellow drainage. In the ER she underwent an extensive evaluation. She was found to be tachycardic with a pulse rate of 132. Initial laboratory analysis showed white blood cell count of 16, sodium 136, lactic acid 2.1. Patient was subsequently admitted for left lower extremity cellulitis with sepsis. She was given sepsis bolus and started on IV antibiotics. Patient was admitted under our services with consultation to infe ctious disease. Blood culture is positive for Achromobacter xylos SS denit, antibiotics changed to ceftazidime per sensitivity report. Consult placed to hematology to rule out cutaneous lymphoma. Consult placed to general surgery for skin biopsies. Patient has been evaluated by hematology/oncology and general surgery as well as vascular surgery, no plans for biopsies at this time. Patient to follow-up outpatient once treatment is completed for bacteremia. Infectious disease following recommending a complete 2 week course of antibiotics with ceftazidime. Patient has been seen and evaluated by physical therapy, secondary to persistent weakness resulting from current infection and underlying MS, patient will require continued physical therapy upon discharge on recommending [facility] facility upon discharge. Patient has been accepted to [facility] and remained under our care while pending insurance authorization. Insurance authorization has been received and patient being discharged to [facility] today. Patient is medically stable. Midline in place to left upper extremity to enable continued IV antibiotics with ceftazidime as directed by infectious disease. Patient medically stable for transfer to [facility] facility at this time. Physical examination: General: non toxic, no distress, obese, appears older than stated age Derm: warm, dry, bilateral lower extremities with thickened, dry, scaly skin with areas of nodules, angela dressing to bilateral lower extremities. Head: atraumatic, normocephalic, symmetric Eyes: EOMI, no lid lag, anicteric sclera Mouth: no lip lesion, mucus membranes moist Cardiovascular: S1S2 reg, no murmur, positive posterior tibial pulse bilateral, Lungs: Lungs diminished, no rhonchi, no rales, and no wheezes. no accessory muscle use Abdominal: soft, nontender to palpation, no guarding, no appreciable organomegaly Ext: no gross muscle atrophy, patient has lymphedema to bilateral lower e xtremities, no contractures Neuro: CN II-XI grossly intact, no acute focal neuro deficits. Patient does have bilateral lower extremity weakness and does report decreased sensation to left lower extremity chronic in nature. Psych: Alert, oriented, appropriate affect A total of 39 minutes of time were spent preparing this complex discharge summary. I reviewed the documentation as provided by the BRANDEE above, who is the original author of this note. I agree with the documented assessment and plan, with the following changes: None Patient Condition at Discharge: Stable Plan - Discharge Summary Discharge Rx Participant: Yes New Discharge Prescriptions: New Folic Acid 0.5 mg PO DAILY tab Cholecalciferol [Vitamin D3 (125 Mcg = 5000 Iu)] 125 mcg PO DAILY tablet HYDROcodone/APAP 5-325MG [[place] 5-325] 1 each PO Q4HR PRN #18 tab PRN Reason: Moderate Pain Acetaminophen Tab [Tylenol] 650 mg PO Q6HR PRN tab PRN Reason: Mild Pain Or Fever > 100.5 Continue Baclofen [Lioresal] 20 mg PO TID Ibuprofen [Motrin Ib] 200 - 400 mg PO Q6H PRN PRN Reason: Pain Or Fever > 100.5 Omeprazole Magnesium [PriLOSEC OTC] 20 mg PO DAILY Lisinopril-Hctz 10-12.5 mg [Zestoretic 10-12.5] 1 tab PO DAILY Discontinued Tysabri Infusion 300 mg IV Q28D Discharge Medication List Baclofen [Lioresal] 20 mg PO TID 10/12/20 [History] Ibuprofen [Motrin Ib] 200 - 400 mg PO Q6H PRN 08/20/21 [History] Omeprazole Magnesium [PriLOSEC OTC] 20 mg PO DAILY 08/20/21 [History] Lisinopril-Hctz 10-12.5 mg [Zestoretic 10-12.5] 1 tab PO DAILY 11/20/21 [History] Acetaminophen Tab [Tylenol] 650 mg PO Q6HR PRN tab 11/27/21 [Rx] Cholecalciferol [Vitamin D3 (125 Mcg = 5000 Iu)] 125 mcg PO DAILY tablet 11/27/21 [Rx] Folic Acid 0.5 mg PO DAILY tab 11/27/21 [Rx] HYDROcodone/APAP 5-325MG [[place] 5-325] 1 each PO Q4HR PRN #18 tab 11/27/21 [Rx] Follow up Appointment(s)/Referral(s): Roshan Rincon MD [Primary Care Provider] - 1-2 days Matilda Mayes MD [Medical Doctor] - [facility] - [facility]-2 Days Activity/Diet/Wound Care/Special Instructions: Activity: As tolerated. Take breaks as needed. Diet: Heart healthy and carb consistent diet. Avoid salts, or foods with hidden salts such as canned or boxed foods and frozen dinners. Extra salt makes your heart work harder and traps the fluid in your body for longer. Special Instructions: Take all of your medications as directed and remember to keep all of your doctor's appointments and follow-up as needed. [facility] can be contacted at and asked to speak with the lymphedema therapist. It is okay to discontinue Tysabri infusion at this time and resume once treatment of bacteremia is completed and you are discharged from rehab. Patient is being sent home with a hospital bed to relieve pain and to facilitate position changes that cannot be accomplished in a normal bed secondary to diagnosis of multiple sclerosis. Thank you for allowing us to participate in your care, it was truly a pleasure having you for our patient!!! Discharge Disposition: TRANSFER TO SNF/ECF
[2021-12-01] MEDS: HYDROcodone/APAP 5-325MG 1 EACH TAB PO PRN (19:35)
[2021-12-02] MEDS: HYDROcodone/APAP 5-325MG 1 EACH TAB PO PRN (04:38)
[2021-12-02] MEDS: PANTOPRAZOLE 40 MG TABLET PO SCH (08:01)
[2021-12-02] MEDS: CHOLECALCIFEROL 125 MCG (5000 IU) TABLET PO SCH (08:01)
[2021-12-02] MEDS: BACLOFEN 10 MG TAB PO SCH (08:01)
[2021-12-02] MEDS: FOLIC ACID 1 MG TAB PO SCH (08:01)
[2021-12-02] MEDS: ENOXAPARIN 40 MG/0.4 ML SYRINGE SQ SCH (08:02)
[2021-12-02] MEDS: LISINOPRIL-HCTZ 10-12.5 MG 1 EACH TAB PO SCH (08:03)
[2021-12-02] MEDS: PYRIDOXINE 50 MG TAB PO SCH (08:03)
[2021-12-02 12:39] VITALS: BP 111/73; PULSE 65; RESP 20; TEMP 97.7
--- NOTE | 2021-12-02 13:22 | P.DS ---
Providers Date of admission: 11/20/21 08:49 Expected date of discharge: 12/02/21 Attending physician: Daphne Goff DO Consults: 11/20/21 04:52 Consult Physician Routine Consulting Provider: Jose Rafael Ross Consult Reason/Comments: MS exacerbation Do you want consulting provider notified?: Yes Consult Physician Routine Consulting Provider: Corin Rodriguez Consult Reason/Comments: L leg cellulitis Do you want consulting provider notified?: Yes 11/24/21 11:02 Consult Physician Routine Consulting Provider: Ed Avendaño Consult Reason/Comments: Questionable, rule out cutaneous lymphoma Do you want consulting provider notified?: Yes 11/24/21 23:31 Consult Physician Routine Consulting Provider: Shawn Sesay Consult Reason/Comments: Lymphedema BLE, severe Do you want consulting provider notified?: Yes, Notify in am Primary care physician: [facility] Course: Discharge Diagnosis: Achromobacter xylos ss denit bacteremia, complete course of IV antibiotics ceftazidime as recommended by infectious disease. Bilateral lower extremities cellulitis with chronic wounds and sepsis Sepsis upon arrival secondary to above MS-secondary progressive with bilateral lower extremity weakness and numbness. Recommend resuming Tysabri infusion once treatment of bacteremia is completed and you are discharged from rehab, you will also need to follow-up outpatient with your neurologist in 1-2 weeks (Dr. Grayson) HTN, controlled. Monitor vital signs and continue daily medication regimen with lisinopril/hctz Morbid Obesity with BMI 45.3 Hospital Course: Patient is a 51-year-old female with a past medical history of multiple sclerosis on monoclonal antibody, GERD, hypertension, and urinary incontinence. She presented to the emergency department on 11/20/21 with a chief complaint that her left leg was red, swollen and painful with yellow drainage. In the ER she underwent an extensive evaluation. She was found to be tachycardic with a pulse rate of 132. Initial laboratory analysis showed white blood cell count of 16, sodium 136, lactic acid 2.1. Patient was subsequently admitted for left lower extremity cellulitis with sepsis. She was given sepsis bolus and started on IV antibiotics. Patient was admitted under our services with consultation to infec tious disease. Blood culture is positive for Achromobacter xylos SS denit, antibiotics changed to ceftazidime per sensitivity report. Consult placed to hematology to rule out cutaneous lymphoma. Consult placed to general surgery for skin biopsies. Patient has been evaluated by hematology/oncology and general surgery as well as vascular surgery, no plans for biopsies at this time. Patient to follow-up outpatient once treatment is completed for bacteremia. Infectious disease following recommending a complete 2 week course of antibiotics with ceftazidime. Patient has been seen and evaluated by physical therapy, secondary to persistent weakness resulting from current infection and underlying MS, patient will require continued physical therapy upon discharge on recommending long term facility upon discharge. Patient has been accepted to [facility] and remained under our care while pending insurance authorization. Insurance authorization has been received and patient being discharged to [facility] today. Patient is medically stable. Midline in place to left upper extremity to enable continued IV antibiotics with ceftazidime as directed by infectious disease. Patient medically stable for transfer to long term facility at this time. Physical examination: Patient seen and fully evaluated at bedside. She was sitting up in wheelchair this morning visiting with her . Patient denies having any complaints or needs at this time she is awaiting transfer to [facility]. Patient is medically stable, insurance authorization has been approved and transportation being arranged. Patient medically stable for discharge at this time. General: non toxic, no distress, obese, appears older than stated age Derm: warm, dry, bilateral lower extremities with thickened, dry, scaly skin with areas of nodules, angela dressing to bilateral lower extremities. Head: atraumatic, normocephalic, symmetric Eyes: EOMI, no lid lag, anicteric sclera Mouth: no lip lesion, mucus membranes moist Cardiovascular: S1S2 reg, no murmur, positive posterior tibial pulse bilateral, Lungs: Lungs diminished, no rhonchi, no rales, and no wheezes. no accessory muscle use Abdominal: soft, nontender to palpation, no guarding, no appreciable organomegaly Ext: no gross muscle atrophy, patient has lymphedema to bilateral lower extremities, no contractures Neuro: CN II-XI grossly intact, no acute focal neuro deficits. Patient does have bilateral lower extremity weakness and does report decreased sensation to left lower extremity chronic in nature. Psych: Alert, oriented, appropriate affect A total of 36 minutes of time were spent preparing this complex discharge summary. Patient Condition at Discharge: Stable Plan - Discharge Summary Discharge Rx Participant: Yes New Discharge Prescriptions: New Folic Acid 0.5 mg PO DAILY tab Cholecalciferol [Vitamin D3 (125 Mcg = 5000 Iu)] 125 mcg PO DAILY tablet HYDROcodone/APAP 5-325MG [[place] 5-325] 1 each PO Q4HR PRN #18 tab PRN Reason: Moderate Pain Acetaminophen Tab [Tylenol] 650 mg PO Q6HR PRN tab PRN Reason: Mild Pain Or Fever > 100.5 Continue Baclofen [Lioresal] 20 mg PO TID Ibuprofen [Motrin Ib] 200 - 400 mg PO Q6H PRN PRN Reason: Pain Or Fever > 100.5 Omeprazole Magnesium [PriLOSEC OTC] 20 mg PO DAILY Lisinopril-Hctz 10-12.5 mg [Zestoretic 10-12.5] 1 tab PO DAILY Discontinued Tysabri Infusion 300 mg IV Q28D Discharge Medication List Baclofen [Lioresal] 20 mg PO TID 10/12/20 [History] Ibuprofen [Motrin Ib] 200 - 400 mg PO Q6H PRN 08/20/21 [History] Omeprazole Magnesium [PriLOSEC OTC] 20 mg PO DAILY 08/20/21 [History] Lisinopril-Hctz 10-12.5 mg [Zestoretic 10-12.5] 1 tab PO DAILY 11/20/21 [History] Acetaminophen Tab [Tylenol] 650 mg PO Q6HR PRN tab 11/27/21 [Rx] Cholecalciferol [Vitamin D3 (125 Mcg = 5000 Iu)] 125 mcg PO DAILY tablet 11/27/21 [Rx] Folic Acid 0.5 mg PO DAILY tab 11/27/21 [Rx] HYDROcodone/APAP 5-325MG [[place] 5-325] 1 each PO Q4HR PRN #18 tab 11/27/21 [Rx] Follow up Appointment(s)/Referral(s): Roshan Rincon MD [Primary Care Provider] - 1-2 days Matilda Mayes MD [Medical Doctor] - 2 Weeks Karthik Hernandez [NON-STAFF] - 1-2 Days Activity/Diet/Wound Care/Special Instructions: Activity: As tolerated. Take breaks as needed. Diet: Heart healthy and carb consistent diet. Avoid salts, or foods with hidden salts such as canned or boxed foods and frozen dinners. Extra salt makes your heart work harder and traps the fluid in your body for longer. Special Instructions: Take all of your medications as directed and remember to keep all of your doctor's appointments and follow-up as needed. [facility] can be contacted at and asked to speak with the lymphedema therapist. It is okay to discontinue Tysabri infusion at this time and resume once treatment of bacteremia is completed and you are discharged from rehab. Patient is being sent home with a hospital bed to relieve pain and to facilitate position changes that cannot be accomplished in a normal bed secondary to diagnosis of multiple sclerosis. Thank you for allowing us to participate in your care, it was truly a pleasure having you for our patient!!! Discharge Disposition: TRANSFER TO SNF/ECF
--- NOTE | 2021-12-07 13:09 | P.PN ---
Subjective Progress Note Date: 12/02/21 Patient is a 51-year-old female with history of MS, bilateral lower extremity lymphedema and cellulitis. She came with another episode of cellulitis. Blood cultures grew gram-negative bacilli. Patient laying comfortably in the bed. Patient states her strength has improved. Her oozing from the cellulitis has also improved. No new symptoms. Objective - Vital Signs Vital signs: Vital Signs Temp 97.7 F 12/02/21 12:38 Pulse 65 12/02/21 12:38 Resp 20 12/02/21 12:38 BP 111/73 12/02/21 12:38 Pulse Ox 100 12/02/21 12:38 - Exam Patient's mentation is normal. Cranial nerves are normal. On muscle strength testing there is no pronator drift. Patient's muscle strength is (right/left) deltoid 5/5-, biceps 5/5, triceps 5/5, weight trainer 5/4. Hip flexion is 3+4-/2, ankle dorsiflexion 4/0. Patient has ataxia only for [id number] on the left. Patient has severe lymphedema. The bruising his much improved. It's more crusted. - Labs CBC & Chem 7: 11/24/21 05:50 11/24/21 05:50 Assessment and Plan Assessment: * Possible MS exacerbation * Status post bacteremia with positive blood cultures. 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 * Bilateral cellulitis in the lower extremities * Severe lymphedema bilateral lower extremities. * Chronic urinary incontinence likely due to MS. Plan: * Patient's muscle strength has improved as compared to the examination from the time of admission. Patient did not receive steroids because she was septic and there was concern of dissemination of the bacteremia. * Patient had bacteremia. Patient was initially placed on cefepime, but now on Fortaz. Infectious disease following closely. Her blood cultures now are negative. * Patient at present is clinically stable. No indication for Solu-Medrol at this time. Patient says that she will follow up with her neurologist within 1 week and discuss about need for steroids as an outpatient with her primary physician's office. * Patient is already to go to rehab. [place]. Patient recommended to follow up with her neurologist within 2-4 weeks after discharge.
--- NOTE | 2021-12-09 18:19 | P.PN ---
Subjective Progress Note Date: 12/01/21 Principal diagnosis: Bilateral lower extremity cellulitis and bacteremia Patient is a 51 year female with significant bilateral lower extremity lymphedema and history of cellulitis presented to hospital with another episode of cellulitis especially to the left leg, patient blood cultures were reported positive for gram-negative bacilli. On today's evaluation and that is 12/01/2021, The patient remains to be afebrile , the patient is breathing comfortably on nasal cannula oxygen, the patient denies chest pain shortness breath and denies cough abdominal pain no diarrhea , The patient denies pain to bilateral lower and there is no further drainage Objective - Vital Signs Vital signs: Vital Signs Temp 97.7 F 12/01/21 04:57 Pulse 71 12/01/21 04:57 Resp 18 12/01/21 04:57 BP 117/70 12/01/21 04:57 Pulse Ox 98 12/01/21 04:57 Intake & Output 11/30/21 12/01/21 12/01/21 18:59 06:59 18:59 Intake Total 100 Balance 100 Intake: Intake, IV Titration 100 Amount cefTAZidime 2 gm In 100 Sodium Chloride 0.9% 100 ml @ 25 mls/hr IVPB Q8H [facility] Rx#:[id number] Other: Voiding Method External Catheter # Bowel Movements 1 1 - Exam GENERAL DESCRIPTION: Middle-age female lying in bed in no distress RESPIRATORY SYSTEM: Unlabored breathing , decreased breath sounds at bases HEART: S1 S2 regular rate and rhythm , ABDOMEN: Soft , no tenderness EXTREMITIES: Bilateral lower extremity swelling and redness has decreased and redness drainage - Labs CBC & Chem 7: 11/24/21 05:50 11/24/21 05:50 Labs: Abnormal Lab Results - Last 24 Hours (Table) 11/26/21 Range/Units 06:20 Albumin (PEP) 3.04 L (3.80-4.90) g/dL [id number] 0.49 H (0.10-0.40) g/dL Assessment and Plan (1) Cellulitis of left lower extremity Status: Acute Code(s): L03.116 - CELLULITIS OF LEFT LOWER LIMB SNOMED Code(s): 321338919 Plan: 1patient presented to hospital with sepsis anticipated have a fever elevated white count source likely left lower extremity cellulitis in this we did have diffuse swelling redness , patient regarding her course complicated by development of bacteremia with a blood culture reported positive with gram- negative bacillus, which has been finalized with Achrmobacter with intermediate sensitivity to cefepime 2local wound care to the leg with moisturizing cream to the dry scaly skin and Aaron wrap to keep the swelling down. 3Patient to continue with Fortaz 2 g every 8 hours to finish a total of 2 week course of therapy from her negative blood culture of 11/21/2021, with the last dose on 12/04/2021 Time with Patient: Less than 30
--- NOTE | 2021-12-09 18:21 | P.PN ---
Subjective Progress Note Date: 12/02/21 Principal diagnosis: Bilateral lower extremity cellulitis and bacteremia Patient is a 51 year female with significant bilateral lower extremity lymphedema and history of cellulitis presented to hospital with another episode of cellulitis especially to the left leg, patient blood cultures were reported positive for gram-negative bacilli. On today's evaluation and that is 12/02/2021, The patient denies any fever or any chills , the patient is breathing comfortably on nasal cannula oxygen, the patient denies chest pain shortness breath or cough, the patient denies a bdominal pain no diarrhea , The patient denies pain to bilateral lower legs wounds are healed and no drainage Objective - Vital Signs Vital signs: Vital Signs Temp 97.7 F 12/02/21 12:38 Pulse 65 12/02/21 12:38 Resp 20 12/02/21 12:38 BP 111/73 12/02/21 12:38 Pulse Ox 100 12/02/21 12:38 Intake & Output 12/01/21 12/02/21 12/02/21 18:59 06:59 18:59 Intake Total 500 Output Total 800 500 Balance -800 0 Intake: Intake, IV Titration 100 Amount cefTAZidime 2 gm In 100 Sodium Chloride 0.9% 100 ml @ 25 mls/hr IVPB Q8H [facility] Rx#:[id number] Oral 400 Output: Urine 800 500 Other: Voiding Method External Catheter External Catheter External Catheter # Voids 1 - Exam GENERAL DESCRIPTION: Middle-age female lying in bed in no distress RESPIRATORY SYSTEM: Unlabored breathing , decreased breath sounds at bases HEART: S1 S2 regular rate and rhythm , ABDOMEN: Soft , no tenderness EXTREMITIES: Bilateral lower extremity swelling and redness has decreased and redness drainage - Labs CBC & Chem 7: 11/24/21 05:50 11/24/21 05:50 Assessment and Plan (1) Cellulitis of left lower extremity Status: Acute Code(s): L03.116 - CELLULITIS OF LEFT LOWER LIMB SNOMED Code(s): 076821492 Plan: 1patient presented to hospital with sepsis anticipated have a fever elevated white count source likely left lower extremity cellulitis in this we did have diffuse swelling redness , patient regarding her course complicated by d evelopment of bacteremia with a blood culture reported positive with gram- negative bacillus, which has been finalized with Achrmobacter with intermediate sensitivity to cefepime 2local wound care to the leg with moisturizing cream to the dry scaly skin and Aaron wrap to keep the swelling down. 3Patient is currently being treated with Fortaz 2 g every 8 hours to finish a total of 2 week course of therapy from her negative blood culture of 11/21/2021, with the last dose on 12/04/2021, advised Aaron wrap to the leg to keep the swelling down and prevent recurrent blister and ulcer formation Time with Patient: Less than 30
== END 2021-12-02 15:50 | DRG 872 ==
LOC: EC 01:25 → 6NMEDSUR 04:49 → OBSVTOIN 08:49 → 5NMEDONC 11-23 23:09
PROVIDERS: ADMIT Internal Medicine; ATTEND Internal Medicine
PROC: 05HF33Z Insertion of Infusion Device into Left Cephalic Vein, Percutaneous Approach (ICD-10-PCS; principal; 2021-11-30 12:10)
DX: A41.50 Gram-negative sepsis, unspecified (principal); L03.115 Cellulitis of right lower limb; L03.116 Cellulitis of left lower limb; Z68.42 Body mass index [BMI] 45.0-49.9, adult; E66.01 Morbid (severe) obesity due to excess calories; F32.A Depression, unspecified; G35 Multiple sclerosis; I10 Essential (primary) hypertension; I87.8 Other specified disorders of veins; I89.0 Lymphedema, not elsewhere classified; Z20.822 Contact with and (suspected) exposure to COVID-19; K21.9 Gastro-esophageal reflux disease without esophagitis; R32 Unspecified urinary incontinence; Z80.0 Family history of malignant neoplasm of digestive organs; Z82.49 Family history of ischemic heart disease and other diseases of the circulatory system; Z87.891 Personal history of nicotine dependence; Z99.3 Dependence on wheelchair
CPT/HCPCS: 36410; 36415; 76937; 80048; 80053; 80202; 81003; 82306; 82565; 82607; 82728; 82746; 82747; 82784; 83540; 83550; 83605; 83615; 83735; 83883; 83921; 84165; 84207; 84443; 85025; 85027; 85652; 86038; 86334; 86431; 87040; 87077; 87186; 87635

== ENCOUNTER → 2022-05-08 | Outpatient (CLI) | payer BC ==
[2022-05-08 16:39] LABS: HCT 37.5 % (37.2-46.3); HGB 11.9 g/dL (12.0-15.0); MCH 27.1 pg (27.0-32.0); MCHC 31.7 g/dL (32.0-37.0); MCV 85.4 fL (80.0-97.0); Mean Platelet Volume 9.9 fL (9.5-12.2); NRBC Per 100 WBC 0.3 /100 WBCS (0.0-0.0); Platelet Count 281 X 10*3/uL (140-440); RBC 4.39 X 10*6/uL (4.10-5.20); RDW 14.1 % (11.5-14.5); WBC 8.59 X 10*3/uL (4.50-10.00)
[2022-05-08 17:07] LABS: ALT 13 U/L (8-44); AST 17 U/L (13-35); African American GFR (CKD) 122.3 (60.0-200.0); Albumin 4.2 g/dL (3.8-4.9); Alkaline Phosphatase 73 U/L (41-126); BUN/Creat Ratio 13.17 Ratio (12.00-20.00); Blood Urea Nitrogen 7.9 mg/dL (9.0-27.0); Calcium 9.4 mg/dL (8.7-10.3); Carbon Dioxide 26.9 mmol/L (20.0-27.5); Chloride 104 mmol/L (96-109); Chol/HDL Ratio 3.94 Ratio; Globulin 2.8 g/dL (1.6-3.3); Glucose 112 mg/dL (70-110); Non-African American GFR(CKD) 105.5 (60.0-200.0); Potassium 4.5 mmol/L (3.5-5.5); Sodium 140 mmol/L (135-145)
== END | disposition home or self-care (01) ==
LOC: LABWHC1 10:05
PROVIDERS: ATTEND Psychiatry & Neurology Neurology
DX: Z00.01 Encounter for general adult medical examination with abnormal findings (principal); Z51.81 Encounter for therapeutic drug level monitoring; G35 Multiple sclerosis
CPT/HCPCS: 36415; 80053; 80061; 85027

== ENCOUNTER → 2023-04-23 | Outpatient (CLI) | payer BC ==
[2023-04-23 23:11] LABS: Basophils # (A) 0.06 X 10*3/uL (0.00-0.10); Basophils % (A) 0.8 %; Eosinophils # (A) 0.24 X 10*3/uL (0.04-0.35); Eosinophils % (A) 3.3 %; HGB 12.6 d/dL (12.0-15.0); Lymphocytes # (A) 2.21 X 10*3/uL (0.90-5.00); MCH 29.4 pg (27.0-32.0); MCHC 33.2 d/dL (32.0-37.0); MCV 88.8 FL (80.0-97.0); Mean Platelet Volume 9.8 FL (9.5-12.2); Monocytes % (A) 6.8 %; NRBC Per 100 WBC 0.05 X 10*3/uL (0.00-0.01); Neutrophils # (A) 4.31 X 10*3/uL (1.80-7.70); Neutrophils % (A) 58.4 %; Platelet Count 250 X 10*3/uL (140-440); RBC 4.28 X 10*6/uL (4.10-5.20); WBC 7.37 X 10*3/uL (4.50-10.00)
[2023-04-24 07:39] LABS: ALT 9 U/L (8-44); AST 20 U/L (13-35); Albumin 4.5 d/dL (3.8-4.9); Alkaline Phosphatase 76 U/L (41-126); BUN/Creat Ratio 11.33 Ratio (12.00-20.00); Blood Urea Nitrogen 6.8 mg/dL (9.0-27.0); Calcium 9.5 mg/dL (8.7-10.3); Carbon Dioxide 27.5 mmol/L (21.6-31.8); Chloride 104 mmol/L (96-109); Globulin 2.5 d/dL (1.6-3.3); Glucose 130 mg/dL (70-110); Sodium 142 mmol/L (135-145); T4, Free (Free Thyroxine) 1.39 ng/dL (0.80-1.80); Total Bilirubin 0.5 mg/dL (0.3-1.2)
== END | disposition home or self-care (01) ==
LOC: LABWHC1 09:07
PROVIDERS: ATTEND Psychiatry & Neurology Neurology
DX: E55.9 Vitamin D deficiency, unspecified (principal); E53.9 Vitamin B deficiency, unspecified; G35 Multiple sclerosis; H93.19 Tinnitus, unspecified ear; H53.8 Other visual disturbances; R53.83 Other fatigue; R20.8 Other disturbances of skin sensation
CPT/HCPCS: 36415; 80053; 82306; 82607; 84207; 84439; 84443; 84480; 85025

== ENCOUNTER 2024-01-12 23:41 | Emergency (ER) | payer BC, OTHER ==
[2024-01-13 00:36] VITALS: RESP 18; TEMP 98.2
[2024-01-13] MEDS: SODIUM CHLORIDE 0.9% 1,000 ML IV STA (00:58)
[2024-01-13] MEDS: MORPHINE SULFATE 4 MG/ML SYRINGE IVP STA (00:59)
[2024-01-13] MEDS: ACETAMINOPHEN TAB 500 MG TAB PO STA (01:00)
[2024-01-13 01:33] LABS: ALT 28 U/L (4-34); AST 36 U/L (14-36); African American GFR (CKD) >90 (>60 ml/min/1.73 sqM); Albumin 4.9 g/dL (3.5-5.0); Alkaline Phosphatase 121 U/L (38-126); Anion Gap 12 mmol/L; Blood Urea Nitrogen 11 mg/dL (7-17); C Reactive Protein 2.7 mg/dL (<1.0); Calcium 9.7 mg/dL (8.4-10.2); Carbon Dioxide 23 mmol/L (22-30); Chloride 104 mmol/L (98-107); Glucose 175 mg/dL (74-99); Non-African American GFR(CKD) >90 (>60 ml/min/1.73 sqM); Potassium 4.9 mmol/L (3.5-5.1); Sodium 139 mmol/L (137-145); Total Bilirubin 0.7 mg/dL (0.2-1.3); Total Protein 8.1 g/dL (6.3-8.2)
[2024-01-13 01:35] LABS: Basophils # (A) 0.1 k/uL (0-0.2); Basophils % (A) 1 %; Eosinophils # (A) 0.3 k/uL (0-0.7); Eosinophils % (A) 3 %; HCT 41.4 % (34.0-46.0); HGB 13.6 gm/dL (11.4-16.0); Lymphocytes # (A) 2.6 k/uL (1.0-4.8); Lymphocytes % (A) 27 %; MCH 30.3 pg (25.0-35.0); MCHC 32.8 g/dL (31.0-37.0); MCV 92.4 fL (80.0-100.0); Mean Platelet Volume 7.4; Monocytes # (A) 0.4 k/uL (0-1.0); Monocytes % (A) 4 %; Neutrophils # (A) 6.1 k/uL (1.3-7.7); Neutrophils % (A) 63 %; Platelet Count 288 k/uL (150-450); Poikilocytosis Slight; RBC 4.48 m/uL (3.80-5.40); RDW 15.3 % (11.5-15.5); WBC 9.7 k/uL (3.8-10.6)
--- NOTE | 2024-01-13 03:51 | ED ---
General Adult HPI - General Chief complaint: Wound/Laceration Stated complaint: heel wound Time Seen by Provider: 01/12/24 23:49 Source: EMS Mode of arrival: EMS - History of Present Illness Initial comments: 53-year-old female presenting to the ED with complaints of left ankle pain. Patient has a history of MS and is nonambulatory. Reports that she spends a lot of her time in the wheelchair with the left side of her ankle pressed against it. States over the past few weeks has noticed an open sore to her left lateral ankle. Most recently over the past few days patient reports increased pain of it. Patient normally uses a sit to stand device to help get her to the bathroom and back into her chair or sleeping position. States she has noticed especially more pain when she bears weight on it when using this device. Denies fever or chills. No other complaints at this time. - Related Data Home Medications Medication Instructions Recorded Confirmed Baclofen [Lioresal] 20 mg PO TID 10/12/20 11/20/21 Ibuprofen [Motrin Ib] 200 - 400 mg PO Q6H PRN 08/20/21 11/20/21 Omeprazole Magnesium [PriLOSEC OTC] 20 mg PO DAILY 08/20/21 11/20/21 Lisinopril-Hctz 10-12.5 mg 1 tab PO DAILY 11/20/21 11/20/21 [Zestoretic 10-12.5] Previous Rx's Medication Instructions Recorded Acetaminophen Tab [Tylenol] 650 mg PO Q6HR PRN tab 11/27/21 Cholecalciferol [Vitamin D3 (125 125 mcg PO DAILY tablet 11/27/21 Mcg = 5000 Iu)] Folic Acid 0.5 mg PO DAILY tab 11/27/21 HYDROcodone/APAP 5-325MG [[place] 1 each PO Q4HR PRN #18 tab 11/27/21 5-325] Cephalexin [Keflex] 500 mg PO Q6HR 7 Days #28 cap 01/13/24 Sulfamethox-Tmp 800-160Mg [Bactrim 1 each PO Q12HR 7 Days #14 tab 01/13/24 Ds] Allergies Allergy/AdvReac Type Severity Reaction Status Date / Time No Known Allergies Allergy Verified 01/12/24 23:47 Review of Systems ROS Statement: Those systems with pertinent positive or pertinent negative responses have been documented in the HPI. ROS Other: All systems not noted in ROS Statement are negative. Past Medical History Past Medical History: GERD/Reflux, Hypertension, Musculoskeletal Disorder, Neurologic Disorder Additional Past Medical History / Comment(s): MS, urinary incontinence, elevated blood sugars with steroids. History of Any Multi-Drug Resistant Organisms: None Reported Past Surgical History: Cholecystectomy Additional Past Surgical History / Comment(s): L benign ovarian mass with oophorectomy, R ovary resected/cyst Past Anesthesia/Blood Transfusion Reactions: No Reported Reaction Additional Past Anesthesia/Blood Transfusion Reaction / Comment(s): Pt received blood with gallbladder surgery without reaction. Past Psychological History: Depression Smoking Status: Former smoker Past Alcohol Use History: Rare Past Drug Use History: None Reported - Past Family History Mother History Unknown: Yes Family Medical History: Eye Disorder, Hypertension, Osteoarthritis (OA) Additional Family Medical History / Comment(s): ARTHRITIS, KNEE REPLACEMENT SURGERY, GLAUCOMA WITH SURGERY. Father History Unknown: Yes Family Medical History: Cancer, Hypertension, Osteoarthritis (OA) Additional Family Medical History / Comment(s): PACEMAKER, ARTHRITIS WITH KNEE REPLACEMENTS, COLON CANCER STAGE II. FATHER LIVED TO BE 79YRS OLD. General Exam General appearance: alert, in no apparent distress Eye exam: Present: normal appearance Neck exam: Present: normal inspection Respiratory exam: Present: normal lung sounds bilaterally Cardiovascular Exam: Present: regular rate GI/Abdominal exam: Present: soft Extremities exam: Present: other (Left lateral ankle overlying the lateral malleolus there is a open sore approximately 4 x 4 cm. There does appear to be dried purulent discharge, no active discharge. Does have surrounding warmth, erythema and is tender to palpation.) Neurological exam: Present: alert, oriented X3 Skin exam: Present: warm, dry Course Vital Signs 01/12/24 01/13/24 01/13/24 23:45 01:00 02:00 Temperature 98.2 F Pulse Rate 91 84 82 Respiratory 18 18 18 Rate Blood Pressure 154/100 124/84 127/86 O2 Sat by Pulse 96 99 99 Oximetry 01/13/24 01/13/24 04:00 08:02 Temperature Pulse Rate 89 81 Respiratory 18 18 Rate Blood Pressure 116/77 143/99 O2 Sat by Pulse 96 97 Oximetry Medical Decision Making - Medical Decision Making Was pt. sent in by a medical professional or institution (, PA, HISTOLOGY MANAGER, urgent care, hospital, or care home...) When possible be specific @ -No Did you speak to anyone other than the patient for history (EMS, parent, family, police, friend...)? What history was obtained from this source @ -No Did you review nursing and triage notes (agree or disagree)? Why? @ -I reviewed and agree with nursing and triage notes Were old charts reviewed (outside hosp., previous admission, EMS record, old EKG, old radiological studies, urgent care reports/EKG's, care home records)? Report findings @ -No old charts were reviewed Differential Diagnosis (chest pain, altered mental status, abdominal pain women, abdominal pain men, vaginal bleeding, weakness, fever, dyspnea, syncope, headache, dizziness, GI bleed, back pain, seizure, CVA, palpatations, mental h ealth, musculoskeletal)? @ -Differential Musculoskeletal Muscular strain, contusion, ligament sprain, fracture, arthritis, septic arthritis, bursitis, cellulitis, muscle spasm, nerve compression, DVT, arterial occlusion, herpes zoster, electrolyte abnormality, tumor.... This is not meant to be in all inclusive list EKG interpreted by me (3pts min.). @ -None X-rays interpreted by me (1pt min.). @ -X-ray interpreted me which showed soft tissue swelling however no evidence of osteomyelitis at this time. CT interpreted by me (1pt min.). @ -None done U/S interpreted by me (1pt. min.). @ -None done What testing was considered but not performed or refused? (CT, X-rays, U/S, labs)? Why? @ -None What meds were considered but not given or refused? Why? @ -None Did you discuss the management of the patient with other professionals (professionals i.e. , PA, HISTOLOGY MANAGER, lab, RT, psych nurse, manager social services, senior java architect, teacher, investigation officer, rn field case manager)? Give summary @ -No Was smoking cessation discussed for >3mins.? @ -No Was critical care preformed (if so, how long)? @ -No Were there social determinants of health that impacted care today? How? (Homelessness, low income, unemployed, alcoholism, drug addiction, transportation, low edu. Level, literacy, decrease access to med. care, [place] [facility], rehab)? @ -No Was there de-escalation of care discussed even if they declined (Discuss DNR or withdrawal of care, Hospice)? DNR status @ -No What co-morbidities impacted this encounter? (DM, HTN, Smoking, COPD, CAD, Cancer, CVA, ARF, Chemo, Hep., AIDS, mental health diagnosis, sleep apnea, morbid obesity)? @ -MS Was patient admitted / discharged? Hospital course, mention meds given and route, prescriptions, significant lab abnormalities, going to OR and other pertinent info. @ -Discharge 53-year-old female presenting to the ED with complaints of left ankle pain. Patient has MS and is nonambulatory. Reports that she spends most of her time in her wheelchair ankle was pressed and stiff. Few weeks has developed and over the past few days pain started to worsen of her left ankle especially with lift assist. Laboratory studies reviewed. CBC CMP largely unremarkable. CRP slightly elevated at 2.7. On examination there appears to be a 4 x 4 ulcer on the left lateral ankle with surrounding erythema warmth and tenderness to palpation. There is dried purulent material as well. Culture was obtained. Patient discharged home in stable condition with prescription for Bactrim and Keflex. Advise close follow-up with her primary care provider. Discussed return precautions with patient who verbalized agreement. Undiagnosed new problem with uncertain prognosis? @ -No Drug Therapy requiring intensive monitoring for toxicity (Heparin, Nitro, Insulin, Cardizem)? @ -No Were any procedures done? @ -No Diagnosis/symptom? @ -Cellulitis, left lateral ankle Acute, or Chronic, or Acute on Chronic? @ -Acute Uncomplicated (without systemic symptoms) or Complicated (systemic symptoms)? @ -Uncomplicated Side effects of treatment? @ -No Exacerbation, Progression, or Severe Exacerbation? @ -No Poses a threat to life or bodily function? How? (Chest pain, [place], [place], pneumonia, PE, COPD, DKA, ARF, appy, cholecystitis, CVA, Diverticulitis, Homicidal, Suicidal, threat to staff... and all critical care pts) @ -Unlikely at this time - Lab Data Result diagrams: 01/13/24 01:04 01/13/24 01:04 Lab Results 01/13/24 01/13/24 Range/Units 01:04 01:04 WBC 9.7 (3.8-10.6) k/uL RBC 4.48 (3.80-5.40) m/uL Hgb 13.6 (11.4-16.0) gm/dL Hct 41.4 (34.0-46.0) % MCV 92.4 (80.0-100.0) fL MCH 30.3 (25.0-35.0) pg MCHC 32.8 (31.0-37.0) g/dL RDW 15.3 (11.5-15.5) % Plt Count 288 (150-450) k/uL MPV 7.4 Neutrophils % 63 % Lymphocytes % 27 % Monocytes % 4 % Eosinophils % 3 % Basophils % 1 % Neutrophils # 6.1 (1.3-7.7) k/uL Lymphocytes # 2.6 (1.0-4.8) k/uL Monocytes # 0.4 (0-1.0) k/uL Eosinophils # 0.3 (0-0.7) k/uL Basophils # 0.1 (0-0.2) k/uL Poikilocytosis Slight Sodium 139 (137-145) mmol/L Potassium 4.9 (3.5-5.1) mmol/L Chloride 104 (98-107) mmol/L Carbon Dioxide 23 (22-30) mmol/L Anion Gap 12 mmol/L BUN 11 (7-17) mg/dL Creatinine 0.50 L (0.52-1.04) mg/dL Est GFR (CKD-EPI)AfAm >90 (>60 ml/min/1.73 sqM) Est GFR (CKD-EPI)NonAf >90 (>60 ml/min/1.73 sqM) Glucose 175 H (74-99) mg/dL Calcium 9.7 (8.4-10.2) mg/dL Total Bilirubin 0.7 (0.2-1.3) mg/dL AST 36 (14-36) U/L ALT 28 (4-34) U/L Alkaline Phosphatase 121 (38-126) U/L C-Reactive Protein 2.7 H (<1.0) mg/dL Total Protein 8.1 (6.3-8.2) g/dL Albumin 4.9 (3.5-5.0) g/dL Disposition Clinical Impression: Cellulitis Disposition: HOME SELF-CARE Condition: Good Instructions (If sedation given, give patient instructions): Cellulitis (ED) Additional Instructions: Please return to the Emergency Department if symptoms worsen or any other concerns. Please follow-up with your primary care provider. Take [id number] medications as needed for pain. Prescriptions: Sulfamethox-Tmp 800-160Mg [Bactrim Ds] 1 each PO Q12HR 7 Days #14 tab Cephalexin [Keflex] 500 mg PO Q6HR 7 Days #28 cap Is patient prescribed a controlled substance at d/c from ED?: No Referrals: Roshan Rincon MD [Primary Care Provider] - 1-2 days
[2024-01-13] MEDS: CEPHALEXIN 500MG STARTER PACK 4 CAP BTL PO STA (05:08)
[2024-01-13] MEDS: SULFAMETH-TMP DS STARTER PACK 2 TAB BTL PO STA (05:08)
--- NOTE | 2024-01-13 07:59 | XR ---
EXAMINATION TYPE: XR tibia fibula 2 views LT, XR ankle complete 3 views LT DATE OF EXAM: 01/13/2024 Comparison: None Clinical History: 53-year-old female one to the left foot r/o osteo, nonambulatory Findings: The technologist indicates best possible images. Tibia/fibula: Mild generalized soft tissue swelling. Osteopenia. Knee articulation appears grossly intact. No perio stitis or osteolysis. No acute fracture seen. Ankle: Circumferential soft tissue swelling. Limited by osteopenia. Talar dome appears intact. No zheng bony destruction identified Impression (left tibia/fibula and ankle): Limited by osteopenia. Generalized soft tissue swelling. No discrete radiographic evidence for osteom yelitis at this time.
[2024-01-13 08:35] VITALS: BP 143/99; PULSE 81
== END 2024-01-13 08:56 | disposition home or self-care (01) ==
LOC: EC 23:41
DX: L03.116 Cellulitis of left lower limb (principal); Z87.891 Personal history of nicotine dependence
CPT/HCPCS: 36415; 80053; 85025; 86140; 87070; 87205; 73590; 73610; 99284; 96374; 96361; J2270; 87077; 87186